=== PATIENT | female | born 1940 | race Two or more races ===

== ENCOUNTER 2016-07-18 08:54 | Outpatient (CLI) | payer MEDICARE ==
[~2016-07-18] VITALS: Ht 157.5 cm; Wt 55.7 kg
[~2016-07-18 08:54] MED LIST: /ESOM40CA; /ESOM40CA OR; /FEXO18TA OR; /ONDA4TA OR; ACTI300C; ACTI300C OR; ALBU17IN INH; AMIT50TA PO; AMIT50TA2 OR; ASPI325T; AUGM12TA10 PO; CARV3.12 PO; CARV6.25 PO; COLA100C PO; DARV100T OR; DEXI30CA PO; DOC-Q-LACE PO; ECOT325T3 PO; ECOT325T5 OR; ESOM1CAP5 PO; FENO134C PO; FERR325T3 PO; FLON0.05; HYDR-4266 PO; HYDR10TAB PO; HYDR25T PO; HYDROXYCHLOROQUINE PO; KEPP500T6 PO; LEVA250T; LEVA500T OR; LEVE750T5 PO; LIDO5DIS EX; MELA0.02 PO; MIRA3350 PO; NIFE60TA6 PO; NIFE60TA8; NIFE60TA8 OR; PREG50CA PO; QUES4POW PO; REST0.05 OU; SUCR1SS PO; SYST1SOL OU; TRIC145T19; TRIC145T19 OR; TYLE325T5 PO; VICO5TAB; VICO5TAB OR; VITA100066 PO; VITA100T OR; VITA20002; VITAMIN D PO; VITAMIN D50000 UNT OR; WELCHOL; WELCHOL PO; ZOFR4TAB3 PO; ZOLO50TA PO; [UNRECOGNIZED DRUG - OTHER]
[2016-07-18] MEDS ORDERED: IRON SUCROSE 25 MG in NS 50 ML IV ONE (09:15)
[2016-07-18] MEDS ORDERED: IRON SUCROSE 475 MG in NS 250 ML IV ONE (10:15)
== END 2016-07-18 13:50 | disposition home or self-care (01) ==
LOC: M INFU 08:54
PROVIDERS: ATTEND Internal Medicine Nephrology
DX: D50.9 Iron deficiency anemia, unspecified (principal); I10 Essential (primary) hypertension; I63.9 Cerebral infarction, unspecified; K21.9 Gastro-esophageal reflux disease without esophagitis; M54.2 Cervicalgia; F32.9 Major depressive disorder, single episode, unspecified; Z88.1 Allergy status to other antibiotic agents; Z88.8 Allergy status to other drugs, medicaments and biological substances; Z79.82 Long term (current) use of aspirin; Z79.899 Other long term (current) drug therapy
CPT/HCPCS: 96365; 96366; J1756

== ENCOUNTER 2016-08-16 19:24 | Inpatient (IN) | payer MEDICARE ==
[~2016-08-16] VITALS: Ht 157.5 cm; Wt 54.8 kg
[~2016-08-16 19:24] MED LIST changes: +AZITHROMYCIN INJ 500 MG, VIAL MATE ADAPTER 1 EACH in D5W 250 ML IV SCH
[2016-08-16 20:43] LABS: ABG BASE EXCESS -5.8 (-2.0-2.0); ABG DEVICE NASAL CANN; ABG HCO3 17.4 MEQ/L (22.0-26.0); ABG PARTIAL PRESSURE CO2 26.8 mmHg (35.0-45.0); ABG PARTIAL PRESSURE O2 69.3 mmHg (75.0-100.0); ABG STANDARD HCO3 19.6 MEQ/L (22.0-26.0); ABG TOTAL CO2 18.2 MEQ/L (23.0-31.0)
[2016-08-16] MEDS: **hydrALAZINE** 10 MG TAB PO SCH (21:00)
[2016-08-16 21:10] LABS: BASO % 0.2 % (0.0-1.0); EOS # 0.1 K/mm3 (0.0-0.50); LARGE UNSTAINED CELL % 0.5 % (0.0-4.0); LYMPH # 0.8 K/mm3 (1.5-4.5); LYMPH % 8.3 % (24.0-44.0); MEAN CORPUSCULAR HEMOGLOBIN 28.1 pg (27.0-33.0); MEAN CORPUSCULAR HGB CONC 32.4 g/dl (32.0-36.5); MEAN CORPUSCULAR VOLUME 86.5 fl (80.0-96.0); MONO # 0.2 K/mm3 (0.0-0.8); MONO % 2.5 % (0.0-5.0); NEUTROPHILS # 7.9 K/mm3 (1.8-7.7); NEUTROPHILS % 87.5 % (36.0-66.0); PLATELET COUNT, AUTOMATED 167 k/mm3 (150-450); RED CELL DISTRIBUTION WIDTH 14.9 % (11.5-14.5)
[2016-08-16 21:43] LABS: ALBUMIN 2.3 GM/DL (3.2-5.2); ALBUMIN/GLOBULIN RATIO 0.79 (1.00-1.93); ALKALINE PHOSPHATASE 118 U/L (45-117); ALT/SGPT 15 U/L (12-78); ANION GAP 10 MEQ/L (8-16); AST/SGOT 25 U/L (15-37); BILIRUBIN,DIRECT 0.2 MG/DL (0.0-0.2); BILIRUBIN,TOTAL 0.8 MG/DL (0.2-1.0); BLOOD UREA NITROGEN 26 MG/DL (7-18); CALCIUM LEVEL 7.7 MG/DL (8.8-10.2); CARBON DIOXIDE LEVEL 21 MEQ/L (21-32); CHLORIDE LEVEL 107 MEQ/L (98-107); CREATININE FOR GFR 1.98 MG/DL (0.55-1.02); GLUCOSE, FASTING 89 MG/DL (83-110); POTASSIUM SERUM 3.9 MEQ/L (3.5-5.1); SODIUM LEVEL 138 MEQ/L (136-145); TOTAL PROTEIN 5.2 GM/DL (6.4-8.2)
[2016-08-16] MEDS ORDERED: ACETAMINOPHEN 325 MG TAB As Ordered ONE (22:57)
[2016-08-16] MEDS ORDERED: VITA500046 PO (23:13)
[2016-08-16] MEDS ORDERED: ASPI32ECTA PO (23:13)
[2016-08-16] MEDS ORDERED: AMIT50TA PO (23:19)
[2016-08-16] MEDS ORDERED: BACITAB3 PO (23:19)
[2016-08-16] MEDS ORDERED: PRED10TA PO (23:19)
[2016-08-16] MEDS ORDERED: ESOM1CAP5 PO (23:19)
[2016-08-16] MEDS ORDERED: DIPH25CA PO (23:19)
[2016-08-16] MEDS ORDERED: CARV3.12 PO (23:19)
[2016-08-16] MEDS ORDERED: HYDR10TAB PO (23:19)
[2016-08-16] MEDS ORDERED: CEPH500T PO (23:19)
[2016-08-16] MEDS ORDERED: SYST1SOL OU (23:19)
[2016-08-16] MEDS ORDERED: REST0.05 OU (23:19)
[2016-08-16] MEDS ORDERED: GABA-279 PO (23:19)
[2016-08-16] MEDS ORDERED: diphenhydrAMINE 50 MG CAP PO PRN (23:30)
[2016-08-16] MEDS ORDERED: ONDANSETRON 4MG/2ML VIAL (J2405) IV PRN (23:30)
[2016-08-16] MEDS ORDERED: ACETAMINOPHEN TAB 650MG DOSE (2X325MG) PO PRN (23:30)
[2016-08-16] MEDS ORDERED: IPRATROPIUM 0.5MG/ALBUTEROL 2.5MG INH SOL UD 3ML (DUONEB)(J7620) NEB PRN (23:30)
[2016-08-16] MEDS ORDERED: ZOSYN 3.375 GM VIAL (J2543) As Ordered ONE (23:42)
[2016-08-17] MEDS ORDERED: SYSTANE EYE DROPS (PATIENT'S OWN MED) OU PRN (01:00)
--- NOTE | 2016-08-17 03:33 | EDDOCDS ---
Physician Documentation [facility] Name: Irasema Kiran Age: 76 yrs Sex: Female : 1940 Arrival Date: 08/16/2016 Time: 19:24 Bed 8 Private MD: Disposition: 08/16/16 23:18 Hospitalization ordered by Braxton Giang for Inpatient Admission. Preliminary diagnosis are Altered mental status, unspecified, Pneumonia, unspecified organism. - Bed requested for 5 Peters. - Status is Inpatient Admission. ld5 - Condition is Stable. - Problem is new. - Symptoms have improved. Historical: - Allergies: Cipro PO; Miralax; - Home Meds: 1. Nifediac CC 60 mg Oral TbER 1 tab once daily 2. prednisone 10 mg Oral tab 3 tabs once daily 3. amitriptyline 50 mg Oral tab 1 tab nightly 4. levetiracetam 500 mg oral tab 1 tab 2 times per day 5. cephalexin 500 mg Oral cap 1 cap every 12 hours 6. carvedilol 3.125 mg oral tab 1 tab daily 7. esomeprazole magnesium 40 mg Oral cpDR 1 cap once daily 8. gabapentin 100 mg Oral tab 100 mg three times a day 9. Vitamin D3 [place] 55843 unit weekly 10. hydralazine 10 mg Oral tab 1 tab 2 times per day 11. diphenhydramine HCl 25 mg Oral cap 1 cap as needed - PMHx: CRD; CVA; dizziness; GERD; Hypertension; Pancreatitis; Dementia; - PSHx: common bile duct bypass; Cholecystectomy; right ankle surgery; - Family history: Not pertinent. - Social history: Smoking status: Patient states was never smoker of tobacco. No barriers to communication noted, The patient speaks fluent [place], Speaks appropriately for age. - : The pt / caregiver states he / she is not on anticoagulants. Home medication list is obtained from pill bottles. - Exposure Risk Screening:: None identified. Vital Signs: 08/16 19:39 BP 189 / 94; Pulse 85; Resp 20; Temp 100.8; Pulse Ox 94% ; Weight 60.65 kg / 133.71 lbs jlm (M); 19:57 BP 212 / 96 (auto/); ld5 19:57 Pulse 80 MON; Pulse Ox 99% ; ld5 20:02 BP 225 / 102 (auto/); ld5 20:03 Pulse 82 MON; Pulse Ox 95% ; ld5 20:08 Pulse 82 MON; Pulse Ox 96% ; ld5 20:08 BP 232 / 101 (auto/); ld5 20:28 Pulse 82 MON; Pulse Ox 95% ; ld5 20:28 BP 215 / 91 (auto/); ld5 20:38 BP 221 / 93 (auto/); ld5 20:38 Pulse 80 MON; Pulse Ox 96% ; ld5 20:53 Pulse 82 MON; Pulse Ox 97% ; ld5 20:53 BP 223 / 112 (auto/); ld5 21:23 BP 224 / 100 (auto/); ld5 21:23 Pulse 84 MON; Pulse Ox 95% ; ld5 21:53 BP 236 / 96 (auto/); ld5 21:53 Pulse 86 MON; Pulse Ox 94% ; ld5 22:01 BP 203 / 87 (auto/); ld5 22:01 Pulse 86 MON; Pulse Ox 99% ; ld5 22:08 BP 202 / 88 (auto/); ld5 22:08 Pulse 86 MON; Pulse Ox 96% ; ld5 22:40 BP 189 / 81 LA (man/); ld5 22:47 Temp 101.8(O); [facility] 08/17 00:23 BP 173 / 77; Pulse 86 MON; Resp 18; Temp 99.1(O); Pulse Ox 94% ; ld5 00:38 Pulse 88 MON; Pulse Ox 94% ; ld5 00:38 BP 173 / 75 (auto/); ld5 00:53 Pulse 90 MON; Pulse Ox 94% ; ld5 00:53 BP 160 / 64 (auto/); ld5 01:08 BP 143 / 65 (auto/); ld5 01:08 Pulse 90 MON; Pulse Ox 94% ; ld5 01:23 BP 151 / 70 (auto/); ld5 01:23 Pulse 90 MON; Pulse Ox 96% ; ld5 01:38 BP 152 / 72 (auto/); ld5 01:38 Pulse 88 MON; Pulse Ox 95% ; ld5 02:23 BP 158 / 74 (auto/); ld5 02:23 Pulse 80 MON; Pulse Ox 96% ; ld5 02:38 BP 144 / 67 (auto/); ld5 02:38 Pulse 86 MON; Pulse Ox 96% ; ld5 02:53 BP 163 / 80 (auto/); ld5 02:53 Pulse 76 MON; Resp 16; Temp 99; Pulse Ox 96% ; ld5 03:23 BP 142 / 65 (auto/); ld5 03:23 Pulse 72 MON; Pulse Ox 96% ; ld5 MDM: 08/16 20:03 Performance Improvement Coordinator/Pulse Ox/q 15 min VS ordered. fg 20:03 Accucheck ordered. fg 20:03 IV Saline Lock ordered. fg 20:03 Oxygen at 4L/Min NC or Home dosage ordered. fg 20:03 Rhythm Strip to chart ordered. fg 20:05 CT Head Without Contrast Ordered. EDMS 20:05 CT Spine,Cervical W/o Contrast Ordered. EDMS 20:05 Acetaminophen Level Ordered. EDMS 20:05 CBC with Diff Ordered. EDMS 20:05 Cardiac Injury Profile Ordered. EDMS 20:05 Liver Profile Ordered. EDMS 20:05 MED Profile Ordered. EDMS 20:05 Salicylate Level Ordered. EDMS 20:05 Thyroid Stimulating Hormone Ordered. EDMS 20:05 Urinalysis Ordered. EDMS 20:05 Urine Culture Ordered. EDMS 20:05 Chest, 1 View Ordered. EDMS 20:05 ECG WITH READING ER PHYS+CARDIAG ordered. EDMS 20:08 Call Respiratory ordered. fg 20:08 Call Respiratory complete. ml3 20:09 Ammonia ([place] Tube on Ice, Not [place]) Ordered. EDMS 20:09 -Arterial Blood Gas Ordered. EDMS 21:56 Financial registration complete. [email or web address] 21:56 [facility] [place] Agreement was scanned into [employer] and attached to record. [email or web address] 22:49 -Blood Culture (Adults Only), peripheral from different site, or from device/port/PICC fg etc. if present ordered. 22:49 Acetaminophen Tablet 650 mg PO once ordered. fg 22:49 Piperacillin-Tazobactam 3.375 grams IVPB once over 30 mins; dilute in 50mL of NS or D5W fg ordered. 22:50 Lactic Acid ([place] tube on ice) Ordered. EDMS 22:50 -Blood Culture Ordered. EDMS 22:50 -Influenza A&B Rapid Antigen - Nose Ordered. EDMS 22:50 STREP SCREEN NEGATIVE - GATS Ordered. EDMS 22:50 -Blood Culture (Adults Only), peripheral from different site, or from device/port/PICC ml3 etc. if present complete. 22:51 BLOOD CULTURES Ordered. EDMS 22:52 BED REQUEST+ADM ordered. EDMS 23:29 Admission / Observation Status ordered. EDMS 23:29 REGULAR DIET ordered. EDMS 23:30 COMPLETE BLOOD COUNT Ordered. EDMS 23:31 BASIC METABOLIC PROFILE Ordered. EDMS 23:38 PHYSICAL THERAPY EVAL & TREAT ordered. EDMS 23:59 Written Provider Order was scanned into [employer] and attached to record. ml3 08/17 00:01 hydrALAZINE 10 mg PO once ordered. ld5 01:02 SPUTUM CULTURE AND GRAM STAIN Ordered. EDMS Administered Medications: 08/16 23:15 Drug: Acetaminophen 650 mg [acetaminophen 325 mg tablet (2 tabs)] Route: PO; ld5 08/17 00:58 Follow up: Response: Temperature is decreased ld5 08/16 23:53 Drug: Piperacillin-Tazobactam 3.375 grams [piperacillin-tazobactam 3.375 gram ld5 intravenous solution] Route: IVPB; Infused Over: 30 mins; Site: left antecubital; 08/17 00:58 Follow up: IV Status: Completed infusion; IV Intake: 50ml ld5 00:34 Drug: hydrALAZINE 10 mg {Note: 10 mg tablet.} Route: PO; ld5 03:31 Follow up: Response: Blood pressure is improved ld5 Signatures: Dispatcher [employer] EDCA Keira RodriguezEligioAlessandra, Automatic Emb[employer]ider[employer] Machine Tender Unit ml3 Rebecca Nguyen,JOSH RN ld5 Kelsie Marquez MD MD fg Sorenson, Kimberly, Reg Reg [email or web address] The chart was reviewed and I authenticate all verbal orders and agree with the evaluation and treatment provided.Attachments: 08/16 21:56 [facility] Payment Agreement [email or web address] 23:59 Written Provider Order ml3 MTDD
--- NOTE | 2016-08-17 03:33 | EDDOCDS ---
Nurse's Notes [facility] Name: Irasema Kiran Age: 76 yrs Sex: Female : 1940 Arrival Date: 08/16/2016 Time: 19:24 Bed 8 Private MD: Diagnosis: Altered mental status, unspecified;Pneumonia, unspecified organism Presentation: 08/16 19:28 Presenting complaint: EMS states: Since Monday pt has had increasing altered LOC, ld5 increasing weakness and abnormal speech. History of TIA. The last date and time the patient was known to be well was was at an unknown time on August 12, 2016. An acute neurological deficit is present. The patient has been moved to a treatment area. The patients blood glucose was checked before arriving to the hospital and was found to be normal. Adult Sepsis Screening: Patient has new or worsening altered mentation (1 point). Suicide/Homicide risk assessment- Unable to assess, the patient has an altered level of consciousness. 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 Transition of care: patient was not received from another setting of care. Care prior to arrival: IV initiated. Glucose check. 146. 19:28 Acuity: SHERRY Level 2 ld5 19:28 Method Of Arrival: Ambulance ld5 19:30 Adult Sepsis Screening: Patient's respiratory rate is less than 22. Systolic blood ld5 pressure is greater than 100. Patient has a qSOFA score of 0- Negative Sepsis Screen. 19:42 Presenting complaint: Son reports going to [employer] Monday night for dinner and pt ld5 had 2 beers. They then went to the [employer] and pt had 4 more beers. They were closing so they went to the local store to get her a 6-pack. When they got home she said she was going to stay up and drink her beer. Son found her on the floor at 0030 Monday. Pt slept all day Monday with the exception of a few bathroom breaks. Monday morning son heard pt fall in the bathroom. Son helped her up. Pt fell again Monday afternoon. Pt had no complaints except leg pain. Son states pt possibly took more than prescribed dose of Amitriptyline around 1100 today. Triage Assessment: 19:37 The onset of the patients symptoms was more than three hours ago. General: Appears in ld5 no apparent distress, Behavior is pt unable to follow commands. Pain: Location: left arm. Neurological: Level of Consciousness is awake, confused, Oriented to person, place, Tower Climber are weak bilaterally Speech is slurred. Respiratory: Airway is patent Respiratory effort is even, unlabored. GI: Parent/caregiver reports the patient having son reports decreased oral intake. 08/17 03:03 Neurological: Reports weakness. ld5 Historical: - Allergies: Cipro PO; Miralax; - Home Meds: 1. Nifediac CC 60 mg Oral TbER 1 tab once daily 2. prednisone 10 mg Oral tab 3 tabs once daily 3. amitriptyline 50 mg Oral tab 1 tab nightly 4. levetiracetam 500 mg oral tab 1 tab 2 times per day 5. cephalexin 500 mg Oral cap 1 cap every 12 hours 6. carvedilol 3.125 mg oral tab 1 tab daily 7. esomeprazole magnesium 40 mg Oral cpDR 1 cap once daily 8. gabapentin 100 mg Oral tab 100 mg three times a day 9. Vitamin D3 oral oral [id number] unit weekly 10. hydralazine 10 mg Oral tab 1 tab 2 times per day 11. diphenhydramine HCl 25 mg Oral cap 1 cap as needed - PMHx: CRD; CVA; dizziness; GERD; Hypertension; Pancreatitis; Dementia; - PSHx: common bile duct bypass; Cholecystectomy; right ankle surgery; - Family history: Not pertinent. - Social history: Smoking status: Patient states was never smoker of tobacco. No barriers to communication noted, The patient speaks fluent Lithuanian, Speaks appropriately for age. - : The pt / caregiver states he / she is not on anticoagulants. Home medication list is obtained from pill bottles. - Exposure Risk Screening:: None identified. Screenin:57 Screening information is obtained from the patient, family members, prior medical ld5 records. Fall risk: At risk due to age, immobility. Assistance ADL's: Requires assistance with meal preparation, this assistance is provided by family members, bathing, assistance is provided by family members, medication administration, assistance is provided by family members. Abuse/DV Screen: The patient / caregiver reports he/she is: not in a situation that causes fear, pain or injury. Nutritional screening: No deficits noted. Advance Directives: There is no active DNR order. home support is adequate. Assessment: 08/16 20:05 General: Appears in no apparent distress, Behavior is restless. Pain: Location: left ld5 arm Quality of pain is described as from IV site. Neurological: Level of Consciousness is awake, confused, Oriented to person, place. Respiratory: Airway is patent Respiratory effort is even, unlabored, Breath sounds are clear bilaterally. GI: Abdomen is non- distended Bowel sounds present X 4 quads. Abd is soft and non tender X 4 quads. Parent/caregiver reports the patient having constipation. : Denies burning with urination, pain with urination. Derm: Skin is intact, Skin is dry. 20:40 General: Appears in no apparent distress, Behavior is quiet. General: Supportive family ld5 at bedside. Will continue to monitor. Neurological: Level of Consciousness is awake, obeys commands. Respiratory: Airway is patent Respiratory effort is even, unlabored. 21:00 General: Pt moves arm and has difficulty keeping still when BP cuff goes off. ld5 21:05 General: Pt laying in bed. Speech remains slurred but pt not as delayed with answering ld5 questions. Respirations easy and unlabored. Pt able to push self up in bed with little help. Will continue to monitor. 22:18 General: Appears in no apparent distress, Pt repositioned in bed. Family at bedside. ld5 Will continue to monitor. Neurological: Tower Climber are weak bilaterally. Respiratory: Airway is patent Respiratory effort is even, unlabored. 22:40 General: BP remains elevated on dynamap. Pt continues to not keep still when BP cuff ld5 inflates. 23:16 General: Pt medicated per orders for fever. Pt and family aware of plan for admission. ld5 Lab aware of need to draw blood. Antibiotic then to be hung. Will continue to monitor. 08/17 00:20 General: Appears in no apparent distress, Behavior is cooperative. Pain: Denies pain. ld5 Neurological: Level of Consciousness is awake, obeys commands. Respiratory: Airway is patent Respiratory effort is even, labored. 00:55 General: Pt assisted to bedpan. Tolerated well. Pt repositioned in bed for comfort. ld5 Will continue to monitor. 01:52 General: Appears in no apparent distress, Pt resting comfortably in bed. Denies any ld5 needs. Awaiting assigned bed to be available. 02:16 General: Pt assisted with bedpan. Tolerated well. Repositioned in bed. Will continue to ld5 monitor. 02:58 General: Pt resting quietly in bed. Respirations easy and unlabored. Will continue to ld5 monitor. 03:31 General: Appears in no apparent distress, Behavior is cooperative. Respiratory: Airway ld5 is patent Respiratory effort is even, unlabored. Vital Signs: 08/16 19:39 BP 189 / 94; Pulse 85; Resp 20; Temp 100.8; Pulse Ox 94% ; Weight 60.65 kg (M); jlm 19:57 BP 212 / 96 (auto/); ld5 19:57 Pulse 80 MON; Pulse Ox 99% ; ld5 20:02 BP 225 / 102 (auto/); ld5 20:03 Pulse 82 MON; Pulse Ox 95% ; ld5 20:08 Pulse 82 MON; Pulse Ox 96% ; ld5 20:08 BP 232 / 101 (auto/); ld5 20:28 Pulse 82 MON; Pulse Ox 95% ; ld5 20:28 BP 215 / 91 (auto/); ld5 20:38 BP 221 / 93 (auto/); ld5 20:38 Pulse 80 MON; Pulse Ox 96% ; ld5 20:53 Pulse 82 MON; Pulse Ox 97% ; ld5 20:53 BP 223 / 112 (auto/); ld5 21:23 BP 224 / 100 (auto/); ld5 21:23 Pulse 84 MON; Pulse Ox 95% ; ld5 21:53 BP 236 / 96 (auto/); ld5 21:53 Pulse 86 MON; Pulse Ox 94% ; ld5 22:01 BP 203 / 87 (auto/); ld5 22:01 Pulse 86 MON; Pulse Ox 99% ; ld5 22:08 BP 202 / 88 (auto/); ld5 22:08 Pulse 86 MON; Pulse Ox 96% ; ld5 22:40 BP 189 / 81 LA (man/); ld5 22:47 Temp 101.8(O); jlm 08/17 00:23 BP 173 / 77; Pulse 86 MON; Resp 18; Temp 99.1(O); Pulse Ox 94% ; ld5 00:38 Pulse 88 MON; Pulse Ox 94% ; ld5 00:38 BP 173 / 75 (auto/); ld5 00:53 Pulse 90 MON; Pulse Ox 94% ; ld5 00:53 BP 160 / 64 (auto/); ld5 01:08 BP 143 / 65 (auto/); ld5 01:08 Pulse 90 MON; Pulse Ox 94% ; ld5 01:23 BP 151 / 70 (auto/); ld5 01:23 Pulse 90 MON; Pulse Ox 96% ; ld5 01:38 BP 152 / 72 (auto/); ld5 01:38 Pulse 88 MON; Pulse Ox 95% ; ld5 02:23 BP 158 / 74 (auto/); ld5 02:23 Pulse 80 MON; Pulse Ox 96% ; ld5 02:38 BP 144 / 67 (auto/); ld5 02:38 Pulse 86 MON; Pulse Ox 96% ; ld5 02:53 BP 163 / 80 (auto/); ld5 02:53 Pulse 76 MON; Resp 16; Temp 99; Pulse Ox 96% ; ld5 03:23 BP 142 / 65 (auto/); ld5 03:23 Pulse 72 MON; Pulse Ox 96% ; ld5 Vitals: 08/16 19:39 Log In Time N/A - ambulance arrival. [facility] 23:16 Strep Screen is obtained and tested: Negative, a GATSNEG [facility] and sent. 08/17 03:03 Glucose Measurement D-Stick in Triage- Normal. ld5 ED Course: 08/16 19:25 Patient visited by Barb Rodriguez, Veneer Sawyer. ml3 19:25 Kelsie Marquez MD is Attending Physician. fg 19:25 Patient visited by Kelsie Marquez MD. fg 19:25 Patient moved to Waiting ml3 19:25 Patient moved to 8 ml3 19:31 Triage Initiated ld5 19:40 Patient visited by Vianca Wong, Veneer Sawyer. jlm 19:46 Patient visited by Rebecca Nguyen,RN. ld5 19:52 Patient visited by Rebecca Nguyen,RN. ld5 20:33 Skylar Dutton,RN is Primary Nurse. dsf 20:35 -Arterial Blood Gas Sent. jc3 20:45 Patient visited by Rebecca Nguyen,RN. ld5 20:50 EKG done. (by ED staff). Reviewed by Kelsie Marquez MD. jlm 20:51 Patient visited by Vianca Wong, Veneer Sawyer. jlm 21:56 [facility] [place] [facility] [place] Agreement was scanned into [employer] and attached to record. ks16 21:59 Patient name changed from Irasema\S\\S\Kiran\S\ to Irasema\S\ \S\Kiran. EDMS 22:11 Patient visited by Scott Goodrich PCA. kb5 22:22 Patient visited by Rebecca Nguyen,JOSH. ld5 22:48 Patient visited by Vianca Wong, Veneer Sawyer. jlm 23:15 -Influenza A&B Rapid Antigen - Nose Sent. ld5 23:15 STREP SCREEN NEGATIVE - GATS Sent. ld5 23:17 Patient visited by Rebecca Nguyen,JOSH. ld5 23:17 Braxton Giang DO is Hospitalizing Provider. fg 23:59 Written Provider Order was scanned into [employer] and attached to record. ml3 08/17 00:35 Patient visited by Rebecca Nguyen,JOSH. ld5 00:57 The patient / caregiver is instructed regarding the plan of care and ED course. ld5 Accompanied by Family Member, Patient has correct armband on for positive identification. Placed in gown. Bed in low position. Call light in reach. 00:57 Maintain field IV. Site clean & dry. Gauge & site: 22g left AC. No procedures done that ld5 require assistance. 00:58 Patient visited by Rebecca Nguyen RN. ld5 01:53 Patient visited by Rebecca Nguyen,JOSH. ld5 02:17 Patient visited by Rebecca Nguyen,JOSH. ld5 03:03 Patient visited by Rebecca Nguyen,JOSH. ld5 Administered Medications: 08/16 23:15 Drug: Acetaminophen 650 mg [acetaminophen 325 mg tablet (2 tabs)] Route: PO; ld5 08/17 00:58 Follow up: Response: Temperature is decreased ld5 08/16 23:53 Drug: Piperacillin-Tazobactam 3.375 grams [piperacillin-tazobactam 3.375 gram ld5 intravenous solution] Route: IVPB; Infused Over: 30 mins; Site: left antecubital; 08/17 00:58 Follow up: IV Status: Completed infusion; IV Intake: 50ml ld5 00:34 Drug: hydrALAZINE 10 mg {Note: 10 mg tablet.} Route: PO; ld5 03:31 Follow up: Response: Blood pressure is improved ld5 Intake: 00:58 IV: 50.00ml; Total: 50.00ml. ld5 Output: 00:56 Urine: 150.00ml (Voided); Total: 150.00ml. ld5 02:16 Urine: 200.00ml (Voided); Total: 350.00ml. ld5 RT: 08/16 20:35 ABG's drawn from right radial artery pressure held for 5 minutes no bleeding noted jc3 pressure bandage applied specimen sent pt. tolerated well. Order Results: Lab Order: Acetaminophen Level; SPEC'M 08/16/16 20:47 Test: ACETAMINOPHEN LEVEL; Value: < 2.0; Range: 10.0-30.0; Abnormal: Below low normal; Units: UG/ML; Status: F Lab Order: CBC with Diff; SPEC'M 08/16/16 20:47 Test: WHITE BLOOD COUNT; Value: 9.0; Range: 4.0-10.0; Units: K/mm3; Status: F Test: RED BLOOD COUNT; Value: 3.71; Range: 4.00-5.40; Abnormal: Below low normal; Units: M/mm3; Status: F Test: HEMOGLOBIN; Value: 10.4; Range: 12.0-16.0; Abnormal: Below low normal; Units: g/dl; Status: F Test: HEMATOCRIT; Value: 32.1; Range: 36.0-47.0; Abnormal: Below low normal; Units: %; Status: F Test: MEAN CORPUSCULAR VOLUME; Value: 86.5; Range: 80.0-96.0; Units: fl; Status: F Test: MEAN CORPUSCULAR HEMOGLOBIN; Value: 28.1; Range: 27.0-33.0; Units: pg; Status: F Test: MEAN CORPUSCULAR HGB CONC; Value: 32.4; Range: 32.0-36.5; Units: g/dl; Status: F Test: RED CELL DISTRIBUTION WIDTH; Value: 14.9; Range: 11.5-14.5; Abnormal: Above high normal; Units: %; Status: F Test: PLATELET COUNT, AUTOMATED; Value: 167; Range: 150-450; Units: k/mm3; Status: F Test: NEUTROPHILS %; Value: 87.5; Range: 36.0-66.0; Abnormal: Above high normal; Units: %; Status: F Test: LYMPH %; Value: 8.3; Range: 24.0-44.0; Abnormal: Below low normal; Units: %; Status: F Test: MONO %; Value: 2.5; Range: 0.0-5.0; Units: %; Status: F Test: EOS %; Value: 1.0; Range: 0.0-3.0; Units: %; Status: F Test: BASO %; Value: 0.2; Range: 0.0-1.0; Units: %; Status: F Test: LARGE UNSTAINED CELL %; Value: 0.5; Range: 0.0-4.0; Units: %; Status: F Test: NEUTROPHILS #; Value: 7.9; Range: 1.8-7.7; Abnormal: Above high normal; Units: K/mm3; Status: F Test: LYMPH #; Value: 0.8; Range: 1.5-4.5; Abnormal: Below low normal; Units: K/mm3; Status: F Test: MONO #; Value: 0.2; Range: 0.0-0.8; Units: K/mm3; Status: F Test: EOS #; Value: 0.1; Range: 0.0-0.50; Units: K/mm3; Status: F Test: BASO #; Value: 0.0; Range: 0.0-0.2; Units: K/mm3; Status: F Test: LARGE UNSTAINED CELL #; Value: 0.0; Range: 0.0-0.4; Units: K/mm3; Status: F Lab Order: Cardiac Injury Profile; SPEC'M 08/16/16 20:47 Test: CPK CREATINE PHOSPHOKINASE; Value: 95; Range: 26-192; Units: U/L; Status: F Test: CK-MB VALUE MASS; Value: 3.9; Range: 0.0-3.6; Abnormal: Above high normal; Units: NG/ML; Status: F Test: MB/CK RELATIVE INDEX; Value: 4.10; Range: < OR =4; Abnormal: Above high normal; Status: F Test Note: ; DIAGNOSIS CRITERIA MMB ng/ml Relative Index (RI) NON-AMI < or = 5 N/A BATEMAN ZONE > 5 < or = 4 AMI > 5 > 4 Lab Order: Liver Profile; SPEC'M 08/16/16 20:47 Test: AST/SGOT; Value: 25; Range: 15-37; Units: U/L; Status: F Test: ALT/SGPT; Value: 15; Range: 12-78; Units: U/L; Status: F Test: ALKALINE PHOSPHATASE; Value: 118; Range: 45-117; Abnormal: Above high normal; Units: U/L; Status: F Test: BILIRUBIN,TOTAL; Value: 0.8; Range: 0.2-1.0; Units: MG/DL; Status: F Test: BILIRUBIN,DIRECT; Value: 0.2; Range: 0.0-0.2; Units: MG/DL; Status: F Test: TOTAL PROTEIN; Value: 5.2; Range: 6.4-8.2; Abnormal: Below low normal; Units: GM/DL; Status: F Test: ALBUMIN; Value: 2.3; Range: 3.2-5.2; Abnormal: Below low normal; Units: GM/DL; Status: F Test: ALBUMIN/GLOBULIN RATIO; Value: 0.79; Range: 1.00-1.93; Abnormal: Below low normal; Status: F Lab Order: MED Profile; SPEC'M 08/16/16 20:47 Test: GLUCOSE, FASTING; Value: 89; Range: 83-110; Units: MG/DL; Status: F Test: BLOOD UREA NITROGEN; Value: 26; Range: 7-18; Abnormal: Above high normal; Units: MG/DL; Status: F Test: CREATININE FOR GFR; Value: 1.98; Range: 0.55-1.02; Abnormal: Above high normal; Units: MG/DL; Status: F Test: GLOMERULAR FILTRATION RATE; Value: 26.0; Range: >39; Abnormal: Below low normal; Status: F Test: SODIUM LEVEL; Value: 138; Range: 136-145; Units: MEQ/L; Status: F Test: POTASSIUM SERUM; Value: 3.9; Range: 3.5-5.1; Units: MEQ/L; Status: F Test: CHLORIDE LEVEL; Value: 107; Range: 98-107; Units: MEQ/L; Status: F Test: CARBON DIOXIDE LEVEL; Value: 21; Range: 21-32; Units: MEQ/L; Status: F Test: ANION GAP; Value: 10; Range: 8-16; Units: MEQ/L; Status: F Test: CALCIUM LEVEL; Value: 7.7; Range: 8.8-10.2; Abnormal: Below low normal; Units: MG/DL; Status: F Test Note: ; Units are mL/min/1.73 m2 Chronic Kidney Disease Staging per NKF: Stage I & II GFR >=60 Normal to Mildly Decreased Stage III GFR 30-59 Moderately Decreased Stage IV GFR 15-29 Severely Decreased Stage V GFR <15 Very Little GFR Left ESRD GFR <15 on C[employer]IN[employer]NSH[employer] Lab Order: Salicylate Level; [facility] 08/16/16 20:47 Test: SALICYLATE LEVEL; Value: < 1.7; Range: 5.0-30.0; Abnormal: Below low normal; Units: MG/DL; Status: F Lab Order: Thyroid Stimulating Hormone; [facility] 08/16/16 20:47 Test: THYROID STIMULATING HORMONE; Value: 2.260; Range: 0.358-3.740; Units: uIU/ML; Status: F Lab Order: Urinalysis; [facility] 08/16/16 21:18 Test: APPEARANCE, URINE; Value: CLEAR; Range: CLEAR; Status: F Test: COLOR, URINE; Value: STRAW; Range: YELLOW; Status: F Test: PH,URINE; Value: 6.0; Range: 5.0-9.0; Units: UNITS; Status: F Test: SPECIFIC GRAVITY URINE AUTO; Value: 1.002; Range: 1.002-1.035; Status: F Test: PROTEIN, URINE AUTO; Value: 2+; Range: NEGATIVE; Abnormal: Above high normal; Units: mg/dL; Status: F Test: GLUCOSE, URINE (UA) AUTO; Value: NEGATIVE; Range: NEGATIVE; Units: mg/dL; Status: F Test: KETONE, URINE AUTO; Value: NEGATIVE; Range: NEGATIVE; Units: mg/dL; Status: F Test: UROBILINOGEN, URINE AUTO; Value: 0.2; Range: 0.0-2.0; Units: mg/dL; Status: F Test: BILIRUBIN, URINE AUTO; Value: NEGATIVE; Range: NEGATIVE; Status: F Test: NITRITE, URINE AUTO; Value: NEGATIVE; Range: NEGATIVE; Status: F Test: LEUKOCYTE ESTERASE, URINE AUTO; Value: TRACE; Range: NEGATIVE; Abnormal: Above high normal; Status: F Test: BLOOD, URINE BLOOD; Value: 1+; Range: NEGATIVE; Abnormal: Above high normal; Status: F Test: WBC, URINE AUTO; Value: 8; Range: 0-3; Abnormal: Above high normal; Units: /HPF; Status: F Test: RBC, URINE AUTO; Value: 1; Range: 0-3; Units: /HPF; Status: F Test: BACTERIA, URINE AUTO; Value: NEGATIVE; Range: NEGATIVE; Status: F Test: SQUAMOUS EPITHELIAL CELL UR AU; Value: 0; Range: 0-6; Units: /HPF; Status: F Test: HYALINE CAST, URINE AUTO; Value: 0; Range: 0-1; Units: /LPF; Status: F Lab Order: Ammonia ([place] Tube on Ice, Not [place]); [facility] 08/16/16 20:47 Test: AMMONIA; Value: < 10; Range: <32; Units: uMOL/L; Status: F Lab Order: -Arterial Blood Gas; [facility] 08/16/16 20:35 Test: ABG pH (ARTERIAL); Value: 7.430; Range: 7.350-7.450; Units: UNITS; Status: F Test: ABG PARTIAL PRESSURE CO2; Value: 26.8; Range: 35.0-45.0; Abnormal: Below low normal; Units: mmHg; Status: F Test: ABG PARTIAL PRESSURE O2; Value: 69.3; Range: 75.0-100.0; Abnormal: Below low normal; Units: mmHg; Status: F Test: ABG TOTAL CO2; Value: 18.2; Range: 23.0-31.0; Abnormal: Below low normal; Units: MEQ/L; Status: F Test: ABG HCO3; Value: 17.4; Range: 22.0-26.0; Abnormal: Below low normal; Units: MEQ/L; Status: F Test: ABG BASE EXCESS; Value: -5.8; Range: -2.0-2.0; Abnormal: Below low normal; Status: F Test: ABG STANDARD HCO3; Value: 19.6; Range: 22.0-26.0; Abnormal: Below low normal; Units: MEQ/L; Status: F Test: ABG O2 SATURATION; Value: 93.4; Range: 95.0-99.0; Abnormal: Below low normal; Units: %; Status: F Test: ABG DEVICE; Value: NASAL DIANNA; Status: F Lab Order: Lactic Acid ([place] tube on ice); SPEC'M 08/16/16 23:24 Test: LACTIC ACID SEPSIS PROTOCOL; Value: 0.8; Range: 0.4-2.0; Units: MMOL/L; Status: F Lab Order: -Influenza A&B Rapid Antigen - Nose; SPEC'M 08/16/16 23:13 Test: INFLUENZA A RAPID SCR by ICA; Value: INFLUENZA A RESULTS NEGATIVE; Status: F Test: INFLUENZA A RAPID SCR by ICA; Value: Comments:; Status: F Test: INFLUENZA B RAPID SCR by ICA; Value: INFLUENZA B RESULTS NEGATIVE; Status: F Test Note: ; The Influenza test is a direct rapid immunoassay for the qualitative detection of Influenza viral antigen. Cell culture (Viral Culture) testing should be considered to confirm NEGATIVE results and to assist in detecting other viruses that can provide similar clinical symptoms. Please contact the lab within 24 hours ([phone]) if confirmatory testing is desired. Outcome: 23:18 Decision to Hospitalize by Provider. fg 08/17 02:59 CT Study completed. ld5 03:02 Discharge Assessment: Patient awake, alert and oriented x 3. No cognitive and/or ld5 functional deficits noted. Patient verbalized understanding of disposition instructions. patient administered narcotics - no. The following High Risk Discharge criteria are identified: None. Admitted to Med/Surg accompanied by tech, family with patient, via stretcher, with chart. Condition: stable. Property :Personal belongings accompany Pt. 03:32 Patient left the ED. ld5 Signatures: Dispatcher [employer] EDMS Barb Rodriguez, Veneer Sawyer Unit ml3 Scott Goodrich, MARLENE SKEIN BLEACHER kb5 Angel Barreto jc3 Rebecca Nguyen RN RN ld5 Skylar Dutton RN RN dsf Vianca Wong, Veneer Sawyer Unit Kelsie Alexis MD MD fg Sorenson, Kimberly, Reg Reg ks16 Corrections: (The following items were deleted from the chart) 00:52 00:23 BP 173 / 77 Auto; ld5 ld5 00:52 00:23 Pulse 86bpm; MonitorResp 18bpm; Pulse Ox 94%; Temp 99.1F Oral; ld5 ld5 02:59 02:53 Pulse 76bpm; Monitor; Pulse Ox 96%; ld5 ld5 MTDD
[2016-08-17 03:35] VITALS: BP 155/80
[2016-08-17] MEDS: AZITHROMYCIN INJ 500 MG, VIAL MATE ADAPTER 1 EACH in D5W 250 ML IV SCH (04:12)
[2016-08-17] MEDS: cefTRIAXone SOD 1 GM in D5W MINI-BAG PLUS 50 ML IV SCH (04:13)
[2016-08-17] MEDS: HEPARIN SOD (PORCINE) 5000 UNITS/ML VIAL SC SCH ×3 (05:49→20:40)
[2016-08-17] MEDS: IPRATROPIUM 0.5MG/ALBUTEROL 2.5MG INH SOL UD 3ML (DUONEB)(J7620) NEB SCH ×4 (05:50→23:50)
[2016-08-17 06:00] VITALS: BP 160/65
--- NOTE | 2016-08-17 06:38 | HPE ---
DATE OF ADMISSION: 08/16/2016 PRIMARY CARE PROVIDER: Dr. Forrester SPECIALISTS: None listed. CODE STATUS: Full code. CHIEF COMPLAINT: Generalized weakness, productive cough. HISTORY OF PRESENT ILLNESS: 76-year-old female patient of Dr. Dougherty that presented to the emergency department with her son and nephew. Apparently, 3-4 days ago, the son stated that he had taken her to [employer] for dinner. She had two beers there. Afterwards, she went to the [employer] and had four beers. She went home and had two additional beers. He stated that all day Monday into Monday that she continued to have increasing weakness. She has had a nonproductive cough which changed to a productive cough and some altered mental status. She denies any headache, but she has had some dizziness and generalized weakness. Denies fevers, chills. No nausea or vomiting. No chest pain. No abdominal pain. She does have a previous history of pancreatitis, recurrent urinary tract infections, previous cerebrovascular accident and chronic kidney disease. Otherwise at bedside, she does appear to be at present stable. The son did inform me that she had several episodes where she had fell this past weekend, but no head trauma. No loss of consciousness. No witnessed seizures. No bladder or bowel incontinence. PAST MEDICAL HISTORY: 1. Chronic kidney disease. 2. History of cerebrovascular accident. 3. Dizziness. 4. Gastroesophageal reflux disease. 5. Hypertension. 6. Pancreatitis. 7. Dementia. PAST SURGICAL HISTORY: 1. Common bile duct bypass. 2. Cholecystectomy. 3. Right ankle surgery. SOCIAL HISTORY: The patient lives with her son. No history of tobacco use; however, she does drink alcohol as apparent in her history of present illness (HPI). FAMILY HISTORY: Noncontributory. ALLERGIES: - CIPRO - MIRALAX HOME MEDICATIONS: - nifedipine 60 mg daily - prednisone 10 mg 3 tablets daily - amitriptyline 50 mg at bedtime - Keppra 500 mg 1 tablet twice a day - Keflex 500 mg twice a day - carvedilol 3.125 mg twice a day - esomeprazole 40 mg once daily - gabapentin 100 mg three times a day - vitamin D 3000 units weekly - Hydralazine 10 mg 1-2 tablets daily - Benadryl 25 mg 1 capsule daily as needed Please note that the patient has not taken her medications since Monday due to generalized illness and decreased appetite, but she feels that she does have an appropriate appetite this evening and she has been able tolerate by mouth intake. REVIEW OF SYSTEMS: Generalized weakness. Multiple falls over the weekend with no head trauma. No loss of consciousness. No witnessed seizure activity. HEENT: She has had some lightheadedness, some dizziness and weakness. No blurry vision, no difficulty with speech or swallow. No facial droop. Pulmonary: Productive cough. The son stated that he has noticed an audible wheeze and rattling when she breathes. She denies any hemoptysis. Cardiovascular: No substernal chest pain. No paroxysmal nocturnal dyspnea (PND) or orthopnea. Gastrointestinal (GI): No nausea, vomiting, or diarrhea. Bowel movements are regular. She denies any hematochezia or melena. Genitourinary (): No dysuria, frequency or hematuria. Musculoskeletal: Generalized weakness as stated above. No bone, muscle or joint pain swelling or erythema. She is able to move all four quadrants without any difficulty. Neurologic: No paresthesias or paralysis. She does have a history of seizure disorder and is on Keppra. Endocrine: Negative for diabetes. Negative for thyroid disorder. Lymphatics: No lumps, bumps or swelling in neck, axilla or groin. No night sweats. No weight loss. Hematology: No bleeding or bruising disorder. No history of venous thromboembolism. Oncology: No history of cancer. Psychiatric: Positive for depression. No suicidal ideation. No audio or visual hallucinations. 10-point review of systems completed and pertinent positives are as listed. PHYSICAL EXAMINATION: Temperature is 101.8, respiratory rate is 20 and nonlabored, pulse is 86, blood pressure (BP) initially 202/88 and now 163/82. We did give her a dose of her hydralazine that she has been missing for the last few days. HEENT: Head is atraumatic, normocephalic. There is some vague bilateral conjunctivitis noted for which she has been treated with outpatient cephalexin by her soaker hides. Throat is clear. Neck: Supple. Lungs: Rhonchi noted on the left. Expiratory wheeze. Heart: Regular rate and rhythm. Abdomen: Soft. Extremities: No edema. No calf tenderness. LABORATORY DATA: White count 9.0, hemoglobin 10.4 and platelets 167,000. Sodium is 138, potassium 3.9, chloride 107, bicarb 21, anion gap 10, BUN 26, creatinine 1.98, glucose 89, calcium 7.7, lactic acid 0.8, bilirubin 0.8, direct bilirubin 0.2, AST 25, alkaline phosphatase 118, CK 95, CK-MB 3.9, ammonia is less than 10, albumin is 2.3, TSH 2.26. Tylenol and salicylate levels are unremarkable. Urinalysis 2+ protein, 1+ blood, trace leukocyte esterase, 8 WBCs. Blood cultures pending times two. Influenza A and B are negative. Head CT shows no acute processes. She does have some microvascular changes. Chest x-ray did show a left lower lobe patchy infiltrate. cervical spine CT was unremarkable for any acute fracture. 12-lead EKG sinus rhythm, no acute ST-T wave abnormality noted. IMPRESSION: Ms. Kiran is a 76-year-old female with generalized weakness. It sounds like she has poor nutrition at baseline. She does appear to have a new left lower lobe pneumonia with patchy infiltrate on the chest x-ray. Her pneumonia severity score index is 88 points with a risk class III due to her generalized weakness. Will go ahead and admit her and start IV antibiotics. PROBLEM LIST: 1. Community acquired pneumonia. 2. Poorly controlled hypertension secondary to medical noncompliance. 3. History of dementia. 4. History of seizure disorder. 5. Prior history of CVA. 6. Intermittent dizziness. 7. Chronic kidney disease (CKD). 8. Pancreatitis. PLAN: The patient will be admitted to medical-surgical. I did go ahead and give her dose of hydralazine 2 mg by mouth times one now and will start her on a regular diet. Caking her home medications with hold for parameters on her blood pressure medications. Her antibiotic coverage will be switched to Rocephin and Zithromax IV. Will do blood culture, sputum cultures, Acapella, DuoNeb, and deep vein thrombosis (DVT) prophylaxis with heparin. Tomorrow morning, she will be seen by Dr. Goldstein.
[2016-08-17 06:59] LABS: MEAN CORPUSCULAR HGB CONC 32.9 g/dl (32.0-36.5); MEAN CORPUSCULAR VOLUME 85.3 fl (80.0-96.0); RED CELL DISTRIBUTION WIDTH 14.6 % (11.5-14.5); WHITE BLOOD COUNT 7.5 K/mm3 (4.0-10.0)
[2016-08-17 07:10] LABS: CALCIUM LEVEL 8.4 MG/DL (8.8-10.2); CREATININE FOR GFR 2.04 MG/DL (0.55-1.02); GLOMERULAR FILTRATION RATE 25.1 (>39); POTASSIUM SERUM 3.6 MEQ/L (3.5-5.1)
--- NOTE | 2016-08-17 07:48 | REP ---
Clinical: Chest pain. Comparison: 01/17/2015. Findings: Left mid to lower lobe infiltrates suggest multifocal pneumonia and possible layering effusion. Findings have increased since prior examination of 2014. Differential diagnosis may include underlying neoplasm and correlation with CT may be warranted. The remainder of lung castañeda appear relatively well aerated with mild diffuse chronic changes. Visualize cardiac silhouette and mediastinum relatively normal. Skeletal structures demonstrate osteopenia and degenerative changes as well as old healed left humerus fracture. Impression: Increasing opacity involving the left mid to lower lung zone. Differential diagnosis includes multifocal pneumonia with layering effusion. Malignancy cannot be excluded and chest CT with contrast may be warranted. Signed by James Lechuga MD 08/17/2016 07:40 A
[2016-08-17 08:00] VITALS: BP 200/92
--- NOTE | 2016-08-17 08:53 | ECGEPIP ---
Stationary ECG Study [facility] - ED Test Date: 2016-08-16 Pat Name: ELENI MIRANDA Department: Room: [place] [address] Gender: F Pet Sitter: carl : 1940 Requested By: SABA Quan Order Number: [id number] Reading MD: Sergey Gunter Measurements Intervals [place] Rate: 81 P: 17 MI: 162 QRS: 53 QRSD: 89 T: 80 QT: 399 QTc: 464 Interpretive Statements SINUS RHYTHM NSTTW ABNORMALITIES POSSIBLE PRIOR INFERIOR INFARCT SIMILAR TO 09/28/15 Electronically Signed On 08-17-2016 8:53:13 EST by Sergey Gunter
--- NOTE | 2016-08-17 08:59 | REP ---
Clinical: Fall. Altered mental status. Comparison: 01/18/2015 Findings: Age-related atrophy and microvascular ischemic changes are appreciated. The ventricles and sulci are symmetric. Bateman-white differentiation is maintained. There is no evidence for acute intracranial hemorrhage, mass/mass effect, pathology or infarction. No extra-axial fluid collection. Calvarium is intact. Paranasal sinuses and mastoid air cells are clear. Impression: Age related atrophy and microvascular ischemic changes. No acute intracranial hemorrhage, infarction, or mass/mass effect. Signed by James Lechuga MD 08/17/2016 08:51 A
[2016-08-17 09:00] VITALS: BP 168/88
[2016-08-17] MEDS: CARVedilol 3.125 MG TAB PO SCH (09:00)
[2016-08-17] MEDS: OMEPRAZOLE 20 MG CAP PO SCH (09:00)
--- NOTE | 2016-08-17 09:02 | REP ---
Clinical: Trauma/fall. Technique: Axial noncontrast images from the skull base to the thoracic inlet with coronal and sagittal re-formations. Comparison: 07/20/2011. Findings: Advanced, multilevel degenerative disc osteophyte complexes noted including chronic straightening/malalignment. No evidence for acute fracture / compression injury or subluxation. Despite the straightening and malalignment, the spinal canal appears relatively patent. The spinous processes are intact. Paravertebral soft tissues are normal. Evaluation of the lung apices demonstrates a layering left pleural effusion extending to the apex. Impression: Chronic advanced multilevel degenerative disc osteophyte complex is noted. No evidence for acute fracture / compression injury or subluxation. If the patient remains symptomatic consider MRI for further investigation. Layering left pleural effusion. Signed by James Lechuga MD 08/17/2016 08:54 A
[2016-08-17] MEDS: LACTOBACILLUS ACIDOPHILUS CAP (BACID) PO SCH (09:51)
[2016-08-17] MEDS: GABAPENTIN 100 MG CAP PO SCH ×3 (09:52→20:39)
[2016-08-17] MEDS: NIFEdipine 60 MG XL TAB PO SCH (09:53)
[2016-08-17] MEDS: levETIRAcetam 250MG TABLET (KEPPRA) PO SCH ×2 (09:53→20:39)
[2016-08-17] MEDS: predniSONE 10 MG TAB PO SCH (09:54)
[2016-08-17] MEDS: ASPIRIN ENTERIC 325 MG TAB PO SCH (09:54)
[2016-08-17] MEDS: DOCUSATE SODIUM 100 MG CAP PO SCH ×2 (09:54→20:38)
[2016-08-17] MEDS: **hydrALAZINE** 10 MG TAB PO SCH ×2 (09:54→20:45)
[2016-08-17 14:00] VITALS: BP 134/62
[2016-08-17 14:58] LABS: RETIC HEMOGLOBIN CONTENT CHr 30.9 PG (24-36); RETICULOCYTE % ADVIA2120 2.1 % (0.5-1.5)
[2016-08-17 15:55] LABS: PERCENT SATURATION 7.6 % (13.2-37.4)
--- NOTE | 2016-08-17 17:00 | REP ---
RENAL ULTRASOUND: Real-time sonographic evaluation of the kidneys are performed and compared to prior study of 04/23/2014. Both kidneys are somewhat echogenic suggesting medical renal disease. Right kidney measures 10.4 x 5.9 x 6.5 cm and left kidney 10.5 x 4.8 x 4.6 cm. There is no hydronephrosis bilaterally. A cyst in the mid right kidney measures 1.0 x 0.9 x 1.1 cm. A cyst in the upper pole of the left kidney measures 9 mm in diameter. No definite renal stones are seen. Urinary bladder is mildly distended with no gross abnormality. IMPRESSION: No hydronephrosis. Small cyst in each kidney. Signed by Lalo Bateman MD 08/18/2016 09:51 A
--- NOTE | 2016-08-17 17:49 | REP ---
MR BRAIN WITHOUT CONTRAST: HISTORY: Altered mental status. COMPARISON: 07/27/2015. Areas i of increased signal intensity on T2 weighted images are present in the periventricular and subcortical white matter and romeo. This represents small vessel ischemic disease. There is no intraparenchymal hemorrhage, acute infarct mass, or midline shift. The ventricular system and cortical sulci are dilated consistent with mild volume loss. There is no extracerebral collection. Minimal mucosal thickening is present in the right maxillary sinus. IMPRESSION: 1. Small vessel ischemic disease. 2. Mild volume loss. Signed by Walter Schneider MD 08/17/2016 05:51 P
--- NOTE | 2016-08-17 18:03 | IPN ---
DATE: 08/17/2016 SUBJECTIVE: The patient tells me that she feels well. She wants to go home. She denies a cough. She denies fevers, chills, chest pain, shortness of breath, nausea, vomiting, or diarrhea. OBJECTIVE: VITAL SIGNS: Temperature 95.7, pulse 83, respiratory rate 18, blood pressure 160/65, oxygen saturation 95% on room air. GENERAL: She is a cushingoid-appearing elderly female laying flat in bed. She does not appear to be in any acute distress whatsoever. HEENT: She has moist mucous membranes. No elevation in central venous pressure (CVP) . NEUROLOGIC: Cranial nerves II-XII are grossly intact. CARDIOVASCULAR: S1, S2. RESPIRATORY: Exam is fairly clear. Diminished breath sounds at the bases bilaterally, more so on the left. ABDOMEN: Obese. EXTREMITIES: Slim and wasted. LABORATORY STUDIES: WBC 7.5, hemoglobin 10.7, hematocrit 32.5, platelet count 167. Chemistry panel: Sodium 140, potassium 3.6, chloride 108, bicarbonate 20, BUN 28, creatinine 2.0, baseline appears to be closer to 1.3. Arterial blood gas revealed a pH of 7.4, pCO2 26.8, and a pO2 of 69.3. Chemistry panel was negative for salicylates and acetaminophen. A UA revealed 8 WBCs and trace leukocyte esterase. Microbiology: An influenza swab is negative. A urine culture is negative. Blood cultures are pending. Group A Streptococcus screen is pending. Imaging studies: The patient had a CT scan of her head that revealed age-related atrophy and microvascular ischemic changes. No acute intracranial hemorrhage, infarction, or mass effect. The patient had a chest x-ray that revealed increasing opacity in the left mid to lower lung zone. The differential diagnosis includes a multifocal pneumonia with layering effusion, malignancy could not be excluded and chest CT may be warranted. A cervical spine CT reveals chronic advanced multilevel degenerative disc osteophyte. No evidence of acute fracture, compression or subluxation. PROBLEMS: 1. Pneumonia, community-acquired versus aspiration. Patient has a history of being quite intoxicated several days ago and a cough developing after that and becoming productive. She is currently on ceftriaxone, azithromycin, and comfortable on room air. She does not appear to be overtly septic. 2. Encephalopathy. The patient is oriented to person, place, but not necessarily to the situation. She does not know why she is in the hospital. She does not know the year. She does know the month and this may be secondary to her pneumonia. We will continue to monitor closely. The patient does have an x-ray that was concerning for a layering left-sided pleural effusion. We will check a CT scan of her chest to further elucidate the nature of this to assess if it is loculated or empyema requiring drainage given that there is certainly a possibility for aspiration pneumonia. 3. Acute kidney injury. The patient's renal function appears to be fairly stable from yesterday and this morning. However, there does appear to be some element of acute kidney injury. We will check urine lytes and a renal ultrasound. I will not provide any IV fluids given that she is actually hypertensive at this time. 4. Hypertension. The patient is continued on her carvedilol and Procardia. In addition to this, she has been started on twice a day hydralazine with holding parameters. We will continue to monitor. It has improved following medication administration. 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 She is unable to tell me why she is on this medication at this time. We will attempt to contact family members and elucidate this. 6. History of a brain aneurysm. I presume this is the reason why she is on Keppra. 7. Depression. The patient is on amitriptyline. 8. Chronic pain. The patient is on Neurontin. 9. Gastroesophageal reflux disease. The patient is on Protonix. 10. Alcohol abuse. Cessation counseling offered. The patient was recently admitted for pancreatitis and then admitted again for chronic pancreatitis. 11. History of a cerebrovascular accident (CVA). The patient is on aspirin. We will attempt to control her blood pressure. She is not on a statin. I will defer to her outpatient providers. 12. Dementia. The patient is likely undergoing some acute on chronic encephalopathy secondary to her acute illness. 13. Deep vein thrombosis (DVT) prophylaxis. The patient is on heparin. 14. Anemia, unclear etiology. We will evaluate with iron studies and occult stool for blood.
--- NOTE | 2016-08-17 18:36 | REP ---
CT of the chest without IV contrast: Comparisons are the portable plain film study of the chest dated 08/16/[address] studies of the abdomen and pelvis including the lower lung castañeda dated 10/20/2015 and 09/28/2015. There is an infiltrate in the apical posterior segment of the left upper lobe. There is an infiltrate involving all segments of the left lower lobe. There is a small to moderate left pleural effusion. These findings are changes from the comparison studies. There is chronic subpleural scarring in the posterior sulcus of the right lung, unchanged. There are no lung masses. There is no mediastinal or axillary adenopathy. In the absence of IV contrast the study is insensitive for hilar adenopathy. The thoracic aorta is unremarkable except for occasional calcified atheroma. Cardiac size is normal. No pericardial effusion. In the upper abdomen there is pneumobilia, unchanged from the comparison studies. There are surgical clips in the gallbladder fossa, also unchanged. The pancreas and spleen are normal size, homogeneous and unremarkable. The adrenals are unremarkable. There is bilateral renal cortical scarring, unchanged. Impression: Left upper lobe and left lower lobe infiltrates. Small to moderate left pleural effusion. No adenopathy. Chronic pneumobilia. Chronic renal cortical scarring. Signed by Lalo Rodriguez MD 08/17/2016 06:28 P
[2016-08-17] MEDS: AMITRIPTYLINE 50 MG TAB PO SCH (20:39)
[2016-08-17 22:00] VITALS: BP 117/58
[2016-08-18] MEDS: cefTRIAXone SOD 1 GM in D5W MINI-BAG PLUS 50 ML IV SCH (00:24)
[2016-08-18] MEDS: AZITHROMYCIN INJ 500 MG, VIAL MATE ADAPTER 1 EACH in D5W 250 ML IV SCH (00:31)
[2016-08-18] MEDS: HEPARIN SOD (PORCINE) 5000 UNITS/ML VIAL SC SCH ×3 (05:12→21:32)
[2016-08-18 06:00] VITALS: BP 127/90
[2016-08-18 07:23] LABS: MEAN CORPUSCULAR HEMOGLOBIN 28.5 pg (27.0-33.0); MEAN CORPUSCULAR HGB CONC 32.8 g/dl (32.0-36.5); MEAN CORPUSCULAR VOLUME 87.1 fl (80.0-96.0); RED CELL DISTRIBUTION WIDTH 15.1 % (11.5-14.5); WHITE BLOOD COUNT 8.2 K/mm3 (4.0-10.0)
[2016-08-18 07:38] LABS: CALCIUM LEVEL 8.3 MG/DL (8.8-10.2); CREATININE FOR GFR 2.1 MG/DL (0.55-1.02); GLOMERULAR FILTRATION RATE 24.2 (>39); POTASSIUM SERUM 4.2 MEQ/L (3.5-5.1)
[2016-08-18] MEDS: IPRATROPIUM 0.5MG/ALBUTEROL 2.5MG INH SOL UD 3ML (DUONEB)(J7620) NEB SCH ×3 (07:45→23:49)
[2016-08-18] MEDS: ASPIRIN ENTERIC 325 MG TAB PO SCH (08:49)
[2016-08-18] MEDS: NS 1,000 ML IV SCH (08:49)
[2016-08-18] MEDS: THIAMINE 100 MG TAB PO SCH (08:50)
[2016-08-18] MEDS: FOLIC ACID 1 MG TAB PO SCH (08:50)
[2016-08-18] MEDS: LACTOBACILLUS ACIDOPHILUS CAP (BACID) PO SCH (08:50)
[2016-08-18] MEDS: OMEPRAZOLE 20 MG CAP PO SCH (08:50)
[2016-08-18] MEDS: GABAPENTIN 100 MG CAP PO SCH ×3 (08:50→21:31)
[2016-08-18] MEDS: predniSONE 10 MG TAB PO SCH (08:50)
[2016-08-18] MEDS: DOCUSATE SODIUM 100 MG CAP PO SCH ×2 (08:51→21:31)
[2016-08-18] MEDS: MULTIVITAMINS/MINERALS THERAP 1 TAB PO SCH (08:51)
[2016-08-18] MEDS: **hydrALAZINE** 10 MG TAB PO SCH ×2 (08:51→21:32)
[2016-08-18] MEDS: levETIRAcetam 250MG TABLET (KEPPRA) PO SCH ×2 (08:51→21:31)
[2016-08-18] MEDS: NIFEdipine 60 MG XL TAB PO SCH (08:52)
[2016-08-18] MEDS: CARVedilol 3.125 MG TAB PO SCH (08:53)
[2016-08-18] MEDS ORDERED: LORazepam 2 MG/ML VIAL (J2060) IV PRN (15:00)
--- NOTE | 2016-08-18 15:02 | IPNPDOC ---
Date Seen The patient was seen on 08/18/16. Progress Note Hospitalist Progress Note Subjective: The patient has no complaints. She states she feels well. The son states that he has noticed an improvement in her, and that she is less confused than she was upon arrival. Objective: Physical Exam: Vitals: Vital Sign - Last 24 Hours 08/17/16 08/17/16 08/17/16 08/17/16 18:00 20:45 20:45 22:00 Temp 96.6 Pulse 69 Resp 18 B/P 105/58 117/58 Pulse Ox 94 O2 Delivery Room Air Room Air Room Air 08/18/16 08/18/16 08/18/16 08/18/16 06:00 08:40 08:51 08:52 Temp 96.5 Pulse 65 Resp 18 B/P 127/90 149/56 149/56 Pulse Ox 96 O2 Delivery Room Air Room Air 08/18/16 08/18/16 08:53 14:00 Temp 96.7 Pulse 66 62 Resp 18 B/P 149/56 Pulse Ox 96 O2 Delivery Room Air General: Asleep, but able to be awoken. Not very interactive, but does answer directed questions. No acute distress HEENT: Normocephalic, atraumatic, extraocular movements intact CV: Regular rate and rhythm Lungs: Clear to auscultation bilaterally Abd: Soft, nontender, nondistended Extremities: No edema Neuro: Not very interactive, but does answer directed questions and is alert and oriented 3 Psych: Flat affect Labs and Imaging: Laboratory Tests 08/18/16 07:06 Calcium Level 8.3 L, Red Blood Count 3.11 L, Mean Corpuscular Volume 87.1, Mean Corpuscular Hemoglobin 28.5, Mean Corpuscular Hemoglobin Concent 32.8, Red Cell Distribution Width 15.1 H Assessment and Plan: 76-year-old female with chronic kidney disease, history of CVA, GERD, hypertension, pancreatitis, dementia, EtOH dependence who presents with increasing weakness, productive cough, and change in mental status. She has been admitted with a left pneumonia, community-acquired versus aspiration. 1. Left-sided pneumonia: Prior to presentation, the patient had consumed a fair amount of alcohol and there is concern that she possibly could've aspirated. However, the fact that this is located on the left side, seems less likely for aspiration and may simply represent a community-acquired pneumonia. The patient has been afebrile with normal white counts, and she'll be continued on Rocephin and azithromycin. Blood cultures are currently pending. 2. Encephalopathy: I suspect this is infectious in nature secondary to the pneumonia, overlying on her chronic dementia. The son reports improvement, and we will continue to monitor. 3. Acute on chronic kidney disease: Upon review of the EMR, it appears that the patient's baseline creatinine is closer to the mid ones. Her BUN has increased since admission, and creatinine is currently 2.1. I will start gentle IV fluids , and we will repeat the creatinine in the morning. 4. Anemia: Hemoglobin upon admission was 10.4, and this morning it is 8.9. Upon discussion with the son, it appears that this is chronic in nature. He reports a history of a full workup, including capsule endoscopy, which he states was unrevealing. He states that she follows with a doctor, who he believes is in [place], for "repletion of her iron." We will check a fecal occult blood, and continue to monitor her hemoglobin. She is not currently having any obvious bleeding. Iron studies are most consistent with chronic disease, and may be reflective of her underlying kidney disease. 5. History of CVA: Continue home aspirin. The patient is not on a statin, which we will defer to her primary physicians to add this to her regimen. We will control her blood pressure. 6. Hypertension: Continue home Coreg and Procardia. Hydralazine has also been added. 7. EtOH dependence: The patient is not currently exhibiting any signs of withdrawal. We will make when necessary Ativan available as needed for signs or symptoms of withdrawal. We will also start the patient on daily thiamine, folate , and a multivitamin. 8. GERD: Continue home PPI. 9. Depression and chronic pain. Continue home amitriptyline and Neurontin. 10. History of brain aneurysm. I presume this is why she takes Keppra, which we' ll continue. 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 According to the son at the bedside today, she was recently started on this by her director of philanthropy for some swelling around her eye. At this time, we will continue it, as well as continue her home eyedrops. DVT prophylaxis: Heparin Dispo: likely home tomorrow, pending hemoglobin, blood cultures, and mental status VS, I&O, 24H, Fishbone Vital Signs/I&O Vital Signs Date Time Temp Pulse Resp B/P Pulse Ox O2 Delivery O2 Flow Rate FiO2 08/18/16 14:00 96.7 62 18 96 Room Air 08/18/16 08:53 149/56 I&O- Last 24 Hours up to 6 AM 08/18/16 06:00 Intake Total 1260 ml Output Total 800 ml Balance 460 ml Laboratory Data 24H LABS Laboratory Tests 2 08/18/16 07:06: Anion Gap 12, Blood Urea Nitrogen 37H, Creatinine 2.10H, Sodium Level 139, Potassium Level 4.2, Chloride Level 107, Carbon Dioxide Level 20L, Calcium Level 8.3L, Glomerular Filtration Rate 24.2L CBC/BMP Laboratory Tests 08/18/16 07:06 Calcium Level 8.3 L, Red Blood Count 3.11 L, Mean Corpuscular Volume 87.1, Mean Corpuscular Hemoglobin 28.5, Mean Corpuscular Hemoglobin Concent 32.8, Red Cell Distribution Width 15.1 H Microbiology Microbiology 08/16/16 Blood Culture - Preliminary, Resulted No growth after 24 hours . All specim... 08/16/16 Blood Culture - Preliminary, Resulted No growth after 24 hours . All specim... 08/16/16 Group A Streptococcus Screen (LETICIA) - Final, Complete 08/16/16 Influenza Virus Type A Antigen - Final, Complete 08/16/16 Influenza Virus Type B Antigen - Final, Complete 08/16/16 Urine Culture - Final, Complete JENNIFER RUSSO Aug 18, 2016 15:02
[2016-08-18] MEDS: AMITRIPTYLINE 50 MG TAB PO SCH (21:31)
[2016-08-18] MEDS: RESTASIS EYE DROPS (PATIENT'S OWN MED) OU SCH (21:32)
[2016-08-18 22:00] VITALS: BP 162/78
[2016-08-19] MEDS: cefTRIAXone SOD 1 GM in D5W MINI-BAG PLUS 50 ML IV SCH (00:08)
[2016-08-19] MEDS: AZITHROMYCIN INJ 500 MG, VIAL MATE ADAPTER 1 EACH in D5W 250 ML IV SCH (01:42)
--- NOTE | 2016-08-19 04:33 | EDDOCDS ---
Nurse's Notes [facility] Name: Irasema Kiran Age: 76 yrs Sex: Female : 1940 Arrival Date: 08/16/2016 Time: 19:24 Bed 8 Private MD: Diagnosis: Altered mental status, unspecified;Pneumonia, unspecified organism Presentation: 08/16 19:28 Presenting complaint: EMS states: Since Monday pt has had increasing altered LOC, ld5 increasing weakness and abnormal speech. History of TIA. The last date and time the patient was known to be well was was at an unknown time on August 12, 2016. An acute neurological deficit is present. The patient has been moved to a treatment area. The patients blood glucose was checked before arriving to the hospital and was found to be normal. Adult Sepsis Screening: Patient has new or worsening altered mentation (1 point). Suicide/Homicide risk assessment- Unable to assess, the patient has an altered level of consciousness. Status: Patient is not a emergency services director or dependent. Transition of care: patient was not received from another setting of care. Care prior to arrival: IV initiated. Glucose check. 146. 19:28 Acuity: SHERRY Level 2 ld5 19:28 Method Of Arrival: Ambulance ld5 19:30 Adult Sepsis Screening: Patient's respiratory rate is less than 22. Systolic blood ld5 pressure is greater than 100. Patient has a qSOFA score of 0- Negative Sepsis Screen. 19:42 Presenting complaint: Son reports going to [employer] Monday night for dinner and pt ld5 had 2 beers. They then went to the [employer] and pt had 4 more beers. They were closing so they went to the local store to get her a 6-pack. When they got home she said she was going to stay up and drink her beer. Son found her on the floor at 0030 Monday. Pt slept all day Monday with the exception of a few bathroom breaks. Monday morning son heard pt fall in the bathroom. Son helped her up. Pt fell again Monday afternoon. Pt had no complaints except leg pain. Son states pt possibly took more than prescribed dose of Amitriptyline around 1100 today. Triage Assessment: 19:37 The onset of the patients symptoms was more than three hours ago. General: Appears in ld5 no apparent distress, Behavior is pt unable to follow commands. Pain: Location: left arm. Neurological: Level of Consciousness is awake, confused, Oriented to person, place, Surgeon Partner are weak bilaterally Speech is slurred. Respiratory: Airway is patent Respiratory effort is even, unlabored. GI: Parent/caregiver reports the patient having son reports decreased oral intake. 08/17 03:03 Neurological: Reports weakness. ld5 Historical: - Allergies: Cipro PO; Miralax; - Home Meds: 1. Nifediac CC 60 mg Oral TbER 1 tab once daily 2. prednisone 10 mg Oral tab 3 tabs once daily 3. amitriptyline 50 mg Oral tab 1 tab nightly 4. levetiracetam 500 mg oral tab 1 tab 2 times per day 5. cephalexin 500 mg Oral cap 1 cap every 12 hours 6. carvedilol 3.125 mg oral tab 1 tab daily 7. esomeprazole magnesium 40 mg Oral cpDR 1 cap once daily 8. gabapentin 100 mg Oral tab 100 mg three times a day 9. Vitamin D3 oral oral 88236 unit weekly 10. hydralazine 10 mg Oral tab 1 tab 2 times per day 11. diphenhydramine HCl 25 mg Oral cap 1 cap as needed - PMHx: CRD; CVA; dizziness; GERD; Hypertension; Pancreatitis; Dementia; - PSHx: common bile duct bypass; Cholecystectomy; right ankle surgery; - Family history: Not pertinent. - Social history: Smoking status: Patient states was never smoker of tobacco. No barriers to communication noted, The patient speaks fluent Greenlandic, Speaks appropriately for age. - : The pt / caregiver states he / she is not on anticoagulants. Home medication list is obtained from pill bottles. - Exposure Risk Screening:: None identified. Screenin:57 Screening information is obtained from the patient, family members, prior medical ld5 records. Fall risk: At risk due to age, immobility. Assistance ADL's: Requires assistance with meal preparation, this assistance is provided by family members, bathing, assistance is provided by family members, medication administration, assistance is provided by family members. Abuse/DV Screen: The patient / caregiver reports he/she is: not in a situation that causes fear, pain or injury. Nutritional screening: No deficits noted. Advance Directives: There is no active DNR order. home support is adequate. Assessment: 08/16 20:05 General: Appears in no apparent distress, Behavior is restless. Pain: Location: left ld5 arm Quality of pain is described as from IV site. Neurological: Level of Consciousness is awake, confused, Oriented to person, place. Respiratory: Airway is patent Respiratory effort is even, unlabored, Breath sounds are clear bilaterally. GI: Abdomen is non- distended Bowel sounds present X 4 quads. Abd is soft and non tender X 4 quads. Parent/caregiver reports the patient having constipation. : Denies burning with urination, pain with urination. Derm: Skin is intact, Skin is dry. 20:40 General: Appears in no apparent distress, Behavior is quiet. General: Supportive family ld5 at bedside. Will continue to monitor. Neurological: Level of Consciousness is awake, obeys commands. Respiratory: Airway is patent Respiratory effort is even, unlabored. 21:00 General: Pt moves arm and has difficulty keeping still when BP cuff goes off. ld5 21:05 General: Pt laying in bed. Speech remains slurred but pt not as delayed with answering ld5 questions. Respirations easy and unlabored. Pt able to push self up in bed with little help. Will continue to monitor. 22:18 General: Appears in no apparent distress, Pt repositioned in bed. Family at bedside. ld5 Will continue to monitor. Neurological: Surgeon Partner are weak bilaterally. Respiratory: Airway is patent Respiratory effort is even, unlabored. 22:40 General: BP remains elevated on dynamap. Pt continues to not keep still when BP cuff ld5 inflates. 23:16 General: Pt medicated per orders for fever. Pt and family aware of plan for admission. ld5 Lab aware of need to draw blood. Antibiotic then to be hung. Will continue to monitor. 08/17 00:20 General: Appears in no apparent distress, Behavior is cooperative. Pain: Denies pain. ld5 Neurological: Level of Consciousness is awake, obeys commands. Respiratory: Airway is patent Respiratory effort is even, labored. 00:55 General: Pt assisted to bedpan. Tolerated well. Pt repositioned in bed for comfort. ld5 Will continue to monitor. 01:52 General: Appears in no apparent distress, Pt resting comfortably in bed. Denies any ld5 needs. Awaiting assigned bed to be available. 02:16 General: Pt assisted with bedpan. Tolerated well. Repositioned in bed. Will continue to ld5 monitor. 02:58 General: Pt resting quietly in bed. Respirations easy and unlabored. Will continue to ld5 monitor. 03:31 General: Appears in no apparent distress, Behavior is cooperative. Respiratory: Airway ld5 is patent Respiratory effort is even, unlabored. Vital Signs: 08/16 19:39 BP 189 / 94; Pulse 85; Resp 20; Temp 100.8; Pulse Ox 94% ; Weight 60.65 kg (M); jlm 19:57 BP 212 / 96 (auto/); ld5 19:57 Pulse 80 MON; Pulse Ox 99% ; ld5 20:02 BP 225 / 102 (auto/); ld5 20:03 Pulse 82 MON; Pulse Ox 95% ; ld5 20:08 Pulse 82 MON; Pulse Ox 96% ; ld5 20:08 BP 232 / 101 (auto/); ld5 20:28 Pulse 82 MON; Pulse Ox 95% ; ld5 20:28 BP 215 / 91 (auto/); ld5 20:38 BP 221 / 93 (auto/); ld5 20:38 Pulse 80 MON; Pulse Ox 96% ; ld5 20:53 Pulse 82 MON; Pulse Ox 97% ; ld5 20:53 BP 223 / 112 (auto/); ld5 21:23 BP 224 / 100 (auto/); ld5 21:23 Pulse 84 MON; Pulse Ox 95% ; ld5 21:53 BP 236 / 96 (auto/); ld5 21:53 Pulse 86 MON; Pulse Ox 94% ; ld5 22:01 BP 203 / 87 (auto/); ld5 22:01 Pulse 86 MON; Pulse Ox 99% ; ld5 22:08 BP 202 / 88 (auto/); ld5 22:08 Pulse 86 MON; Pulse Ox 96% ; ld5 22:40 BP 189 / 81 LA (man/); ld5 22:47 Temp 101.8(O); jlm 08/17 00:23 BP 173 / 77; Pulse 86 MON; Resp 18; Temp 99.1(O); Pulse Ox 94% ; ld5 00:38 Pulse 88 MON; Pulse Ox 94% ; ld5 00:38 BP 173 / 75 (auto/); ld5 00:53 Pulse 90 MON; Pulse Ox 94% ; ld5 00:53 BP 160 / 64 (auto/); ld5 01:08 BP 143 / 65 (auto/); ld5 01:08 Pulse 90 MON; Pulse Ox 94% ; ld5 01:23 BP 151 / 70 (auto/); ld5 01:23 Pulse 90 MON; Pulse Ox 96% ; ld5 01:38 BP 152 / 72 (auto/); ld5 01:38 Pulse 88 MON; Pulse Ox 95% ; ld5 02:23 BP 158 / 74 (auto/); ld5 02:23 Pulse 80 MON; Pulse Ox 96% ; ld5 02:38 BP 144 / 67 (auto/); ld5 02:38 Pulse 86 MON; Pulse Ox 96% ; ld5 02:53 BP 163 / 80 (auto/); ld5 02:53 Pulse 76 MON; Resp 16; Temp 99; Pulse Ox 96% ; ld5 03:23 BP 142 / 65 (auto/); ld5 03:23 Pulse 72 MON; Pulse Ox 96% ; ld5 Vitals: 08/16 19:39 Log In Time N/A - ambulance arrival. [facility] 23:16 Strep Screen is obtained and tested: Negative, a GATSNEG culture is ordered in [facility] and sent. 08/17 03:03 Glucose Measurement D-Stick in Triage- Normal. ld5 ED Course: 08/16 19:25 Patient visited by Barb Rodriguez, Skidder Runner. ml3 19:25 Kelsie Marquez MD is Attending Physician. fg 19:25 Patient visited by Kelsie Marquez MD. fg 19:25 Patient moved to Waiting ml3 19:25 Patient moved to 8 ml3 19:31 Triage Initiated ld5 19:40 Patient visited by Vianca Wong, Skidder Runner. jlm 19:46 Patient visited by Rebecca Nguyen,RN. ld5 19:52 Patient visited by Rebecca Nguyen,RN. ld5 20:33 Skylar Dutton,RN is Primary Nurse. dsf 20:35 -Arterial Blood Gas Sent. jc3 20:45 Patient visited by Rebecca Nguyen,RN. ld5 20:50 EKG done. (by ED staff). Reviewed by Kelsie Marquez MD. jlm 20:51 Patient visited by Vianca Wong, Skidder Runner. jlm 21:56 [facility] Payment Agreement was scanned into [employer] and attached to record. ks16 21:59 Patient name changed from Irasema\S\\S\Kiran\S\ to Irasema\S\ \S\Kiran. EDMS 22:11 Patient visited by Scott Goodrich PCA. kb5 22:22 Patient visited by Rebecca Nguyen,JOSH. ld5 22:48 Patient visited by Vianca Wong, Skidder Runner. jlm 23:15 -Influenza A&B Rapid Antigen - Nose Sent. ld5 23:15 STREP SCREEN NEGATIVE - GATS Sent. ld5 23:17 Patient visited by Rebecca Nguyen,JOSH. ld5 23:17 Braxton Giang DO is Hospitalizing Provider. fg 23:59 Written Provider Order was scanned into [employer] and attached to record. ml3 08/17 00:35 Patient visited by Rebecca Nguyen,JOSH. ld5 00:57 The patient / caregiver is instructed regarding the plan of care and ED course. ld5 Accompanied by Family Member, Patient has correct armband on for positive identification. Placed in gown. Bed in low position. Call light in reach. 00:57 Maintain field IV. Site clean & dry. Gauge & site: 22g left AC. No procedures done that ld5 require assistance. 00:58 Patient visited by Rebecca Nguyen,JOSH. ld5 01:53 Patient visited by Rebecca Nguyen,JOSH. ld5 02:17 Patient visited by Rebecca Nguyen,JOSH. ld5 03:03 Patient visited by Rebecca Nguyen,JOSH. ld5 13:12 T-Sheet-- Draft Copy was scanned into [employer] and attached to record. gb 13:13 ECG/EKG was scanned into [employer] and attached to record. gb Administered Medications: 08/16 23:15 Drug: Acetaminophen 650 mg [acetaminophen 325 mg tablet (2 tabs)] Route: PO; ld5 08/17 00:58 Follow up: Response: Temperature is decreased ld5 08/16 23:53 Drug: Piperacillin-Tazobactam 3.375 grams [piperacillin-tazobactam 3.375 gram ld5 intravenous solution] Route: IVPB; Infused Over: 30 mins; Site: left antecubital; 08/17 00:58 Follow up: IV Status: Completed infusion; IV Intake: 50ml ld5 00:34 Drug: hydrALAZINE 10 mg {Note: 10 mg tablet.} Route: PO; ld5 03:31 Follow up: Response: Blood pressure is improved ld5 Intake: 00:58 IV: 50.00ml; Total: 50.00ml. ld5 Output: 00:56 Urine: 150.00ml (Voided); Total: 150.00ml. ld5 02:16 Urine: 200.00ml (Voided); Total: 350.00ml. ld5 RT: 08/16 20:35 ABG's drawn from right radial artery pressure held for 5 minutes no bleeding noted jc3 pressure bandage applied specimen sent pt. tolerated well. Order Results: Lab Order: Acetaminophen Level; SPEC'M 08/16/16 20:47 Test: ACETAMINOPHEN LEVEL; Value: < 2.0; Range: 10.0-30.0; Abnormal: Below low normal; Units: UG/ML; Status: F Lab Order: CBC with Diff; SPEC'M 08/16/16 20:47 Test: WHITE BLOOD COUNT; Value: 9.0; Range: 4.0-10.0; Units: K/mm3; Status: F Test: RED BLOOD COUNT; Value: 3.71; Range: 4.00-5.40; Abnormal: Below low normal; Units: M/mm3; Status: F Test: HEMOGLOBIN; Value: 10.4; Range: 12.0-16.0; Abnormal: Below low normal; Units: g/dl; Status: F Test: HEMATOCRIT; Value: 32.1; Range: 36.0-47.0; Abnormal: Below low normal; Units: %; Status: F Test: MEAN CORPUSCULAR VOLUME; Value: 86.5; Range: 80.0-96.0; Units: fl; Status: F Test: MEAN CORPUSCULAR HEMOGLOBIN; Value: 28.1; Range: 27.0-33.0; Units: pg; Status: F Test: MEAN CORPUSCULAR HGB CONC; Value: 32.4; Range: 32.0-36.5; Units: g/dl; Status: F Test: RED CELL DISTRIBUTION WIDTH; Value: 14.9; Range: 11.5-14.5; Abnormal: Above high normal; Units: %; Status: F Test: PLATELET COUNT, AUTOMATED; Value: 167; Range: 150-450; Units: k/mm3; Status: F Test: NEUTROPHILS %; Value: 87.5; Range: 36.0-66.0; Abnormal: Above high normal; Units: %; Status: F Test: LYMPH %; Value: 8.3; Range: 24.0-44.0; Abnormal: Below low normal; Units: %; Status: F Test: MONO %; Value: 2.5; Range: 0.0-5.0; Units: %; Status: F Test: EOS %; Value: 1.0; Range: 0.0-3.0; Units: %; Status: F Test: BASO %; Value: 0.2; Range: 0.0-1.0; Units: %; Status: F Test: LARGE UNSTAINED CELL %; Value: 0.5; Range: 0.0-4.0; Units: %; Status: F Test: NEUTROPHILS #; Value: 7.9; Range: 1.8-7.7; Abnormal: Above high normal; Units: K/mm3; Status: F Test: LYMPH #; Value: 0.8; Range: 1.5-4.5; Abnormal: Below low normal; Units: K/mm3; Status: F Test: MONO #; Value: 0.2; Range: 0.0-0.8; Units: K/mm3; Status: F Test: EOS #; Value: 0.1; Range: 0.0-0.50; Units: K/mm3; Status: F Test: BASO #; Value: 0.0; Range: 0.0-0.2; Units: K/mm3; Status: F Test: LARGE UNSTAINED CELL #; Value: 0.0; Range: 0.0-0.4; Units: K/mm3; Status: F Lab Order: Cardiac Injury Profile; SPEC'M 08/16/16 20:47 Test: CPK CREATINE PHOSPHOKINASE; Value: 95; Range: 26-192; Units: U/L; Status: F Test: CK-MB VALUE MASS; Value: 3.9; Range: 0.0-3.6; Abnormal: Above high normal; Units: NG/ML; Status: F Test: MB/CK RELATIVE INDEX; Value: 4.10; Range: < OR =4; Abnormal: Above high normal; Status: F Test Note: ; DIAGNOSIS CRITERIA MMB ng/ml Relative Index (RI) NON-AMI < or = 5 N/A BATEMAN ZONE > 5 < or = 4 AMI > 5 > 4 Lab Order: Liver Profile; [facility] 08/16/16 20:47 Test: AST/SGOT; Value: 25; Range: 15-37; Units: U/L; Status: F Test: ALT/SGPT; Value: 15; Range: 12-78; Units: U/L; Status: F Test: ALKALINE PHOSPHATASE; Value: 118; Range: 45-117; Abnormal: Above high normal; Units: U/L; Status: F Test: BILIRUBIN,TOTAL; Value: 0.8; Range: 0.2-1.0; Units: MG/DL; Status: F Test: BILIRUBIN,DIRECT; Value: 0.2; Range: 0.0-0.2; Units: MG/DL; Status: F Test: TOTAL PROTEIN; Value: 5.2; Range: 6.4-8.2; Abnormal: Below low normal; Units: GM/DL; Status: F Test: ALBUMIN; Value: 2.3; Range: 3.2-5.2; Abnormal: Below low normal; Units: GM/DL; Status: F Test: ALBUMIN/GLOBULIN RATIO; Value: 0.79; Range: 1.00-1.93; Abnormal: Below low normal; Status: F Lab Order: MED Profile; [facility] 08/16/16 20:47 Test: GLUCOSE, FASTING; Value: 89; Range: 83-110; Units: MG/DL; Status: F Test: BLOOD UREA NITROGEN; Value: 26; Range: 7-18; Abnormal: Above high normal; Units: MG/DL; Status: F Test: CREATININE FOR GFR; Value: 1.98; Range: 0.55-1.02; Abnormal: Above high normal; Units: MG/DL; Status: F Test: GLOMERULAR FILTRATION RATE; Value: 26.0; Range: >39; Abnormal: Below low normal; Status: F Test: SODIUM LEVEL; Value: 138; Range: 136-145; Units: MEQ/L; Status: F Test: POTASSIUM SERUM; Value: 3.9; Range: 3.5-5.1; Units: MEQ/L; Status: F Test: CHLORIDE LEVEL; Value: 107; Range: 98-107; Units: MEQ/L; Status: F Test: CARBON DIOXIDE LEVEL; Value: 21; Range: 21-32; Units: MEQ/L; Status: F Test: ANION GAP; Value: 10; Range: 8-16; Units: MEQ/L; Status: F Test: CALCIUM LEVEL; Value: 7.7; Range: 8.8-10.2; Abnormal: Below low normal; Units: MG/DL; Status: F Test Note: ; Units are mL/min/1.73 m2 Chronic Kidney Disease Staging per NKF: Stage I & II GFR >=60 Normal to Mildly Decreased Stage III GFR 30-59 Moderately Decreased Stage IV GFR 15-29 Severely Decreased Stage V GFR <15 Very Little GFR Left ESRD GFR <15 on EMERGENCY SERVICES DIRECTOR Lab Order: Salicylate Level; SPEC' 08/16/16 20:47 Test: SALICYLATE LEVEL; Value: < 1.7; Range: 5.0-30.0; Abnormal: Below low normal; Units: MG/DL; Status: F Lab Order: Thyroid Stimulating Hormone; SPEC' 08/16/16 20:47 Test: THYROID STIMULATING HORMONE; Value: 2.260; Range: 0.358-3.740; Units: uIU/ML; Status: F Lab Order: Urinalysis; SPEC' 08/16/16 21:18 Test: APPEARANCE, URINE; Value: CLEAR; Range: CLEAR; Status: F Test: COLOR, URINE; Value: STRAW; Range: YELLOW; Status: F Test: PH,URINE; Value: 6.0; Range: 5.0-9.0; Units: UNITS; Status: F Test: SPECIFIC GRAVITY URINE AUTO; Value: 1.002; Range: 1.002-1.035; Status: F Test: PROTEIN, URINE AUTO; Value: 2+; Range: NEGATIVE; Abnormal: Above high normal; Units: mg/dL; Status: F Test: GLUCOSE, URINE (UA) AUTO; Value: NEGATIVE; Range: NEGATIVE; Units: mg/dL; Status: F Test: KETONE, URINE AUTO; Value: NEGATIVE; Range: NEGATIVE; Units: mg/dL; Status: F Test: UROBILINOGEN, URINE AUTO; Value: 0.2; Range: 0.0-2.0; Units: mg/dL; Status: F Test: BILIRUBIN, URINE AUTO; Value: NEGATIVE; Range: NEGATIVE; Status: F Test: NITRITE, URINE AUTO; Value: NEGATIVE; Range: NEGATIVE; Status: F Test: LEUKOCYTE ESTERASE, URINE AUTO; Value: TRACE; Range: NEGATIVE; Abnormal: Above high normal; Status: F Test: BLOOD, URINE BLOOD; Value: 1+; Range: NEGATIVE; Abnormal: Above high normal; Status: F Test: WBC, URINE AUTO; Value: 8; Range: 0-3; Abnormal: Above high normal; Units: /HPF; Status: F Test: RBC, URINE AUTO; Value: 1; Range: 0-3; Units: /HPF; Status: F Test: BACTERIA, URINE AUTO; Value: NEGATIVE; Range: NEGATIVE; Status: F Test: SQUAMOUS EPITHELIAL CELL UR AU; Value: 0; Range: 0-6; Units: /HPF; Status: F Test: HYALINE CAST, URINE AUTO; Value: 0; Range: 0-1; Units: /LPF; Status: F Lab Order: Ammonia ([place] Tube on Ice, Not [place]); [facility] 08/16/16 20:47 Test: AMMONIA; Value: < 10; Range: <32; Units: uMOL/L; Status: F Lab Order: -Arterial Blood Gas; [facility] 08/16/16 20:35 Test: ABG pH (ARTERIAL); Value: 7.430; Range: 7.350-7.450; Units: UNITS; Status: F Test: ABG PARTIAL PRESSURE CO2; Value: 26.8; Range: 35.0-45.0; Abnormal: Below low normal; Units: mmHg; Status: F Test: ABG PARTIAL PRESSURE O2; Value: 69.3; Range: 75.0-100.0; Abnormal: Below low normal; Units: mmHg; Status: F Test: ABG TOTAL CO2; Value: 18.2; Range: 23.0-31.0; Abnormal: Below low normal; Units: MEQ/L; Status: F Test: ABG HCO3; Value: 17.4; Range: 22.0-26.0; Abnormal: Below low normal; Units: MEQ/L; Status: F Test: ABG BASE EXCESS; Value: -5.8; Range: -2.0-2.0; Abnormal: Below low normal; Status: F Test: ABG STANDARD HCO3; Value: 19.6; Range: 22.0-26.0; Abnormal: Below low normal; Units: MEQ/L; Status: F Test: ABG O2 SATURATION; Value: 93.4; Range: 95.0-99.0; Abnormal: Below low normal; Units: %; Status: F Test: ABG DEVICE; Value: NASAL DIANNA; Status: F Lab Order: Lactic Acid ([place] tube on ice); SPEC'M 08/16/16 23:24 Test: LACTIC ACID SEPSIS PROTOCOL; Value: 0.8; Range: 0.4-2.0; Units: MMOL/L; Status: F Lab Order: -Influenza A&B Rapid Antigen - Nose; SPEC'M 08/16/16 23:13 Test: INFLUENZA A RAPID SCR by ICA; Value: INFLUENZA A RESULTS NEGATIVE; Status: F Test: INFLUENZA A RAPID SCR by ICA; Value: Comments:; Status: F Test: INFLUENZA B RAPID SCR by ICA; Value: INFLUENZA B RESULTS NEGATIVE; Status: F Test Note: ; The Influenza test is a direct rapid immunoassay for the qualitative detection of Influenza viral antigen. Cell culture (Viral Culture) testing should be considered to confirm NEGATIVE results and to assist in detecting other viruses that can provide similar clinical symptoms. Please contact the lab within 24 hours ([phone]) if confirmatory testing is desired. Outcome: 23:18 Decision to Hospitalize by Provider. 08/17 02:59 CT Study completed. ld5 03:02 Discharge Assessment: Patient awake, alert and oriented x 3. No cognitive and/or ld5 functional deficits noted. Patient verbalized understanding of disposition instructions. patient administered narcotics - no. The following High Risk Discharge criteria are identified: None. Admitted to Med/Surg accompanied by tech, family with patient, via stretcher, with chart. Condition: stable. Property :Personal belongings accompany Pt. 03:32 Patient left the ED. ld5 Signatures: Dispatcher [employer] EDMS Celine Ch, Reg Reg dino Michael KeiraEligioAlessandra, Skidder Runner Unit ml3 Scott Goodrich, [facility] NURSE LICENSED PRACTICAL kb5 Angel Barreto jc3 Rebecca Nguyen,JOSH RN ld5 Skylar Dutton RN RN dsf Mitchell, Jessie, Skidder Runner Unit Kelsie Alexis MD MD fg Sorenson, Kimberly, Reg Reg ks16 Corrections: (The following items were deleted from the chart) 00:52 00:23 BP 173 / 77 Auto; ld5 ld5 00:52 00:23 Pulse 86bpm; MonitorResp 18bpm; Pulse Ox 94%; Temp 99.1F Oral; ld5 ld5 02:59 02:53 Pulse 76bpm; Monitor; Pulse Ox 96%; ld5 ld5 Chart Complete MTDD
--- NOTE | 2016-08-19 04:33 | EDDOCDS ---
Physician Documentation [facility] Name: Irasema Kiran Age: 76 yrs Sex: Female : 1940 Arrival Date: 08/16/2016 Time: 19:24 Bed 8 Private MD: Disposition: 08/16/16 23:18 Hospitalization ordered by Braxton Giang for Inpatient Admission. Preliminary diagnosis are Altered mental status, unspecified, Pneumonia, unspecified organism. - Bed requested for 5 Peters. - Status is Inpatient Admission. ld5 - Condition is Stable. - Problem is new. - Symptoms have improved. Historical: - Allergies: Cipro PO; Miralax; - Home Meds: 1. Nifediac CC 60 mg Oral TbER 1 tab once daily 2. prednisone 10 mg Oral tab 3 tabs once daily 3. amitriptyline 50 mg Oral tab 1 tab nightly 4. levetiracetam 500 mg oral tab 1 tab 2 times per day 5. cephalexin 500 mg Oral cap 1 cap every 12 hours 6. carvedilol 3.125 mg oral tab 1 tab daily 7. esomeprazole magnesium 40 mg Oral cpDR 1 cap once daily 8. gabapentin 100 mg Oral tab 100 mg three times a day 9. Vitamin D3 oral oral 35704 unit weekly 10. hydralazine 10 mg Oral tab 1 tab 2 times per day 11. diphenhydramine HCl 25 mg Oral cap 1 cap as needed - PMHx: CRD; CVA; dizziness; GERD; Hypertension; Pancreatitis; Dementia; - PSHx: common bile duct bypass; Cholecystectomy; right ankle surgery; - Family history: Not pertinent. - Social history: Smoking status: Patient states was never smoker of tobacco. No barriers to communication noted, The patient speaks fluent Anguillan, Speaks appropriately for age. - : The pt / caregiver states he / she is not on anticoagulants. Home medication list is obtained from pill bottles. - Exposure Risk Screening:: None identified. Vital Signs: 08/16 19:39 BP 189 / 94; Pulse 85; Resp 20; Temp 100.8; Pulse Ox 94% ; Weight 60.65 kg / 133.71 lbs jlm (M); 19:57 BP 212 / 96 (auto/); ld5 19:57 Pulse 80 MON; Pulse Ox 99% ; ld5 20:02 BP 225 / 102 (auto/); ld5 20:03 Pulse 82 MON; Pulse Ox 95% ; ld5 20:08 Pulse 82 MON; Pulse Ox 96% ; ld5 20:08 BP 232 / 101 (auto/); ld5 20:28 Pulse 82 MON; Pulse Ox 95% ; ld5 20:28 BP 215 / 91 (auto/); ld5 20:38 BP 221 / 93 (auto/); ld5 20:38 Pulse 80 MON; Pulse Ox 96% ; ld5 20:53 Pulse 82 MON; Pulse Ox 97% ; ld5 20:53 BP 223 / 112 (auto/); ld5 21:23 BP 224 / 100 (auto/); ld5 21:23 Pulse 84 MON; Pulse Ox 95% ; ld5 21:53 BP 236 / 96 (auto/); ld5 21:53 Pulse 86 MON; Pulse Ox 94% ; ld5 22:01 BP 203 / 87 (auto/); ld5 22:01 Pulse 86 MON; Pulse Ox 99% ; ld5 22:08 BP 202 / 88 (auto/); ld5 22:08 Pulse 86 MON; Pulse Ox 96% ; ld5 22:40 BP 189 / 81 LA (man/); ld5 22:47 Temp 101.8(O); [facility] 08/17 00:23 BP 173 / 77; Pulse 86 MON; Resp 18; Temp 99.1(O); Pulse Ox 94% ; ld5 00:38 Pulse 88 MON; Pulse Ox 94% ; ld5 00:38 BP 173 / 75 (auto/); ld5 00:53 Pulse 90 MON; Pulse Ox 94% ; ld5 00:53 BP 160 / 64 (auto/); ld5 01:08 BP 143 / 65 (auto/); ld5 01:08 Pulse 90 MON; Pulse Ox 94% ; ld5 01:23 BP 151 / 70 (auto/); ld5 01:23 Pulse 90 MON; Pulse Ox 96% ; ld5 01:38 BP 152 / 72 (auto/); ld5 01:38 Pulse 88 MON; Pulse Ox 95% ; ld5 02:23 BP 158 / 74 (auto/); ld5 02:23 Pulse 80 MON; Pulse Ox 96% ; ld5 02:38 BP 144 / 67 (auto/); ld5 02:38 Pulse 86 MON; Pulse Ox 96% ; ld5 02:53 BP 163 / 80 (auto/); ld5 02:53 Pulse 76 MON; Resp 16; Temp 99; Pulse Ox 96% ; ld5 03:23 BP 142 / 65 (auto/); ld5 03:23 Pulse 72 MON; Pulse Ox 96% ; ld5 MDM: 08/16 20:03 Dramatic Critic/Pulse Ox/q 15 min VS ordered. fg 20:03 Accucheck ordered. fg 20:03 IV Saline Lock ordered. fg 20:03 Oxygen at 4L/Min NC or Home dosage ordered. fg 20:03 Rhythm Strip to chart ordered. fg 20:05 CT Head Without Contrast Ordered. EDMS 20:05 CT Spine,Cervical W/o Contrast Ordered. EDMS 20:05 Acetaminophen Level Ordered. EDMS 20:05 CBC with Diff Ordered. EDMS 20:05 Cardiac Injury Profile Ordered. EDMS 20:05 Liver Profile Ordered. EDMS 20:05 MED Profile Ordered. EDMS 20:05 Salicylate Level Ordered. EDMS 20:05 Thyroid Stimulating Hormone Ordered. EDMS 20:05 Urinalysis Ordered. EDMS 20:05 Urine Culture Ordered. EDMS 20:05 Chest, 1 View Ordered. EDMS 20:05 ECG WITH READING ER PHYS+CARDIAG ordered. EDMS 20:08 Call Respiratory ordered. fg 20:08 Call Respiratory complete. ml3 20:09 Ammonia (Little Green Tube on Ice, Not Pea Green) Ordered. EDMS 20:09 -Arterial Blood Gas Ordered. EDMS 21:56 Financial registration complete. [email or web address] 21:56 [facility] [place] [facility] Payment Agreement was scanned into Fanzila and attached to record. [email or web address] 22:49 -Blood Culture (Adults Only), peripheral from different site, or from device/port/PICC fg etc. if present ordered. 22:49 Acetaminophen Tablet 650 mg PO once ordered. fg 22:49 Piperacillin-Tazobactam 3.375 grams IVPB once over 30 mins; dilute in 50mL of NS or D5W fg ordered. 22:50 Lactic Acid (Bateman tube on ice) Ordered. EDMS 22:50 -Blood Culture Ordered. EDMS 22:50 -Influenza A&B Rapid Antigen - Nose Ordered. EDMS 22:50 STREP SCREEN NEGATIVE - GATS Ordered. EDMS 22:50 -Blood Culture (Adults Only), peripheral from different site, or from device/port/PICC ml3 etc. if present complete. 22:51 BLOOD CULTURES Ordered. EDMS 22:52 BED REQUEST+ADM ordered. EDMS 23:29 Admission / Observation Status ordered. EDMS 23:29 REGULAR DIET ordered. EDMS 23:30 COMPLETE BLOOD COUNT Ordered. EDMS 23:31 BASIC METABOLIC PROFILE Ordered. EDMS 23:38 PHYSICAL THERAPY EVAL & TREAT ordered. EDMS 23:59 Written Provider Order was scanned into Fanzila and attached to record. ml3 08/17 00:01 hydrALAZINE 10 mg PO once ordered. ld5 01:02 SPUTUM CULTURE AND GRAM STAIN Ordered. EDMS 13:12 T-Sheet-- Draft Copy was scanned into Fanzila and attached to record. gb 13:13 ECG/EKG was scanned into F[employer] and attached to record. gb Administered Medications: 08/16 23:15 Drug: Acetaminophen 650 mg [acetaminophen 325 mg tablet (2 tabs)] Route: PO; ld5 08/17 00:58 Follow up: Response: Temperature is decreased ld5 08/16 23:53 Drug: Piperacillin-Tazobactam 3.375 grams [piperacillin-tazobactam 3.375 gram ld5 intravenous solution] Route: IVPB; Infused Over: 30 mins; Site: left antecubital; 08/17 00:58 Follow up: IV Status: Completed infusion; IV Intake: 50ml ld5 00:34 Drug: hydrALAZINE 10 mg {Note: 10 mg tablet.} Route: PO; ld5 03:31 Follow up: Response: Blood pressure is improved ld5 Signatures: Dispatcher Med[employer] EDSC Celine Ch, Reg Reg gb Barb Rodriguez, Nurse Tech Unit ml3 Rebecca Nguyen,RN RN ld5 Kelsie Marquez MD MD fg Sorenson, Kimberly, Reg Reg [email or web address] The chart was reviewed and I authenticate all verbal orders and agree with the evaluation and treatment provided.Attachments: 08/16 21:56 [facility] Payment Agreement [email or web address] 23:59 Written Provider Order ml3 08/17 13:12 T-Sheet-- Draft Copy gb 13:13 ECG/EKG gb Chart Complete MTDD
--- NOTE | 2016-08-19 04:33 | EDDOCDS ---
Physician Documentation [facility] Name: Irasema Kiran Age: 76 yrs Sex: Female : 1940 Arrival Date: 08/16/2016 Time: 19:24 Bed 8 Private MD: Disposition: 08/16/16 23:18 Hospitalization ordered by Braxton Giang for Inpatient Admission. Preliminary diagnosis are Altered mental status, unspecified, Pneumonia, unspecified organism. - Bed requested for 5 Peters. - Status is Inpatient Admission. ld5 - Condition is Stable. - Problem is new. - Symptoms have improved. Historical: - Allergies: Cipro PO; Miralax; - Home Meds: 1. Nifediac CC 60 mg Oral TbER 1 tab once daily 2. prednisone 10 mg Oral tab 3 tabs once daily 3. amitriptyline 50 mg Oral tab 1 tab nightly 4. levetiracetam 500 mg oral tab 1 tab 2 times per day 5. cephalexin 500 mg Oral cap 1 cap every 12 hours 6. carvedilol 3.125 mg oral tab 1 tab daily 7. esomeprazole magnesium 40 mg Oral cpDR 1 cap once daily 8. gabapentin 100 mg Oral tab 100 mg three times a day 9. Vitamin D3 oral oral 15745 unit weekly 10. hydralazine 10 mg Oral tab 1 tab 2 times per day 11. diphenhydramine HCl 25 mg Oral cap 1 cap as needed - PMHx: CRD; CVA; dizziness; GERD; Hypertension; Pancreatitis; Dementia; - PSHx: common bile duct bypass; Cholecystectomy; right ankle surgery; - Family history: Not pertinent. - Social history: Smoking status: Patient states was never smoker of tobacco. No barriers to communication noted, The patient speaks fluent Hungarian, Speaks appropriately for age. - : The pt / caregiver states he / she is not on anticoagulants. Home medication list is obtained from pill bottles. - Exposure Risk Screening:: None identified. Vital Signs: 08/16 19:39 BP 189 / 94; Pulse 85; Resp 20; Temp 100.8; Pulse Ox 94% ; Weight 60.65 kg / 133.71 lbs jlm (M); 19:57 BP 212 / 96 (auto/); ld5 19:57 Pulse 80 MON; Pulse Ox 99% ; ld5 20:02 BP 225 / 102 (auto/); ld5 20:03 Pulse 82 MON; Pulse Ox 95% ; ld5 20:08 Pulse 82 MON; Pulse Ox 96% ; ld5 20:08 BP 232 / 101 (auto/); ld5 20:28 Pulse 82 MON; Pulse Ox 95% ; ld5 20:28 BP 215 / 91 (auto/); ld5 20:38 BP 221 / 93 (auto/); ld5 20:38 Pulse 80 MON; Pulse Ox 96% ; ld5 20:53 Pulse 82 MON; Pulse Ox 97% ; ld5 20:53 BP 223 / 112 (auto/); ld5 21:23 BP 224 / 100 (auto/); ld5 21:23 Pulse 84 MON; Pulse Ox 95% ; ld5 21:53 BP 236 / 96 (auto/); ld5 21:53 Pulse 86 MON; Pulse Ox 94% ; ld5 22:01 BP 203 / 87 (auto/); ld5 22:01 Pulse 86 MON; Pulse Ox 99% ; ld5 22:08 BP 202 / 88 (auto/); ld5 22:08 Pulse 86 MON; Pulse Ox 96% ; ld5 22:40 BP 189 / 81 LA (man/); ld5 22:47 Temp 101.8(O); [facility] 08/17 00:23 BP 173 / 77; Pulse 86 MON; Resp 18; Temp 99.1(O); Pulse Ox 94% ; ld5 00:38 Pulse 88 MON; Pulse Ox 94% ; ld5 00:38 BP 173 / 75 (auto/); ld5 00:53 Pulse 90 MON; Pulse Ox 94% ; ld5 00:53 BP 160 / 64 (auto/); ld5 01:08 BP 143 / 65 (auto/); ld5 01:08 Pulse 90 MON; Pulse Ox 94% ; ld5 01:23 BP 151 / 70 (auto/); ld5 01:23 Pulse 90 MON; Pulse Ox 96% ; ld5 01:38 BP 152 / 72 (auto/); ld5 01:38 Pulse 88 MON; Pulse Ox 95% ; ld5 02:23 BP 158 / 74 (auto/); ld5 02:23 Pulse 80 MON; Pulse Ox 96% ; ld5 02:38 BP 144 / 67 (auto/); ld5 02:38 Pulse 86 MON; Pulse Ox 96% ; ld5 02:53 BP 163 / 80 (auto/); ld5 02:53 Pulse 76 MON; Resp 16; Temp 99; Pulse Ox 96% ; ld5 03:23 BP 142 / 65 (auto/); ld5 03:23 Pulse 72 MON; Pulse Ox 96% ; ld5 MDM: 08/16 20:03 Cook Pressure/Pulse Ox/q 15 min VS ordered. fg 20:03 Accucheck ordered. fg 20:03 IV Saline Lock ordered. fg 20:03 Oxygen at 4L/Min NC or Home dosage ordered. fg 20:03 Rhythm Strip to chart ordered. fg 20:05 CT Head Without Contrast Ordered. EDMS 20:05 CT Spine,Cervical W/o Contrast Ordered. EDMS 20:05 Acetaminophen Level Ordered. EDMS 20:05 CBC with Diff Ordered. EDMS 20:05 Cardiac Injury Profile Ordered. EDMS 20:05 Liver Profile Ordered. EDMS 20:05 MED Profile Ordered. EDMS 20:05 Salicylate Level Ordered. EDMS 20:05 Thyroid Stimulating Hormone Ordered. EDMS 20:05 Urinalysis Ordered. EDMS 20:05 Urine Culture Ordered. EDMS 20:05 Chest, 1 View Ordered. EDMS 20:05 ECG WITH READING ER PHYS+CARDIAG ordered. EDMS 20:08 Call Respiratory ordered. fg 20:08 Call Respiratory complete. ml3 20:09 Ammonia (Little Green Tube on Ice, Not Pea Green) Ordered. EDMS 20:09 -Arterial Blood Gas Ordered. EDMS 21:56 Financial registration complete. [email or web address] 21:56 [facility] [place] [facility] Payment Agreement was scanned into Net[employer] and attached to record. [email or web address] 22:49 -Blood Culture (Adults Only), peripheral from different site, or from device/port/PICC fg etc. if present ordered. 22:49 Acetaminophen Tablet 650 mg PO once ordered. fg 22:49 Piperacillin-Tazobactam 3.375 grams IVPB once over 30 mins; dilute in 50mL of NS or D5W fg ordered. 22:50 Lactic Acid (Bateman tube on ice) Ordered. EDMS 22:50 -Blood Culture Ordered. EDMS 22:50 -Influenza A&B Rapid Antigen - Nose Ordered. EDMS 22:50 STREP SCREEN NEGATIVE - GATS Ordered. EDMS 22:50 -Blood Culture (Adults Only), peripheral from different site, or from device/port/PICC ml3 etc. if present complete. 22:51 BLOOD CULTURES Ordered. EDMS 22:52 BED REQUEST+ADM ordered. EDMS 23:29 Admission / Observation Status ordered. EDMS 23:29 REGULAR DIET ordered. EDMS 23:30 COMPLETE BLOOD COUNT Ordered. EDMS 23:31 BASIC METABOLIC PROFILE Ordered. EDMS 23:38 PHYSICAL THERAPY EVAL & TREAT ordered. EDMS 23:59 Written Provider Order was scanned into Netech[employer] and attached to record. ml3 08/17 00:01 hydrALAZINE 10 mg PO once ordered. ld5 01:02 SPUTUM CULTURE AND GRAM STAIN Ordered. EDMS 13:12 T-Sheet-- Draft Copy was scanned into Netech[employer] and attached to record. gb 13:13 ECG/EKG was scanned into Net[employer] and attached to record. gb Administered Medications: 08/16 23:15 Drug: Acetaminophen 650 mg [acetaminophen 325 mg tablet (2 tabs)] Route: PO; ld5 08/17 00:58 Follow up: Response: Temperature is decreased ld5 08/16 23:53 Drug: Piperacillin-Tazobactam 3.375 grams [piperacillin-tazobactam 3.375 gram ld5 intravenous solution] Route: IVPB; Infused Over: 30 mins; Site: left antecubital; 08/17 00:58 Follow up: IV Status: Completed infusion; IV Intake: 50ml ld5 00:34 Drug: hydrALAZINE 10 mg {Note: 10 mg tablet.} Route: PO; ld5 03:31 Follow up: Response: Blood pressure is improved ld5 Signatures: Dispatcher MedHost EDIL Celine Ch, Reg Reg gb Barb Rodriguez, Transcripter Unit ml3 Rebecca Nguyen,RN RN ld5 Kelsie Marquez MD MD fg Sorenson, Kimberly, Reg Reg [email or web address] The chart was reviewed and I authenticate all verbal orders and agree with the evaluation and treatment provided.Attachments: 08/16 21:56 [facility] [facility] Payment Agreement [email or web address] 23:59 Written Provider Order ml3 08/17 13:12 T-Sheet-- Draft Copy gb 13:13 ECG/EKG gb Chart Complete MTDD
[2016-08-19] MEDS: NS 1,000 ML IV SCH (04:37)
[2016-08-19 06:00] VITALS: BP 137/87
[2016-08-19] MEDS: HEPARIN SOD (PORCINE) 5000 UNITS/ML VIAL SC SCH (06:24)
[2016-08-19 06:34] LABS: MEAN CORPUSCULAR HEMOGLOBIN 28.8 pg (27.0-33.0); MEAN CORPUSCULAR HGB CONC 32.8 g/dl (32.0-36.5); MEAN CORPUSCULAR VOLUME 87.8 fl (80.0-96.0); RED CELL DISTRIBUTION WIDTH 14.9 % (11.5-14.5); WHITE BLOOD COUNT 8.4 K/mm3 (4.0-10.0)
[2016-08-19 06:46] LABS: CALCIUM LEVEL 8.3 MG/DL (8.8-10.2); CREATININE FOR GFR 1.96 MG/DL (0.55-1.02); GLOMERULAR FILTRATION RATE 26.3 (>39); POTASSIUM SERUM 4.5 MEQ/L (3.5-5.1)
[2016-08-19] MEDS: IPRATROPIUM 0.5MG/ALBUTEROL 2.5MG INH SOL UD 3ML (DUONEB)(J7620) NEB SCH (08:43)
[2016-08-19] MEDS: ASPIRIN ENTERIC 325 MG TAB PO SCH (09:13)
[2016-08-19] MEDS: GABAPENTIN 100 MG CAP PO SCH (09:13)
[2016-08-19] MEDS: LACTOBACILLUS ACIDOPHILUS CAP (BACID) PO SCH (09:13)
[2016-08-19] MEDS: predniSONE 10 MG TAB PO SCH (09:13)
[2016-08-19] MEDS: OMEPRAZOLE 20 MG CAP PO SCH (09:13)
[2016-08-19] MEDS: FOLIC ACID 1 MG TAB PO SCH (09:14)
[2016-08-19] MEDS: **hydrALAZINE** 10 MG TAB PO SCH (09:14)
[2016-08-19] MEDS: THIAMINE 100 MG TAB PO SCH (09:14)
[2016-08-19] MEDS: NIFEdipine 60 MG XL TAB PO SCH (09:14)
[2016-08-19] MEDS: DOCUSATE SODIUM 100 MG CAP PO SCH (09:14)
[2016-08-19] MEDS: MULTIVITAMINS/MINERALS THERAP 1 TAB PO SCH (09:14)
[2016-08-19 09:15] VITALS: BP 137/87
[2016-08-19] MEDS: levETIRAcetam 250MG TABLET (KEPPRA) PO SCH (09:15)
[2016-08-19] MEDS: RESTASIS EYE DROPS (PATIENT'S OWN MED) OU SCH (09:15)
[2016-08-19] MEDS: CARVedilol 3.125 MG TAB PO SCH (09:15)
--- NOTE | 2016-08-19 10:46 | IPNPDOC ---
Date Seen The patient was seen on 08/19/16. Progress Note Subjective: patient sleeping this am but easily arousable, refused to interact. not in any acute distress. No fever or chills, no chest pain or SOB , no abdominal pain , nausea or vomiting. Vital Signs Label Value Date Time Patient Temperature 96.8 degrees F 08/19/16599 Temperature Source Tympanic 08/19/16599 Pulse 67 08/19/16599 Respiratory Rate 18 bpm 08/19/16599 Blood Pressure Assessment 137/87 (104) 08/19/16599 Bedside Pulse Oximetry 95 % 08/19/16599 Item Value Date Time Oxygen Delivery Method Room Air 08/19/16599 Physical Exam: General: Asleep, but able to be awoken. Not very interactive, getting irritated on being woken up . Refused to talk. HEENT: Normocephalic, atraumatic, extraocular movements intact CV: Regular rate and rhythm Lungs: Clear to auscultation bilaterally Abd: Soft, nontender, nondistended Extremities: No edema Neuro: Not very interactive, but does answer directed questions and is alert and oriented 3 Psych: Flat affect Assessment and Plan: 76-year-old female with chronic kidney disease, history of CVA, GERD, hypertension, pancreatitis, dementia, EtOH dependence who presents with increasing weakness, productive cough, and change in mental status. She has been admitted with a left pneumonia, community-acquired versus aspiration. 1. Left-sided pneumonia: Prior to presentation, the patient had consumed a fair amount of alcohol and there is concern that she possibly could've aspirated. However, the fact that this is located on the left side, seems less likely for aspiration and may simply represent a community-acquired pneumonia. The patient has been afebrile with normal white counts, and she'll be continued on Rocephin and azithromycin. Blood cultures are negative till date. 2.Acute metabolic Encephalopathy: I suspect this is infectious in nature secondary to the pneumonia, overlying on her chronic dementia. The son reports improvement, and we will continue to monitor. 3. Acute on chronic kidney disease: Upon review of the EMR, it appears that the patient's baseline creatinine is closer to the mid ones. Now close to baseline. will dc ivf. 4. Anemia: Hemoglobin upon admission was 10.4, and this morning it is 8.9. Upon discussion with the son, it appears that this is chronic in nature. He reports a history of a full workup, including capsule endoscopy, which he states was unrevealing. He states that she follows with a doctor, who he believes is in [place], for "repletion of her iron." We will check a fecal occult blood, and continue to monitor her hemoglobin. She is not currently having any obvious bleeding. Iron studies are most consistent with chronic disease, and may be reflective of her underlying kidney disease. 5. History of CVA: Continue home aspirin. The patient is not on a statin, which we will defer to her primary physicians to add this to her regimen. We will control her blood pressure. 6. Hypertension: Continue home Coreg and Procardia. Hydralazine has also been added. 7. EtOH dependence: The patient is not currently exhibiting any signs of withdrawal. We will make when necessary Ativan available as needed for signs or symptoms of withdrawal. We will also start the patient on daily thiamine, folate , and a multivitamin. 8. GERD: Continue home PPI. 9. Depression and chronic pain. Continue home amitriptyline and Neurontin. 10. History of brain aneurysm. I presume this is why she takes Keppra, which we' ll continue. 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 According to the son at the bedside today, she was recently started on this by her funeral planner for some swelling around her eye. At this time, we will continue it, as well as continue her home eyedrops. 12. Dementia : now congition poorer than baseline due to acute encephalopathy due to infection. DVT prophylaxis: Heparin Dispo: likely home tomorrow, pending hemoglobin, blood cultures, and mental status and Clearance by PT. VS, I&O, 24H, Fishbone Vital Signs/I&O Vital Signs Date Time Temp Pulse Resp B/P Pulse Ox O2 Delivery O2 Flow Rate FiO2 08/19/16 09:15 67 137/87 08/19/16 06:00 96.8 18 95 Room Air I&O- Last 24 Hours up to 6 AM 08/19/16 05:59 Intake Total 1000 ml Output Total 800 ml Balance 200 ml Laboratory Data 24H LABS Laboratory Tests 2 08/19/16 00:01: Urine Random Creatinine 50.7, Urine Random Sodium 16 08/19/16 06:24: Anion Gap 8, Blood Urea Nitrogen 36H, Creatinine 1.96H, Sodium Level 145, Potassium Level 4.5, Chloride Level 116H, Carbon Dioxide Level 21, Calcium Level 8.3L, Glomerular Filtration Rate 26.3L CBC/BMP Laboratory Tests 08/19/16 06:24 Calcium Level 8.3 L, Red Blood Count 3.27 L, Mean Corpuscular Volume 87.8, Mean Corpuscular Hemoglobin 28.8, Mean Corpuscular Hemoglobin Concent 32.8, Red Cell Distribution Width 14.9 H Microbiology Microbiology 08/16/16 Blood Culture - Preliminary, Resulted No Growth after 48 hours. All Specime... 08/16/16 Blood Culture - Preliminary, Resulted No Growth after 48 hours. All Specime... 08/16/16 Group A Streptococcus Screen (LETICIA) - Final, Complete 08/16/16 Influenza Virus Type A Antigen - Final, Complete 08/16/16 Influenza Virus Type B Antigen - Final, Complete 08/16/16 Urine Culture - Final, Complete LANA MOLINA MD Aug 19, 2016 10:46
[2016-08-19] MEDS ORDERED: THIA100TA PO (11:10)
[2016-08-19] MEDS ORDERED: AZIT250T3 PO (11:10)
[2016-08-19] MEDS ORDERED: PRED10TA PO (11:10)
[2016-08-19] MEDS ORDERED: FOLI1TAB2 PO (11:10)
[2016-08-19] MEDS ORDERED: CEFD1CAP8 PO (11:11)
[2016-08-20] MEDS ORDERED: AZITHROMYCIN 250 MG TAB PO SCH (09:00)
--- NOTE | 2016-08-20 12:49 | DSES ---
DATE OF ADMISSION: 08/16/2016 DATE OF DISCHARGE: 08/19/2016 PRIMARY CARE PROVIDER: Dacia Forrester DO DISCHARGE DIAGNOSES: 1. Community-acquired pneumonia on the left. 2. Acute metabolic encephalopathy. 3. Acute kidney injury (LILI) on chronic kidney disease (CKD) stage III. 4. Chronic anemia. 5. Hypertension. 6. History of alcohol dependence. 7. Gastroesophageal reflux disease (GERD). 8. Depression and chronic pain. 9. Dementia. 10. History of brain aneurysm. 11. History of CVA. 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 Patient on steroid therapy for eyes prescribed by Dr. Adam which was continued. DISCHARGE MEDICATIONS: - cefdinir 300 mg by mouth twice a day - azithromycin 500 mg by mouth daily - folic acid 1 mg by mouth daily - thiamine 100 mg by mouth daily - prednisone 30 mg by mouth daily - amitriptyline 50 mg at bedtime - aspirin 325 mg by mouth daily - Coreg 3.125 by mouth daily - cholecalciferol 10,000 units once a week - diphenhydramine 50 mg at bedtime as needed - esomeprazole 40 mg by mouth daily - gabapentin 100 mg by mouth three times a day - hydralazine 10 mg by mouth twice a day - lactobacillus one tablet by mouth daily - Keppra 500 mg by mouth twice a day - nifedipine 60 mg by mouth daily - Systane eye drops both eyes four times a day - Restasis eye drops both eyes twice a day HOSPITAL COURSE: This is a 76-year-old female who presented to the hospital with cough and generalized weakness, inability to eat by mouth. Patient also has a history of alcohol dependence. Patient was noted to be confused over a span of 2-3 days with increasing cough, so was brought to the emergency room. In the emergency department (ED), patient had a CT scan of the chest done which showed infiltrates in the left middle and lower lobe of the lung and was diagnosed with community-acquired pneumonia and admitted. Patient was started on intravenous (IV) ceftriaxone and azithromycin with good response to treatment. Her mental status gradually improved and is almost at baseline. She was diagnosed with acute metabolic encephalopathy related to infection. Patient was also noted to have slightly worse renal functions than her baseline which is usually around 1.4 to 1.6. She came in with a creatinine of 2.1 which then again improved to 1.9. Patient is on 30 mg of steroids for an eye problem which was prescribed by Dr. Adam, this was continued in the hospital and patient was given a further prescription for those. Patient's daughter instructed to contact Dr. Adam for further instructions regarding continuation or discontinuation of the steroids. At present, patient is functioning at her baseline and was cleared by physical therapy. She does not offer complaints and vital signs are stable and she is going to be discharged home in a stable condition. PHYSICAL EXAMINATION: VITAL SIGNS: Temperature 96.8, pulse 67, respiratory rate 18, blood pressure 137/87, pulse oximetry 95% in room air. GENERAL: Patient is awake, alert, oriented times three, sitting up in bed, in no acute distress. HEENT: Normocephalic, atraumatic. Moist mucous membranes. Anicteric eyes. CHEST: Clear to auscultation. CARDIOVASCULAR: S1, S2, regular. ABDOMEN: Soft, nontender, bowel sounds present. EXTREMITIES: No edema. LABORATORY DATA: WBC 8.4, hemoglobin 9.4, platelets 245, sodium 145, potassium 4.5, chloride 116, bicarbonate 21, BUN 36, creatinine 1.9, glucose 91, calcium 8.3, ferritin 137, iron 18, TIBC 237, transferrin saturation 7.6%. Brain MRI: Mild volume loss, small vessel ischemic disease. CT of the chest: Showed left upper lobe and left lower lobe infiltrates, small to moderate left pleural effusion, no adenopathy. There is chronic pneumobilia and chronic renal cortical scarring. Ultrasound of the kidneys: No hydronephrosis, small cyst in each kidney. Cervical spine CT: Chronic advanced multilevel degenerative disc complex. No acute fracture, compression, or subluxation. DISPOSITION: Patient is discharged home with family in a stable condition. DISCHARGE INSTRUCTIONS: Patient to followup with primary care provider in 2-3 weeks. Patient to followup with Dr. Adam as soon as possible. Diet as tolerated. Activity as tolerated.
== END 2016-08-19 14:20 | disposition home health service (06) | DRG 193 ==
LOC: M ED 19:24 → M ED INP 23:21 → M MS5PR 08-17 03:41
PROVIDERS: ADMIT Hospitalist; ATTEND Internal Medicine Nephrology
DX: J18.9 Pneumonia, unspecified organism (principal); G93.41 Metabolic encephalopathy; N17.9 Acute kidney failure, unspecified; E24.2 Drug-induced Cushing's syndrome; K86.1 Other chronic pancreatitis; I12.9 Hypertensive chronic kidney disease with stage 1 through stage 4 chronic kidney disease, or unspecified chronic kidney disease; D63.1 Anemia in chronic kidney disease; N18.3 Chronic kidney disease, stage 3 (moderate); Z86.73 Personal history of transient ischemic attack (TIA), and cerebral infarction without residual deficits; F03.90 Unspecified dementia, unspecified severity, without behavioral disturbance, psychotic disturbance, mood disturbance, and anxiety; K21.9 Gastro-esophageal reflux disease without esophagitis; F32.9 Major depressive disorder, single episode, unspecified; Z79.899 Other long term (current) drug therapy; Z79.82 Long term (current) use of aspirin; Z79.52 Long term (current) use of systemic steroids; F10.20 Alcohol dependence, uncomplicated; Z88.8 Allergy status to other drugs, medicaments and biological substances; Z91.19 Patient's noncompliance with other medical treatment and regimen; G40.909 Epilepsy, unspecified, not intractable, without status epilepticus

== ENCOUNTER 2016-09-11 03:26 | Emergency (ER) | payer MEDICARE ==
[~2016-09-11] VITALS: Ht 152.4 cm; Wt 61.2 kg
[~2016-09-11 03:26] MED LIST changes: +ASPI32ECTA PO; +AZIT250T3 PO; -AZITHROMYCIN INJ 500 MG, VIAL MATE ADAPTER 1 EACH in D5W 250 ML IV SCH; +BACITAB3 PO; +CEFD1CAP8 PO; +CEPH500T PO; +DIPH25CA PO; +FOLI1TAB2 PO; +GABA-279 PO; +PRED10TA PO; +THIA100TA PO; +VITA500046 PO
[2016-09-11] MEDS ORDERED: NS 1,000 ML IV SCH (04:00)
[2016-09-11] MEDS ORDERED: MORPHINE 4 MG/ML 1ML SYRINGE IV ONE (04:00)
[2016-09-11 04:17] LABS: BASO % 0.4 % (0.0-1.0); EOS # 0.2 K/mm3 (0.0-0.50); EOS % 1.9 % (0.0-3.0); LARGE UNSTAINED CELL # 0.2 K/mm3 (0.0-0.4); LARGE UNSTAINED CELL % 1.8 % (0.0-4.0); LYMPH # 3.8 K/mm3 (1.5-4.5); LYMPH % 35.4 % (24.0-44.0); MEAN CORPUSCULAR HEMOGLOBIN 28.2 pg (27.0-33.0); MEAN CORPUSCULAR HGB CONC 32.7 g/dl (32.0-36.5); MEAN CORPUSCULAR VOLUME 86.2 fl (80.0-96.0); MONO # 0.4 K/mm3 (0.0-0.8); MONO % 3.6 % (0.0-5.0); NEUTROPHILS # 6.1 K/mm3 (1.8-7.7); NEUTROPHILS % 56.9 % (36.0-66.0); PLATELET COUNT, AUTOMATED 295 k/mm3 (150-450); RED CELL DISTRIBUTION WIDTH 14.7 % (11.5-14.5); WHITE BLOOD COUNT 10.8 K/mm3 (4.0-10.0)
[2016-09-11] MEDS ORDERED: ceFAZolin SOD 1 GM in D5W MINI-BAG PLUS 50 ML IV ONE (04:30)
[2016-09-11] MEDS ORDERED: PROPOFOL 200 MG/20 ML VIAL IV PRN (04:45)
[2016-09-11] MEDS ORDERED: KETAMINE HCL 200 MG/20 ML VIAL IV ONE (04:45)
[2016-09-11 05:18] LABS: CALCIUM LEVEL 7.8 MG/DL (8.8-10.2); CREATININE FOR GFR 1.47 MG/DL (0.55-1.02); GLOMERULAR FILTRATION RATE 36.6 (>39); POTASSIUM SERUM 3.4 MEQ/L (3.5-5.1)
[2016-09-11] MEDS ORDERED: TETANUS/DIPHTHERIA TOX ADSORB ADULT 0.5ML SYR/VIAL (90714) IM ONE (05:30)
--- NOTE | 2016-09-11 07:00 | REPUSA ---
CLINICAL HISTORY: Fall. TECHNIQUE: Multiple axial CT images were obtained through the brain without IV contrast material. COMMENTS: There is normal configuration of sella turcica. There are no intra or extra-axial collections. There is no mass effect or midline shift. There is no evidence of hematoma formation. No hydrocephalus is p resent. The ventricles are symmetrical. No abnormal calcifications are present. There is diffuse age-appropriate cerebellar and cerebral atrophy with proportionally dilated ventricl es and cortical sulci. There are bilateral periventricular and subcortical white matter hypolucencies compatible with mild c hronic microvascular disease. Otherwise, no significant focal abnormalities are seen either in the posterior fossa or supratentoria l compartment. IMPRESSION: 1. Age-appropriate cerebellar and cerebral atrophy. 2. Mild chronic microvascular disease. 3. No evidence of acute intracranial pathology. Thank you for your kind referral of this patient.
--- NOTE | 2016-09-11 07:10 | REPUSA ---
CLINICAL HISTORY: Neck pain. Fall. TECHNIQUE: Multiple axial images were obtained through the cervical spine. Images were also reconstru cted in coronal and sagittal planes. The study was performed without IV contrast. COMMENTS: There is no fracture . Grade 1 anterior spondylolisthesis of C3 on C4 is seen. Grade 1 posterior spo ndylolisthesis of C4 on C5 and C5 on C6 is seen. The paraspinal soft tissues are unremarkable. There are no lytic or blastic lesions. Straightening of cervical lordosis is seen, suggesting muscular spasm. There is evidence of multileve l disk disease, demonstrated by osteophytosis and endplate sclerosis. IMPRESSION: 1. No fracture. Grade 1 anterior spondylolisthesis of C3 on C4 is seen. Grade 1 posterior spondyloli sthesis of C4 on C5 and C5 on C6 is seen. 2. Straightening of cervical lordosis is seen, suggesting muscular spasm. 3. Miultilevel spondylosis. Thank you for your kind referral of this patient.
--- NOTE | 2016-09-11 07:20 | REPUSA ---
CLINICAL HISTORY: Trauma. TECHNIQUE: Multiple axial, sagittal and coronal CT images were obtained through the abdomen and pelvis without administration of oral or IV contrast material. COMMENTS: The liver is of uniform attenuation without mass or defect. There is moderate pneumobilia. There is m oderate biliary ductal dilatation. Severe thickening of dudenal wall is seen. Pancreatic head/uncina te process mass is not excluded. The spleen is normal. The gallbladder is surgically absent. There is no evidence of adrenal mass. The kidneys are normal in size, shape and configuration. No renal or ureteral calculi are identified. There is no hydroureter or hydronephrosis. There is no evidence for appendicitis. No evidence for small or large bowel obstruction. There is no evidence of abdominal ascites or lymphadenopathy. There is no evidence of intrinsic or extrinsic bladder mass. There is no pelvic ascites or lymphadenopathy. The bony structures are free of lytic or blastic lesions. Multilevel degenerative changes are seen involving the thoracolumbar spine. No fracture. Scattered calcifications are seen involving the aorta and major branches compatible with atherosclerosis. IMPRESSION: Cholecystectomy. Moderately dilated biliary tree. Pneumobilia. Severe thickening of dudenal wall is seen. Pancreatic head/uncinate process mass is not excluded. Further evaluation is recomended with CT performed with IV/oral contrast.
--- NOTE | 2016-09-11 07:20 | REPUSA ---
CLINICAL HISTORY: Trauma. TECHNIQUE: Multiple axial CT images were obtained through chest without IV contrast material. COMMENTS: Mild biapical emphysema is seen. Bibasilar scarring is noted. There is no evidence of pleural or parenchymal-based mass. There are no pleural effusions. There is n o evidence of hilar or mediastinal lymphadenopathy. The heart and great vessels are within normal gerardo its. The bony structures are free of lytic or blastic lesions. Multilevel degenerative changes are seen in volving the thoracic spine. No fracture is seen. Scattered calcifications are seen involving the aorta and visualized major branches compatible with a therosclerosis. IMPRESSION: No evidence of acute thoracic pathology. Mild biapical emphysema is seen. Bibasilar scarring is noted. Thank you for your kind referral of this patient.
--- NOTE | 2016-09-11 07:30 | REPUSA ---
CLINICAL HISTORY: Fall. TECHNIQUE: Multiple axial CT images were obtained through the thoracic spine without IV contrast mate rial. MPR coronal and sagittal sequences were obtained. COMMENTS: There is no fracture visualized. The paraspinal soft tissues are unremarkable. There are no lytic or blastic lesions. The paravertebral soft tissue space is normal. Multilevel degenerative changes are seen involving the thoracolumbar spine. IMPRESSION: Multilevel degenerative changes are seen involving the thoracolumbar spine. No fracture. Thank you for your kind referral of this patient.
--- NOTE | 2016-09-11 07:30 | REPUSA ---
CLINICAL HISTORY: Back pain. Fall. TECHNIQUE: Multiple axial images were obtained through the L1-L2, L2-L3, L3-L4, L4-L5 and L5-S1 inter spaces. Images were also reconstructed in coronal and sagittal planes. COMMENTS: There is no fracture visualized. The paraspinal soft tissues are unremarkable. There are no lytic or blastic lesions. Straightening of lumbar lordosis is seen, suggesting muscular spasm. There is evidence of multilevel disk disease, demonstrated by osteophytosis ad endplate sclerosis. IMPRESSION: 1. No fracture or spondylolisthesis. 2. Straightening of lumbar lordosis is seen, suggesting muscular spasm. 3. Multilevel degenerative changes. Thank you for your kind referral of this patient.
[2016-09-11] MEDS ORDERED: MORPHINE 2 MG/ML 1ML SYRINGE IV ONE (08:15)
[2016-09-11 08:48] VITALS: BP 186/87
--- NOTE | 2016-09-11 10:54 | REP ---
REASON: Pain after trauma. COMPARISON: None. A single AP view of the right humerus shows an elbow dislocation. Without a lateral view, it cannot be stated with certainty whether or not this dislocation is anterior or posterior. Without additional views, I cannot rule out the possibility of a distal humeral fracture or proximal forearm fracture. IMPRESSION: Exam limitations and elbow dislocation as described above. Signed by Uzair Riddle DO 09/11/2016 11:25 A
--- NOTE | 2016-09-11 10:58 | REP ---
Pain after trauma. PRIORS: None. AP and lateral views of the distal forearm were obtained with a single view of the elbow. Distal radial and ulnar fractures are present with medial displacement. There is an elbow dislocation, however, on this single view, it cannot be stated with certainty whether it is anterior or posterior. The radial head is seen posterior to the elbow joint and I suspect the ulna is at least subluxed posteriorly as well. Due to the projection obtained, I cannot rule out radial head hairline fracture and/or ulnar fractures proximally. I cannot rule adequately assess the distal humerus and fractures cannot be rule out. IMPRESSION: Findings and limitations as described above. CT should be obtained to completely assess the osseous structures. Signed by Uzair Riddle DO 09/11/2016 11:25 A
--- NOTE | 2016-09-11 11:00 | REP ---
Pain after trauma. COMPARISON: 08/16/2016 The technique utilized in obtaining the radiograph has magnified the cardiac silhouette and accentuated the interstitial markings. Cardiomediastinal silhouette is unchanged. There is cardiomegaly. The lung castañeda are clear with the exception of interstitial fibrotic change. No acute patchy opacities or pleural effusions are present. The opacity seen previously on the left has resolved. The osseous structures are within normal limits and essentially unchanged. IMPRESSION: Chronic changes as described above without evidence of acute cardiopulmonary disease. Signed by Uzair Riddle DO 09/11/2016 11:25 A
--- NOTE | 2016-09-11 11:01 | REP ---
Pain after trauma. PRIORS: None. FINDINGS: No acute fracture or destructive osseous lesion. Signed by Uzair Riddle DO 09/11/2016 11:25 A
--- NOTE | 2016-09-11 11:03 | REP ---
Pain after trauma. PRIORS: None. There is complete posterior dislocation of the elbow. I cannot rule out the possibility of a small fracture of the elbow coronoid process. There is no definite evidence of a concomitant radial head fracture or distal humeral fracture. CT of the elbow is recommended for complete evaluation. Signed by Uzair Riddle DO 09/11/2016 11:25 A
--- NOTE | 2016-09-11 11:05 | REP ---
Post reduction portable AP and lateral views. The dislocation has been completely reduced. There is casting material obscuring the bony detail. A tiny chip fracture of the coronoid process cannot be ruled out. No other elbow fractures are identified. There is a marked joint effusion. Signed by Uzair Riddle DO 09/11/2016 11:25 A
--- NOTE | 2016-09-11 11:07 | REP ---
Post reduction views. AP and lateral portable views of the wrist were obtained. Overlying casting material is obscures the bony detail. There is a fracture through the waist of the scaphoid. There is a comminuted distal radial fracture and there is a comminuted distal ulnar fracture. The radial fracture is seen with dorsal angulation as is the ulnar fracture. The radiocarpal joint has been reduced. IMPRESSION: Fractures and limitations as described above. Due to the complexity of the findings, I would recommend CT for further evaluation. Signed by Uzair Riddle DO 09/11/2016 11:25 A
--- NOTE | 2016-09-11 19:37 | ED PDOC ---
Provider Note dr blair lopez faxed formal report of ct abd/p for tawanda vaughn Maja MD Sep 11, 2016 19:37
--- NOTE | 2016-09-11 19:49 | ECGEPIP ---
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
--- NOTE | 2016-09-12 11:05 | CR ---
DATE OF CONSULTATION: 09/11/2016 REFERRING PHYSICIAN: Emergency department, Dr. Kadeem Benson. CHIEF COMPLAINT: Right upper extremity pain and deformity. HISTORY OF PRESENT ILLNESS: Per the son the patient fell down a flight of stairs around 8 p.m. last night. She was brought in this morning for right arm pain and obvious deformity. The patient has a baseline history of dementia and alcoholism and she is brought in by several members of the family, her daughter and two sons. The daughter is the primary source of information. She states that the patient has been complaining of pain isolated to the right upper extremity, no other recent complaints. PAST MEDICAL HISTORY: As above. PHYSICAL EXAMINATION: GENERAL: Awake and alert female resting in bed. She is alert. She is not responding verbally to any questioning, not focusing. RIGHT UPPER EXTREMITY: Examination of the right upper extremity shows obvious swelling and deformity about the right elbow joint with anterior hematoma. The skin in this area is intact. Distally there is obvious deformity about the wrist joint with complex laceration on the ulnar side which is not actively bleeding. There is the ulnar head visible within the wound. Distally the fingertips are pink, warm and well perfused. There is a 2+ radial pulse. She demonstrates some intact flicker function of the fingers but is not really able to follow commands or move the fingers much. X-ray of the right humerus, right elbow and right forearm show apparently posterior elbow dislocation, no obvious fracture noted. Also, distal radius and ulnar fracture predominantly extra-articular with the obvious soft tissue deformity and significant displacement. Left femur x-ray is grossly negative for any acute fracture or dislocation. ASSESSMENT: Elbow dislocation with open wrist fracture as above. PLAN: With the assistance of the emergency department, under conscious sedation, an irrigation and dressing application to the right forearm along with a closed reduction of the elbow and distal forearm were performed and she was placed in a well padded splint. Following this, the pulse oximeter reading on her fingertips was 95% plus, fingertips pink, warm and well perfused. She demonstrated some improved flexion and extension of the fingers. She has already been given a dose of intravenous antibiotics and Tetanus was supposed to be updated per the emergency department staff. At this point I had a discussion with the family about treatment options. They are interested in seeking evaluation with an orthopedic upper extremity subspecialist and as a result, they will be transferred to [place] for that evaluation. In the meantime, will protect the right upper extremity during transport, monitor neurovascular status. All of their questions were answered and they are satisfied with the treatment plan at this time. I did again, offer to provide care for this patient here, irrigation and external fixation with some stabilization of the distal forearm wounds and the stabilization of the fractures; but again, they would like to seek upper extremity specialist or a trauma specialist evaluation. cc: Jeffrey Benson, DO
== END 2016-09-11 08:57 | disposition short-term general hospital (02) ==
LOC: M ED 05:10
DX: S53.024A Posterior dislocation of right radial head, initial encounter (principal); S52.551B Other extraarticular fracture of lower end of right radius, initial encounter for open fracture type I or II; S52.691B Other fracture of lower end of right ulna, initial encounter for open fracture type I or II; F10.120 Alcohol abuse with intoxication, uncomplicated; W10.8XXA Fall (on) (from) other stairs and steps, initial encounter; Y92.89 Other specified places as the place of occurrence of the external cause; Y93.89 Activity, other specified; Y99.8 Other external cause status; M54.9 Dorsalgia, unspecified; R10.9 Unspecified abdominal pain; F03.90 Unspecified dementia, unspecified severity, without behavioral disturbance, psychotic disturbance, mood disturbance, and anxiety; Z88.1 Allergy status to other antibiotic agents; Z88.8 Allergy status to other drugs, medicaments and biological substances; Z79.899 Other long term (current) drug therapy; Z79.2 Long term (current) use of antibiotics; Z79.52 Long term (current) use of systemic steroids; Z79.82 Long term (current) use of aspirin
CPT/HCPCS: 24600; 25605; 36415; 70450; 71010; 71250; 72125; 72128; 72131; 73060; 73070; 73080; 73090; 73100; 73552; 74176; 80048; 82550; 82553; 84484; 85025; 87040; 87077; 87186; 90471; 90714; 93005; 96361; 96374; 96375; 96376; 99285; G0480; J0690

== ENCOUNTER → 2016-09-29 | Outpatient (REF) ==
[~2016-09-29] MED LIST changes: +ASPI81TA4 PO; +CLON0.2T PO; +DULC10SU2 PR; +ENEMENE6 PR; +ENSULIQ64 PO; +FEVE650S3 PR; +LEVE250T5 PO; +LISI-538 PO; +LISI-542 PO; +MILKSUS PO; +MOM30SS PO; +MULT1TAB20 PO; +NATU400T PO; +ONDA1TAB15 PO; +OXYCO5TA PO; +PAME50CA PO; +TRIC145T PO; +VITA100T60 PO; +VITMTA PO; +WELC625T PO
[2016-09-29 11:59] LABS: BASO % 0.2 % (0.0-1.0); EOS # 0.3 K/mm3 (0.0-0.50); EOS % 3.7 % (0.0-3.0); LARGE UNSTAINED CELL # 0.1 K/mm3 (0.0-0.4); MEAN CORPUSCULAR HEMOGLOBIN 29.2 pg (27.0-33.0); MEAN CORPUSCULAR HGB CONC 31.2 g/dl (32.0-36.5); MEAN CORPUSCULAR VOLUME 93.6 fl (80.0-96.0); MONO # 0.5 K/mm3 (0.0-0.8); MONO % 6.6 % (0.0-5.0); NEUTROPHILS % 76.4 % (36.0-66.0); PLATELET COUNT, AUTOMATED 306 k/mm3 (150-450); RED CELL DISTRIBUTION WIDTH 14.6 % (11.5-14.5); WHITE BLOOD COUNT 7.9 K/mm3 (4.0-10.0)
--- NOTE | 2016-09-29 14:44 | REP ---
Clinical: Febrile. Comparison: 09/11/2016. Findings: Chronic changes are appreciated. Superimposed bibasilar atelectasis and small pleural effusions as well as perihilar atelectasis and adenopathy cannot be excluded. Impression: Chronic fibrosis and interstitial changes. Superimposed acute adenopathy, perihilar opacities and bibasilar atelectasis with small pleural effusions are suspected. Signed by James Lechuga MD 09/29/2016 10:54 A
== END ==
LOC: SKLAB3 09:33
PROVIDERS: ATTEND Internal Medicine
DX: R50.9 Fever, unspecified (principal)

== ENCOUNTER 2016-10-02 10:24 | Inpatient (IN) | payer MEDICARE ==
[~2016-10-02] VITALS: Ht 157.5 cm; Wt 57.0 kg
[~2016-10-02 10:24] MED LIST changes: -ASPI81TA4 PO; -CLON0.2T PO; -COLA100C PO; +COLA100C3 PO; -DULC10SU2 PR; -ENEMENE6 PR; -ENSULIQ64 PO; -FEVE650S3 PR; -LEVE250T5 PO; -LISI-538 PO; -LISI-542 PO; -MILKSUS PO; -MOM30SS PO; -MULT1TAB20 PO; -NATU400T PO; -ONDA1TAB15 PO; -OXYCO5TA PO; -PAME50CA PO; -TRIC145T PO; -VITA100T60 PO; -VITMTA PO; -WELC625T PO
[2016-10-02] MEDS ORDERED: NS 1,000 ML IV SCH (10:40)
[2016-10-02] MEDS ORDERED: FEVE650S3 PR (11:29)
[2016-10-02] MEDS ORDERED: PAME50CA PO (11:29)
[2016-10-02] MEDS ORDERED: MULT1TAB20 PO (11:29)
[2016-10-02] MEDS ORDERED: ENSULIQ64 PO (11:29)
[2016-10-02] MEDS ORDERED: CLON0.2T PO (11:29)
[2016-10-02] MEDS ORDERED: TRIC145T PO (11:29)
[2016-10-02] MEDS ORDERED: NATU400T PO (11:29)
[2016-10-02] MEDS ORDERED: WELC625T PO (11:29)
[2016-10-02] MEDS ORDERED: LISI-542 PO (11:29)
[2016-10-02] MEDS ORDERED: OXYCO5TA PO (11:29)
[2016-10-02] MEDS ORDERED: MOM30SS PO (11:29)
[2016-10-02] MEDS ORDERED: VITA100T60 PO (11:29)
[2016-10-02] MEDS ORDERED: ASPI81TA4 PO (11:29)
[2016-10-02] MEDS ORDERED: ONDA1TAB15 PO (11:29)
--- NOTE | 2016-10-02 11:29 | REP ---
Clinical: Trauma. Comparison: 09/11/2016 . Findings: Age-related atrophy and microvascular ischemic changes are appreciated. The ventricles and sulci are symmetric. Bateman-white differentiation is maintained. There is no evidence for acute intracranial hemorrhage, mass/mass effect, pathology or infarction. No extra-axial fluid collection. Calvarium is intact. Paranasal sinuses and mastoid air cells are clear. Impression: Age related atrophy and microvascular ischemic changes. No acute intracranial hemorrhage, infarction, or mass/mass effect. Signed by James Lechuga MD 10/02/2016 11:20 A
--- NOTE | 2016-10-02 11:43 | REP ---
Clinical: Trauma. Comparison: 09/11/2016. Findings: The patient appears to be status post open reduction and fixation with multiple K-wires through comminuted fractures of the distal radius and ulna. A fracture through the scaphoid waist is also identified. These findings are similar to 09/11/2016 which was prior to fixation and no subsequent baseline is available from the interim period. Impression: Status post open reduction and fixation for distal radial fractures with ulnar styloid fracture and scaphoid waist fracture. These fractures are identified on 09/11/2016. Signed by James Lechuga MD 10/02/2016 11:35 A
--- NOTE | 2016-10-02 11:48 | REP ---
Clinical: Trauma. Comparison: 09/11/2016. Findings: No acute fracture or dislocation is appreciated. Periosteal formation along the lateral condylar region of the distal humerus represent sequelae of prior trauma/dislocation. Impression: No obvious acute fracture although evaluation is significantly limited due to overlying stabilizer device. Periosteal reaction along the lateral aspect of the elbow consistent with sequelae of recent prior trauma. Signed by James Lechuga MD 10/02/2016 11:39 A
--- NOTE | 2016-10-02 11:50 | REP ---
Clinical: Trauma. Technique: Axial images from the skull base through the thoracic inlet with coronal and sagittal re-formations. Comparison: 09/11/2016. Findings: Extensive chronic multilevel degenerative disc osteophyte complexes are noted including mild reversal of normal lordosis and chronic grade 1 retrolisthesis at the C5-6 level. No acute fracture / compression injury or subluxation. Spinal canal is grossly patent. Posterior elements and spinous processes are intact. Paravertebral soft tissues are normal. Impression: Extensive chronic multilevel degenerative changes essentially stable compared to 09/11/2016. Signed by James Lechuga MD 10/02/2016 11:41 A
--- NOTE | 2016-10-02 11:51 | REP ---
Clinical: Sepsis. Comparison: 09/29/2016. Findings: Mediastinum and cardiac silhouette are stable. Diffuse indistinct pulmonary vasculature and increased interstitial markings noted bilaterally and similar to prior examination. While findings likely represent chronic changes, superimposed elements of atelectasis as well as interstitial edema cannot be excluded. No effusion. No pneumothorax. Skeletal structures demonstrate osteopenia and degenerative changes. Impression: Diffusely increased markings likely chronic. Differential diagnosis includes interstitial edema and scattered atelectasis. Signed by James Lechuga MD 10/02/2016 11:43 A
[2016-10-02 11:58] LABS: BASO % 0.1 % (0.0-1.0); EOS # 0.2 K/mm3 (0.0-0.50); EOS % 1.4 % (0.0-3.0); LARGE UNSTAINED CELL # 0.1 K/mm3 (0.0-0.4); LARGE UNSTAINED CELL % 1.2 % (0.0-4.0); LYMPH # 1.2 K/mm3 (1.5-4.5); LYMPH % 10.3 % (24.0-44.0); MEAN CORPUSCULAR HEMOGLOBIN 28.5 pg (27.0-33.0); MEAN CORPUSCULAR HGB CONC 31.1 g/dl (32.0-36.5); MEAN CORPUSCULAR VOLUME 91.8 fl (80.0-96.0); MONO # 0.7 K/mm3 (0.0-0.8); MONO % 6.7 % (0.0-5.0); NEUTROPHILS # 8.3 K/mm3 (1.8-7.7); NEUTROPHILS % 80.2 % (36.0-66.0); PLATELET COUNT, AUTOMATED 352 k/mm3 (150-450); RED CELL DISTRIBUTION WIDTH 14.4 % (11.5-14.5); WHITE BLOOD COUNT 10.3 K/mm3 (4.0-10.0)
[2016-10-02 12:07] LABS: INR 1.24
[2016-10-02 12:24] LABS: ALBUMIN 1.9 GM/DL (3.2-5.2); ALBUMIN/GLOBULIN RATIO 0.59 (1.00-1.93); ALKALINE PHOSPHATASE 139 U/L (45-117); ALT/SGPT < 6 U/L (12-78); ANION GAP 8 MEQ/L (8-16); AST/SGOT 16 U/L (15-37); BILIRUBIN,DIRECT 0.2 MG/DL (0.0-0.2); BILIRUBIN,TOTAL 0.4 MG/DL (0.2-1.0); BLOOD UREA NITROGEN 29 MG/DL (7-18); CARBON DIOXIDE LEVEL 17 MEQ/L (21-32); CHLORIDE LEVEL 114 MEQ/L (98-107); CREATININE FOR GFR 2.13 MG/DL (0.55-1.02); GLOMERULAR FILTRATION RATE 23.9 (>39); GLUCOSE, FASTING 121 MG/DL (83-110); SODIUM LEVEL 139 MEQ/L (136-145); TOTAL PROTEIN 5.1 GM/DL (6.4-8.2)
[2016-10-02 12:25] LABS: POTASSIUM SERUM 5.5 MEQ/L (3.5-5.1)
[2016-10-02 13:03] LABS: MAGNESIUM LEVEL 2.4 MG/DL (1.8-2.4); PHOSPHORUS LEVEL 4.7 MG/DL (2.5-4.9)
[2016-10-02 13:14] LABS: ABG BASE EXCESS -9.9 (-2.0-2.0); ABG HCO3 13.8 MEQ/L (22.0-26.0); ABG PARTIAL PRESSURE CO2 24.3 mmHg (35.0-45.0); ABG STANDARD HCO3 16.5 MEQ/L (22.0-26.0); ABG TOTAL CO2 14.5 MEQ/L (23.0-31.0); ABG pH (ARTERIAL) 7.371 UNITS (7.350-7.450)
--- NOTE | 2016-10-02 13:21 | REP ---
Clinical: Abdominal pain with recent pneumonia. Comparison: 09/11/2016. Findings: Lung bases demonstrate moderate pleural effusions and bibasilar atelectasis. Liver demonstrates hepatomegaly and pneumobilia similar to prior examination. Spleen, bilateral adrenal glands are normal. Kidneys demonstrate chronic cortical scarring and atrophic changes along with presumed underlying cysts. No hydronephrosis or acute perinephric stranding. A mass lesion involving the pancreatic head/uncinate process and/or the adjacent duodenum cannot be excluded. There is no evidence for bowel obstruction. Pelvis demonstrates normal bladder and age-appropriate uterus/adnexa. No significant ascites. Atherosclerotic changes to the vasculature noted without aneurysm. Musculoskeletal structures demonstrate degenerative changes without focal osseous abnormality. Impression: 1. Moderate bilateral pleural effusions and bibasilar infiltrate/atelectasis. 2. Pneumobilia is similar to prior examination. 3. Mass lesion involving the pancreatic head/uncinate process as well as the adjacent duodenum cannot be excluded and findings appear unchanged from prior exam. 4. No ascites. 5. No obvious further acute intra-abdominal or pelvic pathology appreciated. Signed by James Lechuga MD 10/02/2016 01:12 P
--- NOTE | 2016-10-02 13:26 | REP ---
Clinical: Fever and cough. Comparison: 09/11/2016. Findings: New, [id number] bilateral pleural effusions with lower lobe consolidation/atelectasis represent a change from prior examination. Subtle acute ground-glass and nodular opacities within the right upper lobe cannot be excluded as well. Underlying chronic interstitial disease with bronchiectasis and scattered scarring remains relatively stable. Mediastinum demonstrates adenopathy with pretracheal lymph nodes up to 18 mm. Cardiomegaly along with atherosclerotic changes to the coronary arteries and thoracic aorta remains stable. No pericardial effusion. Impression: 1. New [id number] bilateral pleural effusions with lower lobe consolidation/atelectasis and subtle right upper lobe opacities. Differential diagnosis includes multifocal pneumonia as well as pulmonary vascular congestion. 2. Mediastinal and presumed hilar adenopathy. 3. Chronic diffuse interstitial changes, bronchiectasis and scarring along with stable cardiomegaly with atherosclerotic changes to the thoracic aorta and coronary arteries. Signed by Jmaes Lechuga MD 10/02/2016 01:18 P
[2016-10-02] MEDS ORDERED: PIPERACILLIN/TAZOBACTAM SOD 2.25 GM in D5W MINI-BAG PLUS 50 ML IV ONE (14:15)
[2016-10-02] MEDS ORDERED: LISI-538 PO (14:46)
[2016-10-02] MEDS ORDERED: ENEMENE6 PR (14:46)
[2016-10-02] MEDS ORDERED: LEVE250T5 PO (14:46)
[2016-10-02] MEDS ORDERED: VITMTA PO (14:46)
[2016-10-02] MEDS ORDERED: MILKSUS PO (14:46)
[2016-10-02] MEDS ORDERED: DULC10SU2 PR (14:46)
[2016-10-02] MEDS ORDERED: NS 1,000 ML IV ONE (16:11)
[2016-10-02] MEDS ORDERED: MOM 30ML SUSPENSION UDC PO PRN (16:15)
[2016-10-02] MEDS ORDERED: PIPERACILLIN/TAZOBACTAM SOD 3.375 GM in D5W MINI-BAG PLUS 50 ML IV SCH (16:15)
[2016-10-02] MEDS ORDERED: BISACODYL 10 MG SUPP PR PRN (16:15)
[2016-10-02] MEDS ORDERED: ONDANSETRON 4 MG TAB (S0181) PO PRN (16:15)
[2016-10-02] MEDS ORDERED: FLEET ENEMA PR PRN (16:15)
--- NOTE | 2016-10-02 16:43 | HPE ---
DATE OF ADMISSION: 10/02/2016 PRIMARY CARE PROVIDER: Dr. Forrester. SPECIALISTS: Orthopedics in [facility]. CODE STATUS: Full code CHIEF COMPLAINT: Generalized weakness, lethargy. intermittent cough. HISTORY OF PRESENT ILLNESS: This is a 76-year-old female who presents to the emergency department today with having increased lethargy, weakness, subjective fevers, chills, no rigors. Recently treated through [facility] on September 11, 2016, with arm fracture involving an open fracture of the right radius, alcohol-induced pancreatitis and delirium with aspiration pneumonia. Apparently she was doing better, had been discharged to [facility], was there to complete rehabilitation. On her admission there, she did have a comment regarding CT of the thorax that showed mediastinal adenopathy, bilateral pleural effusions, patchy parenchymal opacities, possibly inflammatory in nature. She does have an underlying history of seizure disorder. I was unable to gather meaningful history from the patient today. However, the family is present at bedside and are doting and were able to give me quite a bit of information. Also, records did accompany her from the [facility], [facility] for review. They are concerned because her symptomatology has been continuing for the last 2-3 days. PAST MEDICAL HISTORY: 1. Chronic kidney disease. 2. History of cerebrovascular accident. 3. Questionable history of cerebral aneurysm for which she follows with Dr. Powers. 4. Dizziness. 5. Gastroesophageal reflux disease (GERD). 6. Hypertension. 7. Recurrent pancreatitis. 8. Dementia. PAST SURGICAL HISTORY: 1. Common bile duct bypass, cholecystectomy and right ankle surgery. 2. Status post right arm surgery with right radial fracture at [facility]. FAMILY HISTORY: Noncontributory. SOCIAL HISTORY: The patient currently is in [facility] for acute rehab. No tobacco use. However, she does drink alcohol quite extensively, but has not had anything to drink for the last 2-3 weeks. She did have some alcohol withdrawal symptoms while she was at the hospital at [facility], but has not had any reported issues since she has been in the [facility], [facility]. ALLERGIES: 1. CIPRO. 2. MIRALAX. CURRENT MEDICATIONS: - Levaquin - nifedipine 60 mg daily - Zofran 4 mg daily - thiamine 100 mg daily - vitamin D 400 mg daily - oxycodone every four hours as needed for pain - Keppra 250 mg twice a day - aspirin 81 mg daily - colesevelam 625 mg three tablets twice daily with meals - omeprazole 40 mg daily - Tricor 140 mg daily - carvedilol 3.125 mg twice a day - clonidine 0.2 mg three times a day - folic acid 1 mg daily - gabapentin 100 mg three times a day - hydralazine 25 mg every eight hours - lisinopril 20 mg daily - Tylenol 325 mg every six hours as needed REVIEW OF SYSTEMS: Difficult to ascertain from the patient herself. The family has noted some subjective fevers, chills, no night sweats, decreased appetite, increased lethargy. She has not had productive cough, no sputum. States her appetite is wax and wane. No explained weight loss. No chest pain, paroxysmal nocturnal dyspnea (PND), or orthopnea. Bowel movements have been regular. No diarrhea. No hematochezia or melena. No dysuria, frequency or hematuria. No paresthesias or paralysis. No history of diabetes or thyroid disorder. No history of bleeding or bruising disorder. Psychiatric positive for dementia. 10-point review of systems is complete. PHYSICAL EXAMINATION: VITAL SIGNS: Temperature is 99.4, pulse 56 and regular, respiratory rate 14 nonlabored, BP is 130/60, SPO2 is 99% on room air. GENERAL: The patient appears to be in no acute distress. She is pleasant. HEENT: Unremarkable. Mucous membranes moist. NECK: Supple. LUNGS: Diminished bibasilar breath sounds, occasional rhonchi. HEART: Regular rate and rhythm. ABDOMEN: Soft, obese, nontender, nondistended. Positive bowel sounds. No masses or rebound. EXTREMITIES: No edema or calf tenderness. Tenderness in the lower extremity, the right arm. I did remove the brace. She does have some edema but no signs of inflammation, cellulitis. Pulses were equal. Sensation is intact. LABORATORY AND DIAGNOSTICS: White count 10.3, hemoglobin 8.2, platelets are 352,000. Sodium 139, potassium 5.5, chloride 114, bicarb 17, anion gap 8, BUN is 29, creatinine 2.13, glucose is 121. Lactate is 1.1, calcium 8.0, total bilirubin 0.4, direct bilirubin 0.2, AST 16, ALT less than 6, alkaline phosphatase 139. Ammonia is 51, albumin is 1.9 INR 1.24. Blood gas shows pH 7.371, pCO2 is 24.3. Normal anion gap. Urinalysis 2+ protein, 5 WBCs, otherwise unremarkable. Urine cultures pending. Alcohol level is less than 0.003. Acetaminophen level was 14.9. Salicylate less than 1.7. Urine culture and blood cultures pending at this time. Influenza A and B are negative. 12-lead EKG: Sinus bradycardia, otherwise normal EKG with no acute ST-T wave abnormalities. CT head: Age-related and microvascular ischemic changes. No acute intracranial hemorrhage, infarct, mass effect. CT of the cervical spine: Extensive chronic and multiple level degenerative changes, essentially unremarkable. CT chest: New moderate to large bilateral pleural effusions with lower lobe consolidation, atelectasis noted in the right as well as subtle right upper lobe opacifications. Differential includes multifocal pneumonia and pulmonary vascular congestion and mediastinal and presumed hilar adenopathy. Chronic diffuse interstitial changes do appear to be present as well. CT abdomen and pelvis: Moderate bilateral pleural effusions again noted. Pneumobilia noted in a similar to prior exam. Questionable mass lesion involving the pancreatic head, uncinate process, as well as adjacent duodenum could not be excluded and findings appear to be unchanged from prior exams. No ascites. No obvious further acute intra-abdominal or pelvic pathology noted. Additionally, her lipase is 496, but she is not complaining of any abdominal pain. No epigastric tenderness. IMPRESSION: Ms. Kiran is a 76-year-old female who has chronic comorbidities, multiple abnormalities seen on exam today. She is lethargic, does appear to have a possibility of having multifocal pneumonia, healthcare-associated pneumonia as well as bilateral pleural effusions, acute kidney injury superimposed on chronic kidney disease (CKD). She is status post repair of right arm fracture and has quite a bit of swelling in the right upper extremity but no signs of infection. She will need to be admitted on telemetry and we will need to do further workup to try to differentiate further with her conundrum of multiple medical issues that appear to be going on at this juncture. IMPRESSION: 1. Healthcare-associated pneumonia. Status post aspiration pneumonia while at [facility]. 2. Bilateral pleural effusions. 3. Acute kidney injury superimposed on chronic kidney disease (CKD) with history of chronic anemia. 4. Right arm swelling involving the area of her recent fracture and injury. 5. Status post mechanical fall 6. Recurrent pancreatitis. 7. Mild hyperkalemia. 8. Status post right arm fracture and dislocation. 9. Hypertension. 10. Seizure disorder. 11. Gastroesophageal reflux disease (GERD). 12. History of cerebral aneurysm, follows with Dr. Powers. 13. History of alcohol abuse status post withdrawal symptoms while at [facility]; these appear to be stable. 14. Chronic anemia as outlined above. PLAN: The patient will be admitted to the progressive care unit (PCU) on telemetry per Dr. Goldstein. We will continue with intravenous (IV) Zosyn, IV vancomycin and check blood culture, sputum culture, urine culture. We will go ahead and check an ultrasound of the right upper extremity to rule out deep venous thrombosis (DVT). Hold nephrotoxic drugs. Gentle IV fluids overnight. Continue home medications otherwise. Regular diet. DVT prophylaxis with subcutaneous heparin. Consults for physical therapy (PT) evaluation and treatment, and patient and family services (PFS) consult. DISPOSITION: She will likely be here greater than two midnights. Prognosis due to her comorbidities is guarded for the time being.
[2016-10-02 17:30] VITALS: BP 158/60
[2016-10-02] MEDS: COLESEVELAM 625 MG TAB (WELCHOL) PO SCH (18:00)
[2016-10-02] MEDS: VANCOMYCIN HCL 1,000 MG, VIAL MATE ADAPTER 1 EACH in D5W 250 ML IV SCH (18:38)
--- NOTE | 2016-10-02 19:09 | PHACANCOPD ---
PHARMACY VANCOMYCIN DOSING Pt Demographics Demographics Patient Age:76 , Weight: , Gender: female Adjusted Body Weight Date: 10/02/16, Adjusted Body Weight: Kg Events Past 24 Hours Events Past 24 Hours: YES: Elevation in WBC, Fever, Pending Diagnostics Vancomycin Vancomycin indication: HCAP Vancomycin Target Ranges: 15-20 mcg/ml Vancomycin Load Y/N: No Load Dose Date Time Vancomycin Load Dose: Date: Time: Vancomycin Dose Date: 10/02/16. Current Vancomycin Dose: [1g IV Q24H] Intermittent Dosing?: No Labs Labs Item Value Date Time White Blood Count 10.3 K/mm3 H 10/02/16 1149 C-Reactive Protein, Quantitative 12.40 MG/DL H 10/02/16 1149 Creatinine 2.13 MG/DL H 10/02/16 1149 Micro Microbiology 10/02/16 Blood Culture, Received Pending 10/02/16 Blood Culture, Received Pending 10/02/16 Influenza Virus Type A Antigen - Final, Complete 10/02/16 Influenza Virus Type B Antigen - Final, Complete 10/02/16 Urine Culture, Received Pending Creatinine Clearance Date:10/02/16. Estimated Creatinine Clearance: [18.6ml/min]. Assessment and Plan Maintaining Current Dose?: Yes Reason for dose change: No Dose Change Pharmacist Note Pharmacist Note Date: 10/02/16. Pharmacist note: Day #1 empiric zosyn/vancomycin tx initiated at 1g IV Q24H for the treatment of HCAP - aiming for a goal trough of 15-20mcg/ml. The patient is s/p treatment of aspiration pneumonia at [facility] in August 2016, and is currently residing at [facility]. The patient currently has acute on chronic renal failure with a scr=2.13 today - baseline ~1.47. WBC and CRP are currently elevated, and patient is febrile. 10/02/16 CT of chest shows left lobe consolidations and RUL opacities with a differential diagnosis inclusive of multifocal pneumonia. No PMH of MRSA or vanco use here at [facility]. We will continue to monitor renal function and schedule a trough level accordingly. JEANINE DIEZ PHARMACY Oct 02, 2016 19:09
[2016-10-02 20:00] VITALS: BP 172/64
--- NOTE | 2016-10-02 20:10 | REPUSA ---
Clinical statement: Pain, swelling. Findings: Venous Doppler imaging of the right upper extremity was performed. The internal jugular vei n compresses normally and demonstrates normal color Doppler flow. Normal venous wave forms are seen w ithin the subclavian vein. The axillary, brachial, basilic, and cephalic veins compress normally and demonstrate normal color Doppler flow. Normal augmentation is seen. Soft tissue edema is seen around the elbow joint. Impression: No evidence of deep vein thrombosis in the right upper extremity.
[2016-10-02] MEDS: IPRATROPIUM 0.5MG/ALBUTEROL 2.5MG INH SOL UD 3ML (DUONEB)(J7620) NEB PRN (20:30)
[2016-10-02] MEDS: DOCUSATE SODIUM 100 MG CAP PO SCH (21:00)
--- NOTE | 2016-10-02 21:11 | HPE ---
DATE OF ADMISSION: 10/02/2016 ADDENDUM TO HISTORY AND PHYSICAL: Regarding the right upper extremity swelling: Ultrasound did reveal no evidence of deep venous thrombosis (DVT).
[2016-10-02] MEDS: ACETAMINOPHEN TAB 650MG DOSE (2X325MG) PO PRN (21:22)
[2016-10-02] MEDS: CARVedilol 3.125 MG TAB PO SCH (21:23)
[2016-10-02] MEDS: cloNIDine 0.2 MG TAB PO SCH (21:24)
[2016-10-02] MEDS: levETIRAcetam 250MG TABLET (KEPPRA) PO SCH (21:25)
[2016-10-02] MEDS: GABAPENTIN 100 MG CAP PO SCH (21:26)
[2016-10-02] MEDS: HEPARIN SOD (PORCINE) 5000 UNITS/ML VIAL SC SCH (22:00)
[2016-10-03] VITALS (7 sets, daily range): BP systolic 115–176; BP diastolic 56–75
[2016-10-03] MEDS: PIPERACILLIN/TAZOBACTAM SOD 2.25 GM in D5W MINI-BAG PLUS 50 ML IV SCH ×5 (00:12→21:15)
[2016-10-03] MEDS: **hydrALAZINE** 10 MG TAB PO SCH ×4 (00:12→21:13)
[2016-10-03] MEDS: NORTRIPTYLINE 25 MG CAP PO SCH ×2 (00:38→21:14)
[2016-10-03 05:40] LABS: MEAN CORPUSCULAR HEMOGLOBIN 28.8 pg (27.0-33.0); MEAN CORPUSCULAR HGB CONC 31.3 g/dl (32.0-36.5); MEAN CORPUSCULAR VOLUME 92.1 fl (80.0-96.0); RED CELL DISTRIBUTION WIDTH 14.5 % (11.5-14.5); WHITE BLOOD COUNT 7.2 K/mm3 (4.0-10.0)
[2016-10-03] MEDS: HEPARIN SOD (PORCINE) 5000 UNITS/ML VIAL SC SCH ×3 (05:45→21:16)
[2016-10-03] MEDS: ACETAMINOPHEN TAB 650MG DOSE (2X325MG) PO PRN (05:45)
[2016-10-03 05:46] LABS: ALBUMIN 1.7 GM/DL (3.2-5.2); ALBUMIN/GLOBULIN RATIO 0.49 (1.00-1.93); BILIRUBIN,TOTAL 0.4 MG/DL (0.2-1.0); CALCIUM LEVEL 8.1 MG/DL (8.8-10.2); CREATININE FOR GFR 1.9 MG/DL (0.55-1.02); GLOMERULAR FILTRATION RATE 27.2 (>39); TOTAL PROTEIN 5.2 GM/DL (6.4-8.2)
[2016-10-03 05:50] LABS: POTASSIUM SERUM 5.2 MEQ/L (3.5-5.1)
[2016-10-03] MEDS: COLESEVELAM 625 MG TAB (WELCHOL) PO SCH ×2 (08:00→17:44)
[2016-10-03] MEDS ORDERED: SLF 3 ML SYR IV PRN (08:45)
--- NOTE | 2016-10-03 08:52 | IPN ---
DATE: 10/03/2016 Ms. Kiran is sleepy upon my arrival but easily aroused. Says she is tired and does not want to be bothered. Pretty good historian. No issues noted by nursing staff. Temperature is 97.8, pulse 57, respiratory rate 20, blood pressure 148/58, 94% on room air. Input and output notable for positive fluid balance of 940. Weight on bed scale is 64 kg but was 83 kg but was 83 kg last night. Will have to reassess the weight today. She is sleepy but easily aroused, answering questions, somewhat variable affect. Mucous membranes moist. Breathing is symmetrical. No accessory muscle use. Rested. Diminished. Heart: Regular rate and rhythm. Is borderline bradycardic on my exam. Abdomen: Soft with active bowel sounds. Nontender to deep palpation throughout. White cell count 7.2, hemoglobin 8.3, platelets 327. BUN 30, creatinine 1.9 down from 2.13. Potassium 5.2 down from 5.5. Carbon dioxide is 16 with an anion gap of 10. Urine culture pending. Blood culture pending. Influenza swab is negative. ASSESSMENT: This is a 76-year-old with healthcare associated pneumonia and bilateral effusions and resolving acute kidney injury. PLAN: 1. Patient likely has healthcare associated pneumonia with history of recent aspiration pneumonia while at [facility]. Is continued on appropriate broad spectrum antibiotics. We will monitor clinically. Treat her with aggressive pulmonary toilet, speech therapy evaluation is likely appropriate. 2. Patient has bilateral pleural effusions. These will need to be monitored clinically. With worsening symptoms, may need drainage and/or chest tube. 3. Patient has acute kidney injury, history of chronic kidney disease which is improving. 4. Patient has history of right arm fracture. Doppler of that area shows no evidence of deep venous thrombosis (DVT). 5. Patient has history of recurrent pancreatitis. Elevated lipase in the absence of symptoms most likely represents chronic pancreatitis. Will need further outpatient followup. 6. Patient has history of hypertension. 7. Patient has seizure disorder. 8. Patient has history of alcohol dependence status post withdrawal while hospitalized at [facility]. Is continued on folic acid, thiamine and multivitamins. If she develops signs of withdrawal, may benefit from benzodiazepines. 9. Deep venous thrombosis (DVT) prophylaxis. Is currently on heparin.
[2016-10-03] MEDS: ASPIRIN 81 MG ENTERIC TAB PO SCH (09:19)
[2016-10-03] MEDS: CARVedilol 3.125 MG TAB PO SCH ×2 (09:19→21:12)
[2016-10-03] MEDS: DOCUSATE SODIUM 100 MG CAP PO SCH ×2 (09:19→21:16)
[2016-10-03] MEDS: FOLIC ACID 1 MG TAB PO SCH (09:20)
[2016-10-03] MEDS: FENOFIBRATE 145 MG TAB (TRICOR) PO SCH (09:20)
[2016-10-03] MEDS: GABAPENTIN 100 MG CAP PO SCH ×3 (09:20→21:14)
[2016-10-03] MEDS: cloNIDine 0.2 MG TAB PO SCH ×3 (09:20→21:13)
[2016-10-03] MEDS: NIFEdipine 60 MG XL TAB PO SCH (09:20)
[2016-10-03] MEDS: MULTIVITAMINS/MINERALS THERAP 1 TAB PO SCH (09:20)
[2016-10-03] MEDS: THIAMINE 100 MG TAB PO SCH (09:20)
[2016-10-03] MEDS: VITAMIN E 400 INTERNATIONAL UNITS CAP PO SCH (09:20)
[2016-10-03] MEDS: levETIRAcetam 250MG TABLET (KEPPRA) PO SCH ×2 (09:20→21:12)
[2016-10-03] MEDS: oxyCODONE 5MG TAB PO PRN (09:40)
[2016-10-03] MEDS: SLF 3 ML SYR IV SCH ×2 (14:39→21:16)
[2016-10-03] MEDS: SODIUM CHLORIDE 0.9% INJ 10 ML SYR IV SCH (17:39)
[2016-10-03] MEDS: VANCOMYCIN HCL 1,000 MG, VIAL MATE ADAPTER 1 EACH in D5W 250 ML IV SCH (17:44)
--- NOTE | 2016-10-03 18:23 | REP ---
PICC line insertion: History: IV access. The patient was interviewed and informed consent was obtained. The left upper arm was scanned with sonography and the skin overlying the left brachial vein was marked. The patient was placed on the angiography table and prepped and draped in the usual fashion. After the patient safety time-out was articulated and agreed to, a left brachial vein puncture was accomplished with the real time ultrasound guidance without technical difficulty. A 4.5-Croatian single lumen 42 cm long PICC line was installed under fluoroscopic guidance with its tip in the superior vena cava. Catheter lumen was flushed with heparinized saline and heparin per hospital protocol. The catheter was affixed to the skin in the usual fashion and OpSite dressing was applied. The patient tolerated the procedure well. Impression: Single-lumen left brachial vein PICC line inserted. Signed by Benson Henley MD 10/04/2016 07:30 A
[2016-10-03] MEDS: IPRATROPIUM 0.5MG/ALBUTEROL 2.5MG INH SOL UD 3ML (DUONEB)(J7620) NEB PRN (20:32)
--- NOTE | 2016-10-03 21:25 | ECGEPIP ---
Stationary ECG Study [facility] - ED Test Date: 2016-10-02 Pat Name: ELENI MIRANDA Department: Room: [place] [address] Gender: F [employer] Supervisor: GABE : [id number] Requested By: Marta Maria Order Number: [id number] Reading MD: Marta Maria Measurements Intervals [place] Rate: 57 P: 8 NJ: 169 QRS: 73 QRSD: 78 T: 63 QT: 411 QTc: 403 Interpretive Statements SINUS BRADYCARDIA LOW VOLTAGE LIMB NSTTW ABNORMALITY DECREASED RATE 09/11/16 Electronically Signed On 10-03-2016 21:25:23 EDT by Marta Maria
[2016-10-04] VITALS (7 sets, daily range): BP systolic 132–172; BP diastolic 60–78
[2016-10-04] MEDS: PIPERACILLIN/TAZOBACTAM SOD 2.25 GM in D5W MINI-BAG PLUS 50 ML IV SCH ×4 (02:56→21:44)
[2016-10-04] MEDS: **hydrALAZINE** 10 MG TAB PO SCH ×3 (05:37→21:43)
[2016-10-04] MEDS: SODIUM CHLORIDE 0.9% INJ 10 ML SYR IV SCH ×2 (05:38→17:16)
[2016-10-04] MEDS: HEPARIN SOD (PORCINE) 5000 UNITS/ML VIAL SC SCH ×3 (05:38→21:42)
[2016-10-04] MEDS: SLF 3 ML SYR IV SCH ×3 (05:39→21:45)
[2016-10-04 06:08] LABS: MEAN CORPUSCULAR HEMOGLOBIN 28.5 pg (27.0-33.0); MEAN CORPUSCULAR HGB CONC 31.1 g/dl (32.0-36.5); MEAN CORPUSCULAR VOLUME 91.7 fl (80.0-96.0); RED CELL DISTRIBUTION WIDTH 14.7 % (11.5-14.5); WHITE BLOOD COUNT 6.7 K/mm3 (4.0-10.0)
[2016-10-04 06:34] LABS: ALBUMIN 1.6 GM/DL (3.2-5.2); ALBUMIN/GLOBULIN RATIO 0.59 (1.00-1.93); ALKALINE PHOSPHATASE 107 U/L (45-117); ALT/SGPT < 6 U/L (12-78); ANION GAP 9 MEQ/L (8-16); AST/SGOT 12 U/L (15-37); BILIRUBIN,TOTAL 0.3 MG/DL (0.2-1.0); BLOOD UREA NITROGEN 29 MG/DL (7-18); CALCIUM LEVEL 7.5 MG/DL (8.8-10.2); CARBON DIOXIDE LEVEL 17 MEQ/L (21-32); CHLORIDE LEVEL 115 MEQ/L (98-107); CREATININE FOR GFR 1.88 MG/DL (0.55-1.02); GLOMERULAR FILTRATION RATE 27.6 (>39); GLUCOSE, FASTING 92 MG/DL (83-110); SODIUM LEVEL 141 MEQ/L (136-145); TOTAL PROTEIN 4.3 GM/DL (6.4-8.2)
[2016-10-04 06:35] LABS: POTASSIUM SERUM 5.5 MEQ/L (3.5-5.1)
[2016-10-04] MEDS: COLESEVELAM 625 MG TAB (WELCHOL) PO SCH ×2 (09:00→17:16)
[2016-10-04] MEDS: MULTIVITAMINS/MINERALS THERAP 1 TAB PO SCH (09:00)
[2016-10-04] MEDS: FOLIC ACID 1 MG TAB PO SCH (09:01)
[2016-10-04] MEDS: FENOFIBRATE 145 MG TAB (TRICOR) PO SCH (09:01)
[2016-10-04] MEDS: ASPIRIN 81 MG ENTERIC TAB PO SCH (09:01)
[2016-10-04] MEDS: GABAPENTIN 100 MG CAP PO SCH ×3 (09:01→21:43)
[2016-10-04] MEDS: NIFEdipine 60 MG XL TAB PO SCH (09:01)
[2016-10-04] MEDS: THIAMINE 100 MG TAB PO SCH (09:01)
[2016-10-04] MEDS: levETIRAcetam 250MG TABLET (KEPPRA) PO SCH ×2 (09:01→21:43)
[2016-10-04] MEDS: DOCUSATE SODIUM 100 MG CAP PO SCH ×2 (09:01→21:44)
[2016-10-04] MEDS: cloNIDine 0.2 MG TAB PO SCH ×3 (09:02→21:43)
[2016-10-04] MEDS: CARVedilol 3.125 MG TAB PO SCH ×2 (09:02→21:43)
[2016-10-04] MEDS: VITAMIN E 400 INTERNATIONAL UNITS CAP PO SCH (09:03)
--- NOTE | 2016-10-04 10:42 | IPNPDOC ---
Subjective Date Seen The patient was seen on 10/04/16. Subjective Chief Complaint/HPI The patient is a 76-year-old female admitted with a reason for visit of Healthcare Associated Pneumonia. Assessment /Plan Problems (1) HCAP (healthcare-associated pneumonia) Status: Acute Response to Treatment: Progressing Discussed With: Patient Problem Specific Plan: Repeat Labs Problem Text: Day 3 - vanc/zosyn sputum cultures/gram stain pending mrsa screen pending leukocytosis resolved saturating well on room air (2) Pleural effusion Status: Acute Response to Treatment: Progressing Discussed With: Patient Problem Specific Plan: Monitor Clinically Problem Text: bilateral pleural effusion on CT chest. Patient not SOB, saturating well on room air. Will continue to follow clinically, considering repeat CXR for interim eval. (3) Pancreatitis Status: Chronic Discussed With: Patient Problem Specific Plan: Monitor Clinically, Repeat Labs Problem Text: lipase trending down no abdominal pain/tenderness (4) Seizure disorder Status: Chronic Discussed With: Patient Problem Specific Plan: Monitor Clinically Problem Text: Continue neurontin, Keppra, Pamelor. (5) Alcohol abuse Status: Chronic Problem Text: Continue MVI, folic acid, thiamine. (6) CKD (chronic kidney disease) Status: Chronic Response to Treatment: Improving Discussed With: Patient Problem Specific Plan: Repeat Labs Problem Text: acute on chronic - creatinine trending down continue to follow (7) Fracture of radial shaft, with ulna, right, open Status: Chronic Discussed With: Patient Problem Specific Plan: Monitor Clinically Problem Text: Continue with treatment regimen as directed by [facility]/rehab. (8) HTN (hypertension) Status: Chronic Discussed With: Patient Problem Specific Plan: Monitor Clinically Problem Text: Still somewhat elevated. Continue to follow clinically. Will increase catapres or hydralazine if needed. Continue coreg, catapres, hydralazine, procardia XL. (9) Dementia Status: Chronic Problem Specific Plan: Monitor Clinically (10) History of CVA (cerebrovascular accident) Status: Chronic Discussed With: Patient Problem Text: Continue ASA (11) Chronic GERD Status: Chronic (12) Dyslipidemia Status: Chronic Problem Text: Continue tricor, Welchol. (13) Anemia Status: Chronic Response to Treatment: Progressing Discussed With: Patient Problem Specific Plan: Monitor Clinically, Repeat Labs Problem Text: Hg slowly trending down. Serial H/H. Plan/VTE VTE Prophylaxis Ordered?: Yes Plan Diet: Continue Current Activity: Continue Current Therapy: PT, OT Diagnostics: Repeat Labs in AM, Obtain Cultures Anticipated Discharge: Sub Acute Rehab VS, I&O, 24H, Cesar Vital Signs/I&O Vital Signs Date Time Temp Pulse Resp B/P Pulse Ox O2 Delivery O2 Flow Rate FiO2 10/04/16 09:02 172/70 10/04/16 09:02 69 10/04/16 08:00 97.1 20 97 Room Air I&O- Last 24 Hours up to 6 AM 10/04/16 06:00 Intake Total 1430 ml Output Total 800 ml Balance 630 ml Laboratory Data 24H LABS Laboratory Tests 2 10/04/16 05:47: Blood Urea Nitrogen 29H, Creatinine 1.88H, Sodium Level 141, Potassium Level 5.5H, Chloride Level 115H, Carbon Dioxide Level 17L, Calcium Level 7.5L, Aspartate Amino Transf (AST/SGOT) 12L, Alanine Aminotransferase (ALT/SGPT) < 6L , Alkaline Phosphatase 107, Total Bilirubin 0.3, Total Protein 4.3L, Albumin 1.6L, Albumin/Globulin Ratio 0.59L, Anion Gap 9, Glomerular Filtration Rate 27.6L, Lipase 450H CBC/BMP Laboratory Tests 10/04/16 05:47 Calcium Level 7.5 L, Aspartate Amino Transf (AST/SGOT) 12 L, Alanine Aminotransferase (ALT/SGPT) < 6 L, Alkaline Phosphatase 107, Total Bilirubin 0.3 , Total Protein 4.3 L, Albumin 1.6 L, Red Blood Count 2.63 L, Mean Corpuscular Volume 91.7, Mean Corpuscular Hemoglobin 28.5, Mean Corpuscular Hemoglobin Concent 31.1 L, Red Cell Distribution Width 14.7 H Microbiology Microbiology 10/02/16 Blood Culture - Preliminary, Resulted No growth after 24 hours . All specim... 10/02/16 Blood Culture - Preliminary, Resulted No growth after 24 hours . All specim... 10/02/16 Influenza Virus Type A Antigen - Final, Complete 10/02/16 Influenza Virus Type B Antigen - Final, Complete 10/02/16 Urine Culture - Final, Complete Enterococcus Faecalis JUAN CARLOS GRAYSON MD Oct 04, 2016 10:42
[2016-10-04 18:08] LABS: CALCIUM LEVEL 8.3 MG/DL (8.8-10.2); CREATININE FOR GFR 1.82 MG/DL (0.55-1.02); GLOMERULAR FILTRATION RATE 28.6 (>39)
[2016-10-04 18:25] LABS: POTASSIUM SERUM 5.3 MEQ/L (3.5-5.1)
[2016-10-04] MEDS: VANCOMYCIN HCL 1,000 MG, VIAL MATE ADAPTER 1 EACH in D5W 250 ML IV SCH (18:48)
[2016-10-04] MEDS: NORTRIPTYLINE 25 MG CAP PO SCH (21:43)
[2016-10-05] VITALS (9 sets, daily range): BP systolic 117–207; BP diastolic 62–94
[2016-10-05] MEDS: PIPERACILLIN/TAZOBACTAM SOD 2.25 GM in D5W MINI-BAG PLUS 50 ML IV SCH ×4 (03:06→20:55)
[2016-10-05] MEDS: SODIUM CHLORIDE 0.9% INJ 10 ML SYR IV SCH ×2 (05:15→17:20)
[2016-10-05] MEDS: HEPARIN SOD (PORCINE) 5000 UNITS/ML VIAL SC SCH ×3 (05:15→21:06)
[2016-10-05] MEDS: **hydrALAZINE** 10 MG TAB PO SCH ×3 (05:16→21:06)
[2016-10-05] MEDS: SLF 3 ML SYR IV SCH ×3 (05:16→21:07)
[2016-10-05 05:34] LABS: MEAN CORPUSCULAR HEMOGLOBIN 28.3 pg (27.0-33.0); MEAN CORPUSCULAR HGB CONC 30.9 g/dl (32.0-36.5); MEAN CORPUSCULAR VOLUME 91.4 fl (80.0-96.0); RED CELL DISTRIBUTION WIDTH 14.4 % (11.5-14.5); WHITE BLOOD COUNT 7.6 K/mm3 (4.0-10.0)
[2016-10-05 05:57] LABS: ALBUMIN 1.4 GM/DL (3.2-5.2); ALBUMIN/GLOBULIN RATIO 0.58 (1.00-1.93); ALKALINE PHOSPHATASE 94 U/L (45-117); ALT/SGPT < 6 U/L (12-78); ANION GAP 7 MEQ/L (8-16); AST/SGOT 9 U/L (15-37); BILIRUBIN,TOTAL 0.3 MG/DL (0.2-1.0); BLOOD UREA NITROGEN 24 MG/DL (7-18); CARBON DIOXIDE LEVEL 15 MEQ/L (21-32); CHLORIDE LEVEL 120 MEQ/L (98-107); CREATININE FOR GFR 1.58 MG/DL (0.55-1.02); GLOMERULAR FILTRATION RATE 33.7 (>39); GLUCOSE, FASTING 81 MG/DL (83-110); POTASSIUM SERUM 4.5 MEQ/L (3.5-5.1); SODIUM LEVEL 142 MEQ/L (136-145); TOTAL PROTEIN 3.8 GM/DL (6.4-8.2)
[2016-10-05 06:06] LABS: CALCIUM LEVEL 6.9 MG/DL (8.8-10.2)
[2016-10-05] MEDS: VITAMIN E 400 INTERNATIONAL UNITS CAP PO SCH (09:49)
[2016-10-05] MEDS: GABAPENTIN 100 MG CAP PO SCH ×3 (09:50→20:54)
[2016-10-05] MEDS: NIFEdipine 60 MG XL TAB PO SCH (09:50)
[2016-10-05] MEDS: FENOFIBRATE 145 MG TAB (TRICOR) PO SCH (09:50)
[2016-10-05] MEDS: CARVedilol 3.125 MG TAB PO SCH ×2 (09:50→20:55)
[2016-10-05] MEDS: levETIRAcetam 250MG TABLET (KEPPRA) PO SCH ×2 (09:50→20:54)
[2016-10-05] MEDS: DOCUSATE SODIUM 100 MG CAP PO SCH ×2 (09:50→20:54)
[2016-10-05] MEDS: ASPIRIN 81 MG ENTERIC TAB PO SCH (09:50)
[2016-10-05] MEDS: THIAMINE 100 MG TAB PO SCH (09:50)
[2016-10-05] MEDS: COLESEVELAM 625 MG TAB (WELCHOL) PO SCH ×2 (09:50→17:20)
[2016-10-05] MEDS: FOLIC ACID 1 MG TAB PO SCH (09:50)
[2016-10-05] MEDS: MULTIVITAMINS/MINERALS THERAP 1 TAB PO SCH (09:51)
[2016-10-05] MEDS: cloNIDine 0.2 MG TAB PO SCH ×3 (09:51→20:54)
--- NOTE | 2016-10-05 11:07 | IPNPDOC ---
Subjective Date Seen The patient was seen on 10/05/16. Subjective Chief Complaint/HPI The patient is a 76-year-old female admitted with a reason for visit of Healthcare Associated Pneumonia. Assessment /Plan Problems (1) HCAP (healthcare-associated pneumonia) Status: Acute Response to Treatment: Progressing Discussed With: Patient Problem Specific Plan: Repeat Labs Problem Text: Day 4 - vanc/zosyn sputum cultures/gram stain pending mrsa screen pending leukocytosis resolved saturating well on room air (2) Pleural effusion Status: Acute Response to Treatment: Progressing Discussed With: Patient Problem Specific Plan: Monitor Clinically Problem Text: bilateral pleural effusion on CT chest. Patient not SOB, saturating well on room air. Will continue to follow clinically, considering repeat CXR for interim eval. (3) Pancreatitis Status: Chronic Discussed With: Patient Problem Specific Plan: Monitor Clinically, Repeat Labs Problem Text: lipase trending down - WNL today no abdominal pain/tenderness (4) Seizure disorder Status: Chronic Discussed With: Patient Problem Specific Plan: Monitor Clinically Problem Text: Continue neurontin, Keppra, Pamelor. (5) Alcohol abuse Status: Chronic Problem Text: Continue MVI, folic acid, thiamine. (6) CKD (chronic kidney disease) Status: Chronic Response to Treatment: Improving Discussed With: Patient Problem Specific Plan: Repeat Labs Problem Text: acute on chronic - creatinine trending down continue to follow (7) Fracture of radial shaft, with ulna, right, open Status: Chronic Discussed With: Patient Problem Specific Plan: Monitor Clinically Problem Text: Continue with treatment regimen as directed by [facility]/rehab. (8) HTN (hypertension) Status: Chronic Discussed With: Patient Problem Specific Plan: Monitor Clinically Problem Text: Still somewhat elevated. Continue to follow clinically. Will increase catapres or hydralazine if needed. Continue coreg, catapres, hydralazine, procardia XL. (9) Dementia Status: Chronic Problem Specific Plan: Monitor Clinically (10) History of CVA (cerebrovascular accident) Status: Chronic Discussed With: Patient Problem Text: Continue ASA (11) Chronic GERD Status: Chronic (12) Dyslipidemia Status: Chronic Problem Text: Continue tricor, Welchol. (13) Anemia Status: Chronic Response to Treatment: Progressing Discussed With: Patient Problem Specific Plan: Monitor Clinically, Repeat Labs Problem Text: Hg slowly trending down. Serial H/H. Plan/VTE VTE Prophylaxis Ordered?: Yes Plan Diet: Continue Current Activity: Continue Current Therapy: PT, OT Diagnostics: Repeat Labs in AM, Obtain Cultures Anticipated Discharge: Sub Acute Rehab VS, I&O, 24H, Cesar Vital Signs/I&O Vital Signs Date Time Temp Pulse Resp B/P Pulse Ox O2 Delivery O2 Flow Rate FiO2 10/05/16 09:51 153/72 10/05/16 09:50 67 10/05/16 08:25 Room Air 10/05/16 08:00 98.3 18 97 I&O- Last 24 Hours up to 6 AM 10/05/16 06:00 Intake Total 1030 ml Output Total 1200 ml Balance -170 ml Laboratory Data 24H LABS Laboratory Tests 2 10/04/16 17:27: Anion Gap 8, Blood Urea Nitrogen 27H, Creatinine 1.82H, Sodium Level 140, Potassium Level 5.3H, Chloride Level 115H, Carbon Dioxide Level 17L, Calcium Level 8.3L, Glomerular Filtration Rate 28.6L 10/05/16 05:21: Anion Gap 7L, Blood Urea Nitrogen 24H, Creatinine 1.58H, Sodium Level 142, Potassium Level 4.5, Chloride Level 120H, Carbon Dioxide Level 15L, Calcium Level 6.9#L, Glomerular Filtration Rate 33.7L, Aspartate Amino Transf (AST/SGOT ) 9L, Alanine Aminotransferase (ALT/SGPT) < 6L, Alkaline Phosphatase 94, Total Bilirubin 0.3, Total Protein 3.8L, Albumin 1.4L, Albumin/Globulin Ratio 0.58L, Lipase 223 CBC/BMP Laboratory Tests 10/04/16 17:27 Calcium Level 8.3 L 10/05/16 05:21 Calcium Level 6.9 #L, Aspartate Amino Transf (AST/SGOT) 9 L, Alanine Aminotransferase (ALT/SGPT) < 6 L, Alkaline Phosphatase 94, Total Bilirubin 0.3 , Total Protein 3.8 L, Albumin 1.4 L, Red Blood Count 2.75 L, Mean Corpuscular Volume 91.4, Mean Corpuscular Hemoglobin 28.3, Mean Corpuscular Hemoglobin Concent 30.9 L, Red Cell Distribution Width 14.4 Microbiology Microbiology 10/02/16 Blood Culture - Preliminary, Resulted No Growth after 48 hours. All Specime... 10/02/16 Blood Culture - Preliminary, Resulted No Growth after 72 hours. All specime... 10/04/16 MRSA Screen, Received Pending 10/02/16 Influenza Virus Type A Antigen - Final, Complete 10/02/16 Influenza Virus Type B Antigen - Final, Complete 10/02/16 Urine Culture - Final, Complete Enterococcus Faecalis JUAN CARLOS GRAYSON MD Oct 05, 2016 11:07
--- NOTE | 2016-10-05 17:54 | PHACANCOPD ---
PHARMACY VANCOMYCIN DOSING Pt Demographics Demographics Patient Age:76 , Weight:61.700 , Gender: female Adjusted Body Weight Events Past 24 Hours Events Past 24 Hours: NO: Change in CrCl, Dialysis, Diuretic Therapy, Elevation in WBC, Fever, Other, Pending Diagnostics, Pending Procedures Vancomycin Vancomycin indication: HCAP Vancomycin Target Ranges: 15-20 mcg/ml Vancomycin Load Y/N: No Load Dose Date Time Vancomycin Load Dose: Date: Time: Vancomycin Dose Date: 10/06/16. CHANGE Current Vancomycin Dose: [1g IV Q36H START 10/06/16 @ 06:00 ] Intermittent Dosing?: No Labs Labs Laboratory Tests Test 10/05/16 16:45 Vancomycin Level Trough 24.7UG/ML (10.0-20.0) Laboratory Tests 10/05/16 05:21 Calcium Level 6.9 #, Aspartate Amino Transf (AST/SGOT) 9, Alanine Aminotransferase (ALT/SGPT) < 6, Alkaline Phosphatase 94, Total Bilirubin 0.3, Total Protein 3.8, Albumin 1.4, Red Blood Count 2.75, Mean Corpuscular Volume 91.4, Mean Corpuscular Hemoglobin 28.3, Mean Corpuscular Hemoglobin Concent 30.9 , Red Cell Distribution Width 14.4 Micro Microbiology 10/02/16 Blood Culture - Preliminary, Resulted No Growth after 72 hours. All specime... 10/02/16 Blood Culture - Preliminary, Resulted No Growth after 72 hours. All specime... 10/04/16 MRSA Screen, Received Pending 10/02/16 Influenza Virus Type A Antigen - Final, Complete 10/02/16 Influenza Virus Type B Antigen - Final, Complete 10/02/16 Urine Culture - Final, Complete Enterococcus Faecalis Creatinine Clearance Date:10/05/16. Estimated Creatinine Clearance: [<30 ml/min]. Assessment and Plan Maintaining Current Dose?: No Reason for dose change: Trough too high Pharmacist Note Pharmacist Note Date: 10/02/16. Pharm.D. NOTE: 76YO FEMALE, 61.7KG in WEIGHT, 62" in HEIGHT( OF NOTE, HER ORIGINAL REPORTED WEIGHT = 83.9KG). HER VANCO 1GM IV Q24H RESULTED IN A VANCO TR = 24.7 mcg/ml (GOAL 15-20 Mcg/ml). WE WILL CHANGE HER VANCO TO 1GM IV Q36H STARTING AT 06:00 10/06/16 A REPEATED VANCO TROUGH WILL BE DRAWN WHEN SHE IS AT STEADY STATE. RICHARD, Pharm.Yuly. [facility] Oct 05, 2016 17:54
[2016-10-05] MEDS: oxyCODONE 5MG TAB PO PRN (18:41)
[2016-10-05] MEDS: NORTRIPTYLINE 25 MG CAP PO SCH (21:06)
[2016-10-06] MEDS: oxyCODONE 5MG TAB PO PRN (01:25)
[2016-10-06] MEDS: PIPERACILLIN/TAZOBACTAM SOD 2.25 GM in D5W MINI-BAG PLUS 50 ML IV SCH ×4 (01:25→20:46)
[2016-10-06 02:00] VITALS: BP 158/62
[2016-10-06] MEDS: SODIUM CHLORIDE 0.9% INJ 10 ML SYR IV PRN (03:11)
[2016-10-06 05:20] VITALS: BP 152/67
[2016-10-06] MEDS: SODIUM CHLORIDE 0.9% INJ 10 ML SYR IV SCH ×2 (05:35→18:04)
[2016-10-06] MEDS: HEPARIN SOD (PORCINE) 5000 UNITS/ML VIAL SC SCH (05:35)
[2016-10-06] MEDS: SLF 3 ML SYR IV SCH ×3 (05:36→20:51)
[2016-10-06] MEDS: **hydrALAZINE** 10 MG TAB PO SCH (05:38)
[2016-10-06] MEDS ORDERED: VANCOMYCIN HCL 1,000 MG, VIAL MATE ADAPTER 1 EACH in D5W 250 ML IV SCH (06:00)
[2016-10-06 06:04] LABS: MEAN CORPUSCULAR HEMOGLOBIN 28.1 pg (27.0-33.0); MEAN CORPUSCULAR HGB CONC 31.2 g/dl (32.0-36.5); MEAN CORPUSCULAR VOLUME 90.1 fl (80.0-96.0); RED CELL DISTRIBUTION WIDTH 14.5 % (11.5-14.5); WHITE BLOOD COUNT 6.8 K/mm3 (4.0-10.0)
[2016-10-06 06:24] LABS: ALBUMIN 1.6 GM/DL (3.2-5.2); ALBUMIN/GLOBULIN RATIO 0.57 (1.00-1.93); ALKALINE PHOSPHATASE 104 U/L (45-117); ALT/SGPT < 6 U/L (12-78); ANION GAP 8 MEQ/L (8-16); AST/SGOT 11 U/L (15-37); BILIRUBIN,TOTAL 0.3 MG/DL (0.2-1.0); BLOOD UREA NITROGEN 24 MG/DL (7-18); CALCIUM LEVEL 7.9 MG/DL (8.8-10.2); CARBON DIOXIDE LEVEL 17 MEQ/L (21-32); CHLORIDE LEVEL 119 MEQ/L (98-107); CREATININE FOR GFR 1.68 MG/DL (0.55-1.02); GLOMERULAR FILTRATION RATE 31.4 (>39); GLUCOSE, FASTING 106 MG/DL (83-110); POTASSIUM SERUM 4.7 MEQ/L (3.5-5.1); SODIUM LEVEL 144 MEQ/L (136-145); TOTAL PROTEIN 4.4 GM/DL (6.4-8.2)
[2016-10-06 08:00] VITALS: BP_SYST 164; BP_SYST 170; BP_SYST 171; BP_DIAS 57; BP_DIAS 69; BP_DIAS 78
[2016-10-06] MEDS: FENOFIBRATE 145 MG TAB (TRICOR) PO SCH (08:37)
[2016-10-06] MEDS: cloNIDine 0.2 MG TAB PO SCH ×3 (08:37→20:49)
[2016-10-06] MEDS: levETIRAcetam 250MG TABLET (KEPPRA) PO SCH ×2 (08:38→20:48)
[2016-10-06] MEDS: VITAMIN E 400 INTERNATIONAL UNITS CAP PO SCH (08:38)
[2016-10-06] MEDS: GABAPENTIN 100 MG CAP PO SCH ×3 (08:38→20:48)
[2016-10-06] MEDS: MULTIVITAMINS/MINERALS THERAP 1 TAB PO SCH (08:38)
[2016-10-06] MEDS: FOLIC ACID 1 MG TAB PO SCH (08:38)
[2016-10-06] MEDS: ASPIRIN 81 MG ENTERIC TAB PO SCH (08:38)
[2016-10-06] MEDS: THIAMINE 100 MG TAB PO SCH (08:38)
[2016-10-06] MEDS: COLESEVELAM 625 MG TAB (WELCHOL) PO SCH ×2 (08:38→18:04)
[2016-10-06] MEDS: CARVedilol 3.125 MG TAB PO SCH ×2 (08:38→20:48)
[2016-10-06] MEDS: DOCUSATE SODIUM 100 MG CAP PO SCH ×2 (08:39→20:48)
[2016-10-06] MEDS: NIFEdipine 60 MG XL TAB PO SCH (08:54)
[2016-10-06 09:06] VITALS: BP 121/63
[2016-10-06 10:00] VITALS: BP 125/58
--- NOTE | 2016-10-06 10:01 | IPNPDOC ---
Subjective Date Seen The patient was seen on 10/06/16. Subjective Chief Complaint/HPI The patient is a 76-year-old female admitted with a reason for visit of Healthcare Associated Pneumonia. General: Denies: Chills, Fatigue, Malaise, Night Sweats, Normal Appetite, Other Symptoms, ROS Unobtainable Constitutional: Denies: Chills, Fatigue, Fever, Lethargy, Malaise, Night Sweats , Other, Weakness, Weight Loss Eyes: Denies: Conjunctivae inflammation, Eyelid inflammation, Other, Pain, Redness, Vision change ENT: Denies: Dysphagia, Ear Pain, Epistaxis, Head Aches, Other Symptoms, Post Nasal Drip, Sinus Congestion, Sore Throat Skin: Denies: Breakdown, Bruising, Dry, Itching, Jaundice, Lesions, Nail Changes, Other, Rash Pulmonary: Denies: Cough, Dyspnea, Other Symptoms, Pleuritic Chest Pain Cardiovascular: Denies: Chest Pain, Edema, Lt Headedness, Orthopnea, Other Symptoms, Palpitations, Paroxysmal Noc. Dyspnea Gastrointestinal: Denies: Abdominal Pain, Constipation, Diarrhea, Hematochezia , Melena, Nausea, Other Symptoms, Vomiting Objective Physical Examination General Exam: Positive: Alert, Cooperative, No Acute Distress Eye Exam: Positive: Conjunctiva & lids normal, Negative: Sclera icteric ENT Exam: Positive: Atraumatic, Mucous membr. moist/pink Neck Exam: Positive: Supple Chest Exam: Positive: Clear to auscultation, Diminished Heart Exam: Positive: Rate Normal Abdomen Exam: Positive: Normal bowel sounds, Soft, Negative: Tenderness Assessment /Plan Problems (1) HCAP (healthcare-associated pneumonia) Status: Acute Response to Treatment: Progressing Discussed With: Patient Problem Specific Plan: Repeat Labs Problem Text: Day 11/06 - vanc/zosyn sputum cultures/gram stain pending mrsa screen pending leukocytosis resolved saturating well on room air (2) Pleural effusion Status: Acute Response to Treatment: Progressing Discussed With: Patient Problem Specific Plan: Monitor Clinically Problem Text: bilateral pleural effusion on CT chest. Patient not SOB, saturating well on room air. Will continue to follow clinically, considering repeat CXR for interim eval. (3) Pancreatitis Status: Chronic Discussed With: Patient Problem Specific Plan: Monitor Clinically, Repeat Labs Problem Text: lipase slightly increased but still WNL no abdominal pain/tenderness (4) Seizure disorder Status: Chronic Discussed With: Patient Problem Specific Plan: Monitor Clinically Problem Text: Continue neurontin, Keppra, Pamelor. (5) Alcohol abuse Status: Chronic Problem Text: Continue MVI, folic acid, thiamine. (6) CKD (chronic kidney disease) Status: Chronic Response to Treatment: Improving Discussed With: Patient Problem Specific Plan: Repeat Labs Problem Text: acute on chronic - creatinine slightly increased continue to follow (7) Fracture of radial shaft, with ulna, right, open Status: Chronic Discussed With: Patient Problem Specific Plan: Monitor Clinically Problem Text: Continue with treatment regimen as directed by [facility]/rehab. (8) HTN (hypertension) Status: Chronic Discussed With: Patient Problem Specific Plan: Monitor Clinically Problem Text: Still somewhat elevated. Continue to follow clinically. Will increase hydralazine. Continue coreg, catapres, hydralazine, procardia XL. (9) Dementia Status: Chronic Problem Specific Plan: Monitor Clinically (10) History of CVA (cerebrovascular accident) Status: Chronic Discussed With: Patient Problem Text: Continue ASA (11) Chronic GERD Status: Chronic (12) Dyslipidemia Status: Chronic Problem Text: Continue tricor, Welchol. (13) Anemia Status: Chronic Response to Treatment: Progressing Discussed With: Patient Problem Specific Plan: Monitor Clinically, Repeat Labs Problem Text: Hg slowly trending down. Continue to monitor. No history of CAD, asymptomatic. Transfuse if Hg <7. Check stool occult blood. DC heparin VTE prophylaxis. Plan/VTE VTE Prophylaxis Ordered?: Yes (mechanical) Plan Diet: Continue Current Activity: Continue Current Therapy: PT, OT Diagnostics: Repeat Labs in AM, Obtain Cultures Anticipated Discharge: Sub Acute Rehab VS, I&O, 24H, Cesar Vital Signs/I&O Vital Signs Date Time Temp Pulse Resp B/P Pulse Ox O2 Delivery O2 Flow Rate FiO2 10/06/16 09:08 Room Air 10/06/16 08:54 164/57 10/06/16 08:38 67 10/06/16 08:00 98.2 18 97 I&O- Last 24 Hours up to 6 AM 10/06/16 06:00 Intake Total 740 ml Output Total 1625 ml Balance -885 ml Laboratory Data 24H LABS Laboratory Tests 2 10/05/16 16:45: Vancomycin Level Trough 24.7H 10/06/16 05:41: Blood Urea Nitrogen 24H, Creatinine 1.68H, Sodium Level 144, Potassium Level 4.7 , Chloride Level 119H, Carbon Dioxide Level 17L, Calcium Level 7.9L, Aspartate Amino Transf (AST/SGOT) 11L, Alanine Aminotransferase (ALT/SGPT) < 6L, Alkaline Phosphatase 104, Total Bilirubin 0.3, Total Protein 4.4L, Albumin 1.6L, Albumin/ Globulin Ratio 0.57L, Anion Gap 8, Glomerular Filtration Rate 31.4L, Lipase 240 CBC/BMP Laboratory Tests 10/06/16 05:41 Calcium Level 7.9 L, Aspartate Amino Transf (AST/SGOT) 11 L, Alanine Aminotransferase (ALT/SGPT) < 6 L, Alkaline Phosphatase 104, Total Bilirubin 0.3 , Total Protein 4.4 L, Albumin 1.6 L, Red Blood Count 2.75 L, Mean Corpuscular Volume 90.1, Mean Corpuscular Hemoglobin 28.1, Mean Corpuscular Hemoglobin Concent 31.2 L, Red Cell Distribution Width 14.5 Microbiology Microbiology 10/02/16 Blood Culture - Preliminary, Resulted No Growth after 72 hours. All specime... 10/02/16 Blood Culture - Preliminary, Resulted No Growth after 72 hours. All specime... 10/04/16 MRSA Screen - Final, Complete 10/02/16 Influenza Virus Type A Antigen - Final, Complete 10/02/16 Influenza Virus Type B Antigen - Final, Complete 10/02/16 Urine Culture - Final, Complete Enterococcus Faecalis JUAN CARLOS GRAYSON MD Oct 06, 2016 10:01
[2016-10-06 14:00] VITALS: BP 173/94
[2016-10-06] MEDS: **hydrALAZINE HCL** 25 MG TAB PO SCH ×2 (14:46→23:27)
[2016-10-06] MEDS: NORTRIPTYLINE 25 MG CAP PO SCH (20:47)
[2016-10-07] MEDS: PIPERACILLIN/TAZOBACTAM SOD 2.25 GM in D5W MINI-BAG PLUS 50 ML IV SCH ×4 (02:40→20:57)
[2016-10-07] MEDS: **hydrALAZINE HCL** 25 MG TAB PO SCH ×3 (05:17→20:58)
[2016-10-07] MEDS: SLF 3 ML SYR IV SCH ×2 (05:17→14:00)
[2016-10-07] MEDS: SODIUM CHLORIDE 0.9% INJ 10 ML SYR IV SCH ×2 (05:18→17:09)
[2016-10-07 05:20] VITALS: BP 170/85
[2016-10-07 05:40] LABS: MEAN CORPUSCULAR HEMOGLOBIN 28.6 pg (27.0-33.0); MEAN CORPUSCULAR HGB CONC 31.6 g/dl (32.0-36.5); MEAN CORPUSCULAR VOLUME 90.4 fl (80.0-96.0); RED CELL DISTRIBUTION WIDTH 14.6 % (11.5-14.5); WHITE BLOOD COUNT 7.1 K/mm3 (4.0-10.0)
[2016-10-07 06:01] LABS: ALBUMIN 1.6 GM/DL (3.2-5.2); ALBUMIN/GLOBULIN RATIO 0.47 (1.00-1.93); ALKALINE PHOSPHATASE 93 U/L (45-117); ALT/SGPT < 6 U/L (12-78); ANION GAP 9 MEQ/L (8-16); AST/SGOT 11 U/L (15-37); BILIRUBIN,TOTAL 0.3 MG/DL (0.2-1.0); BLOOD UREA NITROGEN 21 MG/DL (7-18); CALCIUM LEVEL 8.2 MG/DL (8.8-10.2); CARBON DIOXIDE LEVEL 17 MEQ/L (21-32); CHLORIDE LEVEL 117 MEQ/L (98-107); CREATININE FOR GFR 1.79 MG/DL (0.55-1.02); GLOMERULAR FILTRATION RATE 29.2 (>39); GLUCOSE, FASTING 118 MG/DL (83-110); POTASSIUM SERUM 4.4 MEQ/L (3.5-5.1); SODIUM LEVEL 143 MEQ/L (136-145)
--- NOTE | 2016-10-07 08:12 | IPNPDOC ---
Subjective Date Seen The patient was seen on 10/07/16. Subjective Chief Complaint/HPI The patient is a 76-year-old female admitted with a reason for visit of Healthcare Associated Pneumonia. General: Denies: Chills, Fatigue, Malaise, Night Sweats, Normal Appetite, Other Symptoms, ROS Unobtainable Constitutional: Denies: Chills, Fatigue, Fever, Lethargy, Malaise, Night Sweats , Other, Weakness, Weight Loss Eyes: Denies: Conjunctivae inflammation, Eyelid inflammation, Other, Pain, Redness, Vision change ENT: Denies: Dysphagia, Ear Pain, Epistaxis, Head Aches, Other Symptoms, Post Nasal Drip, Sinus Congestion, Sore Throat Skin: Denies: Breakdown, Bruising, Dry, Itching, Jaundice, Lesions, Nail Changes, Other, Rash Pulmonary: Denies: Cough, Dyspnea, Other Symptoms, Pleuritic Chest Pain Cardiovascular: Denies: Chest Pain, Edema, Lt Headedness, Orthopnea, Other Symptoms, Palpitations, Paroxysmal Noc. Dyspnea Gastrointestinal: Denies: Abdominal Pain, Constipation, Diarrhea, Hematochezia , Melena, Nausea, Other Symptoms, Vomiting Genitourinary: Denies: Dysuria, Frequency, Hematuria, Incontinence, Other Symptoms, Retention Objective Physical Examination General Exam: Positive: Alert, Cooperative, No Acute Distress Eye Exam: Positive: Conjunctiva & lids normal, Negative: Sclera icteric ENT Exam: Positive: Atraumatic, Mucous membr. moist/pink Neck Exam: Positive: Supple Chest Exam: Positive: Clear to auscultation, Diminished Heart Exam: Positive: Rate Normal Abdomen Exam: Positive: Normal bowel sounds, Soft, Negative: Tenderness Assessment /Plan Problems (1) HCAP (healthcare-associated pneumonia) Status: Acute Response to Treatment: Progressing Discussed With: Patient Problem Specific Plan: Repeat Labs Problem Text: Day 6/ - zosyn sputum cultures/gram stain pending mrsa screen negative - vanc discontinued leukocytosis resolved saturating well on room air (2) Pleural effusion Status: Acute Response to Treatment: Progressing Discussed With: Patient Problem Specific Plan: Monitor Clinically Problem Text: bilateral pleural effusion on CT chest. Patient not SOB, saturating well on room air. Will continue to follow clinically, repeat CXR for interim eval. (3) Pancreatitis Status: Chronic Discussed With: Patient Problem Specific Plan: Monitor Clinically, Repeat Labs Problem Text: lipase WNL no abdominal pain/tenderness (4) Seizure disorder Status: Chronic Discussed With: Patient Problem Specific Plan: Monitor Clinically Problem Text: Continue neurontin, Keppra, Pamelor. (5) Alcohol abuse Status: Chronic Problem Text: Continue MVI, folic acid, thiamine. (6) CKD (chronic kidney disease) Status: Chronic Response to Treatment: Improving Discussed With: Patient Problem Specific Plan: Repeat Labs Problem Text: acute on chronic - creatinine has been slowly increasing if continues to increase - check ua/ucx - consider nephro consultation continue to follow (7) Fracture of radial shaft, with ulna, right, open Status: Chronic Discussed With: Patient Problem Specific Plan: Monitor Clinically Problem Text: Continue with treatment regimen as directed by [facility]/rehab. (8) HTN (hypertension) Status: Chronic Discussed With: Patient Problem Specific Plan: Monitor Clinically Problem Text: Still elevated. Continue to follow clinically. Hydralazine increased yesterday. If no improvement will increase hydralazine again. Continue coreg, catapres, hydralazine, procardia XL. (9) Dementia Status: Chronic Problem Specific Plan: Monitor Clinically (10) History of CVA (cerebrovascular accident) Status: Chronic Discussed With: Patient Problem Text: Continue ASA (11) Chronic GERD Status: Chronic (12) Dyslipidemia Status: Chronic Problem Text: Continue tricor, Welchol. (13) Anemia Status: Chronic Response to Treatment: Progressing Discussed With: Patient Problem Specific Plan: Monitor Clinically, Repeat Labs Problem Text: Continue to monitor. No history of CAD, asymptomatic. Transfuse if Hg <7. Check stool occult blood. DC heparin VTE prophylaxis. Plan/VTE VTE Prophylaxis Ordered?: Yes (mechanical) Plan Diet: Continue Current Activity: Continue Current Therapy: PT, OT Diagnostics: Repeat Labs in AM, Obtain Cultures, Xrays Anticipated Discharge: Sub Acute Rehab VS, I&O, 24H, Fishbone Vital Signs/I&O Vital Signs Date Time Temp Pulse Resp B/P Pulse Ox O2 Delivery O2 Flow Rate FiO2 10/07/16 05:20 99.1 68 18 170/85 95 Room Air I&O- Last 24 Hours up to 6 AM 10/07/16 06:00 Intake Total 730 ml Output Total 500 ml Balance 230 ml Laboratory Data 24H LABS Laboratory Tests 2 10/07/16 05:23: Blood Urea Nitrogen 21H, Creatinine 1.79H, Sodium Level 143, Potassium Level 4.4 , Chloride Level 117H, Carbon Dioxide Level 17L, Calcium Level 8.2L, Aspartate Amino Transf (AST/SGOT) 11L, Alanine Aminotransferase (ALT/SGPT) < 6L, Alkaline Phosphatase 93, Total Bilirubin 0.3, Total Protein 5.0L, Albumin 1.6L, Albumin/ Globulin Ratio 0.47L, Anion Gap 9, Glomerular Filtration Rate 29.2L, Lipase 200 CBC/BMP Laboratory Tests 10/07/16 05:23 Calcium Level 8.2 L, Aspartate Amino Transf (AST/SGOT) 11 L, Alanine Aminotransferase (ALT/SGPT) < 6 L, Alkaline Phosphatase 93, Total Bilirubin 0.3 , Total Protein 5.0 L, Albumin 1.6 L, Red Blood Count 2.85 L, Mean Corpuscular Volume 90.4, Mean Corpuscular Hemoglobin 28.6, Mean Corpuscular Hemoglobin Concent 31.6 L, Red Cell Distribution Width 14.6 H Microbiology Microbiology 10/02/16 Blood Culture - Preliminary, Resulted No Growth after 72 hours. All specime... 10/02/16 Blood Culture - Preliminary, Resulted No Growth after 72 hours. All specime... 10/04/16 MRSA Screen - Final, Complete 10/02/16 Influenza Virus Type A Antigen - Final, Complete 10/02/16 Influenza Virus Type B Antigen - Final, Complete 10/02/16 Urine Culture - Final, Complete Enterococcus Faecalis JUAN CARLOS GRAYSON MD Oct 07, 2016 08:12
[2016-10-07] MEDS: CARVedilol 3.125 MG TAB PO SCH ×2 (09:00→20:59)
--- NOTE | 2016-10-07 09:46 | REP ---
TWO VIEW CHEST: Two views of the chest are performed and compared to the prior study of 10/02/2016 as well as other prior exams. The cardiac silhouette is mildly prominent in size. There is some calcification of the thoracic aorta. The mediastinal silhouette is unchanged. Diffuse interstitial infiltrates are noted with mild bibasilar atelectasis/infiltrate and small effusions. The findings are similar to the prior exam. A left arm PICC line is seen with the tip in the superior vena cava. IMPRESSION: Mild cardiomegaly. Diffuse bilateral interstitial infiltrates, small bilateral pleural effusions and mild patchy bibasilar atelectasis/infiltrate. Signed by Lalo Bateman MD 10/07/2016 05:35 P
[2016-10-07] MEDS: GABAPENTIN 100 MG CAP PO SCH ×3 (10:21→20:59)
[2016-10-07] MEDS: NIFEdipine 60 MG XL TAB PO SCH (10:22)
[2016-10-07] MEDS: FOLIC ACID 1 MG TAB PO SCH (10:22)
[2016-10-07] MEDS: DOCUSATE SODIUM 100 MG CAP PO SCH ×2 (10:22→20:59)
[2016-10-07] MEDS: VITAMIN E 400 INTERNATIONAL UNITS CAP PO SCH (10:22)
[2016-10-07] MEDS: cloNIDine 0.2 MG TAB PO SCH ×3 (10:22→20:58)
[2016-10-07] MEDS: MULTIVITAMINS/MINERALS THERAP 1 TAB PO SCH (10:22)
[2016-10-07] MEDS: THIAMINE 100 MG TAB PO SCH (10:23)
[2016-10-07] MEDS: ASPIRIN 81 MG ENTERIC TAB PO SCH (10:23)
[2016-10-07] MEDS: COLESEVELAM 625 MG TAB (WELCHOL) PO SCH ×2 (10:23→17:08)
[2016-10-07] MEDS: levETIRAcetam 250MG TABLET (KEPPRA) PO SCH ×2 (10:23→20:58)
[2016-10-07] MEDS: FENOFIBRATE 145 MG TAB (TRICOR) PO SCH (10:23)
[2016-10-07 14:00] VITALS: BP 168/74
[2016-10-07 20:25] VITALS: BP 137/89
[2016-10-07] MEDS: NORTRIPTYLINE 25 MG CAP PO SCH (20:57)
[2016-10-07] MEDS: SODIUM CHLORIDE 0.9% INJ 10 ML SYR IV PRN (21:53)
[2016-10-08] MEDS: PIPERACILLIN/TAZOBACTAM SOD 2.25 GM in D5W MINI-BAG PLUS 50 ML IV SCH ×4 (01:22→20:44)
[2016-10-08] MEDS: SODIUM CHLORIDE 0.9% INJ 10 ML SYR IV SCH ×2 (05:30→17:38)
[2016-10-08 05:45] LABS: MEAN CORPUSCULAR HEMOGLOBIN 27.8 pg (27.0-33.0); MEAN CORPUSCULAR HGB CONC 30.4 g/dl (32.0-36.5); MEAN CORPUSCULAR VOLUME 91.2 fl (80.0-96.0); RED CELL DISTRIBUTION WIDTH 14.8 % (11.5-14.5); WHITE BLOOD COUNT 7.7 K/mm3 (4.0-10.0)
[2016-10-08 05:55] VITALS: BP 179/77
[2016-10-08] MEDS: **hydrALAZINE HCL** 25 MG TAB PO SCH (06:04)
[2016-10-08 06:21] LABS: ALBUMIN 1.6 GM/DL (3.2-5.2); ALBUMIN/GLOBULIN RATIO 0.59 (1.00-1.93); ALKALINE PHOSPHATASE 82 U/L (45-117); ALT/SGPT < 6 U/L (12-78); ANION GAP 9 MEQ/L (8-16); AST/SGOT 11 U/L (15-37); BILIRUBIN,TOTAL 0.2 MG/DL (0.2-1.0); BLOOD UREA NITROGEN 20 MG/DL (7-18); CALCIUM LEVEL 8.3 MG/DL (8.8-10.2); CARBON DIOXIDE LEVEL 18 MEQ/L (21-32); CHLORIDE LEVEL 118 MEQ/L (98-107); CREATININE FOR GFR 1.69 MG/DL (0.55-1.02); GLOMERULAR FILTRATION RATE 31.2 (>39); GLUCOSE, FASTING 98 MG/DL (83-110); POTASSIUM SERUM 4.6 MEQ/L (3.5-5.1); SODIUM LEVEL 145 MEQ/L (136-145); TOTAL PROTEIN 4.3 GM/DL (6.4-8.2)
[2016-10-08] MEDS: NIFEdipine 60 MG XL TAB PO SCH (08:50)
[2016-10-08] MEDS: MULTIVITAMINS/MINERALS THERAP 1 TAB PO SCH (08:50)
[2016-10-08] MEDS: ASPIRIN 81 MG ENTERIC TAB PO SCH (08:50)
[2016-10-08] MEDS: cloNIDine 0.2 MG TAB PO SCH ×3 (08:50→20:46)
[2016-10-08] MEDS: VITAMIN E 400 INTERNATIONAL UNITS CAP PO SCH (08:50)
[2016-10-08] MEDS: FENOFIBRATE 145 MG TAB (TRICOR) PO SCH (08:50)
[2016-10-08] MEDS: COLESEVELAM 625 MG TAB (WELCHOL) PO SCH ×2 (08:50→17:38)
[2016-10-08] MEDS: CARVedilol 3.125 MG TAB PO SCH ×2 (08:51→20:45)
[2016-10-08] MEDS: GABAPENTIN 100 MG CAP PO SCH ×3 (08:51→20:44)
[2016-10-08] MEDS: levETIRAcetam 250MG TABLET (KEPPRA) PO SCH ×2 (08:51→20:46)
[2016-10-08] MEDS: FOLIC ACID 1 MG TAB PO SCH (08:51)
[2016-10-08] MEDS: DOCUSATE SODIUM 100 MG CAP PO SCH ×2 (08:51→20:44)
[2016-10-08] MEDS: THIAMINE 100 MG TAB PO SCH (08:51)
--- NOTE | 2016-10-08 09:06 | IPNPDOC ---
Subjective Date Seen The patient was seen on 10/08/16. Subjective Chief Complaint/HPI The patient is a 76-year-old female admitted with a reason for visit of Healthcare Associated Pneumonia. General: Denies: Chills, Fatigue, Malaise, Night Sweats, Normal Appetite, Other Symptoms, ROS Unobtainable Constitutional: Denies: Chills, Fatigue, Fever, Lethargy, Malaise, Night Sweats , Other, Weakness, Weight Loss Eyes: Denies: Conjunctivae inflammation, Eyelid inflammation, Other, Pain, Redness, Vision change ENT: Denies: Dysphagia, Ear Pain, Epistaxis, Head Aches, Other Symptoms, Post Nasal Drip, Sinus Congestion, Sore Throat Skin: Denies: Breakdown, Bruising, Dry, Itching, Jaundice, Lesions, Nail Changes, Other, Rash Pulmonary: Denies: Cough, Dyspnea, Other Symptoms, Pleuritic Chest Pain Cardiovascular: Denies: Chest Pain, Edema, Lt Headedness, Orthopnea, Other Symptoms, Palpitations, Paroxysmal Noc. Dyspnea Gastrointestinal: Denies: Abdominal Pain, Constipation, Diarrhea, Hematochezia , Melena, Nausea, Other Symptoms, Vomiting Objective Physical Examination General Exam: Positive: Alert, Cooperative, No Acute Distress Eye Exam: Positive: Conjunctiva & lids normal, Negative: Sclera icteric ENT Exam: Positive: Atraumatic, Mucous membr. moist/pink Neck Exam: Positive: Supple Chest Exam: Positive: Clear to auscultation, Diminished Heart Exam: Positive: Rate Normal Abdomen Exam: Positive: Normal bowel sounds, Soft, Negative: Tenderness Assessment /Plan Problems (1) HCAP (healthcare-associated pneumonia) Status: Acute Response to Treatment: Progressing Discussed With: Patient Problem Specific Plan: Repeat Labs Problem Text: Day 6/ - zosyn leukocytosis resolved saturating well on room air (2) Pleural effusion Status: Acute Response to Treatment: Progressing Discussed With: Patient Problem Specific Plan: Monitor Clinically Problem Text: bilateral pleural effusion on CT chest. interim cxr reveal small effusions - diffuse infiltrate Patient not SOB, saturating well on room air. (3) Pancreatitis Status: Chronic Discussed With: Patient Problem Specific Plan: Monitor Clinically, Repeat Labs Problem Text: no abdominal pain/tenderness (4) Seizure disorder Status: Chronic Discussed With: Patient Problem Specific Plan: Monitor Clinically Problem Text: Continue neurontin, Keppra, Pamelor. (5) Alcohol abuse Status: Chronic Problem Text: Continue MVI, folic acid, thiamine. (6) CKD (chronic kidney disease) Status: Chronic Response to Treatment: Improving Discussed With: Patient Problem Specific Plan: Repeat Labs Problem Text: creatinine improved from yesterday continue to follow (7) Fracture of radial shaft, with ulna, right, open Status: Chronic Discussed With: Patient Problem Specific Plan: Monitor Clinically Problem Text: Continue with treatment regimen as directed by [facility]/rehab. (8) HTN (hypertension) Status: Chronic Discussed With: Patient Problem Specific Plan: Monitor Clinically Problem Text: Still somewhat elevated. Continue to follow clinically. Will increase hydralazine to 20mg q8h Continue coreg, catapres, procardia XL. (9) Anemia Status: Chronic Response to Treatment: Progressing Discussed With: Patient Problem Specific Plan: Monitor Clinically, Repeat Labs Problem Text: Hg still low, fluctuating. Continue to monitor. No history of CAD, asymptomatic. Transfuse if Hg <7. Stool occult blood positive. (10) Dementia Status: Chronic Problem Specific Plan: Monitor Clinically (11) History of CVA (cerebrovascular accident) Status: Chronic Discussed With: Patient Problem Text: Continue ASA (12) Chronic GERD Status: Chronic (13) Dyslipidemia Status: Chronic Problem Text: Continue tricor, Welchol. Plan/VTE VTE Prophylaxis Ordered?: Yes (mechanical) Plan Diet: Continue Current Activity: Continue Current Therapy: PT, OT Diagnostics: Repeat Labs in AM, Obtain Cultures, Xrays Anticipated Discharge: Assisted Disposition Anticipating return to [facility] in 48-72 hours. VS, I&O, 24H, [facility] Vital Signs/I&O Vital Signs Date Time Temp Pulse Resp B/P Pulse Ox O2 Delivery O2 Flow Rate FiO2 10/08/16 08:51 69 10/08/16 08:50 173/72 10/08/16 05:55 98.6 18 98 Room Air I&O- Last 24 Hours up to 6 AM 10/08/16 06:00 Intake Total 700 ml Output Total 0 ml Balance 700 ml Laboratory Data 24H LABS Laboratory Tests 2 10/08/16 05:30: Blood Urea Nitrogen 20H, Creatinine 1.69H, Sodium Level 145, Potassium Level 4.6 , Chloride Level 118H, Carbon Dioxide Level 18L, Calcium Level 8.3L, Aspartate Amino Transf (AST/SGOT) 11L, Alanine Aminotransferase (ALT/SGPT) < 6L, Alkaline Phosphatase 82, Total Bilirubin 0.2, Total Protein 4.3L, Albumin 1.6L, Albumin/ Globulin Ratio 0.59L, Anion Gap 9, Glomerular Filtration Rate 31.2L CBC/BMP Laboratory Tests 10/08/16 05:29 Red Blood Count 2.79 L, Mean Corpuscular Volume 91.2, Mean Corpuscular Hemoglobin 27.8, Mean Corpuscular Hemoglobin Concent 30.4 L, Red Cell Distribution Width 14.8 H 10/08/16 05:30 Calcium Level 8.3 L, Aspartate Amino Transf (AST/SGOT) 11 L, Alanine Aminotransferase (ALT/SGPT) < 6 L, Alkaline Phosphatase 82, Total Bilirubin 0.2 , Total Protein 4.3 L, Albumin 1.6 L Microbiology Microbiology 10/02/16 Blood Culture - Final, Complete NO GROWTH AFTER 5 DAYS 10/02/16 Blood Culture - Final, Complete NO GROWTH AFTER 5 DAYS 10/07/16 Stool Occult Blood (LETICIA) - Final, Complete 10/04/16 MRSA Screen - Final, Complete 10/02/16 Influenza Virus Type A Antigen - Final, Complete 10/02/16 Influenza Virus Type B Antigen - Final, Complete 10/02/16 Urine Culture - Final, Complete Enterococcus Faecalis JUAN CARLOS GRAYSON MD Oct 08, 2016 09:06
[2016-10-08 14:00] VITALS: BP 149/64
[2016-10-08 14:01] VITALS: BP 157/79
[2016-10-08 14:02] VITALS: BP 144/67
[2016-10-08] MEDS: **hydrALAZINE** 10 MG TAB PO SCH ×2 (15:05→20:46)
[2016-10-08] MEDS: NYSTATIN 500,000 U/5 ML SUSP UDC SS SCH ×2 (15:06→20:44)
[2016-10-08 20:05] VITALS: BP 160/80
[2016-10-08] MEDS: NORTRIPTYLINE 25 MG CAP PO SCH (20:44)
[2016-10-09] MEDS: PIPERACILLIN/TAZOBACTAM SOD 2.25 GM in D5W MINI-BAG PLUS 50 ML IV SCH ×4 (01:19→19:56)
[2016-10-09 05:25] VITALS: BP 156/86
[2016-10-09] MEDS: SODIUM CHLORIDE 0.9% INJ 10 ML SYR IV SCH ×2 (06:00→17:45)
[2016-10-09] MEDS: **hydrALAZINE** 10 MG TAB PO SCH ×3 (06:01→22:49)
[2016-10-09 06:54] LABS: MEAN CORPUSCULAR HEMOGLOBIN 27.8 pg (27.0-33.0); MEAN CORPUSCULAR HGB CONC 30.4 g/dl (32.0-36.5); MEAN CORPUSCULAR VOLUME 91.4 fl (80.0-96.0)
[2016-10-09 07:11] LABS: ALBUMIN 1.6 GM/DL (3.2-5.2); ALBUMIN/GLOBULIN RATIO 0.55 (1.00-1.93); ALKALINE PHOSPHATASE 81 U/L (45-117); ALT/SGPT < 6 U/L (12-78); ANION GAP 8 MEQ/L (8-16); AST/SGOT 11 U/L (15-37); BILIRUBIN,TOTAL 0.2 MG/DL (0.2-1.0); BLOOD UREA NITROGEN 16 MG/DL (7-18); CALCIUM LEVEL 7.9 MG/DL (8.8-10.2); CARBON DIOXIDE LEVEL 20 MEQ/L (21-32); CHLORIDE LEVEL 119 MEQ/L (98-107); CREATININE FOR GFR 1.59 MG/DL (0.55-1.02); GLOMERULAR FILTRATION RATE 33.4 (>39); GLUCOSE, FASTING 136 MG/DL (83-110); POTASSIUM SERUM 4.2 MEQ/L (3.5-5.1); SODIUM LEVEL 147 MEQ/L (136-145); TOTAL PROTEIN 4.5 GM/DL (6.4-8.2)
--- NOTE | 2016-10-09 08:07 | IPNPDOC ---
Subjective Date Seen The patient was seen on 10/09/16. Subjective Chief Complaint/HPI The patient is a 76-year-old female admitted with a reason for visit of Healthcare Associated Pneumonia. General: Denies: Chills, Fatigue, Malaise, Night Sweats, Normal Appetite, Other Symptoms, ROS Unobtainable Constitutional: Denies: Chills, Fatigue, Fever, Lethargy, Malaise, Night Sweats , Other, Weakness, Weight Loss Eyes: Denies: Conjunctivae inflammation, Eyelid inflammation, Other, Pain, Redness, Vision change ENT: Reports: Dysphagia, Sore Throat, Denies: Ear Pain, Epistaxis, Head Aches, Other Symptoms, Post Nasal Drip, Sinus Congestion Skin: Denies: Breakdown, Bruising, Dry, Itching, Jaundice, Lesions, Nail Changes, Other, Rash Pulmonary: Denies: Cough, Dyspnea, Other Symptoms, Pleuritic Chest Pain Cardiovascular: Denies: Chest Pain, Edema, Lt Headedness, Orthopnea, Other Symptoms, Palpitations, Paroxysmal Noc. Dyspnea Gastrointestinal: Denies: Abdominal Pain, Constipation, Diarrhea, Hematochezia , Melena, Nausea, Other Symptoms, Vomiting Genitourinary: Denies: Dysuria, Frequency, Hematuria, Incontinence, Other Symptoms, Retention Objective Physical Examination General Exam: Positive: Alert, Cooperative, No Acute Distress Eye Exam: Positive: Conjunctiva & lids normal, Negative: Sclera icteric ENT Exam: Positive: Atraumatic, Mucous membr. moist/pink Neck Exam: Positive: Supple Chest Exam: Positive: Clear to auscultation, Diminished Heart Exam: Positive: Rate Normal, Regular Rhythm Abdomen Exam: Positive: Normal bowel sounds, Soft, Negative: Tenderness Extremity Exam: Negative: Edema Psych Exam: Positive: Oriented x 3 Assessment /Plan Problems (1) HCAP (healthcare-associated pneumonia) Status: Resolved Response to Treatment: Stable Discussed With: Patient Problem Specific Plan: Repeat Labs Problem Text: Day / - zosyn leukocytosis resolved saturating well on room air (2) Pleural effusion Status: Acute Response to Treatment: Progressing Discussed With: Patient Problem Specific Plan: Monitor Clinically Problem Text: bilateral pleural effusion on CT chest. interim cxr reveal small effusions - diffuse infiltrate Patient not SOB, saturating well on room air. (3) Pancreatitis Status: Chronic Discussed With: Patient Problem Specific Plan: Monitor Clinically, Repeat Labs Problem Text: no abdominal pain/tenderness (4) Seizure disorder Status: Chronic Discussed With: Patient Problem Specific Plan: Monitor Clinically Problem Text: Continue neurontin, Keppra, Pamelor. (5) Alcohol abuse Status: Chronic Problem Text: Continue MVI, folic acid, thiamine. (6) CKD (chronic kidney disease) Status: Chronic Response to Treatment: Improving Discussed With: Patient Problem Specific Plan: Repeat Labs Problem Text: creatinine improved from yesterday continue to follow (7) Fracture of radial shaft, with ulna, right, open Status: Chronic Discussed With: Patient Problem Specific Plan: Monitor Clinically Problem Text: Continue with treatment regimen as directed by [facility]/rehab. (8) HTN (hypertension) Status: Chronic Discussed With: Patient Problem Specific Plan: Monitor Clinically Problem Text: Still somewhat elevated. Continue to follow clinically. Will increase hydralazine to 20mg q8h Continue coreg, catapres, procardia XL. (9) Anemia Status: Chronic Response to Treatment: Progressing Discussed With: Patient Problem Specific Plan: Monitor Clinically, Repeat Labs Problem Text: Hg still low, fluctuating. Continue to monitor. No history of CAD, asymptomatic. Transfuse if Hg <7. Stool occult blood positive. (10) Dementia Status: Chronic Problem Specific Plan: Monitor Clinically (11) History of CVA (cerebrovascular accident) Status: Chronic Discussed With: Patient Problem Text: Continue ASA (12) Chronic GERD Status: Chronic (13) Dyslipidemia Status: Chronic Problem Text: Continue tricor, Welchol. Plan/VTE VTE Prophylaxis Ordered?: Yes (mechanical) Plan Diet: Continue Current Activity: Continue Current Therapy: PT, OT Diagnostics: Repeat Labs in AM Anticipated Discharge: [facility] Complains of some mouth pain but states is better today. Also states she has been difficulty swallowing. If continued dysphagia, likely repeat swallow evaluation. Aspiration precautions in place. VS, I&O, 24H, Fishbone Vital Signs/I&O Vital Signs Date Time Temp Pulse Resp B/P Pulse Ox O2 Delivery O2 Flow Rate FiO2 10/09/16 06:01 156/86 10/09/16 05:25 98.1 66 19 97 Room Air I&O- Last 24 Hours up to 6 AM 10/09/16 06:00 Intake Total 1200 ml Output Total 1500 ml Balance -300 ml Laboratory Data 24H LABS Laboratory Tests 2 10/09/16 06:02: Blood Urea Nitrogen 16, Creatinine 1.59H, Sodium Level 147H, Potassium Level 4.2 , Chloride Level 119H, Carbon Dioxide Level 20L, Calcium Level 7.9L, Aspartate Amino Transf (AST/SGOT) 11L, Alanine Aminotransferase (ALT/SGPT) < 6L, Alkaline Phosphatase 81, Total Bilirubin 0.2, Total Protein 4.5L, Albumin 1.6L, Albumin/ Globulin Ratio 0.55L, Anion Gap 8, Glomerular Filtration Rate 33.4L CBC/BMP Laboratory Tests 10/09/16 06:02 Calcium Level 7.9 L, Aspartate Amino Transf (AST/SGOT) 11 L, Alanine Aminotransferase (ALT/SGPT) < 6 L, Alkaline Phosphatase 81, Total Bilirubin 0.2 , Total Protein 4.5 L, Albumin 1.6 L, Red Blood Count 2.72 L, Mean Corpuscular Volume 91.4, Mean Corpuscular Hemoglobin 27.8, Mean Corpuscular Hemoglobin Concent 30.4 L, Red Cell Distribution Width 15.0 H Microbiology Microbiology 10/02/16 Blood Culture - Final, Complete NO GROWTH AFTER 5 DAYS 10/02/16 Blood Culture - Final, Complete NO GROWTH AFTER 5 DAYS 10/07/16 Stool Occult Blood (LETICIA) - Final, Complete 10/04/16 MRSA Screen - Final, Complete 10/02/16 Influenza Virus Type A Antigen - Final, Complete 10/02/16 Influenza Virus Type B Antigen - Final, Complete 10/02/16 Urine Culture - Final, Complete Enterococcus Faecalis JUAN CARLOS GRAYSON MD Oct 09, 2016 08:06
[2016-10-09] MEDS: DOCUSATE SODIUM 100 MG CAP PO SCH ×3 (09:00→20:25)
[2016-10-09] MEDS: COLESEVELAM 625 MG TAB (WELCHOL) PO SCH ×2 (09:42→17:45)
[2016-10-09] MEDS: THIAMINE 100 MG TAB PO SCH (09:47)
[2016-10-09] MEDS: FENOFIBRATE 145 MG TAB (TRICOR) PO SCH (09:47)
[2016-10-09] MEDS: VITAMIN E 400 INTERNATIONAL UNITS CAP PO SCH (09:47)
[2016-10-09] MEDS: GABAPENTIN 100 MG CAP PO SCH ×3 (09:47→20:26)
[2016-10-09] MEDS: ASPIRIN 81 MG ENTERIC TAB PO SCH (09:47)
[2016-10-09] MEDS: cloNIDine 0.2 MG TAB PO SCH ×3 (09:47→20:26)
[2016-10-09] MEDS: NIFEdipine 60 MG XL TAB PO SCH (09:47)
[2016-10-09] MEDS: NYSTATIN 500,000 U/5 ML SUSP UDC SS SCH ×3 (09:48→20:25)
[2016-10-09] MEDS: CARVedilol 3.125 MG TAB PO SCH ×2 (09:48→20:27)
[2016-10-09] MEDS: levETIRAcetam 250MG TABLET (KEPPRA) PO SCH ×2 (09:48→20:26)
[2016-10-09] MEDS: MULTIVITAMINS/MINERALS THERAP 1 TAB PO SCH (09:48)
[2016-10-09] MEDS: FOLIC ACID 1 MG TAB PO SCH (09:48)
[2016-10-09 14:00] VITALS: BP 159/74
[2016-10-09] MEDS: NORTRIPTYLINE 25 MG CAP PO SCH (20:25)
[2016-10-09 22:00] VITALS: BP 170/76
[2016-10-10] MEDS: PIPERACILLIN/TAZOBACTAM SOD 2.25 GM in D5W MINI-BAG PLUS 50 ML IV SCH ×3 (02:43→14:55)
[2016-10-10] MEDS: SODIUM CHLORIDE 0.9% INJ 10 ML SYR IV SCH ×2 (05:40→18:15)
[2016-10-10] MEDS: **hydrALAZINE** 10 MG TAB PO SCH ×3 (05:40→22:21)
[2016-10-10 06:00] VITALS: BP 185/79
[2016-10-10] MEDS: DOCUSATE SODIUM 100 MG CAP PO SCH ×2 (09:00→20:54)
[2016-10-10] MEDS: ASPIRIN 81 MG ENTERIC TAB PO SCH (09:18)
[2016-10-10] MEDS: NYSTATIN 500,000 U/5 ML SUSP UDC SS SCH ×3 (09:18→20:53)
[2016-10-10] MEDS: COLESEVELAM 625 MG TAB (WELCHOL) PO SCH ×2 (09:18→18:14)
[2016-10-10] MEDS: VITAMIN E 400 INTERNATIONAL UNITS CAP PO SCH (09:19)
[2016-10-10] MEDS: NIFEdipine 60 MG XL TAB PO SCH (09:19)
[2016-10-10] MEDS: cloNIDine 0.2 MG TAB PO SCH ×3 (09:20→20:55)
[2016-10-10] MEDS: CARVedilol 3.125 MG TAB PO SCH ×2 (09:20→20:54)
[2016-10-10] MEDS: MULTIVITAMINS/MINERALS THERAP 1 TAB PO SCH (09:20)
[2016-10-10] MEDS: FENOFIBRATE 145 MG TAB (TRICOR) PO SCH (09:20)
[2016-10-10] MEDS: GABAPENTIN 100 MG CAP PO SCH ×3 (09:21→20:53)
[2016-10-10] MEDS: THIAMINE 100 MG TAB PO SCH (09:21)
[2016-10-10] MEDS: levETIRAcetam 250MG TABLET (KEPPRA) PO SCH ×2 (09:21→20:54)
[2016-10-10] MEDS: FOLIC ACID 1 MG TAB PO SCH (09:21)
[2016-10-10 11:31] LABS: MEAN CORPUSCULAR HGB CONC 30.9 g/dl (32.0-36.5); MEAN CORPUSCULAR VOLUME 90.5 fl (80.0-96.0); RED CELL DISTRIBUTION WIDTH 14.9 % (11.5-14.5); WHITE BLOOD COUNT 7.9 K/mm3 (4.0-10.0)
[2016-10-10 11:47] LABS: ALBUMIN 1.7 GM/DL (3.2-5.2); ALBUMIN/GLOBULIN RATIO 0.55 (1.00-1.93); BILIRUBIN,TOTAL 0.2 MG/DL (0.2-1.0); CALCIUM LEVEL 8.3 MG/DL (8.8-10.2); CREATININE FOR GFR 1.63 MG/DL (0.55-1.02); GLOMERULAR FILTRATION RATE 32.5 (>39); POTASSIUM SERUM 4.2 MEQ/L (3.5-5.1); TOTAL PROTEIN 4.8 GM/DL (6.4-8.2)
[2016-10-10 14:00] VITALS: BP 137/65
--- NOTE | 2016-10-10 15:51 | IPNPDOC ---
Subjective Date Seen The patient was seen on 10/10/16. Subjective Chief Complaint/HPI The patient is a 76-year-old female admitted with a reason for visit of Healthcare Associated Pneumonia. Objective Physical Examination General Exam: Positive: Alert, Cooperative, No Acute Distress Eye Exam: Positive: Conjunctiva & lids normal, Negative: Sclera icteric ENT Exam: Positive: Atraumatic, Mucous membr. moist/pink Neck Exam: Positive: Supple Chest Exam: Positive: Clear to auscultation, Diminished Heart Exam: Positive: Rate Normal, Regular Rhythm Abdomen Exam: Positive: Normal bowel sounds, Soft, Negative: Tenderness Extremity Exam: Negative: Edema Psych Exam: Positive: Oriented x 3 Assessment /Plan Problems (1) C. difficile colitis Status: Acute Problem Text: * will start pt on oral vanco * contact precautions * maybe due to antibiotics (2) HCAP (healthcare-associated pneumonia) Status: Resolved Response to Treatment: Stable Discussed With: Patient Problem Specific Plan: Repeat Labs Problem Text: pt completed a course of zosyn will d/c today (3) Pleural effusion Status: Acute Response to Treatment: Progressing Discussed With: Patient Problem Specific Plan: Monitor Clinically Problem Text: bilateral pleural effusion on CT chest. interim cxr reveal small effusions - diffuse infiltrate Patient not SOB, saturating well on room air. (4) Pancreatitis Status: Chronic Discussed With: Patient Problem Specific Plan: Monitor Clinically, Repeat Labs Problem Text: no abdominal pain/tenderness (5) Seizure disorder Status: Chronic Discussed With: Patient Problem Specific Plan: Monitor Clinically Problem Text: Continue neurontin, Keppra, Pamelor. (6) Alcohol abuse Status: Chronic Problem Text: Continue MVI, folic acid, thiamine. (7) CKD (chronic kidney disease) Status: Chronic Response to Treatment: Stable (8) Fracture of radial shaft, with ulna, right, open Status: Chronic Discussed With: Patient Problem Specific Plan: Monitor Clinically Problem Text: Continue with treatment regimen as directed by [facility]/rehab. (9) HTN (hypertension) Status: Chronic Discussed With: Patient Problem Specific Plan: Monitor Clinically Problem Text: Still somewhat elevated. Continue to follow clinically. Continue coreg, catapres, procardia XL hydralazine (10) Anemia Status: Chronic Response to Treatment: Progressing Discussed With: Patient Problem Specific Plan: Monitor Clinically, Repeat Labs Problem Text: Hg still low, fluctuating. Continue to monitor. No history of CAD, asymptomatic. Transfuse if Hg <7. Stool occult blood positive. (11) Dementia Status: Chronic Problem Specific Plan: Monitor Clinically (12) History of CVA (cerebrovascular accident) Status: Chronic Discussed With: Patient Problem Text: Continue ASA (13) Chronic GERD Status: Chronic (14) Dyslipidemia Status: Chronic Problem Text: Continue tricor, Welchol. Plan/VTE VTE Prophylaxis Ordered?: Yes (mechanical) Plan Diet: Continue Current Activity: Continue Current Therapy: PT, OT Diagnostics: Repeat Labs in AM Anticipated Discharge: Intermediate VS, I&O, 24H, [facility] Vital Signs/I&O Vital Signs Date Time Temp Pulse Resp B/P Pulse Ox O2 Delivery O2 Flow Rate FiO2 10/10/16 14:56 137/65 10/10/16 09:20 89 10/10/16 09:00 Room Air 10/10/16 06:00 97.5 18 99 I&O- Last 24 Hours up to 6 AM 10/10/16 06:00 Intake Total 720 ml Output Total 350 ml Balance 370 ml Laboratory Data 24H LABS Laboratory Tests 2 10/10/16 06:00: Blood Urea Nitrogen 15, Creatinine 1.63H, Sodium Level 145, Potassium Level 4.2 , Chloride Level 116H, Carbon Dioxide Level 22, Calcium Level 8.3L, Aspartate Amino Transf (AST/SGOT) 14L, Alanine Aminotransferase (ALT/SGPT) 6L, Alkaline Phosphatase 71, Total Bilirubin 0.2, Total Protein 4.8L, Albumin 1.7L, Albumin/ Globulin Ratio 0.55L, Anion Gap 7L, Glomerular Filtration Rate 32.5L CBC/BMP Laboratory Tests 10/10/16 06:00 Calcium Level 8.3 L, Aspartate Amino Transf (AST/SGOT) 14 L, Alanine Aminotransferase (ALT/SGPT) 6 L, Alkaline Phosphatase 71, Total Bilirubin 0.2, Total Protein 4.8 L, Albumin 1.7 L, Red Blood Count 2.79 L, Mean Corpuscular Volume 90.5, Mean Corpuscular Hemoglobin 28.0, Mean Corpuscular Hemoglobin Concent 30.9 L, Red Cell Distribution Width 14.9 H Microbiology Microbiology 10/02/16 Blood Culture - Final, Complete NO GROWTH AFTER 5 DAYS 10/02/16 Blood Culture - Final, Complete NO GROWTH AFTER 5 DAYS 10/09/16 Clostridium difficile (PCR) - Final, Complete 10/07/16 Stool Occult Blood (LETICIA) - Final, Complete 10/04/16 MRSA Screen - Final, Complete 10/02/16 Influenza Virus Type A Antigen - Final, Complete 10/02/16 Influenza Virus Type B Antigen - Final, Complete 10/02/16 Urine Culture - Final, Complete Enterococcus Faecalis TASH SANCHEZ DO Oct 10, 2016 15:51
[2016-10-10 16:00] VITALS: BP_SYST 120; BP_SYST 122; BP_SYST 128; BP_DIAS 65; BP_DIAS 67; BP_DIAS 68
[2016-10-10] MEDS: VANCOMYCIN ORAL SOL 250MG/5ML ORAL SYRINGE PO SCH ×2 (18:15→23:33)
[2016-10-10 22:00] VITALS: BP_SYST 110; BP_SYST 125; BP_SYST 128; BP_DIAS 60; BP_DIAS 79; BP_DIAS 82
[2016-10-10] MEDS: NORTRIPTYLINE 25 MG CAP PO SCH (22:21)
[2016-10-11] MEDS: SODIUM CHLORIDE 0.9% INJ 10 ML SYR IV SCH ×2 (05:25→17:59)
[2016-10-11] MEDS: **hydrALAZINE** 10 MG TAB PO SCH ×3 (05:25→22:28)
[2016-10-11] MEDS: VANCOMYCIN ORAL SOL 250MG/5ML ORAL SYRINGE PO SCH ×3 (05:39→17:55)
[2016-10-11 06:00] VITALS: BP_SYST 150; BP_SYST 160; BP_DIAS 70; BP_DIAS 72; BP_DIAS 80
[2016-10-11 06:00] LABS: MEAN CORPUSCULAR HEMOGLOBIN 28.3 pg (27.0-33.0); MEAN CORPUSCULAR HGB CONC 31.7 g/dl (32.0-36.5); MEAN CORPUSCULAR VOLUME 89.3 fl (80.0-96.0); RED CELL DISTRIBUTION WIDTH 14.9 % (11.5-14.5); WHITE BLOOD COUNT 8.8 K/mm3 (4.0-10.0)
[2016-10-11 06:08] LABS: ALBUMIN 1.6 GM/DL (3.2-5.2); ALBUMIN/GLOBULIN RATIO 0.52 (1.00-1.93); ALKALINE PHOSPHATASE 67 U/L (45-117); ALT/SGPT < 6 U/L (12-78); ANION GAP 10 MEQ/L (8-16); AST/SGOT 12 U/L (15-37); BILIRUBIN,TOTAL 0.2 MG/DL (0.2-1.0); BLOOD UREA NITROGEN 13 MG/DL (7-18); CALCIUM LEVEL 8.1 MG/DL (8.8-10.2); CARBON DIOXIDE LEVEL 20 MEQ/L (21-32); CHLORIDE LEVEL 116 MEQ/L (98-107); CREATININE FOR GFR 1.55 MG/DL (0.55-1.02); GLOMERULAR FILTRATION RATE 34.4 (>39); GLUCOSE, FASTING 112 MG/DL (83-110); SODIUM LEVEL 146 MEQ/L (136-145); TOTAL PROTEIN 4.7 GM/DL (6.4-8.2)
[2016-10-11] MEDS: NYSTATIN 500,000 U/5 ML SUSP UDC SS SCH ×3 (08:39→22:29)
[2016-10-11] MEDS: GABAPENTIN 100 MG CAP PO SCH ×3 (08:39→22:28)
[2016-10-11] MEDS: CARVedilol 3.125 MG TAB PO SCH ×2 (08:40→22:28)
[2016-10-11] MEDS: COLESEVELAM 625 MG TAB (WELCHOL) PO SCH ×2 (08:40→17:55)
[2016-10-11] MEDS: FOLIC ACID 1 MG TAB PO SCH (08:40)
[2016-10-11] MEDS: ASPIRIN 81 MG ENTERIC TAB PO SCH (08:40)
[2016-10-11] MEDS: THIAMINE 100 MG TAB PO SCH (08:40)
[2016-10-11] MEDS: MULTIVITAMINS/MINERALS THERAP 1 TAB PO SCH (08:41)
[2016-10-11] MEDS: levETIRAcetam 250MG TABLET (KEPPRA) PO SCH ×2 (08:41→22:29)
[2016-10-11] MEDS: FENOFIBRATE 145 MG TAB (TRICOR) PO SCH (08:41)
[2016-10-11] MEDS: DOCUSATE SODIUM 100 MG CAP PO SCH ×2 (08:41→21:00)
[2016-10-11] MEDS: NIFEdipine 60 MG XL TAB PO SCH (08:41)
[2016-10-11] MEDS: VITAMIN E 400 INTERNATIONAL UNITS CAP PO SCH (08:41)
[2016-10-11] MEDS: cloNIDine 0.2 MG TAB PO SCH ×3 (08:41→22:29)
[2016-10-11 10:31] LABS: RETIC HEMOGLOBIN CONTENT CHr 31.3 PG (24-36); RETICULOCYTE % ADVIA2120 2.2 % (0.5-1.5)
[2016-10-11 10:39] LABS: FERRITIN 115 NG/ML (8-252); PERCENT SATURATION 33.1 % (13.2-37.4); TOTAL IRON BINDING CAPACITY 157 UG/DL (250-450)
[2016-10-11] MEDS ORDERED: D5W/0.45% SODIUM CHLORIDE 1,000 ML IV SCH (12:45)
[2016-10-11 14:00] VITALS: BP_SYST 140; BP_SYST 142; BP_SYST 160; BP_DIAS 100; BP_DIAS 82; BP_DIAS 90
[2016-10-11 15:00] VITALS: BP 142/75
--- NOTE | 2016-10-11 17:56 | IPN ---
DATE: 10/11/2016 Ms. Kiran is feeling relatively well today, although she is complaining of multiple (cut off). Temperature is 98.2, pulse 75, respiratory rate 16, blood pressure is 150/72, 98% on room air. Input and output are notable for a positive fluid balance of 380. Three bowel movements thus far today and four yesterday. She is awake, appropriately interactive, remembers me from previous encounters, speaking in complete sentences. No accessory muscle use. Heart is distant sounding, normal S1, S2. Abdomen is soft, doughy, nontender. Hyperactive bowel sounds. LABORATORY DATA: White cell count 8.8, hemoglobin 7.7, and platelets of 365. Reticulocyte count is 2.2. Sodium is 146, carbon dioxide is 20, creatinine is 1.55 and slightly improved, ferritin is 115, iron is 52, total iron binding capacity is 157. Clostridium difficile was positive on 10/10/2016. ASSESSMENT: This is a 76-year-old initially with healthcare-associated pneumonia and now with Clostridium (C) difficile colitis. PLAN: 1. Infectious disease. Patient is off antibiotics for her healthcare-associated pneumonia. She is currently on oral vancomycin for Clostridium difficile colitis. She does not have an acute abdomen. 2. Patient has anemia. Patient says her hemoglobin normally runs around 8. I did get informed consent to give a blood transfusion should that be necessary. We will repeat a hemoglobin and hematocrit later today. She is not orthostatic. 3. Patient has chronic kidney disease. Creatinine has improved from yesterday. 4. Patient has a history of alcohol abuse. Continuing with multivitamin, folic acid, and thiamine. 5. Patient had recent fracture of the right radium. She is currently splinted. She is right handed, so verbal informed consent is obtained for blood transfusion. 6. Patient has a history of cerebrovascular accident (CVA). 7. Patient has gastroesophageal reflux disease (GERD). 8. Patient has dyslipidemia. 9. Patient has mechanical deep vein thrombosis (DVT) prophylaxis.
[2016-10-11 22:00] VITALS: BP_SYST 138; BP_SYST 145; BP_SYST 160; BP_DIAS 60; BP_DIAS 78
[2016-10-11] MEDS: ACETAMINOPHEN TAB 650MG DOSE (2X325MG) PO PRN (22:26)
[2016-10-11] MEDS: NORTRIPTYLINE 25 MG CAP PO SCH (22:26)
[2016-10-11] MEDS: PANTOPRAZOLE 40MG TAB (PROTONIX) PO SCH (22:29)
[2016-10-12] MEDS: VANCOMYCIN ORAL SOL 250MG/5ML ORAL SYRINGE PO SCH ×4 (01:04→18:17)
[2016-10-12] MEDS: ONDANSETRON 4MG/2ML VIAL (J2405) IV PRN ×2 (01:04→06:13)
[2016-10-12 06:00] VITALS: BP_SYST 138; BP_SYST 142; BP_DIAS 88; BP_DIAS 90; BP_DIAS 92
[2016-10-12] MEDS: **hydrALAZINE** 10 MG TAB PO SCH ×3 (06:14→21:23)
[2016-10-12] MEDS: SODIUM CHLORIDE 0.9% INJ 10 ML SYR IV SCH ×2 (06:14→18:00)
[2016-10-12 06:38] LABS: MEAN CORPUSCULAR HEMOGLOBIN 28.2 pg (27.0-33.0); MEAN CORPUSCULAR HGB CONC 31.5 g/dl (32.0-36.5); MEAN CORPUSCULAR VOLUME 89.5 fl (80.0-96.0); RED CELL DISTRIBUTION WIDTH 15.1 % (11.5-14.5); WHITE BLOOD COUNT 9.1 K/mm3 (4.0-10.0)
[2016-10-12 07:08] LABS: ALBUMIN 1.7 GM/DL (3.2-5.2); ALBUMIN/GLOBULIN RATIO 0.59 (1.00-1.93); ALKALINE PHOSPHATASE 74 U/L (45-117); ALT/SGPT < 6 U/L (12-78); ANION GAP 9 MEQ/L (8-16); AST/SGOT 16 U/L (15-37); BILIRUBIN,TOTAL 0.2 MG/DL (0.2-1.0); BLOOD UREA NITROGEN 11 MG/DL (7-18); CALCIUM LEVEL 7.8 MG/DL (8.8-10.2); CARBON DIOXIDE LEVEL 22 MEQ/L (21-32); CHLORIDE LEVEL 116 MEQ/L (98-107); CREATININE FOR GFR 1.34 MG/DL (0.55-1.02); GLOMERULAR FILTRATION RATE 40.7 (>39); GLUCOSE, FASTING 134 MG/DL (83-110); POTASSIUM SERUM 3.9 MEQ/L (3.5-5.1); SODIUM LEVEL 147 MEQ/L (136-145); TOTAL PROTEIN 4.6 GM/DL (6.4-8.2)
[2016-10-12] MEDS: DOCUSATE SODIUM 100 MG CAP PO SCH ×2 (09:00→21:00)
[2016-10-12] MEDS: VITAMIN E 400 INTERNATIONAL UNITS CAP PO SCH (09:37)
[2016-10-12] MEDS: FENOFIBRATE 145 MG TAB (TRICOR) PO SCH (09:38)
[2016-10-12] MEDS: NIFEdipine 60 MG XL TAB PO SCH (09:38)
[2016-10-12] MEDS: MULTIVITAMINS/MINERALS THERAP 1 TAB PO SCH (09:38)
[2016-10-12] MEDS: COLESEVELAM 625 MG TAB (WELCHOL) PO SCH ×2 (09:38→18:17)
[2016-10-12] MEDS: ASPIRIN 81 MG ENTERIC TAB PO SCH (09:39)
[2016-10-12] MEDS: cloNIDine 0.2 MG TAB PO SCH ×3 (09:39→21:21)
[2016-10-12] MEDS: levETIRAcetam 250MG TABLET (KEPPRA) PO SCH ×2 (09:39→21:20)
[2016-10-12] MEDS: CARVedilol 3.125 MG TAB PO SCH ×2 (09:39→21:22)
[2016-10-12] MEDS: THIAMINE 100 MG TAB PO SCH (09:39)
[2016-10-12] MEDS: FOLIC ACID 1 MG TAB PO SCH (09:39)
[2016-10-12] MEDS: NYSTATIN 500,000 U/5 ML SUSP UDC SS SCH ×3 (09:39→21:25)
[2016-10-12] MEDS: GABAPENTIN 100 MG CAP PO SCH ×3 (09:39→21:20)
--- NOTE | 2016-10-12 13:34 | IPN ---
DATE OF SERVICE: 10/12/2016 Ms. Kiran is feeling relatively well today. She has no complaints of pain, chest pain, shortness of breath. When I saw her this morning, she had not yet had a bowel movement since midnight. Temperature 98.3, pulse 92, respiratory rate 19, blood pressure 142/92, 100% on room air. Intake and output (I and O) notable for a negative fluid balance of -780. At this point, she has had two bowel movements. She is awake, appropriately interactive. Breathing is symmetrical. I-to-E ratio is 1:3. No accessory muscle use. Speaking in short sentences. Heart is in a regular rate and rhythm. Abdomen: Soft, doughy, nontender. Hyperactive bowel sounds. No significant lower extremity edema. White count 9.1, hemoglobin 8.1, platelets of 391, BUN is 11, creatinine is 134. My assessment is as follows: This is a 76-year-old who was initially treated for healthcare-associated pneumonia and now has Clostridium (C) difficile colitis. The plan is as follows: 1. Infectious disease. The patient is currently on vancomycin with decreasing stooling for C. difficile colitis She does not have an acute abdomen. Had been on antibiotics for healthcare-associated pneumonia. 2. The patient has anemia. Hemoglobin and hematocrit is stable. Will monitor her clinically. 3. The patient has chronic kidney disease. Creatinine has improved again from yesterday, although she is becoming somewhat more hypernatremic. Will give some additional free water today in the form of D5W. 4. The patient has a history of alcohol abuse. Continuing with multivitamin, folic acid, and thiamine. 5. The patient has a recent fracture of her right radius. She is splinted. Was supposed to have an orthopedic followup tomorrow, which she most likely will not make. 6. The patient has a history of cerebrovascular accident (CVA). 7. The patient has gastroesophageal reflux disease (GERD). 8. The patient has dyslipidemia. 9. The patient has mechanical deep vein thrombosis (DVT) prophylaxis.
[2016-10-12 14:00] VITALS: BP_SYST 125; BP_SYST 130; BP_SYST 135; BP_DIAS 60; BP_DIAS 65; BP_DIAS 75
[2016-10-12] MEDS ORDERED: D5W 500 ML IV SCH (15:15)
[2016-10-12] MEDS: PANTOPRAZOLE 40MG TAB (PROTONIX) PO SCH (21:20)
[2016-10-12] MEDS: NORTRIPTYLINE 25 MG CAP PO SCH (21:23)
[2016-10-12 22:00] VITALS: BP 136/58
[2016-10-13] MEDS: VANCOMYCIN ORAL SOL 250MG/5ML ORAL SYRINGE PO SCH ×4 (00:22→17:04)
[2016-10-13] MEDS: SODIUM CHLORIDE 0.9% INJ 10 ML SYR IV SCH ×2 (05:25→17:04)
[2016-10-13] MEDS: **hydrALAZINE** 10 MG TAB PO SCH ×3 (05:28→21:19)
[2016-10-13 05:47] LABS: MEAN CORPUSCULAR HEMOGLOBIN 27.8 pg (27.0-33.0); MEAN CORPUSCULAR HGB CONC 31.3 g/dl (32.0-36.5); MEAN CORPUSCULAR VOLUME 88.9 fl (80.0-96.0); RED CELL DISTRIBUTION WIDTH 15.1 % (11.5-14.5); WHITE BLOOD COUNT 6.7 K/mm3 (4.0-10.0)
[2016-10-13 06:00] VITALS: BP 116/54
[2016-10-13 06:30] LABS: ALBUMIN 1.7 GM/DL (3.2-5.2); ALBUMIN/GLOBULIN RATIO 0.68 (1.00-1.93); BILIRUBIN,TOTAL 0.2 MG/DL (0.2-1.0); CALCIUM LEVEL 7.8 MG/DL (8.8-10.2); CREATININE FOR GFR 1.5 MG/DL (0.55-1.02); GLOMERULAR FILTRATION RATE 35.8 (>39); POTASSIUM SERUM 4.4 MEQ/L (3.5-5.1); TOTAL PROTEIN 4.2 GM/DL (6.4-8.2)
[2016-10-13] MEDS: NIFEdipine 60 MG XL TAB PO SCH ×2 (08:47→09:00)
[2016-10-13] MEDS: COLESEVELAM 625 MG TAB (WELCHOL) PO SCH ×2 (08:48→17:04)
[2016-10-13] MEDS: levETIRAcetam 250MG TABLET (KEPPRA) PO SCH ×2 (08:49→21:19)
[2016-10-13] MEDS: THIAMINE 100 MG TAB PO SCH (08:49)
[2016-10-13] MEDS: FENOFIBRATE 145 MG TAB (TRICOR) PO SCH (08:49)
[2016-10-13] MEDS: cloNIDine 0.2 MG TAB PO SCH ×3 (08:49→21:19)
[2016-10-13] MEDS: ASPIRIN 81 MG ENTERIC TAB PO SCH (08:49)
[2016-10-13] MEDS: FOLIC ACID 1 MG TAB PO SCH (08:50)
[2016-10-13] MEDS: MULTIVITAMINS/MINERALS THERAP 1 TAB PO SCH (08:50)
[2016-10-13] MEDS: DOCUSATE SODIUM 100 MG CAP PO SCH ×2 (08:51→21:00)
[2016-10-13] MEDS: CARVedilol 3.125 MG TAB PO SCH ×2 (08:51→21:20)
[2016-10-13] MEDS: GABAPENTIN 100 MG CAP PO SCH ×3 (08:51→21:18)
[2016-10-13] MEDS: VITAMIN E 400 INTERNATIONAL UNITS CAP PO SCH (08:51)
[2016-10-13] MEDS: NYSTATIN 500,000 U/5 ML SUSP UDC SS SCH ×3 (08:51→21:20)
[2016-10-13 13:46] VITALS: BP_SYST 110; BP_SYST 118; BP_DIAS 72; BP_DIAS 82; BP_DIAS 90
[2016-10-13 13:54] VITALS: BP 118/72
[2016-10-13] MEDS: NORTRIPTYLINE 25 MG CAP PO SCH (21:19)
[2016-10-13] MEDS: PANTOPRAZOLE 40MG TAB (PROTONIX) PO SCH (21:19)
[2016-10-13 22:00] VITALS: BP_SYST 110; BP_SYST 118; BP_SYST 122; BP_DIAS 60; BP_DIAS 65
[2016-10-14] MEDS: VANCOMYCIN ORAL SOL 250MG/5ML ORAL SYRINGE PO SCH ×3 (00:09→13:45)
[2016-10-14] MEDS: SODIUM CHLORIDE 0.9% INJ 10 ML SYR IV SCH (05:25)
[2016-10-14] MEDS: **hydrALAZINE** 10 MG TAB PO SCH (05:26)
[2016-10-14 06:00] VITALS: BP_SYST 115; BP_SYST 120; BP_SYST 122; BP_DIAS 60; BP_DIAS 70; BP_DIAS 74
[2016-10-14 06:11] LABS: MEAN CORPUSCULAR HGB CONC 32.3 g/dl (32.0-36.5); MEAN CORPUSCULAR VOLUME 89.6 fl (80.0-96.0); RED CELL DISTRIBUTION WIDTH 15.1 % (11.5-14.5); WHITE BLOOD COUNT 7.3 K/mm3 (4.0-10.0)
[2016-10-14 06:32] LABS: ALBUMIN 1.9 GM/DL (3.2-5.2); ALBUMIN/GLOBULIN RATIO 0.66 (1.00-1.93); BILIRUBIN,TOTAL 0.3 MG/DL (0.2-1.0); CREATININE FOR GFR 1.75 MG/DL (0.55-1.02); GLOMERULAR FILTRATION RATE 29.9 (>39); POTASSIUM SERUM 4.4 MEQ/L (3.5-5.1); TOTAL PROTEIN 4.8 GM/DL (6.4-8.2)
[2016-10-14 09:00] VITALS: BP 130/78
[2016-10-14] MEDS: DOCUSATE SODIUM 100 MG CAP PO SCH (09:00)
[2016-10-14] MEDS: VITAMIN E 400 INTERNATIONAL UNITS CAP PO SCH (09:22)
[2016-10-14] MEDS: COLESEVELAM 625 MG TAB (WELCHOL) PO SCH (09:22)
[2016-10-14] MEDS: levETIRAcetam 250MG TABLET (KEPPRA) PO SCH (09:22)
[2016-10-14] MEDS: THIAMINE 100 MG TAB PO SCH (09:23)
[2016-10-14] MEDS: GABAPENTIN 100 MG CAP PO SCH (09:23)
[2016-10-14] MEDS: MULTIVITAMINS/MINERALS THERAP 1 TAB PO SCH (09:23)
[2016-10-14] MEDS: FENOFIBRATE 145 MG TAB (TRICOR) PO SCH (09:23)
[2016-10-14] MEDS: cloNIDine 0.2 MG TAB PO SCH (09:23)
[2016-10-14] MEDS: CARVedilol 3.125 MG TAB PO SCH (09:24)
[2016-10-14 09:25] VITALS: BP 115/60
[2016-10-14] MEDS: ASPIRIN 81 MG ENTERIC TAB PO SCH (09:25)
[2016-10-14] MEDS: NYSTATIN 500,000 U/5 ML SUSP UDC SS SCH (09:25)
[2016-10-14] MEDS: NIFEdipine 60 MG XL TAB PO SCH (09:25)
[2016-10-14] MEDS: FOLIC ACID 1 MG TAB PO SCH (09:25)
[2016-10-14] MEDS ORDERED: FIRS1SOL3 PO (10:38)
[2016-10-14] MEDS ORDERED: Patient Own Medication OU (10:38)
[2016-10-14] MEDS ORDERED: NYST50SS SS (10:38)
--- NOTE | 2016-10-15 19:06 | DSES ---
DATE OF ADMISSION: 10/02/2016 DATE OF DISCHARGE: 10/14/2016 No specialists involved in her care. No complications during her stay. No procedures performed during her stay. DISCHARGE DIAGNOSES: 1. Healthcare-associated pneumonia. 2. Pleural effusion. 3. Pancreatitis. 4. Seizure disorder. 5. Alcohol abuse by history. 6. Chronic kidney disease. 7. Fracture of the right radial shaft with external fixation. 8. Hypertension. 9. Anemia requiring blood transfusion. 10. Dementia. 11. History of cerebrovascular accident (CVA). 12. Chronic gastroesophageal reflux disease (GERD). 13. Dyslipidemia. 14. Clostridium (C) difficile colitis. SUMMARY OF HER HOSPITALIZATION: This is a 76-year-old who presented from [facility] with lethargy, weakness, subjective fevers, chills and rigors, had been treated recently at [facility] with an arm fracture involving an open fracture of the right radius and had been at [facility] for rehabilitation. She was brought to the hospital and admitted to the hospitalist service. She was treated for healthcare-associated pneumonia. She did have a history of an aspiration event while at [facility]. She was on a modified diet. She had a repeat swallow evaluation during her stay and her diet was advanced. She was treated with a full course of antibiotics for healthcare-associated pneumonia and was much improved. Unfortunately, she did develop Clostridium difficile colitis and was started on oral vancomycin. She began to have improvement from her symptoms during her day. Also during this stay, her right upper extremity which is chronically splinted at this point was given wound care for the external fixators which were still in place. The plan is for close followup with orthopedic surgery to have those evaluated and possibly removed on 10/17/2016. On the day of discharge, she is feeling well and tolerating a diet. No complaints. She does have some discomfort at her right arm and some swelling which has not changed over the course of the last four days of evaluation. Temperature 96.4, pulse 57, respiratory rate 15, blood pressure 122/74, 99% on room air. She is awake, appropriately interactive, quite talkative this morning. Mucous membranes are moist. Neck is supple. Breathing is symmetrical. Heart is distant sounding. Normal S1, S2. Abdomen is soft, doughy, nontender. Swelling just distal to the right antecubital region and just proximal medially, is not warm, minimally tender, not red. LABORATORY DATA: White cell count 7.3, hemoglobin 9.1, and platelets of 284. BUN 19, creatinine 1.74. DISCHARGE INSTRUCTIONS: Include the following: Followup with [facility] ([facility]) when she gets there. Followup with Dr. Jenkins upon discharge from [facility]. Directions given for cleaning external fixator pins with hydrogen peroxide. Brace may be removed briefly. Do not move her arm while the brace is off. DISCHARGE MEDICATIONS: She is on: - vancomycin 250 mg by mouth every six hours and this can be tapered while at [facility] - nystatin swish and swallow three times a day - patient's own eye medications twice daily - Tylenol 650 every four hours as needed for pain - vitamin E supplements deemed necessary - aspirin 81 mg by mouth daily - Dulcolax 10 mg daily per rectum as needed - Coreg 3.125 twice a day - clonidine 0.2 mg three times a day - Welchol 1250 mg twice a day - enema twice a day - Nexium 40 mg by mouth daily - Tricor 145 mg by mouth daily - folic acid 1 mg daily - Neurontin 100 mg three times a day - hydralazine 10 mg every eight hours - Keppra 250 mg by mouth twice a day - lisinopril 20 mg by mouth daily - milk of magnesia 30 mL by mouth daily for constipation - multivitamin tablet daily - nifedipine ER 60 mg by mouth daily - Pamelor 50 mg by mouth daily at bedtime - Zofran 4 mg by mouth daily as needed - oxycodone 5 mg every four hours as needed for pain - thiamine 100 mg by mouth daily
== END 2016-10-14 13:51 | DRG 194 ==
LOC: EDBD 10:24 → M ED 11:18 → M ED INP 16:11 → M PCU 17:15 → M MSPAV 10-06 09:05
PROVIDERS: ADMIT Hospitalist; ATTEND Internal Medicine
PROC: 30233N1 Transfusion of Nonautologous Red Blood Cells into Peripheral Vein, Percutaneous Approach (ICD-10-PCS; principal; 2016-10-13)
DX: J18.9 Pneumonia, unspecified organism (principal); N17.9 Acute kidney failure, unspecified; J90 Pleural effusion, not elsewhere classified; K86.1 Other chronic pancreatitis; A04.7 Enterocolitis due to Clostridium difficile; G40.909 Epilepsy, unspecified, not intractable, without status epilepticus; E78.5 Hyperlipidemia, unspecified; K21.9 Gastro-esophageal reflux disease without esophagitis; D64.9 Anemia, unspecified; I12.9 Hypertensive chronic kidney disease with stage 1 through stage 4 chronic kidney disease, or unspecified chronic kidney disease; F03.90 Unspecified dementia, unspecified severity, without behavioral disturbance, psychotic disturbance, mood disturbance, and anxiety; Z79.899 Other long term (current) drug therapy; Z79.82 Long term (current) use of aspirin; N18.9 Chronic kidney disease, unspecified; Z86.73 Personal history of transient ischemic attack (TIA), and cerebral infarction without residual deficits; Z88.8 Allergy status to other drugs, medicaments and biological substances; E87.5 Hyperkalemia; F10.20 Alcohol dependence, uncomplicated; S52.301D Unspecified fracture of shaft of right radius, subsequent encounter for closed fracture with routine healing

== ENCOUNTER → 2016-10-03 | Outpatient (REF) ==
[~2016-10-03] MED LIST changes: +ASPI81TA4 PO; +CLON0.2T PO; +DULC10SU2 PR; +ENEMENE6 PR; +ENSULIQ64 PO; +FEVE650S3 PR; +FIRS1SOL3 PO; +LEVE250T5 PO; +LISI-538 PO; +LISI-542 PO; +MILKSUS PO; +MOM30SS PO; +MULT1TAB20 PO; +NATU400T PO; +NYST50SS SS; +ONDA1TAB15 PO; +OXYCO5TA PO; +PAME50CA PO; +Patient Own Medication OU; +TRIC145T PO; +VITA100T60 PO; +VITMTA PO; +WELC625T PO
== END ==
LOC: SKLAB3 07:00
PROVIDERS: ATTEND Internal Medicine
DX: I10 Essential (primary) hypertension (principal)

== ENCOUNTER → 2016-10-15 | Outpatient (REF) | payer MEDICARE | LOC: SKLAB3 16:04 | PROVIDERS: ATTEND Internal Medicine | DX: Z00.00 Encounter for general adult medical examination without abnormal findings (principal) ==

== ENCOUNTER → 2016-11-03 | Outpatient (REF) ==
[2016-11-03 10:08] LABS: BASO % 0.5 % (0.0-1.0); EOS # 0.5 K/mm3 (0.0-0.50); LARGE UNSTAINED CELL # 0.1 K/mm3 (0.0-0.4); LARGE UNSTAINED CELL % 1.8 % (0.0-4.0); LYMPH # 1.7 K/mm3 (1.5-4.5); LYMPH % 29.1 % (24.0-44.0); MEAN CORPUSCULAR HEMOGLOBIN 29.5 pg (27.0-33.0); MEAN CORPUSCULAR HGB CONC 31.3 g/dl (32.0-36.5); MONO # 0.3 K/mm3 (0.0-0.8); MONO % 4.3 % (0.0-5.0); NEUTROPHILS # 3.3 K/mm3 (1.8-7.7); NEUTROPHILS % 56.2 % (36.0-66.0); PLATELET COUNT, AUTOMATED 258 k/mm3 (150-450); RED CELL DISTRIBUTION WIDTH 14.8 % (11.5-14.5); WHITE BLOOD COUNT 5.8 K/mm3 (4.0-10.0)
[2016-11-03 10:30] LABS: ALBUMIN 2.4 GM/DL (3.2-5.2); CALCIUM LEVEL 8.6 MG/DL (8.8-10.2); CREATININE FOR GFR 1.77 MG/DL (0.55-1.02); GLOMERULAR FILTRATION RATE 29.5 (>39); MAGNESIUM LEVEL 2.2 MG/DL (1.8-2.4); PHOSPHORUS LEVEL 4.3 MG/DL (2.5-4.9); POTASSIUM SERUM 4.6 MEQ/L (3.5-5.1)
== END ==
LOC: SKLAB3 08:00
PROVIDERS: ATTEND Internal Medicine
DX: N18.3 Chronic kidney disease, stage 3 (moderate) (principal); E55.9 Vitamin D deficiency, unspecified

== ENCOUNTER → 2016-12-16 | Outpatient (CLI) | payer MEDICARE ==
[2016-12-16 12:16] LABS: BASO % 0.5 % (0.0-1.0); EOS # 0.3 K/mm3 (0.0-0.50); EOS % 3.3 % (0.0-3.0); LARGE UNSTAINED CELL # 0.1 K/mm3 (0.0-0.4); LARGE UNSTAINED CELL % 0.9 % (0.0-4.0); LYMPH # 1.8 K/mm3 (1.5-4.5); LYMPH % 21.1 % (24.0-44.0); MEAN CORPUSCULAR HEMOGLOBIN 29.7 pg (27.0-33.0); MEAN CORPUSCULAR HGB CONC 32.2 g/dl (32.0-36.5); MEAN CORPUSCULAR VOLUME 92.2 fl (80.0-96.0); MONO # 0.3 K/mm3 (0.0-0.8); MONO % 4.2 % (0.0-5.0); NEUTROPHILS # 5.6 K/mm3 (1.8-7.7); NEUTROPHILS % 69.8 % (36.0-66.0); PLATELET COUNT, AUTOMATED 286 k/mm3 (150-450); RED CELL DISTRIBUTION WIDTH 15.8 % (11.5-14.5)
[2016-12-16 12:49] LABS: ALBUMIN 2.9 GM/DL (3.2-5.2); ALBUMIN/GLOBULIN RATIO 0.88 (1.00-1.93); BILIRUBIN,TOTAL 0.4 MG/DL (0.2-1.0); CALCIUM LEVEL 8.4 MG/DL (8.8-10.2); CREATININE FOR GFR 1.51 MG/DL (0.55-1.02); GLOMERULAR FILTRATION RATE 35.5 (>39); POTASSIUM SERUM 4.5 MEQ/L (3.5-5.1); TOTAL PROTEIN 6.2 GM/DL (6.4-8.2)
== END ==
LOC: M LAB 11:39
PROVIDERS: ATTEND Family Medicine
DX: I12.9 Hypertensive chronic kidney disease with stage 1 through stage 4 chronic kidney disease, or unspecified chronic kidney disease (principal); E78.2 Mixed hyperlipidemia

== ENCOUNTER → 2017-01-16 | Outpatient (REF) | payer MEDICARE ==
[~2017-01-16] MED LIST changes: +ALLO10TA PO; +AMIT25TA PO; +AMOX500T2 PO; +ASPI325T24 PO; -ASPI32ECTA PO; +ASPI81TA18 PO; -ASPI81TA4 PO; -AUGM12TA10 PO; +AUGM12TA11 PO; +AZIT-12 PO; -AZIT250T3 PO; +BACITAB PO; -BACITAB3 PO; -COLA100C3 PO; +COLA100C5 PO; +COLE625TAB PO; -DEXI30CA PO; +DEXI30CA2 PO; -ECOT325T3 PO; +ECOT325T5 PO; -FOLI1TAB2 PO; +FOLI1TAB4 PO; +HYDR-3363 PO; +HYDR-3910 PO; -HYDR-4266 PO; +HYDR200T3 PO; -HYDR25T PO; +KEPP1TAB PO; -KEPP500T6 PO; -MELA0.02 PO; +MELA3TAB49 PO; -ONDA1TAB15 PO; +ONDA4TAB5 PO; -PRED10TA PO; +PRED10TA2 PO; +ROSU10TA2 PO; -TRIC145T PO; +TRIC145T22 PO; +VENTAER IN; -WELC625T PO
== END ==
LOC: M LAB REF 12:49
PROVIDERS: ATTEND Internal Medicine Nephrology
DX: N39.0 Urinary tract infection, site not specified (principal)

== ENCOUNTER → 2017-01-24 | Outpatient (CLI) | payer MEDICARE ==
--- NOTE | 2017-01-24 15:16 | REP ---
Renal ultrasound: Comparisons l2016. The kidneys are atrophic size bilaterally as a change from the prior study. The right kidney measures 8.1 by 4.1 x 3.9 cm. Left kidney measures seven with 6 x 4.2 x 4.2 cm. Renal cortical echogenicity is hyperechoic bilaterally. There is no hydronephrosis on the right on the left. There are no renal masses. There is a 1.1 cm right renal cyst at the mid pole. There are linear echoes in the renal edgar bilaterally, likely calcified vascular atheroma. Bladder ultrasound: With color Doppler assessment, we are unable to detect ureteral jets into the urinary bladder on the right or the left. However, there is no hydronephrosis, therefore, this may be from dehydration. The bladder is incompletely distended. Therefore, the study is insensitive for bladder wall polyps or masses. The pre void bladder volume is 148 ml and the postvoid bladder volume is 13 ml. Postvoid residual is 11%. Impression: The kidneys are now atrophic size bilaterally. There is no hydronephrosis. There is a right renal cyst. Signed by Lalo Rodriguez MD 01/24/2017 03:07 P
== END ==
LOC: M RAD 13:58
PROVIDERS: ATTEND Internal Medicine Nephrology
DX: N18.4 Chronic kidney disease, stage 4 (severe) (principal); N39.0 Urinary tract infection, site not specified; I12.9 Hypertensive chronic kidney disease with stage 1 through stage 4 chronic kidney disease, or unspecified chronic kidney disease; N28.1 Cyst of kidney, acquired

== ENCOUNTER → 2017-02-16 | Outpatient (REF) | payer MEDICARE ==
[2017-02-16 20:19] LABS: FREE T4 0.97 NG/DL (0.76-1.46)
== END ==
LOC: M LAB REF 18:48
PROVIDERS: ATTEND Family Medicine
DX: R94.6 Abnormal results of thyroid function studies (principal); E78.2 Mixed hyperlipidemia

== ENCOUNTER → 2017-02-17 | Outpatient (CLI) | payer MEDICARE ==
--- NOTE | 2017-02-17 14:40 | REP ---
Lumbar spine seven views including lateral views in flexion and extension. There are no comparison studies. There is lumbar scoliosis convex left. There are surgical clips in the abdomen on the right. Vertebral body heights, interspacing alignment are normal. There is no spondylolysis. There is no spondylolisthesis. There is no listhesis on the lateral views in flexion and extension. There is osteoarthritis in the posterior facets. The pedicles and sacroiliac articulations are unremarkable. Impression: Scoliosis. Facet osteoarthritis. Otherwise, negative lumbar spine. Signed by Lalo Rodriguez MD 02/17/2017 02:31 P
== END ==
LOC: M SMT 13:56
PROVIDERS: ATTEND Physician Assistant
DX: M41.9 Scoliosis, unspecified (principal)

== ENCOUNTER 2017-04-16 15:23 | Inpatient (IN) | payer MEDICARE ==
[~2017-04-16] VITALS: Ht 152.4 cm; Wt 53.4 kg
[~2017-04-16 15:23] MED LIST changes: -ALLO10TA PO; -AMIT25TA PO; -AMOX500T2 PO; -HYDR200T3 PO; -ROSU10TA2 PO; -VENTAER IN
[2017-04-16] MEDS ORDERED: ROSU10TA2 PO (15:40)
[2017-04-16] MEDS ORDERED: HYDR200T3 PO (15:40)
[2017-04-16] MEDS ORDERED: AMIT25TA PO (15:40)
[2017-04-16] MEDS ORDERED: VENTAER IN (15:41)
[2017-04-16] MEDS: IPRATROPIUM 0.5MG/ALBUTEROL 2.5MG INH SOL UD 3ML (DUONEB)(J7620) NEB PRN ×3 (15:59→16:42)
[2017-04-16] MEDS ORDERED: methylPREDNISolone INJ 125 MG/2 ML VIAL (J2930) IV ONE (16:00)
[2017-04-16 16:09] LABS: ABG BASE EXCESS -9.4 (-2.0-2.0); ABG HCO3 12.7 MEQ/L (22.0-26.0); ABG PARTIAL PRESSURE O2 57.7 mmHg (75.0-100.0); ABG STANDARD HCO3 16.7 MEQ/L (22.0-26.0); ABG TOTAL CO2 13.3 MEQ/L (23.0-31.0); ABG pH (ARTERIAL) 7.462 UNITS (7.350-7.450)
[2017-04-16 16:11] LABS: ABG PARTIAL PRESSURE CO2 18.2 mmHg (35.0-45.0)
[2017-04-16] MEDS ORDERED: ACETAMINOPHEN TAB 650MG DOSE (2X325MG) PO ONE (16:30)
[2017-04-16 16:42] LABS: BASO % 0.1 % (0.0-1.0); IMMATURE GRANULOCYTE % 0.4 % (0-0); LYMPH # 0.5 10^3/uL (1.5-4.5); LYMPH % 3.2 % (24.0-44.0); MEAN CORPUSCULAR HEMOGLOBIN 28.8 pg (27.0-33.0); MEAN CORPUSCULAR HGB CONC 33.7 g/dl (32.0-36.5); MEAN CORPUSCULAR VOLUME 85.3 fl (80.0-96.0); MONO # 0.5 10^3/uL (0.0-0.8); MONO % 3.4 % (0.0-5.0); NEUTROPHILS # 14.7 10^3/uL (1.8-7.7); NEUTROPHILS % 92.9 % (36.0-66.0); PLATELET COUNT, AUTOMATED 385 10^3/uL (150-450); RED CELL DISTRIBUTION WIDTH 14.7 % (11.5-14.5); WHITE BLOOD COUNT 15.8 10^3/uL (4.0-10.0)
[2017-04-16 17:04] LABS: ANION GAP 11 MEQ/L (8-16); BLOOD UREA NITROGEN 21 MG/DL (7-18); CALCIUM LEVEL 7.7 MG/DL (8.8-10.2); CARBON DIOXIDE LEVEL 16 MEQ/L (21-32); CHLORIDE LEVEL 101 MEQ/L (98-107); CREATININE FOR GFR 1.69 MG/DL (0.55-1.02); GLOMERULAR FILTRATION RATE 31.2 (>39); GLUCOSE, FASTING 70 MG/DL (83-110); SODIUM LEVEL 128 MEQ/L (136-145)
[2017-04-16 17:06] LABS: POTASSIUM SERUM 5.5 MEQ/L (3.5-5.1)
[2017-04-16] MEDS ORDERED: NS 1,000 ML IV SCH (17:55)
[2017-04-16] MEDS ORDERED: PIPERACILLIN/TAZOBACTAM SOD 2.25 GM in D5W 50 ML IV ONE (18:00)
[2017-04-16] MEDS ORDERED: IPRATROPIUM 0.5MG/ALBUTEROL 2.5MG INH SOL UD 3ML (DUONEB)(J7620) NEB PRN (18:00)
[2017-04-16] MEDS ORDERED: FOLI1TAB4 PO (18:10)
[2017-04-16] MEDS ORDERED: ALLO10TA PO (18:10)
[2017-04-16] MEDS ORDERED: REST0.05 OU (18:10)
--- NOTE | 2017-04-16 18:29 | PHACANCOPD ---
PHARMACY VANCOMYCIN DOSING Pt Demographics Demographics Patient Age:76 , Weight:53.630 , Gender: female Adjusted Body Weight Date: 04/16/17, Adjusted Body Weight: [53.63] Kg Events Past 24 Hours Events Past 24 Hours: NO: Dialysis, Diuretic Therapy, Change in CrCl, Fever, Elevation in WBC, Pending Diagnostics, Pending Procedures, Other Vancomycin Vancomycin indication: HCAP COVERAGE Vancomycin Target Ranges: 15-20 mcg/ml Vancomycin Load Y/N: No Load Dose Date Time Vancomycin Load Dose: Date: Time: Vancomycin Dose Date: 04/16/17. Current Vancomycin Dose: [1G IV Q24H] Intermittent Dosing?: No Labs Labs Item Value Date Time White Blood Count 15.8 10^3/uL H 04/16/17 1629 Creatinine 1.69 MG/DL H 04/16/17 1629 Micro Microbiology 04/16/17 Blood Culture, Received Pending 04/16/17 Blood Culture, Received Pending Creatinine Clearance Date:04/16/17. Creatinine Clearance: [21.4ML/MIN.]. Pending Labs BLOOD CULTURE Assessment and Plan Maintaining Current Dose?: Yes Reason for dose change: No Dose Change Pharmacist Note Pharmacist Note Date: 04/16/17. Pharmacist note: Pt is a 76 Y/O female being treated with vancomycin for HCAP coverage goal trough 15-20mcg/ml. She was treated with vancomycin here at [facility] in October of this year. To achieve goal the pt was started on 1g iv q24h starting 04/16 @19. We will continue to monitor and adjust dose as needed. [facility] Apr 16, 2017 18:29
[2017-04-16 19:07] LABS: FREE T4 1.38 NG/DL (0.76-1.46)
[2017-04-16] MEDS: VANCOMYCIN HCL 1,000 MG, VIAL MATE ADAPTER 1 EACH in D5W 250 ML IV SCH (19:13)
--- NOTE | 2017-04-16 19:51 | HPEPDOC ---
General Date of Admission Apr 16, 2017 at 17:55 Chief Complaint The patient is a 76-year-old female Presented to the ER with complaints of difficulty breathing as reported by her family. 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 diff colitis (08/2016) and GERD who presented to the ER with complaints of shortness of breath that started today. Patient is a poor historian and her son has provided details to her story. Patient was recently admitted to [facility] on 04/02 and was found to have a community acquired pneumonia, she received Ceftriaxone and Azithromycin for 5 days. After that she was discharged home with Cefoxetin for 7 days. At home patient was found to be acutely short of breath when the family went to evaluate her and that prompted them to bring her into the ER. Imaging in the ER shows that she has an extensive bilateral pneumonia. Upon questioning, patient has noted that she has been having shortness of breath and productive cough for about 3 days. She notes that the sputum is thick , but is unable to describe it further. She is unsure if there is blood in it. She notes subjective fevers, but denies chills. She denies any chest pain, shortness of breath, palpitations, constipation or dysuria. She does note chronic abdominal pain from her chronic pancreatitis. She notes that this has not changed recently. She also notes diarrhea since her hospitalization in [facility]. Described stool as watery, 2x daily without any blood. Home Medications Scheduled (Esomeprazole Magnesium) 40 Mg Cap, 40 MG PO DAILY, (Reported) (Aspirin EC Low Dose) 81 Mg Tab, 81 MG PO DAILY, (Reported) (Restasis) 0.05 % Emu, 1 DROP OU BID, (Reported) Allopurinol (Allopurinol) 100 Mg Tab, 100 MG PO DAILY, (Reported) Amitriptyline HCl (Amitriptyline HCl) 25 Mg Tab, 25 MG PO QHS, (Reported) Carvedilol (Carvedilol) 3.125 Mg Tab, 3.125 MG PO BID, (Reported) Clonidine Hydrochloride (Clonidine HCl) 0.2 Mg Tab, 0.2 MG PO TID, (Reported) Folic Acid (Folic Acid) 1 Mg Tab, 1 MG PO DAILY, (Reported) Gabapentin (Gabapentin) 100 Mg Cap, 300 MG PO TID, (Reported) Hydroxychloroquine Sulfate (Hydroxychloroquine Sulfat) 200 Mg Tab, 200 MG PO BID , (Reported) Levetiracetam (Levetiracetam) 250 Mg Tab, 250 MG PO BID, (Reported) Lisinopril (Lisinopril) 20 Mg Tab, 20 MG PO DAILY, (Reported) Nifedipine (Nifedipine ER) 60 Mg Tab, 60 MG PO DAILY, (Reported) Rosuvastatin Calcium (Rosuvastatin Calcium) 10 Mg Tab, 10 MG PO QHS, (Reported) Scheduled PRN Albuterol Sulfate (Ventolin Hfa) 108 Mcg/Act Aer, 90 MCG IN Q4HP PRN for SHORTNESS OF BREATH, (Reported) Allergies Coded Allergies: Ciprofloxacin (Verified Allergy, Unknown, hives, 09/11/16) Polyethylene Glycol (Verified Allergy, Unknown, hives, 09/11/16) Quinolones (Verified Adverse Reaction, Intermediate, NAUSEA (HAS TOLERATED IV CIPRO), 10/02/12) Past Medical History Medical History CVA (2014, 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 diff colitis (08/2016) and GERD Surgical History Cholecystectomy (1968) Right ankle fracture (1976) then repaired (2014) Stomach surgery for recurrent gallstones; possible CBD redirection (2012) Right wrist fracture (2016) Family History - Non-contributory given advanced age Social History - Denies the use of illicit drugs; Social alcohol use; Quit smoking in 1992; Smoker of 40 years at 1ppd - Denies recent travel or sick contacts - Lives with family - Occupation; unemployed Review of Symptoms Other systems Negative otherwise stated in HPI Vital Signs - Vitals: BP 126/60, HR 90, RR 20, Sat 94%NC1L, Temp 99.4F - General: Lying in bed, No acute distress, Speaking few words, Awake and alert - HEENT: NC, AT, PERRLA - CVS: RRR, +S1S2 - Lungs: Fair air entry bilaterally, No appreciable wheezing or rhonchi - Abdomen: Soft, Non-distended, Diffuse tenderness, noted that it has not changed - Extremities: No lower extremity edema, No calf tenderness - Neuro: Moving all four extremities - Skin: No visible rashes Laboratory Data Labs 24H Laboratory Tests 2 04/16/17 16:00: Blood Gas Bicarbonate Standard 16.7L, Arterial Blood pH 7.462H, Arterial Blood Partial Pressure CO2 18.2*L, Arterial Blood Partial Pressure O2 57.7L, Arterial Blood Total CO2 13.3L, Arterial Blood HCO3 12.7L, Arterial Blood Base Excess - 9.4L, Arterial Blood Oxygen Saturation 90.4L 04/16/17 16:29: Immature Granulocyte % (Auto) 0.4H, White Blood Count 15.8H, Red Blood Count 3.06L, Hemoglobin 8.8L, Hematocrit 26.1L, Mean Corpuscular Volume 85.3, Mean Corpuscular Hemoglobin 28.8, Mean Corpuscular Hemoglobin Concent 33.7, Red Cell Distribution Width 14.7H, Platelet Count 385, Neutrophils (%) (Auto) 92.9H, Lymphocytes (%) (Auto) 3.2L, Monocytes (%) (Auto) 3.4, Eosinophils (%) (Auto) 0.0, Basophils (%) (Auto) 0.1, Neutrophils # (Auto) 14.7H, Lymphocytes # (Auto) 0.5L, Monocytes # (Auto) 0.5, Eosinophils # (Auto) 0.0, Basophils # (Auto) 0.0, Immature Granulocyte # (Auto) 0.1H, Nucleated Red Blood Cells % (auto) 0.0, Anion Gap 11, Glomerular Filtration Rate 31.2L, Lactic Acid Level 1.0, Blood Urea Nitrogen 21H, Creatinine 1.69H, Sodium Level 128L, Potassium Level 5.5H, Chloride Level 101, Carbon Dioxide Level 16L, Calcium Level 7.7L, Total Creatine Kinase 86, Creatine Kinase MB 1.7, Creatine Kinase MB Relative Index 1.97, Troponin I < 0.02, VR-Rfl-T-Type Natriuretic Peptide 4391H 04/16/17 18:15: Osmolality 267L, Thyroid Stimulating Hormone (TSH) 1.810, Free Thyroxine 1.38 CBC/BMP Laboratory Tests 04/16/17 16:29 Red Blood Count 3.06 L, Mean Corpuscular Volume 85.3, Mean Corpuscular Hemoglobin 28.8, Mean Corpuscular Hemoglobin Concent 33.7, Red Cell Distribution Width 14.7 H, Neutrophils (%) (Auto) 92.9 H, Lymphocytes (%) (Auto ) 3.2 L, Monocytes (%) (Auto) 3.4, Eosinophils (%) (Auto) 0.0, Basophils (%) ( Auto) 0.1, Neutrophils # (Auto) 14.7 H, Lymphocytes # (Auto) 0.5 L, Monocytes # (Auto) 0.5, Eosinophils # (Auto) 0.0, Basophils # (Auto) 0.0, Calcium Level 7.7 L, Total Creatine Kinase 86 Microbiology Microbiology 04/16/17 Blood Culture, Received Pending 04/16/17 Blood Culture, Received Pending Plan / VTE VTE Prophylaxis Ordered?: Yes Plan Plan Pneumonia - likely 2/2 healthcare associated pneumonia - Recent treatment for CAP and stay inpatient at [facility] - Presented with dyspnea, productive cough and subjective fevers - Elevated WBC at 15.8; No lactic acidosis - CXR: RU and LL infiltrates, improving LL infiltrate, cardiomegaly and cephalization - f/u Blood cultures and sputum cultures - Will start Zosyn and Vancomycin - c/w Gentle hydration Hyperkalemia - will give kayexylate 15g PO Normocytic anemia - Hg of 8.8 - Baseline of 10 - Will check iron panel, B12, Folate, Reticulocyte - Will continue to monitor NAG metabolic acidosis - Lactic acid normal - Will check Urine Na, K, Cl to calculate UAG - c/w IV fluid hydration Diarrhea - possibly 2/2 C. diff colitis - Will check GI panel - c/w IV fluid hydration Hyponatremia - likely 2/2 hypotonic hypovolemic - Will check serum osmolality, urine osmolality, urine electrolytes, Thyroid function and Cortisol random - will recheck BMP at 1030PM - c/w gentle IV fluid hydration CVA (2008) without residual weakness - c/w ASA 81 HTN - BP appears well controlled - c/w Lisinopril, Nifedipine, Carvedilol and Clonidine DLP - c/w Rosuvastatin Pulmonary fibrosis - Not oxygen dependent - Follows with [facility] in [place] - c/w Hydroxychloroquine - c/w Albuterol Seizure disorder - c/w Keppra CKD3/4 - Cr appears to be at baseline Gout - c/w Allopurinol Chronic pancreatitis 2/2 alcohol abuse - Diffuse abdominal pain noted, but not focal and abdomen remains soft - Will check lipase level now Anemia Depression - c/w Amitriptyline Neuropathy - c/w Gabapentin Hx of C. diff colitis (08/2016) - Will check GI panel GERD - will start Protonix IV DVT prophylaxis - Will start Heparin PARDEEP REED MD Apr 16, 2017 19:51
[2017-04-16] MEDS: IPRATROPIUM 0.5MG/ALBUTEROL 2.5MG INH SOL UD 3ML (DUONEB)(J7620) NEB SCH (20:00)
[2017-04-16] MEDS ORDERED: SOD POLYSTYRENE SULFONATE SUSP 15 GM/60 ML UD PO ONE (20:00)
[2017-04-16] MEDS ORDERED: ALBUTEROL 90 MCG/ACT 8GM HFA INHALER INH PRN (20:00)
[2017-04-16 20:28] LABS: RETIC HEMOGLOBIN EQUIVALENT 36.9 pg (24-36)
[2017-04-16 20:37] LABS: FERRITIN 148 NG/ML (8-252); TOTAL IRON BINDING CAPACITY 200 UG/DL (250-450)
[2017-04-16 22:56] LABS: CALCIUM LEVEL 7.9 MG/DL (8.8-10.2); CREATININE FOR GFR 1.76 MG/DL (0.55-1.02); GLOMERULAR FILTRATION RATE 29.7 (>39); MAGNESIUM LEVEL 1.8 MG/DL (1.8-2.4); POTASSIUM SERUM 4.9 MEQ/L (3.5-5.1)
[2017-04-16] MEDS: HYDROXYCHLOROQUINE 200 MG TAB PO SCH (23:14)
[2017-04-16] MEDS: HEPARIN SOD (PORCINE) 5000 UNITS/ML VIAL SC SCH (23:14)
[2017-04-16] MEDS: levETIRAcetam 250MG TABLET (KEPPRA) PO SCH (23:14)
[2017-04-16] MEDS: cloNIDine 0.2 MG TAB PO SCH (23:15)
[2017-04-16] MEDS: CARVedilol 3.125 MG TAB PO SCH (23:16)
[2017-04-16] MEDS: GABAPENTIN 300 MG CAP PO SCH (23:17)
[2017-04-16] MEDS: AMITRIPTYLINE 25 MG TAB PO SCH (23:17)
[2017-04-16] MEDS: PANTOPRAZOLE 40MG INJ (PROTONIX) (C9113) IV SCH (23:18)
[2017-04-16] MEDS: ROSUVASTATIN 10 MG TAB (CRESTOR) PO SCH (23:18)
[2017-04-16] MEDS: ALLOPURINOL 100 MG TAB PO SCH (23:21)
[2017-04-17 00:07] LABS: ABG BASE EXCESS -10.6 (-2.0-2.0); ABG PARTIAL PRESSURE CO2 22.3 mmHg (35.0-45.0); ABG PARTIAL PRESSURE O2 102.2 mmHg (75.0-100.0); ABG STANDARD HCO3 15.9 MEQ/L (22.0-26.0); ABG TOTAL CO2 13.7 MEQ/L (23.0-31.0); ABG pH (ARTERIAL) 7.385 UNITS (7.350-7.450)
[2017-04-17 00:35] LABS: OSMOLALITY URINE 131 MOSM/KG (500-800)
[2017-04-17 00:44] LABS: METHADONE URINE NEGATIVE (NEGATIVE)
--- NOTE | 2017-04-17 00:50 | REPUSA ---
CLINICAL HISTORY: Altered mental status. TECHNIQUE: Multiple axial CT images were obtained through the brain without IV contrast material. COMMENTS: Secretions in the left sphenoid sinus. There is normal configuration of sella turcica. There are no intra or extra-axial collections. There is no mass effect or midline shift. There is no evidence of hematoma formation. No hydrocephalus is p resent. The ventricles are symmetrical. No abnormal calcifications are present. There is diffuse age-appropriate cerebellar and cerebral atrophy with proportionally dilated ventricl es and cortical sulci. There are bilateral periventricular and subcortical white matter hypolucencies compatible with mild c hronic microvascular disease. Otherwise, no significant focal abnormalities are seen either in the posterior fossa or supratentoria l compartment. IMPRESSION: 1. Age-appropriate cerebellar and cerebral atrophy. 2. Mild chronic microvascular disease. 3. No evidence of acute intracranial pathology. 4. Left sphenoid acute sinusitis. Thank you for your kind referral of this patient.
[2017-04-17 01:15] VITALS: BP 145/64
[2017-04-17] MEDS: PIPERACILLIN/TAZOBACTAM SOD 2.25 GM in D5W 50 ML IV SCH ×3 (01:31→18:03)
[2017-04-17] MEDS: IPRATROPIUM 0.5MG/ALBUTEROL 2.5MG INH SOL UD 3ML (DUONEB)(J7620) NEB SCH ×4 (02:00→21:06)
[2017-04-17 04:00] VITALS: BP 135/65
--- NOTE | 2017-04-17 05:50 | REP ---
Portable chest x-ray: Sitting AP view. History: Dyspnea and cough. Comparison chest x-ray [facility] April 06, 2017. Findings: There are two new fairly large infiltrates in the right chest, one in upper lobe and one in lower lobe distribution consistent with pneumonia. The infiltrate noted previously in the left lung shows some improvement although it is not resolved. Pulmonary vasculature is cephalized. Heart is mildly enlarged. Impression: Right upper and lower lobe infiltrates, new from April 06, 2017. Improving left lung infiltrate. Cardiomegaly and cephalization. Signed by Benson Henley MD 04/17/2017 08:44 A
[2017-04-17] MEDS: HEPARIN SOD (PORCINE) 5000 UNITS/ML VIAL SC SCH (06:07)
[2017-04-17 07:00] LABS: BASO % 0.1 % (0.0-1.0); IMMATURE GRANULOCYTE % 0.7 % (0-0); LYMPH # 0.8 10^3/uL (1.5-4.5); LYMPH % 4.2 % (24.0-44.0); MEAN CORPUSCULAR HGB CONC 32.9 g/dl (32.0-36.5); MEAN CORPUSCULAR VOLUME 85.1 fl (80.0-96.0); MONO # 0.4 10^3/uL (0.0-0.8); MONO % 1.9 % (0.0-5.0); NEUTROPHILS # 18.4 10^3/uL (1.8-7.7); NEUTROPHILS % 93.1 % (36.0-66.0); PLATELET COUNT, AUTOMATED 322 10^3/uL (150-450); RED CELL DISTRIBUTION WIDTH 14.8 % (11.5-14.5); WHITE BLOOD COUNT 19.8 10^3/uL (4.0-10.0)
[2017-04-17 07:40] LABS: ALBUMIN 2.1 GM/DL (3.2-5.2); ALBUMIN/GLOBULIN RATIO 0.55 (1.00-1.93); BILIRUBIN,TOTAL 0.4 MG/DL (0.2-1.0); CALCIUM LEVEL 7.9 MG/DL (8.8-10.2); CREATININE FOR GFR 1.71 MG/DL (0.55-1.02); GLOMERULAR FILTRATION RATE 30.7 (>39); MAGNESIUM LEVEL 2.1 MG/DL (1.8-2.4); POTASSIUM SERUM 4.7 MEQ/L (3.5-5.1); TOTAL PROTEIN 5.9 GM/DL (6.4-8.2)
[2017-04-17 08:00] VITALS: BP 116/53
--- NOTE | 2017-04-17 08:02 | ECGEPIP ---
Stationary ECG Study [facility] - ED Test Date: 2017-04-16 Pat Name: ELENI MIRANDA Department: Room: [place] [address] Gender: F Visitor Use Assistant: christina : 1940 Requested By: Sergey Nolen Order Number: [id number] Reading MD: Marta Maria Measurements Intervals [place] Rate: 97 P: 4 AL: 178 QRS: 73 QRSD: 92 T: 45 QT: 353 QTc: 450 Interpretive Statements SINUS RHYTHM WITH OCCASIONAL SUPRAVENTRICULAR PREMATURE COMPLEXES NSTTW ABNORMALITY INCREASED RATE 10/02/16 Electronically Signed On 04-17-2017 8:02:52 EDT by Marta Maria
[2017-04-17] MEDS ORDERED: LISINOPRIL 20 MG TAB PO SCH (09:00)
[2017-04-17 09:18] LABS: CORTISOL BASELINE 69.1 UG/DL (4.3-22.4)
[2017-04-17 09:26] LABS: ABG BASE EXCESS -9.7 (-2.0-2.0); ABG HCO3 13.3 MEQ/L (22.0-26.0); ABG PARTIAL PRESSURE CO2 20.7 mmHg (35.0-45.0); ABG PARTIAL PRESSURE O2 104.5 mmHg (75.0-100.0); ABG STANDARD HCO3 16.6 MEQ/L (22.0-26.0); ABG TOTAL CO2 13.9 MEQ/L (23.0-31.0); ABG pH (ARTERIAL) 7.426 UNITS (7.350-7.450)
[2017-04-17 09:28] LABS: FOLATE > 24.0 NG/ML (>5.4); VITAMIN B12 LEVEL 416 PG/ML (247-911)
[2017-04-17] MEDS: ASPIRIN 81 MG ENTERIC TAB PO SCH (09:56)
[2017-04-17] MEDS: cloNIDine 0.2 MG TAB PO SCH ×3 (09:57→21:00)
[2017-04-17] MEDS: CARVedilol 3.125 MG TAB PO SCH ×2 (09:57→21:00)
[2017-04-17] MEDS: levETIRAcetam 250MG TABLET (KEPPRA) PO SCH ×2 (09:57→21:17)
[2017-04-17] MEDS: NIFEdipine 60 MG XL TAB PO SCH (09:57)
[2017-04-17] MEDS: GABAPENTIN 300 MG CAP PO SCH ×3 (09:58→21:17)
[2017-04-17] MEDS: FOLIC ACID 1 MG TAB PO SCH (09:58)
[2017-04-17] MEDS: ALLOPURINOL 100 MG TAB PO SCH (09:58)
[2017-04-17] MEDS: HYDROXYCHLOROQUINE 200 MG TAB PO SCH ×2 (11:37→21:17)
[2017-04-17 12:00] VITALS: BP 141/64
[2017-04-17 16:21] VITALS: BP 123/61
[2017-04-17] MEDS: VANCOMYCIN HCL 1,000 MG, VIAL MATE ADAPTER 1 EACH in D5W 250 ML IV SCH (18:44)
--- NOTE | 2017-04-17 18:45 | REP ---
CT of the chest without IV contrast: Comparison is 04/02/2017. There are ground-glass densities throughout the right lower lobe and left lower lobe. These have decreased compared to the prior study. There are bilateral pleural effusions. Both of which have slightly increased from the prior study. There is ground-glass density in the left upper lobe has decreased from the prior study. There is a new ground-glass density throughout the right upper lobe as an interval change. There is no mediastinal lymph node enlargement. In the absence of IV contrast the study is insensitive for hilar lymph node enlargement. No tone enlargement in the axilla. The unenhanced thoracic aorta is unremarkable except for calcified atheroma. Cardiac size normal. No pericardial effusion. In the upper abdomen there is pneumobilia. Pneumobilia. This was also present previously. There are surgical clips in the gallbladder fossa. Visualized portions of the pancreas and spleen are unremarkable. Impression: Bilateral ground-glass opacities. The opacities in the left upper lobe and bilateral lower lobes have decreased. However, there is a new ground-glass opacity in the right upper lobe. There are small bilateral pleural effusions that have slightly increased. There is pneumobilia, unchanged. Signed by Lalo Rodriguez MD 04/17/2017 06:36 P
[2017-04-17 20:00] VITALS: BP 105/51
--- NOTE | 2017-04-17 20:01 | IPNPDOC ---
Date Seen The patient was seen on 04/17/17. Progress Note Hospitalist Progress Note Subjective: Patient states that her breathing is a little bit better than when she arrived Objective: Physical Exam: Vitals: Vital Sign - Last 24 Hours 04/16/17 04/16/17 04/16/17 04/16/17 20:14 20:29 20:44 20:59 Pulse 84 82 82 82 B/P (MAP) 117/58 (77) 116/55 (75) 111/57 (75) 113/56 (75) Pulse Ox 94 95 94 95 O2 Delivery Nasal Cannula Nasal Cannula O2 Flow Rate 1.0 1.0 04/16/17 04/16/17 04/17/17 04/17/17 23:15 23:16 01:15 01:15 Temp 96.6 96.6 Pulse 80 88 88 Resp 18 18 B/P (MAP) 143/65 143/65 145/64 (91) 145/64 (91) Pulse Ox 100 100 O2 Delivery Nasal Cannula Nasal Cannula O2 Flow Rate 2.0 2.0 04/17/17 04/17/17 04/17/17 04/17/17 01:15 04:00 08:00 08:00 Temp 96.9 98.0 Pulse 80 79 Resp 18 18 B/P (MAP) 135/65 (88) 116/53 (74) Pulse Ox 99 94 O2 Delivery Nasal Cannula Nasal Cannula Nasal Cannula Nasal Cannula O2 Flow Rate 2.0 2.0 2.0 2.0 04/17/17 04/17/17 04/17/17 04/17/17 08:26 08:34 09:57 09:57 Pulse 76 78 86 B/P (MAP) 161/75 161/75 04/17/17 04/17/17 04/17/17 04/17/17 09:57 09:57 12:00 12:00 Temp 96.0 Pulse 71 Resp 18 B/P (MAP) 161/75 161/75 141/64 (89) Pulse Ox 93 O2 Delivery Nasal Cannula Nasal Cannula O2 Flow Rate 2.0 2.0 04/17/17 04/17/17 04/17/17 04/17/17 15:30 15:45 16:21 16:46 Temp 96.3 Pulse 69 Resp 18 B/P (MAP) 123/61 (81) 123/61 Pulse Ox 100 O2 Delivery Nasal Cannula Room Air Nasal Cannula O2 Flow Rate 2.0 2.0 General: Sleeping but easily awoken, answers direct questions, no acute distress HEENT: Normal Cephalic, atraumatic, extraocular movements intact CV: Regular rate and rhythm Lungs: Clear to auscultation bilaterally Abd: Soft, Nontender, nondistended Extremities: No edema Neuro: When awoken, she answers direct questions, oriented to person and place but thinks that it's 2006 Labs and Imaging: Laboratory Tests 04/16/17 22:26 Calcium Level 7.9 L 04/17/17 06:46 Calcium Level 7.9 L, Red Blood Count 2.68 L, Mean Corpuscular Volume 85.1, Mean Corpuscular Hemoglobin 28.0, Mean Corpuscular Hemoglobin Concent 32.9, Red Cell Distribution Width 14.8 H, Neutrophils (%) (Auto) 93.1 H, Lymphocytes (%) (Auto ) 4.2 L, Monocytes (%) (Auto) 1.9, Eosinophils (%) (Auto) 0.0, Basophils (%) ( Auto) 0.1, Neutrophils # (Auto) 18.4 H, Lymphocytes # (Auto) 0.8 L, Monocytes # (Auto) 0.4, Eosinophils # (Auto) 0.0, Basophils # (Auto) 0.0, Aspartate Amino Transf (AST/SGOT) 21, Alanine Aminotransferase (ALT/SGPT) 15, Alkaline Phosphatase 79, Total Bilirubin 0.4, Total Protein 5.9 L, Albumin 2.1 L Assessment and Plan: 76-year-old female with history of CVA 2, hypertension, hyperlipidemia, pulmonary fibrosis, chronic kidney disease stage III to 4, chronic pancreatitis secondary to alcohol abuse, chronic anemia, history of C. difficile, GERD who presented with shortness of breath. She is admitted with multifocal pneumonia. 1. Multifocal pneumonia: Given the patient's history of pulmonary fibrosis, as well as a recent admission for a left pneumonia which is resolving, now with multifocal right pneumonia seen on imaging, the patient is at risk for a drug- resistant organism, so we will continue with broad-spectrum antibiotics of vancomycin and Zosyn. She was febrile upon admission with a white count of 15.8. Her white count today is 19.8, but I suspect this is secondary to the Solu -Medrol that she received in the ER, as clinically, she appears comfortable. Blood and sputum cultures pending. 2. Hyponatremia: Sodium was 128 upon admission, but with some hydration, she is now improved to 134. We will stop IV fluids. 3. Hyperkalemia: Potassium was 5.5 upon admission, and after a dose of Kayexalate, this has improved to 4.7. 4. Chronic kidney disease stage III to 4: The patient's baseline creatinine appears to be in the mid to upper ones, and she is currently at baseline. 5. Diarrhea: GI panel is negative. 6. History of CVA 2, hyperlipidemia: Continue aspirin, statin, blood pressure control. 7. Hypertension: Continue home nifedipine, ARLYN inhibitor, clonidine, beta yao. 8. Pulmonary fibrosis: Continue with home plaquenil and nebulizers. DVT prophylaxis: Heparin Dispo: pending improvement in clinical status; the patient and her son Walter initially requested transfer to [facility] as this is where her wheel truer, Dr. Tamez, practices. I expressed my concern to them that this would be considered a lateral transfer rather then transfer to a higher level of care, as she is not requiring anything that we could not provide here. With the prospect that they may have to pay for the transport, they said that they would prefer not to be transferred, but they did request that we call and speak with Dr. Tamez. I spoke with Dr. Tamez, who gave me his cell phone number and stated we were welcome to use it in the future ([phone]). While he recommended that we get a noncontrasted CT of her chest and request from his office her most recent CT chest so that that we could compare, he felt like she also did not currently meet criteria to be considered for transfer for increased level of care. However , he stated that in the event that she were to deteriorate or not improve with our current therapy, she may later meet criteria for a transfer for increased level of care. He did note that he is not currently on service this week, and if she were to be transferred, it would be one of his colleagues who was the attending. I reviewed this entire scenario with the patient's son Walter, he expresses good understanding and is satisfied with the care she is receiving here and the communication with Dr. Tamez. Walter also mentioned that he thinks the patient was recently diagnosed with CHF via a echocardiogram from [place], so we will request these records from [place]. VS, I&O, 24H, Fishbone Vital Signs/I&O Vital Signs Date Time Temp Pulse Resp B/P (MAP) Pulse Ox O2 Delivery O2 Flow Rate FiO2 04/17/17 16:46 123/61 04/17/17 16:21 96.3 69 18 100 Nasal Cannula 2.0 I&O- Last 24 Hours up to 6 AM 04/18/17 06:00 Intake Total 390 ml Output Total 200 ml Balance 190 ml Laboratory Data 24H LABS Laboratory Tests 2 04/16/17 22:26: Anion Gap 9, Glomerular Filtration Rate 29.7L, Blood Urea Nitrogen 24H, Creatinine 1.76H, Sodium Level 127L, Potassium Level 4.9, Chloride Level 103, Carbon Dioxide Level 15L, Calcium Level 7.9L, Magnesium Level 1.8 04/16/17 23:37: Bedside Glucose (Misc Panel) 137H 04/16/17 23:57: Urine Appearance CLEAR, Urine Color YELLOW, Urine pH 6.0, Urine Specific [place] 1.004, Urine Protein 2+H, Urine Glucose (UA) NEGATIVE, Urine Ketones NEGATIVE, Urine Urobilinogen 0.2, Urine Bilirubin NEGATIVE, Urine Leukocyte Esterase 1+H, Urine Blood NEGATIVE, Urine Nitrite NEGATIVE, Urine WBC (Auto) 7H , Urine RBC (Auto) 2, Urine Hyaline Casts (Auto) 0, Urine Bacteria (Auto) 1+H, Urine Squamous Epithelial Cells 0, Urine Amorphous Sediment SMALLH, Urine Sperm (Auto) , Urine Random Osmolality 131L, Urine Random Creatinine 30.0, Urine Random Sodium 13, Urine Random Potassium 23.0, Urine Random Chloride 12, Ammonia < 10, Total Creatine Kinase 64, Creatine Kinase MB 1.1, Creatine Kinase MB Relative Index 1.71, Troponin I < 0.02, C-Reactive Protein, Quantitative 7.89H, Urine Amphetamines Screen NEGATIVE, Urine Benzodiazepines Screen NEGATIVE , Urine Opiates Screen NEGATIVE, Urine Methadone Screen NEGATIVE, Urine Barbiturates Screen NEGATIVE, Urine Phencyclidine Screen NEGATIVE, Urine Cocaine Metabolite Screen NEGATIVE, Urine Cannabinoids Screen NEGATIVE, Ethyl Alcohol Level < 0.003 04/16/17 23:58: Lactic Acid Level 1.4 04/17/17 00:02: Blood Gas Bicarbonate Standard 15.9L, Arterial Blood pH 7.385, Arterial Blood Partial Pressure CO2 22.3L, Arterial Blood Partial Pressure O2 102.2H, Arterial Blood Total CO2 13.7L, Arterial Blood HCO3 13.0L, Arterial Blood Base Excess - 10.6L, Arterial Blood Oxygen Saturation 97.5 04/17/17 06:46: Immature Granulocyte % (Auto) 0.7H, White Blood Count 19.8H, Red Blood Count 2.68L, Hemoglobin 7.5L, Hematocrit 22.8L, Mean Corpuscular Volume 85.1, Mean Corpuscular Hemoglobin 28.0, Mean Corpuscular Hemoglobin Concent 32.9, Red Cell Distribution Width 14.8H, Platelet Count 322, Neutrophils (%) (Auto) 93.1H, Lymphocytes (%) (Auto) 4.2L, Monocytes (%) (Auto) 1.9, Eosinophils (%) (Auto) 0.0, Basophils (%) (Auto) 0.1, Neutrophils # (Auto) 18.4H, Lymphocytes # (Auto) 0.8L, Monocytes # (Auto) 0.4, Eosinophils # (Auto) 0.0, Basophils # (Auto) 0.0, Immature Granulocyte # (Auto) 0.1H, Nucleated Red Blood Cells % (auto) 0.0, Anion Gap 8, Glomerular Filtration Rate 30.7L, Blood Urea Nitrogen 25H, Creatinine 1.71H, Sodium Level 134#L, Potassium Level 4.7, Chloride Level 107, Carbon Dioxide Level 19L, Calcium Level 7.9L, Aspartate Amino Transf (AST/SGOT) 21, Alanine Aminotransferase (ALT/SGPT) 15, Alkaline Phosphatase 79, Total Bilirubin 0.4, Total Protein 5.9L, Albumin 2.1L, Magnesium Level 2.1, Albumin/ Globulin Ratio 0.55L 04/17/17 09:10: Blood Gas Bicarbonate Standard 16.6L, Arterial Blood pH 7.426, Arterial Blood Partial Pressure CO2 20.7L, Arterial Blood Partial Pressure O2 104.5H, Arterial Blood Total CO2 13.9L, Arterial Blood HCO3 13.3L, Arterial Blood Base Excess - 9.7L, Arterial Blood Oxygen Saturation 97.8 CBC/BMP Laboratory Tests 04/16/17 22:26 Calcium Level 7.9 L 04/17/17 06:46 Calcium Level 7.9 L, Red Blood Count 2.68 L, Mean Corpuscular Volume 85.1, Mean Corpuscular Hemoglobin 28.0, Mean Corpuscular Hemoglobin Concent 32.9, Red Cell Distribution Width 14.8 H, Neutrophils (%) (Auto) 93.1 H, Lymphocytes (%) (Auto ) 4.2 L, Monocytes (%) (Auto) 1.9, Eosinophils (%) (Auto) 0.0, Basophils (%) ( Auto) 0.1, Neutrophils # (Auto) 18.4 H, Lymphocytes # (Auto) 0.8 L, Monocytes # (Auto) 0.4, Eosinophils # (Auto) 0.0, Basophils # (Auto) 0.0, Aspartate Amino Transf (AST/SGOT) 21, Alanine Aminotransferase (ALT/SGPT) 15, Alkaline Phosphatase 79, Total Bilirubin 0.4, Total Protein 5.9 L, Albumin 2.1 L Microbiology Microbiology 04/16/17 Blood Culture - Preliminary, Resulted No growth after 24 hours . All specim... 04/16/17 Blood Culture - Preliminary, Resulted No growth after 24 hours . All specim... 04/16/17 Gastrointestinal Tract Panel (PCR) - Final, Complete JENNIFER RUSSO Apr 17, 2017 20:01
[2017-04-17] MEDS: PANTOPRAZOLE 40MG INJ (PROTONIX) (C9113) IV SCH (21:17)
[2017-04-17] MEDS: AMITRIPTYLINE 25 MG TAB PO SCH (21:17)
[2017-04-17] MEDS: ROSUVASTATIN 10 MG TAB (CRESTOR) PO SCH (21:17)
[2017-04-18] VITALS: BP 101/53
[2017-04-18] MEDS: IPRATROPIUM 0.5MG/ALBUTEROL 2.5MG INH SOL UD 3ML (DUONEB)(J7620) NEB SCH ×4 (01:51→19:41)
[2017-04-18] MEDS: PIPERACILLIN/TAZOBACTAM SOD 2.25 GM in D5W 50 ML IV SCH ×3 (02:25→17:16)
[2017-04-18 04:00] VITALS: BP 97/50
[2017-04-18 05:28] LABS: BASO % 0.1 % (0.0-1.0); EOS % 0.3 % (0.0-3.0); IMMATURE GRANULOCYTE % 0.9 % (0-0); LYMPH % 7.9 % (24.0-44.0); MEAN CORPUSCULAR HEMOGLOBIN 28.6 pg (27.0-33.0); MEAN CORPUSCULAR HGB CONC 32.5 g/dl (32.0-36.5); MONO # 0.6 10^3/uL (0.0-0.8); MONO % 5.2 % (0.0-5.0); NEUTROPHILS # 10.5 10^3/uL (1.8-7.7); NEUTROPHILS % 85.6 % (36.0-66.0); PLATELET COUNT, AUTOMATED 273 10^3/uL (150-450); RED CELL DISTRIBUTION WIDTH 15.4 % (11.5-14.5); WHITE BLOOD COUNT 12.2 10^3/uL (4.0-10.0)
[2017-04-18 06:03] LABS: ALBUMIN 1.9 GM/DL (3.2-5.2); ALBUMIN/GLOBULIN RATIO 0.56 (1.00-1.93); BILIRUBIN,TOTAL 0.3 MG/DL (0.2-1.0); CALCIUM LEVEL 7.3 MG/DL (8.8-10.2); CREATININE FOR GFR 2.06 MG/DL (0.55-1.02); GLOMERULAR FILTRATION RATE 24.8 (>39); MAGNESIUM LEVEL 2.3 MG/DL (1.8-2.4); POTASSIUM SERUM 4.4 MEQ/L (3.5-5.1); TOTAL PROTEIN 5.3 GM/DL (6.4-8.2)
--- NOTE | 2017-04-18 06:18 | IPNPDOC ---
Text Note Date of Service The patient was seen on 04/18/17. NOTE Resident and evening attending was notified that patient's Hgb was 6.9. Chart was reviewed. Consent obtained over the phone with patient's older son, risks and benefit and alternative explained to him and he agreed. Patient was only AAOx2. 2 U PRBC ordered along with peripheral smear, stool occult. Patient discussed with Dr. Frank. RADHA ATTESTATION My preceptor for this patient encounter was physically present in the building during the encounter and was fully available. As needed, all aspects of the patient interview, examination, medical decision making process, and medical care plan development were reviewed and approved by the preceptor. Preceptor is aware and concurs with the plan as stated in the body of this note and will attest to such by his/her cosignature. VS,Fishbone, I+O VS, Fishbone, I+O Laboratory Tests 04/17/17 06:46 Red Blood Count 2.68 L, Mean Corpuscular Volume 85.1, Mean Corpuscular Hemoglobin 28.0, Mean Corpuscular Hemoglobin Concent 32.9, Red Cell Distribution Width 14.8 H, Neutrophils (%) (Auto) 93.1 H, Lymphocytes (%) (Auto ) 4.2 L, Monocytes (%) (Auto) 1.9, Eosinophils (%) (Auto) 0.0, Basophils (%) ( Auto) 0.1, Neutrophils # (Auto) 18.4 H, Lymphocytes # (Auto) 0.8 L, Monocytes # (Auto) 0.4, Eosinophils # (Auto) 0.0, Basophils # (Auto) 0.0, Calcium Level 7.9 L, Aspartate Amino Transf (AST/SGOT) 21, Alanine Aminotransferase (ALT/SGPT) 15 , Alkaline Phosphatase 79, Total Bilirubin 0.4, Total Protein 5.9 L, Albumin 2.1 L 04/18/17 04:42 Red Blood Count 2.41 L, Mean Corpuscular Volume 88.0, Mean Corpuscular Hemoglobin 28.6, Mean Corpuscular Hemoglobin Concent 32.5, Red Cell Distribution Width 15.4 H, Neutrophils (%) (Auto) 85.6 H, Lymphocytes (%) (Auto ) 7.9 L, Monocytes (%) (Auto) 5.2 H, Eosinophils (%) (Auto) 0.3, Basophils (%) ( Auto) 0.1, Neutrophils # (Auto) 10.5 H, Lymphocytes # (Auto) 1.0 L, Monocytes # (Auto) 0.6, Eosinophils # (Auto) 0.0, Basophils # (Auto) 0.0, Calcium Level 7.3 L, Aspartate Amino Transf (AST/SGOT) 24, Alanine Aminotransferase (ALT/SGPT) 14 , Alkaline Phosphatase 74, Total Bilirubin 0.3, Total Protein 5.3 L, Albumin 1.9 L Vital Signs Date Time Temp Pulse Resp B/P (MAP) Pulse Ox O2 Delivery O2 Flow Rate FiO2 04/18/17 04:00 Room Air 04/18/17 00:00 96.7 62 18 101/53 (69) 100 2.0 I&O- Last 24 Hours up to 6 AM 04/19/17 05:59 Output Total 550 ml Balance -550 ml BHAVANA CHAUDHARY DO Apr 18, 2017 06:18
[2017-04-18 08:00] VITALS: BP 100/55
[2017-04-18 08:14] LABS: REASON FOR REVIEW COMPREHENSIVE REVIEW
[2017-04-18] MEDS: ACETAMINOPHEN TAB 650MG DOSE (2X325MG) PO PRN (08:47)
[2017-04-18] MEDS: levETIRAcetam 250MG TABLET (KEPPRA) PO SCH ×2 (08:47→21:44)
[2017-04-18] MEDS: GABAPENTIN 300 MG CAP PO SCH ×3 (08:47→21:44)
[2017-04-18] MEDS: NIFEdipine 60 MG XL TAB PO SCH (08:48)
[2017-04-18] MEDS: ALLOPURINOL 100 MG TAB PO SCH (08:48)
[2017-04-18] MEDS: HYDROXYCHLOROQUINE 200 MG TAB PO SCH ×2 (08:48→21:44)
[2017-04-18] MEDS: ASPIRIN 81 MG ENTERIC TAB PO SCH (08:48)
[2017-04-18] MEDS: FOLIC ACID 1 MG TAB PO SCH (08:48)
[2017-04-18] MEDS: CARVedilol 3.125 MG TAB PO SCH ×2 (08:49→21:44)
[2017-04-18 12:00] VITALS: BP 101/53
[2017-04-18 16:00] VITALS: BP 119/57
--- NOTE | 2017-04-18 17:42 | IPNPDOC ---
Text Note Date of Service The patient was seen on 04/18/17. NOTE Subjective: Patient is a poor historian, does not offer any complaints this am. Denies any shortness of breath. denies any cough or phlegm. Had acute urinary retention this am needing straight cath which produced 500ml. Physical Exam: General: Sleeping but easily awoken, answers direct questions, no acute distress HEENT: Normal Cephalic, atraumatic, extraocular movements intact CV: Regular rate and rhythm Lungs: Clear to auscultation bilaterally Abd: Soft, Nontender, nondistended Extremities: No edema Neuro: When awoken, she answers direct questions, oriented to person and place but thinks that it's 2006 Labs and Imaging: As below. 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 difficile, GERD who presented with shortness of breath. She is admitted with multifocal pneumonia. 1. Multifocal pneumonia: Given the patient's history of pulmonary fibrosis, as well as a recent admission for a left pneumonia which is resolving, now with multifocal right pneumonia seen on imaging, the patient is at risk for a drug- resistant organism, so we will continue with broad-spectrum antibiotics of vancomycin and Zosyn. She was febrile upon admission with a white count of 15.8. Wbc is improving. Blood and sputum cultures pending. While patient was in rehab earlier this year after a radius fracture had problems with swallowing so was evaluated by speech therapy and was recommended level 3 dysphagia diet. In view of recurrent pneumonia and multifocal pneumonia there is a possibility of aspiration pneumonia . will reevaluate swallow. 2. Hyponatremia: Sodium was 128 upon admission, but with some hydration, she is now improved to 134. 3. Hyperkalemia: Potassium was 5.5 upon admission, and after a dose of Kayexalate, this has improved to 4.7. 4. Chronic kidney disease stage III to 4: The patient's baseline creatinine appears to be in the mid to upper ones current a little worse than baseline may be due to infection , anemia, will continue to monitor. 5. Diarrhea: GI panel is negative. 6. History of CVA 2, hyperlipidemia: Continue aspirin, statin, blood pressure control. 7. Hypertension: Continue home nifedipine, ARLYN inhibitor, clonidine, beta yao. 8. Pulmonary fibrosis: Continue with home plaquenil and nebulizers. 9. Dementia: poor historian . probably vascular and age related dementia. 10. History of dysphagia: will get swallow evaluation. 11. Acute on chronic anemia: possibly due to anemia of chronic disease. no signs of overt bleeding , will give 2 units of PRBC. 12. Acute urinary retention: Bladder scan bid and straight cath if greater than 300 ml . May have underlying neurogenic bladder. with some degree of chronic urinary retention. DVT prophylaxis: Heparin VS,Fishbone, I+O VS, Fishbone, I+O Laboratory Tests 04/18/17 04:42 Red Blood Count 2.41 L, Mean Corpuscular Volume 88.0, Mean Corpuscular Hemoglobin 28.6, Mean Corpuscular Hemoglobin Concent 32.5, Red Cell Distribution Width 15.4 H, Neutrophils (%) (Auto) 85.6 H, Lymphocytes (%) (Auto ) 7.9 L, Monocytes (%) (Auto) 5.2 H, Eosinophils (%) (Auto) 0.3, Basophils (%) ( Auto) 0.1, Neutrophils # (Auto) 10.5 H, Lymphocytes # (Auto) 1.0 L, Monocytes # (Auto) 0.6, Eosinophils # (Auto) 0.0, Basophils # (Auto) 0.0, Calcium Level 7.3 L, Aspartate Amino Transf (AST/SGOT) 24, Alanine Aminotransferase (ALT/SGPT) 14 , Alkaline Phosphatase 74, Total Bilirubin 0.3, Total Protein 5.3 L, Albumin 1.9 L Vital Signs Date Time Temp Pulse Resp B/P (MAP) Pulse Ox O2 Delivery O2 Flow Rate FiO2 04/18/17 16:00 97.6 70 18 119/57 (77) 96 Room Air 04/18/17 04:00 2.0 I&O- Last 24 Hours up to 6 AM 04/19/17 06:00 Intake Total 840 ml Output Total 550 ml Balance 290 ml LANA MOLINA MD Apr 18, 2017 17:42
[2017-04-18 18:21] LABS: MEAN CORPUSCULAR HEMOGLOBIN 29.2 pg (27.0-33.0); MEAN CORPUSCULAR HGB CONC 33.4 g/dl (32.0-36.5); MEAN CORPUSCULAR VOLUME 87.3 fl (80.0-96.0); RED CELL DISTRIBUTION WIDTH 15.8 % (11.5-14.5); WHITE BLOOD COUNT 12.4 10^3/uL (4.0-10.0)
[2017-04-18] MEDS: VANCOMYCIN HCL 1,000 MG, VIAL MATE ADAPTER 1 EACH in D5W 250 ML IV SCH (18:50)
[2017-04-18 20:00] VITALS: BP 134/60
[2017-04-18] MEDS: ROSUVASTATIN 10 MG TAB (CRESTOR) PO SCH (21:44)
[2017-04-18] MEDS: AMITRIPTYLINE 25 MG TAB PO SCH (21:44)
[2017-04-18] MEDS: PANTOPRAZOLE 40MG INJ (PROTONIX) (C9113) IV SCH (21:44)
[2017-04-19] VITALS (7 sets, daily range): BP systolic 118–162; BP diastolic 60–79
[2017-04-19] MEDS: PIPERACILLIN/TAZOBACTAM SOD 2.25 GM in D5W 50 ML IV SCH ×3 (01:49→18:23)
[2017-04-19] MEDS: IPRATROPIUM 0.5MG/ALBUTEROL 2.5MG INH SOL UD 3ML (DUONEB)(J7620) NEB SCH ×4 (02:00→20:11)
[2017-04-19 05:59] LABS: BASO % 0.2 % (0.0-1.0); EOS # 0.4 10^3/uL (0.0-0.50); EOS % 3.5 % (0.0-3.0); IMMATURE GRANULOCYTE % 1.1 % (0-0); LYMPH # 0.9 10^3/uL (1.5-4.5); LYMPH % 7.4 % (24.0-44.0); MEAN CORPUSCULAR HEMOGLOBIN 28.5 pg (27.0-33.0); MEAN CORPUSCULAR HGB CONC 33.8 g/dl (32.0-36.5); MEAN CORPUSCULAR VOLUME 84.5 fl (80.0-96.0); MONO # 0.9 10^3/uL (0.0-0.8); MONO % 6.8 % (0.0-5.0); NEUTROPHILS # 10.1 10^3/uL (1.8-7.7); PLATELET COUNT, AUTOMATED 255 10^3/uL (150-450); RED CELL DISTRIBUTION WIDTH 15.9 % (11.5-14.5); WHITE BLOOD COUNT 12.5 10^3/uL (4.0-10.0)
[2017-04-19 06:14] LABS: ALBUMIN 2.1 GM/DL (3.2-5.2); ALBUMIN/GLOBULIN RATIO 0.51 (1.00-1.93); BILIRUBIN,TOTAL 0.7 MG/DL (0.2-1.0); CREATININE FOR GFR 2.2 MG/DL (0.55-1.02); MAGNESIUM LEVEL 1.9 MG/DL (1.8-2.4); POTASSIUM SERUM 4.8 MEQ/L (3.5-5.1); TOTAL PROTEIN 6.2 GM/DL (6.4-8.2)
--- NOTE | 2017-04-19 06:18 | IPNPDOC ---
Text Note Date of Service The patient was seen on 04/19/17. NOTE Evening resident and attending were called that patient has retained urine again this time about 800ml. Patient has been having frequent urinary retention and required straight cath every few hours. Chart reviewed, no medication could explain her urinary retention, she does have history of neurogenic bladder per chart likely exacerbated by her acute illness. Will ask nurse to put in a cote for now due to very frequently we had to straight cath her. Patient has been discussed with Dr. Carmona. GME ATTESTATION My preceptor for this patient encounter was physically present in the building during the encounter and was fully available. As needed, all aspects of the patient interview, examination, medical decision making process, and medical care plan development were reviewed and approved by the preceptor. Preceptor is aware and concurs with the plan as stated in the body of this note and will attest to such by his/her cosignature. VS,Fishbone, I+O VS, Fishbone, I+O Laboratory Tests 04/18/17 18:14 Red Blood Count 3.53 L, Mean Corpuscular Volume 87.3, Mean Corpuscular Hemoglobin 29.2, Mean Corpuscular Hemoglobin Concent 33.4, Red Cell Distribution Width 15.8 H 04/19/17 05:13 Red Blood Count 3.75 L, Mean Corpuscular Volume 84.5, Mean Corpuscular Hemoglobin 28.5, Mean Corpuscular Hemoglobin Concent 33.8, Red Cell Distribution Width 15.9 H, Neutrophils (%) (Auto) 81.0 H, Lymphocytes (%) (Auto ) 7.4 L, Monocytes (%) (Auto) 6.8 H, Eosinophils (%) (Auto) 3.5 H, Basophils (% ) (Auto) 0.2, Neutrophils # (Auto) 10.1 H, Lymphocytes # (Auto) 0.9 L, Monocytes # (Auto) 0.9 H, Eosinophils # (Auto) 0.4, Basophils # (Auto) 0.0 Vital Signs Date Time Temp Pulse Resp B/P (MAP) Pulse Ox O2 Delivery O2 Flow Rate FiO2 04/19/17 04:00 97.8 73 18 120/68 (85) 95 Room Air 04/18/17 04:00 2.0 BHAVANA CHAUDHARY DO Apr 19, 2017 06:18
--- NOTE | 2017-04-19 08:47 | IPNPDOC ---
Text Note Date of Service The patient was seen on 04/19/17. NOTE Subjective: Patient is a poor historian, does not offer any complaints this am. Denies any shortness of breath. denies any cough or phlegm. Had acute urinary retention repeatedly last night twice retaining 600 and 800 ml so cote was placed. Physical Exam: Vitals : As below General: Sleeping but easily awoken, answers direct questions, no acute distress HEENT: Normal Cephalic, atraumatic, extraocular movements intact CV: Regular rate and rhythm Lungs: Clear to auscultation bilaterally Abd: Soft, Nontender, nondistended Extremities: No edema Neuro: When awoken, she answers direct questions, oriented to person and place but thinks that it's 2007 Labs and Imaging: As below. 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 difficile, GERD who presented with shortness of breath. She is admitted with multifocal pneumonia. 1. Multifocal pneumonia: Given the patient's history of pulmonary fibrosis, as well as a recent admission for a left pneumonia which is resolving, now with multifocal right pneumonia seen on imaging, the patient is at risk for a drug- resistant organism, so we will continue with broad-spectrum antibiotics of vancomycin and Zosyn. She was febrile upon admission with a white count of 15.8. Wbc is improving. Blood and sputum cultures pending. While patient was in rehab earlier this year after a radius fracture had problems with swallowing so was evaluated by speech therapy and was recommended level 3 dysphagia diet. In view of recurrent pneumonia and multifocal pneumonia there is a possibility of aspiration pneumonia . will reevaluate swallow. 2. Hyponatremia: Sodium was 128 upon admission, but with some hydration it has normalized. 3. Hyperkalemia: Potassium was 5.5 upon admission, and after a dose of Kayexalate, this has improved to 4.7. 4. Chronic kidney disease stage III to 4: The patient's baseline creatinine appears to be in the mid to upper ones current a little worse than baseline may be due to infection , anemia,and acute retention. Now has cote with relief of retention and i expect creatinine to go down to baseline soon . will continue to monitor. 5. Diarrhea: GI panel is negative. 6. History of CVA 2, hyperlipidemia: Continue aspirin, statin, blood pressure control. 7. Hypertension: Bp low normal holding clonidine, acei .Continue home nifedipine , beta yao. 8. Pulmonary fibrosis: Continue with home plaquenil and nebulizers. 9. Dementia: poor historian . probably vascular and age related dementia. 10. History of dysphagia: will get swallow evaluation. 11. Acute on chronic anemia: possibly due to anemia of chronic disease. no signs of overt bleeding , will give 2 units of PRBC. 12. Acute urinary retention: each time retaining 600 to 800 ml. May have underlying neurogenic bladder with some degree of chronic urinary retention now worsened by acute illness now has a cote. Having post obstructive diuresis with massive amounts of urine output . Will start on IVF. Check basic in the pm. DVT prophylaxis: Heparin VS,Fishbone, I+O VS, Fishbone, I+O Laboratory Tests 04/18/17 18:14 Red Blood Count 3.53 L, Mean Corpuscular Volume 87.3, Mean Corpuscular Hemoglobin 29.2, Mean Corpuscular Hemoglobin Concent 33.4, Red Cell Distribution Width 15.8 H 04/19/17 05:13 Red Blood Count 3.75 L, Mean Corpuscular Volume 84.5, Mean Corpuscular Hemoglobin 28.5, Mean Corpuscular Hemoglobin Concent 33.8, Red Cell Distribution Width 15.9 H, Neutrophils (%) (Auto) 81.0 H, Lymphocytes (%) (Auto ) 7.4 L, Monocytes (%) (Auto) 6.8 H, Eosinophils (%) (Auto) 3.5 H, Basophils (% ) (Auto) 0.2, Neutrophils # (Auto) 10.1 H, Lymphocytes # (Auto) 0.9 L, Monocytes # (Auto) 0.9 H, Eosinophils # (Auto) 0.4, Basophils # (Auto) 0.0, Calcium Level 8.0 L, Aspartate Amino Transf (AST/SGOT) 38 H, Alanine Aminotransferase (ALT/SGPT) 28, Alkaline Phosphatase 102, Total Bilirubin 0.7 # , Total Protein 6.2 L, Albumin 2.1 L Vital Signs Date Time Temp Pulse Resp B/P (MAP) Pulse Ox O2 Delivery O2 Flow Rate FiO2 04/19/17 04:00 97.8 73 18 120/68 (85) 95 Room Air 04/18/17 04:00 2.0 I&O- Last 24 Hours up to 6 AM 04/20/17 05:59 Intake Total 240 ml Output Total 1900 ml Balance -1660 ml LANA MOLINA MD Apr 19, 2017 08:47
[2017-04-19] MEDS: GABAPENTIN 100 MG CAP PO SCH (09:29)
[2017-04-19] MEDS: FOLIC ACID 1 MG TAB PO SCH (09:29)
[2017-04-19] MEDS: levETIRAcetam 250MG TABLET (KEPPRA) PO SCH ×2 (09:29→21:14)
[2017-04-19] MEDS: NIFEdipine 60 MG XL TAB PO SCH (09:29)
[2017-04-19] MEDS: ASPIRIN 81 MG ENTERIC TAB PO SCH (09:30)
[2017-04-19] MEDS: CARVedilol 3.125 MG TAB PO SCH ×2 (09:30→21:14)
[2017-04-19] MEDS: HYDROXYCHLOROQUINE 200 MG TAB PO SCH ×2 (09:30→21:14)
[2017-04-19] MEDS: ALLOPURINOL 100 MG TAB PO SCH (09:30)
[2017-04-19] MEDS ORDERED: SODIUM CHLORIDE 0.9% 1000 ML IV ONE ×2 (13:45)
[2017-04-19] MEDS ORDERED: SODIUM CHLORIDE 0.9% INJ 10 ML SYR IV PRN (16:30)
--- NOTE | 2017-04-19 17:11 | REP ---
Procedure: PICC line insertion with Rober-Shasha The procedure was performed under the direct supervision of Dr. Bateman. The risks and benefits of the procedure were explained to the patient and informed consent was obtained. The right basilic vein was localized using ultrasound guidance. The skin was prepped and draped in a sterile fashion. 2% lidocaine was used as a local anesthetic. Using ultrasound guidance the basilic vein was cannulated and a 0.018 guidewire was inserted and advanced to the SVC using fluoroscopic guidance. The needle was removed and a 4.5 Nauruan dilator and peel-away sheath was inserted over the guide wire. A 4.5 Nauruan single lumen catheter was cut to length of 36 cm. The dilator was removed and the catheter was inserted over the guide wire with the tip ending in the SVC. The peel-away sheath was removed and the catheter was flushed with heparinized saline as per Hospital protocol. The catheter was affixed to the skin and a sterile dressing was applied. The the patient tolerated the procedure well and there were no immediate complications. 0.4 minutes of fluoro time was utilized for this procedure. Reviewed by PAULA Marquez 04/19/2017 04:31 PSigned by Lalo Bateman MD 04/19/2017 05:04 P
[2017-04-19] MEDS: SODIUM CHLORIDE 0.9% INJ 10 ML SYR IV SCH (17:24)
[2017-04-19] MEDS: D5W/0.9% SODIUM CHLORIDE 1,000 ML IV SCH (17:30)
[2017-04-19 17:37] LABS: CALCIUM LEVEL 7.6 MG/DL (8.8-10.2); CREATININE FOR GFR 1.91 MG/DL (0.55-1.02); GLOMERULAR FILTRATION RATE 27.1 (>39); MAGNESIUM LEVEL 2.2 MG/DL (1.8-2.4); PHOSPHORUS LEVEL 4.1 MG/DL (2.5-4.9); POTASSIUM SERUM 4.4 MEQ/L (3.5-5.1)
[2017-04-19] MEDS: ROSUVASTATIN 10 MG TAB (CRESTOR) PO SCH (21:14)
[2017-04-19] MEDS: PANTOPRAZOLE 40MG INJ (PROTONIX) (C9113) IV SCH (21:14)
[2017-04-20] VITALS (7 sets, daily range): BP systolic 100–156; BP diastolic 64–82
[2017-04-20] MEDS: PIPERACILLIN/TAZOBACTAM SOD 2.25 GM in D5W 50 ML IV SCH ×3 (01:41→17:52)
[2017-04-20] MEDS: IPRATROPIUM 0.5MG/ALBUTEROL 2.5MG INH SOL UD 3ML (DUONEB)(J7620) NEB SCH ×4 (02:00→20:05)
[2017-04-20] MEDS: SODIUM CHLORIDE 0.9% INJ 10 ML SYR IV SCH ×2 (05:48→17:52)
[2017-04-20] MEDS: D5W/0.9% SODIUM CHLORIDE 1,000 ML IV SCH (05:48)
[2017-04-20] MEDS: ACETAMINOPHEN TAB 650MG DOSE (2X325MG) PO PRN (05:49)
[2017-04-20 06:10] LABS: BASO # 0.1 10^3/uL (0.0-0.2); BASO % 0.6 % (0.0-1.0); EOS # 0.6 10^3/uL (0.0-0.50); EOS % 7.3 % (0.0-3.0); IMMATURE GRANULOCYTE % 1.1 % (0-0); LYMPH # 1.1 10^3/uL (1.5-4.5); MEAN CORPUSCULAR HEMOGLOBIN 28.3 pg (27.0-33.0); MEAN CORPUSCULAR HGB CONC 32.4 g/dl (32.0-36.5); MEAN CORPUSCULAR VOLUME 87.3 fl (80.0-96.0); MONO # 0.8 10^3/uL (0.0-0.8); MONO % 9.1 % (0.0-5.0); NEUTROPHILS # 5.8 10^3/uL (1.8-7.7); NEUTROPHILS % 68.9 % (36.0-66.0); PLATELET COUNT, AUTOMATED 243 10^3/uL (150-450); RED CELL DISTRIBUTION WIDTH 15.9 % (11.5-14.5); WHITE BLOOD COUNT 8.5 10^3/uL (4.0-10.0)
[2017-04-20 06:42] LABS: ALBUMIN 1.9 GM/DL (3.2-5.2); ALBUMIN/GLOBULIN RATIO 0.63 (1.00-1.93); BILIRUBIN,TOTAL 0.4 MG/DL (0.2-1.0); CALCIUM LEVEL 7.5 MG/DL (8.8-10.2); CREATININE FOR GFR 1.87 MG/DL (0.55-1.02); GLOMERULAR FILTRATION RATE 27.7 (>39); POTASSIUM SERUM 4.7 MEQ/L (3.5-5.1); TOTAL PROTEIN 4.9 GM/DL (6.4-8.2)
[2017-04-20] MEDS: NIFEdipine 60 MG XL TAB PO SCH (09:52)
[2017-04-20] MEDS: ASPIRIN 81 MG ENTERIC TAB PO SCH (09:54)
[2017-04-20] MEDS: HYDROXYCHLOROQUINE 200 MG TAB PO SCH ×2 (09:54→21:12)
[2017-04-20] MEDS: levETIRAcetam 250MG TABLET (KEPPRA) PO SCH ×2 (09:54→21:12)
[2017-04-20] MEDS: GABAPENTIN 100 MG CAP PO SCH ×3 (09:55→21:12)
[2017-04-20] MEDS: CARVedilol 3.125 MG TAB PO SCH ×2 (09:56→21:12)
[2017-04-20] MEDS: FOLIC ACID 1 MG TAB PO SCH (09:56)
[2017-04-20] MEDS: ALLOPURINOL 100 MG TAB PO SCH (09:56)
--- NOTE | 2017-04-20 14:20 | IPNPDOC ---
Text Note Date of Service The patient was seen on 04/20/17. NOTE Subjective: More awake this am and has been out of bed to chair x 3 , had 1 episode of fever last night , cote remains in place, continues to have diarrhea. no cough or phlegm ,no chest pain or sob. Physical Exam: Vitals : As below General: Sleeping but easily awoken, answers direct questions, no acute distress HEENT: Normal Cephalic, atraumatic, extraocular movements intact CV: Regular rate and rhythm Lungs: Clear to auscultation bilaterally Abd: Soft, Nontender, nondistended Extremities: No edema Neuro: When awoken, she answers direct questions, oriented to person and place but thinks that it's 2007 Labs and Imaging: As below. 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 difficile, GERD who presented with shortness of breath. She is admitted with multifocal pneumonia. 1. Multifocal pneumonia: Given the patient's history of pulmonary fibrosis, as well as a recent admission for a left pneumonia which is resolving, now with multifocal right pneumonia seen on imaging, the patient is at risk for a drug- resistant organism, so we will continue with broad-spectrum antibiotics of vancomycin and Zosyn. She was febrile upon admission with a white count of 15.8. Wbc is improving. Blood and sputum cultures pending. While patient was in rehab earlier this year after a radius fracture had problems with swallowing so was evaluated by speech therapy and was recommended level 3 dysphagia diet. In view of recurrent pneumonia and multifocal pneumonia there is a possibility of aspiration pneumonia . Seen by and new diet has been recommended. 2. Hyponatremia: Sodium was 128 upon admission, but with some hydration it has normalized. 3. Hyperkalemia: Potassium was 5.5 upon admission, and after a dose of Kayexalate, this has improved to 4.7. 4. Chronic kidney disease stage III to 4: The patient's baseline creatinine appears to be in the mid to upper ones current a little worse than baseline may be due to infection , anemia,and acute retention. Now has cote with relief of retention and i expect creatinine to go down to baseline soon . will continue to monitor. 5. Diarrhea: GI panel is negative. 6. History of CVA 2, hyperlipidemia: Continue aspirin, statin, blood pressure control. 7. Hypertension: Bp low normal holding clonidine, acei .Continue home nifedipine , beta yao. 8. Pulmonary fibrosis: Continue with home plaquenil and nebulizers. 9. Dementia: poor historian . probably vascular and age related dementia. 10. History of dysphagia: will get swallow evaluation. 11. Acute on chronic anemia: possibly due to anemia of chronic disease. no signs of overt bleeding , will give 2 units of PRBC. 12. Acute urinary retention: each time retaining 600 to 800 ml. May have underlying neurogenic bladder with some degree of chronic urinary retention now worsened by acute illness now has a cote. post obstructive diuresis resolved. electrolytes ok . will dc ivf. 13. Diarrhea: will send c diff, may be antibitotic related. DVT prophylaxis: Heparin VS,Fishbone, I+O VS, Fishbone, I+O Laboratory Tests 04/19/17 16:45 Calcium Level 7.6 L 04/20/17 05:56 Calcium Level 7.5 L, Red Blood Count 3.39 L, Mean Corpuscular Volume 87.3, Mean Corpuscular Hemoglobin 28.3, Mean Corpuscular Hemoglobin Concent 32.4, Red Cell Distribution Width 15.9 H, Neutrophils (%) (Auto) 68.9 H, Lymphocytes (%) (Auto ) 13.0 L, Monocytes (%) (Auto) 9.1 H, Eosinophils (%) (Auto) 7.3 H, Basophils (% ) (Auto) 0.6, Neutrophils # (Auto) 5.8, Lymphocytes # (Auto) 1.1 L, Monocytes # (Auto) 0.8, Eosinophils # (Auto) 0.6 H, Basophils # (Auto) 0.1, Aspartate Amino Transf (AST/SGOT) 39 H, Alanine Aminotransferase (ALT/SGPT) 33, Alkaline Phosphatase 105, Total Bilirubin 0.4, Total Protein 4.9 #L, Albumin 1.9 L Vital Signs Date Time Temp Pulse Resp B/P (MAP) Pulse Ox O2 Delivery O2 Flow Rate FiO2 04/20/17 09:56 79 140/65 04/20/17 09:19 97.1 24 95 Room Air 04/18/17 04:00 2.0 I&O- Last 24 Hours up to 6 AM 04/21/17 06:00 Intake Total 665 ml Balance 665 ml LANA MOLINA MD Apr 20, 2017 14:20
[2017-04-20] MEDS: PANTOPRAZOLE 40MG INJ (PROTONIX) (C9113) IV SCH (21:11)
[2017-04-20] MEDS: ROSUVASTATIN 10 MG TAB (CRESTOR) PO SCH (21:12)
[2017-04-21] MEDS: PIPERACILLIN/TAZOBACTAM SOD 2.25 GM in D5W 50 ML IV SCH ×3 (01:50→17:43)
[2017-04-21] MEDS: IPRATROPIUM 0.5MG/ALBUTEROL 2.5MG INH SOL UD 3ML (DUONEB)(J7620) NEB SCH ×4 (01:52→20:39)
[2017-04-21 04:00] VITALS: BP 161/74
[2017-04-21] MEDS: SODIUM CHLORIDE 0.9% INJ 10 ML SYR IV SCH ×2 (05:43→17:58)
[2017-04-21 06:00] LABS: BASO # 0.1 10^3/uL (0.0-0.2); BASO % 0.8 % (0.0-1.0); EOS # 0.8 10^3/uL (0.0-0.50); EOS % 10.9 % (0.0-3.0); IMMATURE GRANULOCYTE % 1.3 % (0-0); LYMPH # 1.6 10^3/uL (1.5-4.5); LYMPH % 20.5 % (24.0-44.0); MEAN CORPUSCULAR HEMOGLOBIN 29.2 pg (27.0-33.0); MEAN CORPUSCULAR HGB CONC 33.1 g/dl (32.0-36.5); MONO # 0.6 10^3/uL (0.0-0.8); MONO % 8.1 % (0.0-5.0); NEUTROPHILS # 4.4 10^3/uL (1.8-7.7); NEUTROPHILS % 58.4 % (36.0-66.0); PLATELET COUNT, AUTOMATED 231 10^3/uL (150-450); RED CELL DISTRIBUTION WIDTH 15.7 % (11.5-14.5); WHITE BLOOD COUNT 7.6 10^3/uL (4.0-10.0)
[2017-04-21 06:51] LABS: ALBUMIN 1.9 GM/DL (3.2-5.2); ALBUMIN/GLOBULIN RATIO 0.63 (1.00-1.93); BILIRUBIN,TOTAL 0.3 MG/DL (0.2-1.0); CREATININE FOR GFR 1.63 MG/DL (0.55-1.02); GLOMERULAR FILTRATION RATE 32.5 (>39); MAGNESIUM LEVEL 1.8 MG/DL (1.8-2.4); TOTAL PROTEIN 4.9 GM/DL (6.4-8.2)
[2017-04-21 08:00] VITALS: BP 153/66
[2017-04-21] MEDS: levETIRAcetam 250MG TABLET (KEPPRA) PO SCH ×2 (08:54→21:18)
[2017-04-21] MEDS: ASPIRIN 81 MG ENTERIC TAB PO SCH (08:54)
[2017-04-21] MEDS: NIFEdipine 60 MG XL TAB PO SCH (08:54)
[2017-04-21] MEDS: HYDROXYCHLOROQUINE 200 MG TAB PO SCH ×2 (08:54→21:18)
[2017-04-21] MEDS: GABAPENTIN 100 MG CAP PO SCH ×3 (08:54→21:18)
[2017-04-21] MEDS: ACETAMINOPHEN TAB 650MG DOSE (2X325MG) PO PRN (08:55)
[2017-04-21] MEDS: CARVedilol 3.125 MG TAB PO SCH ×2 (08:55→21:20)
[2017-04-21] MEDS: ALLOPURINOL 100 MG TAB PO SCH (08:55)
[2017-04-21] MEDS: FOLIC ACID 1 MG TAB PO SCH (08:55)
[2017-04-21 12:00] VITALS: BP 140/63
--- NOTE | 2017-04-21 14:33 | IPNPDOC ---
Text Note Date of Service The patient was seen on 04/21/17. NOTE Subjective: More awake this am and has been out of bed to chair x 3 , had 1 episode of fever last night , cote remains in place, continues to have diarrhea. no cough or phlegm ,no chest pain or sob. Physical Exam: Vitals : As below General: Sleeping but easily awoken, answers direct questions, no acute distress HEENT: Normal Cephalic, atraumatic, extraocular movements intact CV: Regular rate and rhythm Lungs: Clear to auscultation bilaterally Abd: Soft, Nontender, nondistended Extremities: No edema Neuro: When awoken, she answers direct questions, oriented to person and place but thinks that it's 2007 Labs and Imaging: As below. 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 difficile, GERD who presented with shortness of breath. She is admitted with multifocal pneumonia. 1. Multifocal pneumonia: Given the patient's history of pulmonary fibrosis, as well as a recent admission for a left pneumonia which is resolving, now with multifocal right pneumonia seen on imaging, the patient is at risk for a drug- resistant organism, so we will continue with broad-spectrum antibiotics of vancomycin and Zosyn. She was febrile upon admission with a white count of 15.8. Wbc is improving. Blood and sputum cultures pending. While patient was in rehab earlier this year after a radius fracture had problems with swallowing so was evaluated by speech therapy and was recommended level 3 dysphagia diet. In view of recurrent pneumonia and multifocal pneumonia there is a possibility of aspiration pneumonia . Seen by and new diet has been recommended. 2. Hyponatremia: Sodium was 128 upon admission, but with some hydration it has normalized. 3. Hyperkalemia: Potassium was 5.5 upon admission, and after a dose of Kayexalate, this has improved to 4.7. 4. Chronic kidney disease stage III to 4: The patient's baseline creatinine appears to be in the mid to upper ones current a little worse than baseline may be due to infection , anemia,and acute retention. Now has cote with relief of retention and i expect creatinine to go down to baseline soon . will continue to monitor. 5. Diarrhea: GI panel is negative. 6. History of CVA 2, hyperlipidemia: Continue aspirin, statin, blood pressure control. 7. Hypertension: Bp low normal holding clonidine, acei .Continue home nifedipine , beta yao. 8. Pulmonary fibrosis: Continue with home plaquenil and nebulizers. 9. Dementia: poor historian . probably vascular and age related dementia. 10. History of dysphagia: will get swallow evaluation. 11. Acute on chronic anemia: possibly due to anemia of chronic disease. no signs of overt bleeding , will give 2 units of PRBC. 12. Acute urinary retention: each time retaining 600 to 800 ml. May have underlying neurogenic bladder with some degree of chronic urinary retention now worsened by acute illness now has a cote. post obstructive diuresis resolved. electrolytes ok . will dc ivf. 13. Diarrhea: will send c diff, may be antibitotic related. DVT prophylaxis: Heparin VS,Fishbone, I+O VS, Fishbone, I+O Laboratory Tests 04/21/17 05:48 Red Blood Count 3.43 L, Mean Corpuscular Volume 88.0, Mean Corpuscular Hemoglobin 29.2, Mean Corpuscular Hemoglobin Concent 33.1, Red Cell Distribution Width 15.7 H, Neutrophils (%) (Auto) 58.4, Lymphocytes (%) (Auto) 20.5 L, Monocytes (%) (Auto) 8.1 H, Eosinophils (%) (Auto) 10.9 H, Basophils (% ) (Auto) 0.8, Neutrophils # (Auto) 4.4, Lymphocytes # (Auto) 1.6, Monocytes # ( Auto) 0.6, Eosinophils # (Auto) 0.8 H, Basophils # (Auto) 0.1, Calcium Level 8.0 L, Aspartate Amino Transf (AST/SGOT) 36, Alanine Aminotransferase (ALT/SGPT ) 34, Alkaline Phosphatase 107, Total Bilirubin 0.3, Total Protein 4.9 L, Albumin 1.9 L Vital Signs Date Time Temp Pulse Resp B/P (MAP) Pulse Ox O2 Delivery O2 Flow Rate FiO2 04/21/17 08:55 71 161/74 04/21/17 08:00 97.5 19 94 Room Air 04/18/17 04:00 2.0 I&O- Last 24 Hours up to 6 AM 04/22/17 06:00 Output Total 750 ml Balance -750 ml LANA MOLINA MD Apr 21, 2017 14:33
[2017-04-21] MEDS: PANTOPRAZOLE 40MG INJ (PROTONIX) (C9113) IV SCH (21:17)
[2017-04-21] MEDS: ROSUVASTATIN 10 MG TAB (CRESTOR) PO SCH (21:18)
[2017-04-21 22:00] VITALS: BP 164/74
[2017-04-22] MEDS: IPRATROPIUM 0.5MG/ALBUTEROL 2.5MG INH SOL UD 3ML (DUONEB)(J7620) NEB SCH ×4 (00:32→19:54)
[2017-04-22 02:00] VITALS: BP 142/70
[2017-04-22] MEDS: PIPERACILLIN/TAZOBACTAM SOD 2.25 GM in D5W 50 ML IV SCH (02:00)
[2017-04-22 06:00] VITALS: BP 154/74
[2017-04-22] MEDS: SODIUM CHLORIDE 0.9% INJ 10 ML SYR IV SCH ×2 (06:32→17:58)
[2017-04-22 06:41] LABS: BASO # 0.1 10^3/uL (0.0-0.2); BASO % 0.7 % (0.0-1.0); EOS % 12.5 % (0.0-3.0); IMMATURE GRANULOCYTE % 1.3 % (0-0); LYMPH # 1.6 10^3/uL (1.5-4.5); LYMPH % 19.9 % (24.0-44.0); MEAN CORPUSCULAR HEMOGLOBIN 28.6 pg (27.0-33.0); MEAN CORPUSCULAR HGB CONC 32.3 g/dl (32.0-36.5); MEAN CORPUSCULAR VOLUME 88.7 fl (80.0-96.0); MONO # 0.6 10^3/uL (0.0-0.8); NEUTROPHILS # 4.8 10^3/uL (1.8-7.7); NEUTROPHILS % 58.6 % (36.0-66.0); PLATELET COUNT, AUTOMATED 244 10^3/uL (150-450); RED CELL DISTRIBUTION WIDTH 15.6 % (11.5-14.5); WHITE BLOOD COUNT 8.2 10^3/uL (4.0-10.0)
[2017-04-22 07:06] LABS: ALBUMIN 1.9 GM/DL (3.2-5.2); ALBUMIN/GLOBULIN RATIO 0.5 (1.00-1.93); BILIRUBIN,TOTAL 0.3 MG/DL (0.2-1.0); CALCIUM LEVEL 8.3 MG/DL (8.8-10.2); CREATININE FOR GFR 1.64 MG/DL (0.55-1.02); GLOMERULAR FILTRATION RATE 32.3 (>39); MAGNESIUM LEVEL 1.7 MG/DL (1.8-2.4); POTASSIUM SERUM 4.5 MEQ/L (3.5-5.1); TOTAL PROTEIN 5.7 GM/DL (6.4-8.2)
[2017-04-22] MEDS ORDERED: MAG SULF 1GM/100ML (MAG RUN) 1 GM in APPROPRIATE DILUENT 1 EA IV ONE (08:30)
[2017-04-22] MEDS ORDERED: AUGMENTIN 875 MG TAB PO SCH (09:00)
[2017-04-22] MEDS: levETIRAcetam 250MG TABLET (KEPPRA) PO SCH ×2 (09:29→21:45)
[2017-04-22] MEDS: GABAPENTIN 100 MG CAP PO SCH ×3 (09:29→21:45)
[2017-04-22] MEDS: CARVedilol 3.125 MG TAB PO SCH ×2 (09:29→21:44)
[2017-04-22] MEDS: ASPIRIN 81 MG ENTERIC TAB PO SCH (09:29)
[2017-04-22] MEDS: FOLIC ACID 1 MG TAB PO SCH (09:29)
[2017-04-22] MEDS: NIFEdipine 60 MG XL TAB PO SCH (09:30)
[2017-04-22] MEDS: ALLOPURINOL 100 MG TAB PO SCH (09:30)
[2017-04-22] MEDS: AUGMENTIN 500 MG TAB PO SCH ×2 (09:30→21:44)
[2017-04-22] MEDS: HYDROXYCHLOROQUINE 200 MG TAB PO SCH ×2 (09:30→21:45)
--- NOTE | 2017-04-22 13:28 | IPNPDOC ---
Text Note Date of Service The patient was seen on 04/22/17. NOTE Subjective: More awake this am and has been out of bed to chair x 3 , had 1 episode of fever last night , cote remains in place, no cough or phlegm ,no chest pain or sob. Physical Exam: Vitals : As below General: Sleeping but easily awoken, answers direct questions, no acute distress HEENT: Normal Cephalic, atraumatic, extraocular movements intact CV: Regular rate and rhythm Lungs: bilateral crackles right > left. Abd: Soft, Nontender, nondistended Extremities: No edema Neuro: When awoken, she answers direct questions, oriented to person and place but thinks that it's 2006 Labs and Imaging: As below. 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 difficile, GERD who presented with shortness of breath. She is admitted with multifocal pneumonia. 1. Multifocal pneumonia: Given the patient's history of pulmonary fibrosis, as well as a recent admission for a left pneumonia which is resolving, now with multifocal right pneumonia seen on imaging, the patient is at risk for a drug- resistant organism, so was treated with 5 days of vanco and zosyn. She was febrile upon admission with a white count of 15.8. Wbc is improving. Blood and sputum cultures pending. While patient was in rehab earlier this year after a radius fracture had problems with swallowing so was evaluated by speech therapy and was recommended level 3 dysphagia diet. In view of recurrent pneumonia and multifocal pneumonia there is a possibility of aspiration pneumonia . Seen by and new diet has been recommended. Antibiotics changed to augmentin. 2. Hyponatremia: Sodium was 128 upon admission, but with some hydration it has normalized. 3. Hyperkalemia: Potassium was 5.5 upon admission, and after a dose of Kayexalate, this has improved to 4.7. 4. Chronic kidney disease stage III to 4: The patient's baseline creatinine appears to be in the mid to upper ones current a little worse than baseline may be due to infection , anemia,and acute retention. Now has cote with relief of retention and i expect creatinine to go down to baseline soon . will continue to monitor. 5. Diarrhea: GI panel is negative. 6. History of CVA 2, hyperlipidemia: Continue aspirin, statin, blood pressure control. 7. Hypertension: Bp low normal holding clonidine, acei .Continue home nifedipine , beta yao. 8. Pulmonary fibrosis: Continue with home plaquenil and nebulizers. 9. Dementia: poor historian . probably vascular and age related dementia. 10. History of dysphagia: will get swallow evaluation. 11. Acute on chronic anemia: possibly due to anemia of chronic disease. no signs of overt bleeding , will give 2 units of PRBC. 12. Acute urinary retention: each time retaining 600 to 800 ml. May have underlying neurogenic bladder with some degree of chronic urinary retention now worsened by acute illness now has a cote. post obstructive diuresis resolved. electrolytes ok . will dc ivf. 13. Diarrhea: will send c diff, may be antibitotic related. DVT prophylaxis: Heparin VS,Fishbone, I+O VS, Fishbone, I+O Laboratory Tests 04/22/17 05:43 Red Blood Count 3.53 L, Mean Corpuscular Volume 88.7, Mean Corpuscular Hemoglobin 28.6, Mean Corpuscular Hemoglobin Concent 32.3, Red Cell Distribution Width 15.6 H, Neutrophils (%) (Auto) 58.6, Lymphocytes (%) (Auto) 19.9 L, Monocytes (%) (Auto) 7.0 H, Eosinophils (%) (Auto) 12.5 H, Basophils (% ) (Auto) 0.7, Neutrophils # (Auto) 4.8, Lymphocytes # (Auto) 1.6, Monocytes # ( Auto) 0.6, Eosinophils # (Auto) 1.0 H, Basophils # (Auto) 0.1, Calcium Level 8.3 L, Aspartate Amino Transf (AST/SGOT) 25, Alanine Aminotransferase (ALT/SGPT ) 31, Alkaline Phosphatase 114, Total Bilirubin 0.3, Total Protein 5.7 L, Albumin 1.9 L Vital Signs Date Time Temp Pulse Resp B/P (MAP) Pulse Ox O2 Delivery O2 Flow Rate FiO2 04/22/17 09:30 154/74 04/22/17 09:29 75 04/22/17 06:00 99.1 18 95 Room Air 04/18/17 04:00 2.0 I&O- Last 24 Hours up to 6 AM 04/23/17 06:00 Intake Total 100 ml Balance 100 ml LANA MOLINA MD Apr 22, 2017 13:27
[2017-04-22 14:00] VITALS: BP 145/73
[2017-04-22] MEDS ORDERED: LOPERAMIDE 2 MG CAP PO PRN (14:45)
[2017-04-22] MEDS: ROSUVASTATIN 10 MG TAB (CRESTOR) PO SCH (21:44)
[2017-04-22] MEDS: PANTOPRAZOLE 40MG INJ (PROTONIX) (C9113) IV SCH (21:45)
[2017-04-22 22:00] VITALS: BP 158/76
[2017-04-23] MEDS: IPRATROPIUM 0.5MG/ALBUTEROL 2.5MG INH SOL UD 3ML (DUONEB)(J7620) NEB SCH ×4 (01:49→19:38)
[2017-04-23 02:00] VITALS: BP 148/71
[2017-04-23 06:00] VITALS: BP 137/79
[2017-04-23] MEDS: SODIUM CHLORIDE 0.9% INJ 10 ML SYR IV SCH ×3 (06:22→21:41)
[2017-04-23 06:30] LABS: BASO # 0.1 10^3/uL (0.0-0.2); BASO % 0.8 % (0.0-1.0); EOS # 0.9 10^3/uL (0.0-0.50); EOS % 11.4 % (0.0-3.0); IMMATURE GRANULOCYTE % 0.9 % (0-0); LYMPH # 1.5 10^3/uL (1.5-4.5); LYMPH % 19.4 % (24.0-44.0); MEAN CORPUSCULAR HGB CONC 31.7 g/dl (32.0-36.5); MEAN CORPUSCULAR VOLUME 88.4 fl (80.0-96.0); MONO # 0.6 10^3/uL (0.0-0.8); MONO % 7.5 % (0.0-5.0); NEUTROPHILS # 4.5 10^3/uL (1.8-7.7); PLATELET COUNT, AUTOMATED 232 10^3/uL (150-450); RED CELL DISTRIBUTION WIDTH 15.4 % (11.5-14.5); WHITE BLOOD COUNT 7.6 10^3/uL (4.0-10.0)
[2017-04-23 06:57] LABS: ALBUMIN 2.1 GM/DL (3.2-5.2); ALBUMIN/GLOBULIN RATIO 0.66 (1.00-1.93); BILIRUBIN,TOTAL 0.3 MG/DL (0.2-1.0); CALCIUM LEVEL 8.3 MG/DL (8.8-10.2); CREATININE FOR GFR 1.45 MG/DL (0.55-1.02); GLOMERULAR FILTRATION RATE 37.2 (>39); MAGNESIUM LEVEL 1.8 MG/DL (1.8-2.4); POTASSIUM SERUM 4.7 MEQ/L (3.5-5.1); TOTAL PROTEIN 5.3 GM/DL (6.4-8.2)
[2017-04-23] MEDS: levETIRAcetam 250MG TABLET (KEPPRA) PO SCH ×2 (08:18→21:41)
[2017-04-23] MEDS: ALLOPURINOL 100 MG TAB PO SCH (08:18)
[2017-04-23] MEDS: AUGMENTIN 500 MG TAB PO SCH ×2 (08:18→21:41)
[2017-04-23] MEDS: FOLIC ACID 1 MG TAB PO SCH (08:19)
[2017-04-23] MEDS: GABAPENTIN 100 MG CAP PO SCH ×3 (08:19→21:41)
[2017-04-23] MEDS: HYDROXYCHLOROQUINE 200 MG TAB PO SCH ×2 (08:19→21:41)
[2017-04-23] MEDS: CARVedilol 3.125 MG TAB PO SCH ×2 (08:19→21:42)
[2017-04-23] MEDS: ASPIRIN 81 MG ENTERIC TAB PO SCH (08:19)
[2017-04-23] MEDS: NIFEdipine 60 MG XL TAB PO SCH (08:19)
--- NOTE | 2017-04-23 11:48 | IPNPDOC ---
Text Note Date of Service The patient was seen on 04/23/17. NOTE Subjective: no complaints today , seen sitting up in chair, cote pulled yesterday voided without problem after that, diarrhea resolved. Physical Exam: Vitals : As below General: Sleeping but easily awoken, answers direct questions, no acute distress HEENT: Normal Cephalic, atraumatic, extraocular movements intact CV: Regular rate and rhythm Lungs: clear to auscultation Abd: Soft, Nontender, nondistended Extremities: No edema Neuro: AAO x3 Labs and Imaging: As below. 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 difficile, GERD who presented with shortness of breath. She is admitted with multifocal pneumonia. 1. Multifocal pneumonia: Given the patient's history of pulmonary fibrosis, as well as a recent admission for a left pneumonia which is resolving, now with multifocal right pneumonia seen on imaging, the patient is at risk for a drug- resistant organism, so was treated with 5 days of vanco and zosyn. Now on augmentin. Possible Aspiration: While patient was in rehab earlier this year after a radius fracture had problems with swallowing so was evaluated by speech therapy and was recommended level 3 dysphagia diet. In view of recurrent pneumonia and multifocal pneumonia there is a possibility of aspiration pneumonia . Seen by and yg diet has been recommended. 2. Hyponatremia: Sodium was 128 upon admission, but with some hydration it has normalized. 3. Hyperkalemia: Potassium was 5.5 upon admission, and after a dose of Kayexalate, this has improved to 4.7. 4. Chronic kidney disease stage III to 4: The patient's baseline creatinine appears to be in the mid to upper ones current a little worse than baseline may be due to infection , anemia,and acute retention. Now has cote with relief of retention and i expect creatinine to go down to baseline soon . will continue to monitor. 5. Diarrhea: GI panel is negative. 6. History of CVA 2, hyperlipidemia: Continue aspirin, statin, blood pressure control. 7. Hypertension: Bp low normal holding clonidine, acei .Continue home nifedipine , beta yao. 8. Pulmonary fibrosis: Continue with home plaquenil and nebulizers. 9. Dementia: poor historian . probably vascular and age related dementia. 10. History of dysphagia: will get swallow evaluation. 11. Acute on chronic anemia: possibly due to anemia of chronic disease. no signs of overt bleeding , will give 2 units of PRBC. 12. Acute urinary retention: each time retaining 600 to 800 ml. May have underlying neurogenic bladder with some degree of chronic urinary retention now worsened by acute illness which has now resolved. Cote dced on 04/22/17 13. Diarrhea: c diff, negative may be antibitotic related. improved. DVT prophylaxis: Heparin VS,Fishbone, I+O VS, Fishbone, I+O Laboratory Tests 04/23/17 05:29 Red Blood Count 3.71 L, Mean Corpuscular Volume 88.4, Mean Corpuscular Hemoglobin 28.0, Mean Corpuscular Hemoglobin Concent 31.7 L, Red Cell Distribution Width 15.4 H, Neutrophils (%) (Auto) 60.0, Lymphocytes (%) (Auto) 19.4 L, Monocytes (%) (Auto) 7.5 H, Eosinophils (%) (Auto) 11.4 H, Basophils (% ) (Auto) 0.8, Neutrophils # (Auto) 4.5, Lymphocytes # (Auto) 1.5, Monocytes # ( Auto) 0.6, Eosinophils # (Auto) 0.9 H, Basophils # (Auto) 0.1, Calcium Level 8.3 L, Aspartate Amino Transf (AST/SGOT) 17, Alanine Aminotransferase (ALT/SGPT ) 24, Alkaline Phosphatase 115, Total Bilirubin 0.3, Total Protein 5.3 L, Albumin 2.1 L Vital Signs Date Time Temp Pulse Resp B/P (MAP) Pulse Ox O2 Delivery O2 Flow Rate FiO2 04/23/17 08:19 137/79 04/23/17 08:19 70 04/23/17 06:00 97.6 18 93 Room Air 04/18/17 04:00 2.0 I&O- Last 24 Hours up to 6 AM 04/24/17 06:00 Intake Total 360 ml Output Total 700 ml Balance -340 ml LANA MOLINA MD Apr 23, 2017 11:48
[2017-04-23 14:00] VITALS: BP 154/70
[2017-04-23 20:11] VITALS: BP 142/67
[2017-04-23] MEDS: PANTOPRAZOLE 40MG INJ (PROTONIX) (C9113) IV SCH (21:41)
[2017-04-23] MEDS: ROSUVASTATIN 10 MG TAB (CRESTOR) PO SCH (21:41)
[2017-04-23 22:00] VITALS: BP 142/67
[2017-04-24 02:00] VITALS: BP 154/71
[2017-04-24] MEDS: IPRATROPIUM 0.5MG/ALBUTEROL 2.5MG INH SOL UD 3ML (DUONEB)(J7620) NEB SCH ×3 (02:00→13:39)
[2017-04-24 06:00] VITALS: BP 158/81
[2017-04-24 08:00] VITALS: BP 189/79
[2017-04-24] MEDS: GABAPENTIN 100 MG CAP PO SCH (08:08)
[2017-04-24] MEDS: ASPIRIN 81 MG ENTERIC TAB PO SCH (08:08)
[2017-04-24] MEDS: HYDROXYCHLOROQUINE 200 MG TAB PO SCH (08:08)
[2017-04-24] MEDS: FOLIC ACID 1 MG TAB PO SCH (08:09)
[2017-04-24] MEDS: AUGMENTIN 500 MG TAB PO SCH (08:09)
[2017-04-24 08:10] VITALS: BP 189/79
[2017-04-24] MEDS: levETIRAcetam 250MG TABLET (KEPPRA) PO SCH (08:10)
[2017-04-24] MEDS: ALLOPURINOL 100 MG TAB PO SCH (08:10)
[2017-04-24] MEDS: CARVedilol 3.125 MG TAB PO SCH (08:10)
[2017-04-24] MEDS: NIFEdipine 60 MG XL TAB PO SCH (08:10)
[2017-04-24 09:30] VITALS: BP 157/63
[2017-04-24] MEDS ORDERED: AMOX500T2 PO (11:37)
[2017-04-24 14:04] VITALS: BP 163/83
--- NOTE | 2017-04-24 14:10 | DSES ---
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 Tamez at [facility] DIS[facility] DIAGNOSES: 1. Multifocal pneumonia. 2. Possible aspiration pneumonia. 3. Pulmonary fibrosis. 4. Chronic kidney disease Stage III to IV. 5. History of CVA times two. 6. Hypertension. 7. Dementia. 8. Acute on chronic anemia, possibly anemia of chronic disease. 9. Acute urinary retention in the hospital requiring Mckeon and then passed trial of void. 10. Neurogenic bladder. 11. Diarrhea, antibiotic related. 12. Hyponatremia, resolved. 13. Seizure disorder. 14. Gout. 15. History of chronic pancreatitis secondary to alcohol abuse. DISCHARGE MEDICATIONS: - Augmentin 500 mg one tablet twice a day - albuterol sulfate 2 puffs inhalation every 4 hours as needed shortness of breath - allopurinol 100 mg by mouth daily - amitriptyline 25 mg by mouth at bedtime - aspirin 81 mg by mouth daily - Coreg 3.125 mg by mouth twice a day - clonidine 0.2 mg by mouth three times a day - esomeprazole 40 mg by mouth daily - folic acid 1 mg by mouth daily - gabapentin 300 mg by mouth three times a day - hydroxychloroquine 200 mg by mouth twice a day - levetiracetam 250 mg by mouth twice a day - lisinopril 20 mg by mouth daily - nifedipine 60 mg by mouth daily - Restasis one drop both eyes twice a day - Crestor 10 mg by mouth at bedtime HOSPITAL COURSE: This is a 76-year-old female who presented to the hospital with increased difficulty of breathing. The patient is a poor historian so most of the history was provided by family. The patient had a recent treatment in a different hospital for community acquired pneumonia and was discharged home to finish a course of treatment with oral antibiotics; however, she was found to have increasing shortness of breath at home, so was brought to the emergency room. In the emergency room, she was found to have bilateral multifocal pneumonia and was started on broad spectrum antibiotics, vancomycin and Zosyn. The patient responded well to antibiotics. In view of her recurrent pneumonia and a prior speech and swallow evaluation in rehabilitation earlier in the year, it was felt that she may have underlying silent aspiration and may have aspiration pneumonia so speech therapy was consulted and as per evaluation the patient was put on mechanical grade 2 soft diet. They felt that she is a high risk patient for aspiration. The patient responded well to antibiotics. The patient was seen by physical therapy in the hospital and passed PT. At present, the patient's vitals are stable. She does not have any complaints and functionally she is at baseline. She did have some diarrhea related to antibiotic use which improved after discontinuation of IV antibiotics. PHYSICAL EXAMINATION: VITAL SIGNS: Temperature 99.7, pulse 77, respiratory rate 20, blood pressure 157/63, pulse oximetry 96% in room air. GENERAL: The patient is awake, alert and oriented times three, sitting up in bed in no acute distress. HEENT: Normocephalic, atraumatic. Moist mucous membranes. Anicteric eyes. CHEST: Clear to auscultation. CARDIOVASCULAR: S1, S2, regular. No rub, murmur or gallop. ABDOMEN: Soft. Nontender. Bowel sounds present. EXTREMITIES: No edema. LABORATORY DATA: WBC 7.6, hemoglobin 10.4, platelets 232. Sodium 147, potassium 4.7, chloride 119, bicarbonate 19, BUN 18, creatinine 1.45, glucose 79, calcium 8.3, magnesium 1.8. Liver function tests normal. Urinalysis (UA) clean. Blood cultures are negative. Gastrointestinal panel negative. Clostridium difficile negative. Stool for occult blood was positive times one. DISPOSITION: The patient is discharged home in stable condition. DISCHARGE INSTRUCTIONS: Patient to follow up with primary care provider in one week. The patient to followup with own floor clerk, Dr. Tamez, as per outpatient schedule. Grade II mechanical soft diet. Activity as tolerated.
== END 2017-04-24 14:50 | disposition home or self-care (01) | DRG 178 ==
LOC: M ED 15:23 → M ED INP 17:55 → M PCU 04-17 16:09 → M MS5PR 04-21 16:24
PROVIDERS: ADMIT Internal Medicine; ATTEND Internal Medicine Nephrology
PROC: 02HV33Z Insertion of Infusion Device into Superior Vena Cava, Percutaneous Approach (ICD-10-PCS; principal; 2017-04-19)
DX: J69.0 Pneumonitis due to inhalation of food and vomit (principal); E87.2 Acidosis; K86.0 Alcohol-induced chronic pancreatitis; N18.4 Chronic kidney disease, stage 4 (severe); E87.1 Hypo-osmolality and hyponatremia; K86.1 Other chronic pancreatitis; I12.9 Hypertensive chronic kidney disease with stage 1 through stage 4 chronic kidney disease, or unspecified chronic kidney disease; M10.9 Gout, unspecified; G40.909 Epilepsy, unspecified, not intractable, without status epilepticus; J84.10 Pulmonary fibrosis, unspecified; Z86.73 Personal history of transient ischemic attack (TIA), and cerebral infarction without residual deficits; F03.90 Unspecified dementia, unspecified severity, without behavioral disturbance, psychotic disturbance, mood disturbance, and anxiety; R33.9 Retention of urine, unspecified; F10.10 Alcohol abuse, uncomplicated; N31.9 Neuromuscular dysfunction of bladder, unspecified; R19.7 Diarrhea, unspecified; Z79.899 Other long term (current) drug therapy; Z79.82 Long term (current) use of aspirin; K21.9 Gastro-esophageal reflux disease without esophagitis; Z88.8 Allergy status to other drugs, medicaments and biological substances; E87.5 Hyperkalemia; G60.9 Hereditary and idiopathic neuropathy, unspecified

== ENCOUNTER → 2017-05-17 | Outpatient (REF) | payer MEDICARE ==
[~2017-05-17] MED LIST changes: +ALLO10TA PO; +AMIT25TA PO; +AMOX500T2 PO; +HYDR200T3 PO; +ROSU10TA2 PO; +VENTAER IN
[2017-05-17 19:27] LABS: COMPLEMENT C4 28.7 MG/DL (10-40); PERCENT SATURATION 16.8 % (13.2-45.0)
[2017-05-17 19:50] LABS: FOLATE 18.5 NG/ML
== END ==
LOC: M LAB REF 17:29
PROVIDERS: ATTEND Internal Medicine Nephrology
DX: D50.9 Iron deficiency anemia, unspecified (principal); M32.9 Systemic lupus erythematosus, unspecified

== ENCOUNTER 2017-06-05 08:02 | Outpatient (CLI) | payer MEDICARE ==
[~2017-06-05] VITALS: Ht 157.5 cm; Wt 55.7 kg
[2017-06-05] MEDS ORDERED: IRON SUCROSE 25 MG in NS 50 ML IV ONE (09:00)
[2017-06-05] MEDS ORDERED: IRON SUCROSE 475 MG in NS 250 ML IV ONE (10:00)
== END 2017-06-05 13:30 | disposition home or self-care (01) ==
LOC: M INFU 08:02
PROVIDERS: ATTEND Internal Medicine Nephrology
DX: D50.9 Iron deficiency anemia, unspecified (principal); N18.6 End stage renal disease; I12.0 Hypertensive chronic kidney disease with stage 5 chronic kidney disease or end stage renal disease; K21.9 Gastro-esophageal reflux disease without esophagitis; F32.9 Major depressive disorder, single episode, unspecified; M54.2 Cervicalgia; Z79.82 Long term (current) use of aspirin; Z79.899 Other long term (current) drug therapy; Z88.1 Allergy status to other antibiotic agents; Z88.8 Allergy status to other drugs, medicaments and biological substances
CPT/HCPCS: 96365; 96366; J1756

== ENCOUNTER → 2017-06-13 | Outpatient (CLI) | payer MEDICARE ==
[2017-06-13 17:20] LABS: ALBUMIN 3.6 GM/DL (3.2-5.2); BILIRUBIN,TOTAL 0.7 MG/DL (0.2-1.0); CALCIUM LEVEL 9.1 MG/DL (8.8-10.2); CREATININE FOR GFR 2.12 MG/DL (0.55-1.02); PERCENT SATURATION 29.8 % (13.2-45.0); POTASSIUM SERUM 4.7 MEQ/L (3.5-5.1); TOTAL PROTEIN 7.2 GM/DL (6.4-8.2)
[2017-06-13 17:56] LABS: BASO % 0.6 % (0.0-1.0); EOS # 0.2 10^3/uL (0.0-0.50); EOS % 2.4 % (0.0-3.0); IMMATURE GRANULOCYTE % 0.3 % (0-0); LYMPH % 15.8 % (24.0-44.0); MEAN CORPUSCULAR HEMOGLOBIN 29.2 pg (27.0-33.0); MEAN CORPUSCULAR HGB CONC 31.2 g/dl (32.0-36.5); MEAN CORPUSCULAR VOLUME 93.5 fl (80.0-96.0); MONO # 0.3 10^3/uL (0.0-0.8); MONO % 4.8 % (0.0-5.0); NEUTROPHILS # 4.8 10^3/uL (1.8-7.7); NEUTROPHILS % 76.1 % (36.0-66.0); PLATELET COUNT, AUTOMATED 264 10^3/uL (150-450); RED CELL DISTRIBUTION WIDTH 16.5 % (11.5-14.5); WHITE BLOOD COUNT 6.3 10^3/uL (4.0-10.0)
== END ==
LOC: M SMT 14:07
PROVIDERS: ATTEND Family Medicine
DX: N17.9 Acute kidney failure, unspecified (principal); K86.0 Alcohol-induced chronic pancreatitis; D50.9 Iron deficiency anemia, unspecified; E55.9 Vitamin D deficiency, unspecified; F10.10 Alcohol abuse, uncomplicated

== ENCOUNTER 2017-06-28 14:24 | Outpatient (RCR) | payer MEDICARE | END 2017-07-02 | LOC: M ST 14:24 | DX: Z51.89 Encounter for other specified aftercare (principal); J38.3 Other diseases of vocal cords | CPT/HCPCS: 92610 ==

== ENCOUNTER 2017-07-04 14:25 | Outpatient (RCR) | payer MEDICARE | END 2017-08-02 | LOC: M ST 14:25 | DX: Z51.89 Encounter for other specified aftercare (principal); J38.3 Other diseases of vocal cords | CPT/HCPCS: 92526 ==

== ENCOUNTER → 2017-07-13 | Outpatient (CLI) | payer MEDICARE | LOC: M SMT 13:15 | DX: J84.9 Interstitial pulmonary disease, unspecified (principal); J20.9 Acute bronchitis, unspecified | CPT/HCPCS: 71046 ==

== ENCOUNTER 2017-11-30 18:20 | Emergency (ER) | payer MEDICARE ==
[2017-11-30 18:42] LABS: BEDSIDE GLUCOSE 141 MG/DL (83-110)
[2017-11-30 18:58] LABS: BASO # 0.1 10^3/uL (0.0-0.2); BASO % 0.7 % (0.0-1.0); EOS # 0.2 10^3/uL (0.0-0.50); EOS % 2.7 % (0.0-3.0); HEMATOCRIT 33.6 % (36.0-47.0); HEMOGLOBIN 10.8 g/dl (12.0-15.5); IMMATURE GRANULOCYTE % 0.2 % (0-3.0); LYMPH # 2.9 10^3/uL (1.5-4.5); LYMPH % 33.9 % (24.0-44.0); MEAN CORPUSCULAR HEMOGLOBIN 29.8 pg (27.0-33.0); MEAN CORPUSCULAR HGB CONC 32.1 g/dl (32.0-36.5); MEAN CORPUSCULAR VOLUME 92.8 fl (80.0-96.0); MONO # 0.3 10^3/uL (0.0-0.8); MONO % 3.6 % (0.0-5.0); NEUTROPHILS % 58.9 % (36.0-66.0); PLATELET COUNT, AUTOMATED 242 10^3/uL (150-450); RED BLOOD COUNT 3.62 10^6/uL (4.00-5.40); RED CELL DISTRIBUTION WIDTH 13.7 % (11.5-14.5); WHITE BLOOD COUNT 8.4 10^3/uL (4.0-10.0)
[2017-11-30 19:06] LABS: ABG BASE EXCESS -7.5 (-2.0-2.0); ABG HCO3 17.1 MEQ/L (22.0-26.0); ABG PARTIAL PRESSURE O2 61.3 mmHg (75.0-100.0); ABG STANDARD HCO3 18.2 MEQ/L (22.0-26.0); ABG TOTAL CO2 18.1 MEQ/L (23.0-31.0); ABG pH (ARTERIAL) 7.345 UNITS (7.350-7.450)
[2017-11-30 19:24] LABS: AMMONIA 62 uMOL/L (<32)
[2017-11-30 19:39] LABS: OSMOLALITY SERUM 394 MOSM/KG (280-301)
[2017-11-30 19:45] LABS: AMORPHOUS SEDIMENT SMALL (NEGATIVE); APPEARANCE, URINE CLOUDY (CLEAR); BACTERIA, URINE AUTO 2+ (NEGATIVE); BILIRUBIN, URINE AUTO NEGATIVE (NEGATIVE); BLOOD, URINE BLOOD NEGATIVE (NEGATIVE); COLOR, URINE YELLOW (YELLOW); GLUCOSE, URINE (UA) AUTO NEGATIVE (NEGATIVE); KETONE, URINE AUTO NEGATIVE (NEGATIVE); LEUKOCYTE ESTERASE, URINE AUTO 1+ (NEGATIVE); MUCUS, URINE SMALL (NEGATIVE); NITRITE, URINE AUTO NEGATIVE (NEGATIVE); PROTEIN, URINE AUTO 3+ mg/dL (NEGATIVE); RBC, URINE AUTO 3 /HPF (0-3); SPECIFIC GRAVITY URINE AUTO 1.009 (1.002-1.035); SQUAMOUS EPITHELIAL CELL UR AU 0 /HPF (0-6); UROBILINOGEN, URINE AUTO 0.2 mg/dL (0.0-2.0); WBC, URINE AUTO 31 /HPF (0-3)
[2017-11-30 19:52] LABS: LACTIC ACID SEPSIS PROTOCOL 2.9 MMOL/L (0.4-2.0)
[2017-11-30 19:57] LABS: ACETAMINOPHEN LEVEL < 2.0 UG/ML (10.0-30.0); ALBUMIN/GLOBULIN RATIO 0.83 (1.00-1.93); ALKALINE PHOSPHATASE 146 U/L (45-117); ALT/SGPT 19 U/L (12-78); ANION GAP 13 MEQ/L (8-16); AST/SGOT 29 U/L (7-37); BILIRUBIN,DIRECT 0.1 MG/DL (0.0-0.2); BILIRUBIN,TOTAL 0.4 MG/DL (0.2-1.0); BLOOD UREA NITROGEN 32 MG/DL (7-18); CALCIUM LEVEL 7.7 MG/DL (8.8-10.2); CARBON DIOXIDE LEVEL 18 MEQ/L (21-32); CHLORIDE LEVEL 111 MEQ/L (98-107); CPK CREATINE PHOSPHOKINASE 116 U/L (26-192); CREATININE FOR GFR 2.67 MG/DL (0.55-1.30); ETHYL ALCOHOL (ETHANOL) 0.382 % (0.000-0.010); GLOMERULAR FILTRATION RATE 18.3 (>39); GLUCOSE, FASTING 112 MG/DL (70-100); MAGNESIUM LEVEL 2.9 MG/DL (1.8-2.4); PHOSPHORUS LEVEL 3.7 MG/DL (2.5-4.9); POTASSIUM SERUM 4.1 MEQ/L (3.5-5.1); SALICYLATE LEVEL < 1.7 MG/DL (5.0-30.0); SODIUM LEVEL 142 MEQ/L (136-145); TOTAL PROTEIN 6.6 GM/DL (6.4-8.2)
[2017-11-30 19:59] LABS: AMPHETAMINES LEVEL URINE NEGATIVE (NEGATIVE); BARBITURATES URINE NEGATIVE (NEGATIVE); BENZODIAZEPINES URINE NEGATIVE (NEGATIVE); CANNABINOIDS URINE NEGATIVE (NEGATIVE); COCAINE METABOLITE URINE NEGATIVE (NEGATIVE); METHADONE URINE NEGATIVE (NEGATIVE); OPIATES URINE NEGATIVE (NEGATIVE); PHENCYCLIDINE URINE NEGATIVE (NEGATIVE)
[2017-11-30] MEDS: LACTULOSE 20 GM/30 ML SYRUP UD PO ×2 (20:21)
[2017-11-30 23:13] LABS: BEDSIDE GLUCOSE 105 MG/DL (83-110)
[2017-12-01] MEDS: MULTIVITAMIN -ADULT INJECTION 10 ML, THIAMINE INJection 100 MG, FOLIC ACID 1 MG in NS 1... IV ×2
== END 2017-12-01 00:06 | disposition home or self-care (01) ==
LOC: M ED 12-01 00:06
DX: F10.129 Alcohol abuse with intoxication, unspecified (principal); Y90.1 Blood alcohol level of 20-39 mg/100 ml; K74.60 Unspecified cirrhosis of liver; I12.9 Hypertensive chronic kidney disease with stage 1 through stage 4 chronic kidney disease, or unspecified chronic kidney disease; F03.90 Unspecified dementia, unspecified severity, without behavioral disturbance, psychotic disturbance, mood disturbance, and anxiety; K21.9 Gastro-esophageal reflux disease without esophagitis; N18.9 Chronic kidney disease, unspecified; J84.10 Pulmonary fibrosis, unspecified; Z79.899 Other long term (current) drug therapy; Z79.82 Long term (current) use of aspirin; Z88.1 Allergy status to other antibiotic agents; Z88.8 Allergy status to other drugs, medicaments and biological substances
CPT/HCPCS: 71045

== ENCOUNTER → 2018-01-19 | Outpatient (CLI) | payer MEDICARE | LOC: M RAD 11:40 | DX: Z01.818 Encounter for other preprocedural examination (principal); N18.6 End stage renal disease | CPT/HCPCS: G0365 ==

== ENCOUNTER → 2018-01-24 | Outpatient (CLI) | payer MEDICARE | LOC: M RAD 13:41 | DX: R29.6 Repeated falls (principal); R26.81 Unsteadiness on feet; S09.0XXA Injury of blood vessels of head, not elsewhere classified, initial encounter | CPT/HCPCS: 70450 ==

== ENCOUNTER → 2018-01-25 | Outpatient (REF) | payer MEDICARE ==
[2018-02-04 00:06] LABS: FATS NEUTRAL Normal (.); FATS TOTAL Normal (.); PANCREATIC ELASTASE STOOL >500 (>200)
== END ==
LOC: M LAB REF 12:40
DX: K59.1 Functional diarrhea (principal); K21.9 Gastro-esophageal reflux disease without esophagitis
CPT/HCPCS: 82705

== ENCOUNTER 2018-02-06 07:11 | Day surgery (SDC) | payer MEDICARE ==
[~2018-02-06 07:11] MED LIST changes: -/ESOM40CA; -/ESOM40CA OR; -/FEXO18TA OR; -/ONDA4TA OR; -ACTI300C; -ACTI300C OR; -ALBU17IN INH; -ALLO10TA PO; -AMIT25TA PO; -AMIT50TA PO; -AMIT50TA2 OR; -AMOX500T2 PO; -ASPI325T; -ASPI325T24 PO; -ASPI81TA18 PO; -AUGM12TA11 PO; -AZIT-12 PO; -BACITAB PO; -CARV3.12 PO; -CARV6.25 PO; -CEFD1CAP8 PO; -CEPH500T PO; -CLON0.2T PO; -COLA100C5 PO; -COLE625TAB PO; -DARV100T OR; -DEXI30CA2 PO; -DIPH25CA PO; -DOC-Q-LACE PO; -DULC10SU2 PR; -ECOT325T5 OR; -ECOT325T5 PO; -ENEMENE6 PR; -ENSULIQ64 PO; -ESOM1CAP5 PO; -FENO134C PO; -FERR325T3 PO; -FEVE650S3 PR; -FIRS1SOL3 PO; -FLON0.05; -FOLI1TAB4 PO; -GABA-279 PO; -HYDR-3363 PO; -HYDR-3910 PO; -HYDR10TAB PO; -HYDR200T3 PO; -HYDROXYCHLOROQUINE PO; -KEPP1TAB PO; -LEVA250T; -LEVA500T OR; -LEVE250T5 PO; -LEVE750T5 PO; -LIDO5DIS EX; -LISI-538 PO; -LISI-542 PO; +LR 1,000 ML IV; -MELA3TAB49 PO; -MILKSUS PO; -MIRA3350 PO; -MOM30SS PO; -MULT1TAB20 PO; -NATU400T PO; -NIFE60TA6 PO; -NIFE60TA8; -NIFE60TA8 OR; -NYST50SS SS; -ONDA4TAB5 PO; -OXYCO5TA PO; -PAME50CA PO; -PRED10TA2 PO; -PREG50CA PO; -Patient Own Medication OU; -QUES4POW PO; -REST0.05 OU; -ROSU10TA2 PO; -SUCR1SS PO; -SYST1SOL OU; -THIA100TA PO; -TRIC145T19; -TRIC145T19 OR; -TRIC145T22 PO; -TYLE325T5 PO; -VENTAER IN; -VICO5TAB; -VICO5TAB OR; -VITA100066 PO; -VITA100T OR; -VITA100T60 PO; -VITA20002; -VITA500046 PO; -VITAMIN D PO; -VITAMIN D50000 UNT OR; -VITMTA PO; -WELCHOL; -WELCHOL PO; -ZOFR4TAB3 PO; -ZOLO50TA PO; -[UNRECOGNIZED DRUG - OTHER]
[2018-02-06 07:59] LABS: POTASSIUM SERUM 4.2 MEQ/L (3.5-5.1)
[2018-02-06] MEDS ORDERED: LR 1,000 ML IV (08:15)
[2018-02-06] MEDS ORDERED: fentaNYL 100 MCG/2 ML INJECTION (J3010) As Ordered (08:56)
[2018-02-06] MEDS ORDERED: LIDOCAINE 2% INJ 100 MG/5 ML SDV (FOR ANES.) As Ordered (08:56)
[2018-02-06] MEDS ORDERED: dexameTHASONE 4 MG/ML 1ML VIAL (J1100) As Ordered (08:56)
[2018-02-06] MEDS ORDERED: ONDANSETRON 4MG/2ML VIAL (J2405) As Ordered (08:56)
[2018-02-06] MEDS ORDERED: PROPOFOL 200 MG/20 ML VIAL As Ordered (08:56)
[2018-02-06] MEDS: HEPARIN SOD (PORCINE) 5000 UNITS/ML VIAL As Ordered (09:04)
[2018-02-06] MEDS: LIDOCAINE 1% SDV INJ 30 ML VIAL As Ordered (09:05)
[2018-02-06] MEDS: BUPIVACAINE HCL 0.5% 30 ML VIAL As Ordered (09:05)
[2018-02-06] MEDS ORDERED: ONDANSETRON 4MG/2ML VIAL (J2405) IV (10:15)
[2018-02-06] MEDS ORDERED: HYDROMORPHONE HCL 0.5 MG/ 0.5 ML SYRINGE (J1170 PER 1) IV (10:15)
[2018-02-06] MEDS ORDERED: fentaNYL 100 MCG/2 ML INJECTION (J3010) IV (10:15)
[2018-02-06] MEDS ORDERED: NS 500 ML IV (10:15)
[2018-02-06] MEDS ORDERED: PERCOCET 5MG/325MG TAB PO (10:15)
== END 2018-02-06 11:23 | disposition home or self-care (01) ==
LOC: M SDC 07:11
DX: N18.9 Chronic kidney disease, unspecified (principal); I87.8 Other specified disorders of veins; I12.9 Hypertensive chronic kidney disease with stage 1 through stage 4 chronic kidney disease, or unspecified chronic kidney disease; E78.5 Hyperlipidemia, unspecified; M10.9 Gout, unspecified; D64.9 Anemia, unspecified; Z87.891 Personal history of nicotine dependence; Z79.899 Other long term (current) drug therapy; J44.9 Chronic obstructive pulmonary disease, unspecified; M32.10 Systemic lupus erythematosus, organ or system involvement unspecified; F03.90 Unspecified dementia, unspecified severity, without behavioral disturbance, psychotic disturbance, mood disturbance, and anxiety; F32.9 Major depressive disorder, single episode, unspecified; Z86.73 Personal history of transient ischemic attack (TIA), and cerebral infarction without residual deficits; Z88.1 Allergy status to other antibiotic agents; Z88.8 Allergy status to other drugs, medicaments and biological substances
CPT/HCPCS: 36821

== ENCOUNTER → 2018-02-14 | Outpatient (CLI) | payer MEDICARE ==
[~2018-02-14] MED LIST changes: +ISOVUE-300 61% 50ML VIAL (Q9967) As Ordered; -LR 1,000 ML IV; +MIDAZOLAM INJ 2 MG/2 ML VIAL (J2250) As Ordered; +NORCO, ANEXSIA 5/325MG TABLET (HYDROcodone/ACETAMINOPHEN) As Ordered; +fentaNYL 100 MCG/2 ML INJECTION (J3010) As Ordered
== END | disposition home or self-care (01) ==
LOC: M IRPRO 06:25
DX: T82.858A Stenosis of other vascular prosthetic devices, implants and grafts, initial encounter (principal); N18.9 Chronic kidney disease, unspecified
CPT/HCPCS: 36902

== ENCOUNTER 2018-03-17 21:55 | Emergency (ER) | payer MEDICARE ==
[2018-03-17] MEDS: ACETAMINOPHEN 325 MG TAB PO (23:30)
[2018-03-17 23:43] LABS: KETONE, URINE AUTO RFX NEGATIVE (NEGATIVE); NITRITE, URINE AUTO RFX NEGATIVE (NEGATIVE); RBC, URINE AUTO RFX 12 /HPF (0-3); SPECIFIC GRAVITY UR AUTO RFX 1.005 (1.002-1.035); SQUAM EPITHELIAL CELL UR AURFX 0 /HPF (0-6)
[2018-03-18] MEDS: LABETALOL HCL 100 MG/20 ML VIAL IV
[2018-03-18 00:08] LABS: LEUKOCYTE ESTERASE UR AUTO RFX 3+ (NEGATIVE); WBC, URINE AUTO RFX TNTC /HPF (0-3)
[2018-03-18] MEDS: NS 1,000 ML IV (00:19)
[2018-03-18 00:21] LABS: BASO % 0.4 % (0.0-1.0); EOS # 0.2 10^3/uL (0.0-0.50); EOS % 2.1 % (0.0-3.0); HEMATOCRIT 26.7 % (36.0-47.0); HEMOGLOBIN 8.9 g/dl (12.0-15.5); IMMATURE GRANULOCYTE % 0.8 % (0-3.0); LYMPH # 0.8 10^3/uL (1.5-4.5); LYMPH % 8.1 % (24.0-44.0); MEAN CORPUSCULAR HEMOGLOBIN 30.4 pg (27.0-33.0); MEAN CORPUSCULAR HGB CONC 33.3 g/dl (32.0-36.5); MEAN CORPUSCULAR VOLUME 91.1 fl (80.0-96.0); MONO # 0.5 10^3/uL (0.0-0.8); MONO % 5.2 % (0.0-5.0); NEUTROPHILS # 7.7 10^3/uL (1.8-7.7); NEUTROPHILS % 83.4 % (36.0-66.0); PLATELET COUNT, AUTOMATED 139 10^3/uL (150-450); RED BLOOD COUNT 2.93 10^6/uL (4.00-5.40); RED CELL DISTRIBUTION WIDTH 14.1 % (11.5-14.5); WHITE BLOOD COUNT 9.2 10^3/uL (4.0-10.0)
[2018-03-18 00:32] LABS: LACTIC ACID SEPSIS PROTOCOL 0.9 MMOL/L (0.4-2.0)
[2018-03-18 00:33] LABS: ALBUMIN/GLOBULIN RATIO 1.03 (1.00-1.93); ALKALINE PHOSPHATASE 128 U/L (45-117); ALT/SGPT 48 U/L (12-78); ANION GAP 10 MEQ/L (8-16); AST/SGOT 51 U/L (7-37); BILIRUBIN,DIRECT 0.2 MG/DL (0.0-0.2); BILIRUBIN,TOTAL 0.8 MG/DL (0.2-1.0); BLOOD UREA NITROGEN 39 MG/DL (7-18); CALCIUM LEVEL 8.3 MG/DL (8.8-10.2); CARBON DIOXIDE LEVEL 19 MEQ/L (21-32); CHLORIDE LEVEL 111 MEQ/L (98-107); CREATININE FOR GFR 2.38 MG/DL (0.55-1.30); GLOMERULAR FILTRATION RATE 20.9 (>39); GLUCOSE, FASTING 90 MG/DL (70-100); LIPASE 75 U/L (73-393); POTASSIUM SERUM 4.5 MEQ/L (3.5-5.1); SODIUM LEVEL 140 MEQ/L (136-145); TOTAL PROTEIN 5.9 GM/DL (6.4-8.2)
[2018-03-18] MEDS: cefTRIAXone SOD 1 GM in D5W MINI-BAG PLUS 50 ML IV (01:35)
[2018-03-18] MEDS: MORPHINE 2 MG/ML 1ML SYRINGE (J2270) IV (01:45)
== END 2018-03-18 04:32 | disposition left against medical advice (07) ==
LOC: M ED 03-18 04:32
DX: N39.0 Urinary tract infection, site not specified (principal); E11.9 Type 2 diabetes mellitus without complications; I10 Essential (primary) hypertension; I25.10 Atherosclerotic heart disease of native coronary artery without angina pectoris; N19 Unspecified kidney failure; F03.90 Unspecified dementia, unspecified severity, without behavioral disturbance, psychotic disturbance, mood disturbance, and anxiety; Z79.899 Other long term (current) drug therapy; Z88.1 Allergy status to other antibiotic agents; Z88.8 Allergy status to other drugs, medicaments and biological substances; Z87.891 Personal history of nicotine dependence
CPT/HCPCS: J0696

== ENCOUNTER 2018-03-18 22:19 | Emergency (ER) | payer MEDICARE | END 2018-03-19 00:23 | disposition home or self-care (01) | LOC: M ED 03-19 00:23 | DX: R33.9 Retention of urine, unspecified (principal); I10 Essential (primary) hypertension; J44.9 Chronic obstructive pulmonary disease, unspecified; K21.9 Gastro-esophageal reflux disease without esophagitis; G89.29 Other chronic pain; M54.9 Dorsalgia, unspecified; Z86.73 Personal history of transient ischemic attack (TIA), and cerebral infarction without residual deficits; Z79.82 Long term (current) use of aspirin; Z79.899 Other long term (current) drug therapy; Z88.1 Allergy status to other antibiotic agents; Z88.8 Allergy status to other drugs, medicaments and biological substances | CPT/HCPCS: 51702 ==

== ENCOUNTER 2018-03-23 23:01 | Emergency (ER) | payer MEDICARE ==
[2018-03-24] MEDS: predniSONE 20 MG TAB PO (01:32)
[2018-03-24] MEDS: ACETAMINOPH W/CODEINE #3 TAB UD PO (01:32)
== END 2018-03-24 02:30 | disposition home or self-care (01) ==
LOC: M ED 23:01
DX: M54.5 Low back pain (principal); T83.018A Breakdown (mechanical) of other urinary catheter, initial encounter; Y92.9 Unspecified place or not applicable; Y93.9 Activity, unspecified; I10 Essential (primary) hypertension; N39.0 Urinary tract infection, site not specified; Z86.73 Personal history of transient ischemic attack (TIA), and cerebral infarction without residual deficits; N18.9 Chronic kidney disease, unspecified; Z87.891 Personal history of nicotine dependence; Z79.82 Long term (current) use of aspirin; Z79.84 Long term (current) use of oral hypoglycemic drugs; Z88.1 Allergy status to other antibiotic agents; Z88.8 Allergy status to other drugs, medicaments and biological substances
CPT/HCPCS: 74018

== ENCOUNTER 2018-04-08 11:55 | Emergency (ER) | payer MEDICARE ==
[2018-04-08 12:48] LABS: AMORPHOUS SEDIMENT RFX SMALL (NEGATIVE); KETONE, URINE AUTO RFX NEGATIVE (NEGATIVE); RBC, URINE AUTO RFX 3 /HPF (0-3); SPECIFIC GRAVITY UR AUTO RFX 1.013 (1.002-1.035); SQUAM EPITHELIAL CELL UR AURFX 0 /HPF (0-6)
[2018-04-08 12:49] LABS: LEUKOCYTE ESTERASE UR AUTO RFX 3+ (NEGATIVE); NITRITE, URINE AUTO RFX POSITIVE (NEGATIVE); WBC, URINE AUTO RFX TNTC /HPF (0-3)
== END 2018-04-08 13:10 | disposition home or self-care (01) ==
LOC: M ED 11:55
DX: N30.00 Acute cystitis without hematuria (principal); T83.028A Displacement of other urinary catheter, initial encounter; Y73.2 Prosthetic and other implants, materials and accessory gastroenterology and urology devices associated with adverse incidents; E11.9 Type 2 diabetes mellitus without complications; I12.9 Hypertensive chronic kidney disease with stage 1 through stage 4 chronic kidney disease, or unspecified chronic kidney disease; F32.9 Major depressive disorder, single episode, unspecified; M54.9 Dorsalgia, unspecified; R51 Headache; N17.9 Acute kidney failure, unspecified; N18.9 Chronic kidney disease, unspecified; Z87.19 Personal history of other diseases of the digestive system; F03.90 Unspecified dementia, unspecified severity, without behavioral disturbance, psychotic disturbance, mood disturbance, and anxiety; Z88.1 Allergy status to other antibiotic agents; Z88.8 Allergy status to other drugs, medicaments and biological substances; Z79.899 Other long term (current) drug therapy; Z79.2 Long term (current) use of antibiotics; Z79.82 Long term (current) use of aspirin
CPT/HCPCS: 81001

== ENCOUNTER → 2018-04-10 | Outpatient (REF) | payer MEDICARE ==
[2018-04-11 14:12] LABS: CHOLESTEROL LEVEL 116 MG/DL (<200); CHOLESTEROL RISK RATIO 1.812 (<5); HDL CHOLESTEROL 64 MG/DL (>40); LDL CHOLESTEROL 37 MG/DL (<100); NON-HDL-C 52 MG/DL; TRIGLYCERIDES LEVEL 74 MG/DL (<150)
[2018-04-13 14:44] LABS: HEPATITIS B SURFACE ANTIBODY NEGATIVE (POSITIVE)
[2018-04-13 14:54] LABS: HEPATITIS B SURFACE ANTIGEN NEGATIVE (NEGATIVE)
[2018-04-13 15:23] LABS: HEPATITIS B CORE ANTIBODY IGM NEGATIVE (NEGATIVE); HEPATITIS C VIRUS ABY INDEX < 0.0 INDEX (<0.8)
== END ==
LOC: M LAB REF 04-11 13:03
DX: N18.5 Chronic kidney disease, stage 5 (principal)
CPT/HCPCS: 86706

== ENCOUNTER 2018-05-01 08:53 | Inpatient (IN) | payer MEDICARE ==
[2018-05-01] MEDS: SERTRALINE HCL 50 MG TAB PO (09:00)
[2018-05-01] MEDS: THIAMINE 100 MG TAB PO (09:00)
[2018-05-01] MEDS: OMEPRAZOLE 20 MG CAP PO (09:00)
[2018-05-01] MEDS: amLODIPine 5 MG TAB PO (09:00)
[2018-05-01] MEDS: ALLOPURINOL 100 MG TAB PO (09:00)
[2018-05-01] MEDS: ROSUVASTATIN 10 MG TAB (CRESTOR) PO (09:00)
[2018-05-01] MEDS: NS 1,000 ML IV ×3 (09:40→22:07)
[2018-05-01] MEDS: NORCO, ANEXSIA 5/325MG TABLET (HYDROcodone/ACETAMINOPHEN) PO (09:40)
[2018-05-01 10:12] LABS: BASO # 0.1 10^3/uL (0.0-0.2); BASO % 0.7 % (0.0-1.0); EOS # 0.3 10^3/uL (0.0-0.50); EOS % 4.3 % (0.0-3.0); IMMATURE GRANULOCYTE % 0.3 % (0-3.0); LYMPH # 1.6 10^3/uL (1.5-4.5); LYMPH % 22.4 % (24.0-44.0); MEAN CORPUSCULAR HEMOGLOBIN 30.1 pg (27.0-33.0); MEAN CORPUSCULAR HGB CONC 32.1 g/dl (32.0-36.5); MEAN CORPUSCULAR VOLUME 93.6 fl (80.0-96.0); MONO # 0.4 10^3/uL (0.0-0.8); MONO % 5.9 % (0.0-5.0); NEUTROPHILS # 4.6 10^3/uL (1.8-7.7); NEUTROPHILS % 66.4 % (36.0-66.0); PLATELET COUNT, AUTOMATED 245 10^3/uL (150-450); RED BLOOD COUNT 2.99 10^6/uL (4.00-5.40); RED CELL DISTRIBUTION WIDTH 16.2 % (11.5-14.5)
[2018-05-01 10:13] LABS: KETONE, URINE AUTO RFX NEGATIVE (NEGATIVE); NITRITE, URINE AUTO RFX NEGATIVE (NEGATIVE); RBC, URINE AUTO RFX 0 /HPF (0-3); SPECIFIC GRAVITY UR AUTO RFX 1.011 (1.002-1.035); SQUAM EPITHELIAL CELL UR AURFX 0 /HPF (0-6); TRIPLE PHOSPHATE CRYSTALS RFX LARGE
[2018-05-01 10:23] LABS: ALBUMIN 2.8 GM/DL (3.2-5.2); ALBUMIN/GLOBULIN RATIO 0.97 (1.00-1.93); ALKALINE PHOSPHATASE 145 U/L (45-117); ALT/SGPT 32 U/L (12-78); ANION GAP 6 MEQ/L (8-16); AST/SGOT 36 U/L (7-37); BILIRUBIN,DIRECT 0.1 MG/DL (0.0-0.2); BILIRUBIN,TOTAL 0.5 MG/DL (0.2-1.0); BLOOD UREA NITROGEN 19 MG/DL (7-18); CALCIUM LEVEL 8.6 MG/DL (8.8-10.2); CARBON DIOXIDE LEVEL 25 MEQ/L (21-32); CHLORIDE LEVEL 114 MEQ/L (98-107); CREATININE FOR GFR 1.73 MG/DL (0.55-1.30); GLOMERULAR FILTRATION RATE 30.2 (>39); GLUCOSE, FASTING 105 MG/DL (70-100); LIPASE 465 U/L (73-393); POTASSIUM SERUM 3.9 MEQ/L (3.5-5.1); SODIUM LEVEL 145 MEQ/L (136-145); TOTAL PROTEIN 5.7 GM/DL (6.4-8.2)
[2018-05-01 10:39] LABS: LEUKOCYTE ESTERASE UR AUTO RFX 3+ (NEGATIVE); WBC, URINE AUTO RFX 18 /HPF (0-3)
[2018-05-01] MEDS: ONDANSETRON 4MG/2ML VIAL (J2405) IV (13:43)
[2018-05-01] MEDS: MORPHINE 2 MG/ML 1ML SYRINGE (J2270) IV (13:47)
[2018-05-01] MEDS ORDERED: ACETAMINOPHEN TAB 650MG DOSE (2X325MG) PO (14:45)
[2018-05-01] MEDS ORDERED: BISACODYL 5 MG TAB PO (14:45)
[2018-05-01] MEDS ORDERED: ALBUTEROL 90 MCG/ACT 8GM HFA INHALER INH (14:45)
[2018-05-01] MEDS ORDERED: DEXTRAN/HYPROMELLOSE OPHTH SOLN 15 ML(GENTEAL TEARS) OU (14:45)
[2018-05-01] MEDS ORDERED: IPRATROPIUM 0.5MG/ALBUTEROL 2.5MG INH SOL UD 3ML (DUONEB)(J7620) NEB (15:15)
[2018-05-01] MEDS: MORPHINE 4 MG/ML 1ML VIAL/SYRINGE (J2270) IV ×2 (18:09→22:08)
[2018-05-01] MEDS: AMITRIPTYLINE 25 MG TAB PO (22:04)
[2018-05-01] MEDS: HYDROXYCHLOROQUINE 200 MG TAB PO (22:04)
[2018-05-01] MEDS: CARVedilol 3.125 MG TAB PO (22:07)
[2018-05-02 06:51] LABS: BASO % 0.8 % (0.0-1.0); EOS # 0.4 10^3/uL (0.0-0.50); EOS % 7.3 % (0.0-3.0); HEMATOCRIT 23.1 % (36.0-47.0); HEMOGLOBIN 7.2 g/dl (12.0-15.5); IMMATURE GRANULOCYTE % 0.4 % (0-3.0); LYMPH # 1.5 10^3/uL (1.5-4.5); LYMPH % 28.7 % (24.0-44.0); MEAN CORPUSCULAR HEMOGLOBIN 30.3 pg (27.0-33.0); MEAN CORPUSCULAR HGB CONC 31.2 g/dl (32.0-36.5); MEAN CORPUSCULAR VOLUME 97.1 fl (80.0-96.0); MONO # 0.4 10^3/uL (0.0-0.8); MONO % 7.3 % (0.0-5.0); NEUTROPHILS # 2.9 10^3/uL (1.8-7.7); NEUTROPHILS % 55.5 % (36.0-66.0); PLATELET COUNT, AUTOMATED 181 10^3/uL (150-450); RED BLOOD COUNT 2.38 10^6/uL (4.00-5.40); RED CELL DISTRIBUTION WIDTH 16.3 % (11.5-14.5); WHITE BLOOD COUNT 5.2 10^3/uL (4.0-10.0)
[2018-05-02 07:06] LABS: ANION GAP 9 MEQ/L (8-16); BLOOD UREA NITROGEN 16 MG/DL (7-18); CALCIUM LEVEL 7.6 MG/DL (8.8-10.2); CARBON DIOXIDE LEVEL 22 MEQ/L (21-32); CHLORIDE LEVEL 117 MEQ/L (98-107); CREATININE FOR GFR 1.61 MG/DL (0.55-1.30); GLOMERULAR FILTRATION RATE 32.9 (>39); GLUCOSE, FASTING 74 MG/DL (70-100); POTASSIUM SERUM 3.8 MEQ/L (3.5-5.1); SODIUM LEVEL 148 MEQ/L (136-145)
[2018-05-02] MEDS: OMEPRAZOLE 20 MG CAP PO (09:33)
[2018-05-02] MEDS: ROSUVASTATIN 10 MG TAB (CRESTOR) PO (09:33)
[2018-05-02] MEDS: NS 1,000 ML IV (09:34)
[2018-05-02] MEDS: THIAMINE 100 MG TAB PO (09:34)
[2018-05-02] MEDS: amLODIPine 5 MG TAB PO (09:34)
[2018-05-02] MEDS: CARVedilol 3.125 MG TAB PO ×2 (09:34→20:33)
[2018-05-02] MEDS: SERTRALINE HCL 50 MG TAB PO (09:34)
[2018-05-02] MEDS: ALLOPURINOL 100 MG TAB PO (09:34)
[2018-05-02] MEDS: HYDROXYCHLOROQUINE 200 MG TAB PO ×2 (09:39→20:39)
[2018-05-02] MEDS: MORPHINE 4 MG/ML 1ML VIAL/SYRINGE (J2270) IV (09:40)
[2018-05-02] MEDS: PERCOCET 5MG/325MG TAB PO ×2 (13:56→20:33)
[2018-05-02 17:14] LABS: IMMEDIATE SPIN CROSSMATCH 1 1
[2018-05-02] MEDS: FUROSEMIDE 40 MG/4 ML VIAL (J1940) IV (20:31)
[2018-05-02] MEDS: AMITRIPTYLINE 25 MG TAB PO (20:33)
[2018-05-03 09:37] LABS: BASO % 0.4 % (0.0-1.0); EOS # 0.4 10^3/uL (0.0-0.50); EOS % 5.3 % (0.0-3.0); HEMATOCRIT 30.2 % (36.0-47.0); IMMATURE GRANULOCYTE % 0.4 % (0-3.0); LYMPH # 1.4 10^3/uL (1.5-4.5); LYMPH % 19.3 % (24.0-44.0); MEAN CORPUSCULAR HEMOGLOBIN 30.9 pg (27.0-33.0); MEAN CORPUSCULAR HGB CONC 31.8 g/dl (32.0-36.5); MEAN CORPUSCULAR VOLUME 97.1 fl (80.0-96.0); MONO # 0.4 10^3/uL (0.0-0.8); MONO % 5.9 % (0.0-5.0); NEUTROPHILS # 5.1 10^3/uL (1.8-7.7); NEUTROPHILS % 68.7 % (36.0-66.0); PLATELET COUNT, AUTOMATED 103 10^3/uL (150-450); RED BLOOD COUNT 3.11 10^6/uL (4.00-5.40); RED CELL DISTRIBUTION WIDTH 15.9 % (11.5-14.5); WHITE BLOOD COUNT 7.4 10^3/uL (4.0-10.0)
[2018-05-03 09:48] LABS: ALBUMIN 2.3 GM/DL (3.2-5.2); ALBUMIN/GLOBULIN RATIO 0.88 (1.00-1.93); ALKALINE PHOSPHATASE 112 U/L (45-117); ALT/SGPT 25 U/L (12-78); ANION GAP 8 MEQ/L (8-16); AST/SGOT 28 U/L (7-37); BILIRUBIN,TOTAL 0.7 MG/DL (0.2-1.0); BLOOD UREA NITROGEN 20 MG/DL (7-18); CARBON DIOXIDE LEVEL 21 MEQ/L (21-32); CHLORIDE LEVEL 115 MEQ/L (98-107); CREATININE FOR GFR 1.79 MG/DL (0.55-1.30); GLOMERULAR FILTRATION RATE 29.1 (>39); GLUCOSE, FASTING 77 MG/DL (70-100); POTASSIUM SERUM 3.7 MEQ/L (3.5-5.1); SODIUM LEVEL 144 MEQ/L (136-145); TOTAL PROTEIN 4.9 GM/DL (6.4-8.2)
[2018-05-03] MEDS: OMEPRAZOLE 20 MG CAP PO (10:05)
[2018-05-03] MEDS: ALLOPURINOL 100 MG TAB PO (10:06)
[2018-05-03] MEDS: ROSUVASTATIN 10 MG TAB (CRESTOR) PO (10:06)
[2018-05-03] MEDS: SERTRALINE HCL 50 MG TAB PO (10:06)
[2018-05-03] MEDS: THIAMINE 100 MG TAB PO (10:08)
[2018-05-03] MEDS: amLODIPine 5 MG TAB PO (10:08)
[2018-05-03] MEDS: CARVedilol 3.125 MG TAB PO ×2 (10:09→21:51)
[2018-05-03] MEDS: FLUBLOK(EGG FREE)(QUAD)INFLUENZA VACC 0.5ML SYRINGE (90682)18YRS&OLDER IM (10:10)
[2018-05-03] MEDS: HYDROXYCHLOROQUINE 200 MG TAB PO ×2 (10:13→21:52)
[2018-05-03] MEDS: PERCOCET 5MG/325MG TAB PO ×2 (10:19→23:32)
[2018-05-03 10:23] LABS: HEMOGLOBIN 9.6 g/dl (12.0-15.5); POS COUNT POS FLAG
[2018-05-03] MEDS: MORPHINE 4 MG/ML 1ML VIAL/SYRINGE (J2270) IV (17:47)
[2018-05-03] MEDS: CEFDINIR 300 MG CAP (OMNICEF) PO (17:49)
[2018-05-03] MEDS: AMITRIPTYLINE 25 MG TAB PO (21:49)
[2018-05-04 08:39] LABS: HEMATOCRIT 27.3 % (36.0-47.0); HEMOGLOBIN 8.9 g/dl (12.0-15.5); MEAN CORPUSCULAR HEMOGLOBIN 30.7 pg (27.0-33.0); MEAN CORPUSCULAR HGB CONC 32.6 g/dl (32.0-36.5); MEAN CORPUSCULAR VOLUME 94.1 fl (80.0-96.0); PLATELET COUNT, AUTOMATED 185 10^3/uL (150-450); RED CELL DISTRIBUTION WIDTH 15.6 % (11.5-14.5); WHITE BLOOD COUNT 5.8 10^3/uL (4.0-10.0)
[2018-05-04 08:49] LABS: ANION GAP 6 MEQ/L (8-16); BLOOD UREA NITROGEN 25 MG/DL (7-18); CALCIUM LEVEL 7.6 MG/DL (8.8-10.2); CARBON DIOXIDE LEVEL 24 MEQ/L (21-32); CHLORIDE LEVEL 114 MEQ/L (98-107); CREATININE FOR GFR 1.76 MG/DL (0.55-1.30); GLOMERULAR FILTRATION RATE 29.7 (>39); GLUCOSE, FASTING 79 MG/DL (70-100); POTASSIUM SERUM 4.1 MEQ/L (3.5-5.1); SODIUM LEVEL 144 MEQ/L (136-145)
[2018-05-04] MEDS: CEFDINIR 300 MG CAP (OMNICEF) PO (09:14)
[2018-05-04] MEDS: OMEPRAZOLE 20 MG CAP PO (09:14)
[2018-05-04] MEDS: SERTRALINE HCL 50 MG TAB PO (09:16)
[2018-05-04] MEDS: amLODIPine 5 MG TAB PO (09:16)
[2018-05-04] MEDS: ALLOPURINOL 100 MG TAB PO (09:16)
[2018-05-04] MEDS: THIAMINE 100 MG TAB PO (09:16)
[2018-05-04] MEDS: ROSUVASTATIN 10 MG TAB (CRESTOR) PO (09:16)
[2018-05-04] MEDS: CARVedilol 3.125 MG TAB PO ×2 (09:17→22:38)
[2018-05-04] MEDS: HYDROXYCHLOROQUINE 200 MG TAB PO ×2 (09:38→22:39)
[2018-05-04] MEDS: PERCOCET 5MG/325MG TAB PO (09:39)
[2018-05-04] MEDS: AMITRIPTYLINE 25 MG TAB PO (22:39)
[2018-05-05] MEDS: PERCOCET 5MG/325MG TAB PO ×2 (00:24→09:02)
[2018-05-05] MEDS: HYDROXYCHLOROQUINE 200 MG TAB PO (08:50)
[2018-05-05] MEDS: CEFDINIR 300 MG CAP (OMNICEF) PO (08:50)
[2018-05-05] MEDS: amLODIPine 5 MG TAB PO ×2 (08:52→11:19)
[2018-05-05] MEDS: ROSUVASTATIN 10 MG TAB (CRESTOR) PO (08:53)
[2018-05-05] MEDS: OMEPRAZOLE 20 MG CAP PO (08:53)
[2018-05-05] MEDS: CARVedilol 3.125 MG TAB PO (08:53)
[2018-05-05] MEDS: ALLOPURINOL 100 MG TAB PO (08:53)
[2018-05-05] MEDS: THIAMINE 100 MG TAB PO (08:53)
[2018-05-05] MEDS: SERTRALINE HCL 50 MG TAB PO (08:53)
[2018-05-06] MEDS ORDERED: amLODIPine 10 MG TAB PO (09:00)
== END 2018-05-05 16:43 | disposition home health service (06) | DRG 439 ==
LOC: M ED 08:53 → M ED INP 13:36 → M MSPAV 16:23
PROC: 30233N1 Transfusion of Nonautologous Red Blood Cells into Peripheral Vein, Percutaneous Approach (ICD-10-PCS; principal; 2018-05-02)
DX: K85.20 Alcohol induced acute pancreatitis without necrosis or infection (principal); N18.4 Chronic kidney disease, stage 4 (severe); I12.9 Hypertensive chronic kidney disease with stage 1 through stage 4 chronic kidney disease, or unspecified chronic kidney disease; K21.9 Gastro-esophageal reflux disease without esophagitis; J84.10 Pulmonary fibrosis, unspecified; F32.9 Major depressive disorder, single episode, unspecified; S32.10XD Unspecified fracture of sacrum, subsequent encounter for fracture with routine healing; W18.30XD Fall on same level, unspecified, subsequent encounter; Y92.009 Unspecified place in unspecified non-institutional (private) residence as the place of occurrence of the external cause; M94.251 Chondromalacia, right hip; M94.252 Chondromalacia, left hip; Z79.899 Other long term (current) drug therapy; Z88.8 Allergy status to other drugs, medicaments and biological substances; Z86.73 Personal history of transient ischemic attack (TIA), and cerebral infarction without residual deficits; G47.00 Insomnia, unspecified; F10.10 Alcohol abuse, uncomplicated; D64.9 Anemia, unspecified; Z87.891 Personal history of nicotine dependence; J44.9 Chronic obstructive pulmonary disease, unspecified; R32 Unspecified urinary incontinence

== ENCOUNTER 2018-05-09 12:09 | Emergency (ER) | payer MEDICARE ==
[2018-05-09] MEDS ORDERED: NS 1,000 ML IV ×2 (12:28→13:00)
[2018-05-09 13:52] LABS: BASO # 0.1 10^3/uL (0.0-0.2); BASO % 0.5 % (0.0-1.0); EOS # 0.4 10^3/uL (0.0-0.50); EOS % 3.7 % (0.0-3.0); HEMATOCRIT 32.4 % (36.0-47.0); HEMOGLOBIN 10.5 g/dl (12.0-15.5); IMMATURE GRANULOCYTE % 0.3 % (0-3.0); LYMPH # 1.5 10^3/uL (1.5-4.5); LYMPH % 15.4 % (24.0-44.0); MEAN CORPUSCULAR HEMOGLOBIN 30.6 pg (27.0-33.0); MEAN CORPUSCULAR HGB CONC 32.4 g/dl (32.0-36.5); MEAN CORPUSCULAR VOLUME 94.5 fl (80.0-96.0); MONO # 0.7 10^3/uL (0.0-0.8); MONO % 7.4 % (0.0-5.0); NEUTROPHILS # 7.1 10^3/uL (1.8-7.7); NEUTROPHILS % 72.7 % (36.0-66.0); PLATELET COUNT, AUTOMATED 160 10^3/uL (150-450); RED BLOOD COUNT 3.43 10^6/uL (4.00-5.40); RED CELL DISTRIBUTION WIDTH 14.6 % (11.5-14.5); WHITE BLOOD COUNT 9.8 10^3/uL (4.0-10.0)
[2018-05-09 14:11] LABS: ALBUMIN 2.7 GM/DL (3.2-5.2); ALBUMIN/GLOBULIN RATIO 0.93 (1.00-1.93); ALKALINE PHOSPHATASE 135 U/L (45-117); ALT/SGPT 31 U/L (12-78); ANION GAP 7 MEQ/L (8-16); AST/SGOT 38 U/L (7-37); BILIRUBIN,DIRECT 0.2 MG/DL (0.0-0.2); BILIRUBIN,TOTAL 0.6 MG/DL (0.2-1.0); BLOOD UREA NITROGEN 14 MG/DL (7-18); CALCIUM LEVEL 8.1 MG/DL (8.8-10.2); CARBON DIOXIDE LEVEL 25 MEQ/L (21-32); CHLORIDE LEVEL 108 MEQ/L (98-107); CREATININE FOR GFR 1.51 MG/DL (0.55-1.30); GLOMERULAR FILTRATION RATE 35.4 (>39); GLUCOSE, FASTING 100 MG/DL (70-100); LIPASE 223 U/L (73-393); SODIUM LEVEL 140 MEQ/L (136-145); TOTAL PROTEIN 5.6 GM/DL (6.4-8.2)
[2018-05-09 14:12] LABS: INR 0.98; PROTHROMBIN TIME 13.1 SECONDS (12.1-14.4)
[2018-05-09] MEDS: NS 1,000 ML IV (14:22)
[2018-05-09] MEDS: KETOROLAC 30 MG/ML VIAL (J1885) IV (14:24)
[2018-05-09] MEDS: METOCLOPRAMIDE INJ 10MG/2ML VIAL (J2765) IV (14:26)
== END 2018-05-09 15:32 | disposition home or self-care (01) ==
LOC: M ED 12:09
DX: R10.12 Left upper quadrant pain (principal); I10 Essential (primary) hypertension; Z86.19 Personal history of other infectious and parasitic diseases; N18.4 Chronic kidney disease, stage 4 (severe); Z79.899 Other long term (current) drug therapy; Z88.1 Allergy status to other antibiotic agents; Z88.8 Allergy status to other drugs, medicaments and biological substances
CPT/HCPCS: J1885

== ENCOUNTER 2018-05-14 08:13 | Emergency (ER) | payer MEDICARE ==
[2018-05-14] MEDS: CARVedilol 3.125 MG TAB PO (09:20)
[2018-05-14] MEDS: ADACEL/BOOSTRIX VACCINE (DIPHTH/PERTUSS/ACELL/TETANUS)0.5ML SYR (90715) IM (09:21)
[2018-05-14] MEDS: LIDOCAINE 1% MDV 20ML VIAL SC (10:12)
[2018-05-14] MEDS: PERCOCET 5MG/325MG TAB PO (10:41)
== END 2018-05-14 11:00 | disposition home or self-care (01) ==
LOC: M ED 08:13
DX: S09.90XA Unspecified injury of head, initial encounter (principal); S01.81XA Laceration without foreign body of other part of head, initial encounter; W19.XXXA Unspecified fall, initial encounter; Y92.099 Unspecified place in other non-institutional residence as the place of occurrence of the external cause; Y93.89 Activity, other specified; Y99.9 Unspecified external cause status; M47.812 Spondylosis without myelopathy or radiculopathy, cervical region; E11.9 Type 2 diabetes mellitus without complications; R51 Headache; J44.9 Chronic obstructive pulmonary disease, unspecified; N18.9 Chronic kidney disease, unspecified; F03.90 Unspecified dementia, unspecified severity, without behavioral disturbance, psychotic disturbance, mood disturbance, and anxiety; Z86.73 Personal history of transient ischemic attack (TIA), and cerebral infarction without residual deficits; Z87.891 Personal history of nicotine dependence; Z79.899 Other long term (current) drug therapy; Z88.1 Allergy status to other antibiotic agents; Z88.8 Allergy status to other drugs, medicaments and biological substances
CPT/HCPCS: 90715

== ENCOUNTER → 2018-06-14 | Outpatient (REF) | payer MEDICARE ==
[~2018-06-14] MED LIST changes: +/ESOM40CA; +/ESOM40CA OR; +/FEXO18TA OR; +/ONDA4TA OR; +ACET30TAB PO; +ACTI300C; +ACTI300C OR; +ALBU17IN INH; +ALLO10TA PO; +AMIT25TA PO; +AMIT50TA PO; +AMIT50TA2 OR; +AMLO10TA5 PO; +AMLO5TAB6 PO; +AMOX500T2 PO; +ARTI99.0 OU; +ASPI-222 PO; +ASPI325T; +ASPI325T25 PO; +ASPI81TA52 PO; +ATOR1TAB19 PO; +AUGM12TA11 PO; +AUGM500T34 PO; +AZIT-12 PO; +BACITAB PO; +BACT800T5 PO; +CALC1TAB63 PO; +CALCTAB68 PO; +CARV3.12 PO; +CARV6.25 PO; +CEFD1CAP8 PO; +CEFD300CAP PO; +CEPH500T PO; +CLON0.2T PO; +COLA100C5 PO; +COLE625TAB PO; +CREO12CA PO; +DARV100T OR; +DEXI30CA2 PO; +DIPH25CA PO; +DIPH50CA PO; +DOC-Q-LACE PO; +DRIS50003 PO; +DULC10SU2 PR; +ECOT325T5 OR; +ECOT325T5 PO; +ENEMENE6 PR; +ENSULIQ64 PO; +ESOM1CAP5 PO; +FENO134C PO; +FERR325T3 PO; +FERR32TA; +FERR32TA PO; +FEVE650S3 PR; +FIRS50SO PO; +FLON0.05; +FOLI1TAB11; +FOLI1TAB11 PO; +GABA-1171 PO; +GABA-843 PO; +HYDR-3363 PO; +HYDR-3910 PO; +HYDR10TAB PO; +HYDR200T3 PO; +HYDROXYCHLOROQUINE PO; -ISOVUE-300 61% 50ML VIAL (Q9967) As Ordered; +KEPP1TAB PO; +LEVA250T; +LEVA500T OR; +LEVE250T5 PO; +LEVE750T5 PO; +LIDO5DIS EX; +LISI-538 PO; +LISI-542 PO; +MELA3TAB49 PO; -MIDAZOLAM INJ 2 MG/2 ML VIAL (J2250) As Ordered; +MILK120011 PO; +MIRA3350 PO; +MOM30SS PO; +MULT1TAB20 PO; +NAPR-885 PO; +NATU400T PO; +NEXI40GR PO; +NIFE60TA6 PO; +NIFE60TA8; +NIFE60TA8 OR; +NORC1TAB4 PO; -NORCO, ANEXSIA 5/325MG TABLET (HYDROcodone/ACETAMINOPHEN) As Ordered; +NORCOTAB PO; +NYST50SS SS; +ONDA4TAB5 PO; +OXYC1TAB23 PO; +OXYCO5TA PO; +PAME50CA PO; +PRED10TA2 PO; +PRED20TA PO; +PREG50CA PO; +Patient Own Medication OU; +QUES4POW PO; +REST0.05 OU; +ROSU10TA5 PO; +SODI325T9 PO; +SUCR1SS PO; +SYST1SOL OU; +THIA100TA PO; +TRIC145T19; +TRIC145T19 OR; +TRIC145T22 PO; +TYLE325T5 PO; +VENTAER INH; +VICO5TAB; +VICO5TAB OR; +VITA100066 PO; +VITA100T OR; +VITA100T60 PO; +VITA100T8 PO; +VITA20002; +VITA500046 PO; +VITA50005; +VITAMIN D PO; +VITAMIN D50000 UNT OR; +VITMTA PO; +WELCHOL; +WELCHOL PO; +ZOFR4TAB14 PO; +ZOLO50TA PO; +[UNRECOGNIZED DRUG - MIXTURE]; +[UNRECOGNIZED DRUG - OTHER]; -fentaNYL 100 MCG/2 ML INJECTION (J3010) As Ordered
[2018-06-14 19:13] LABS: APPEARANCE, URINE TURBID (CLEAR); BACTERIA, URINE AUTO 3+ (NEGATIVE); BILIRUBIN, URINE AUTO NEGATIVE (NEGATIVE); BLOOD, URINE BLOOD NEGATIVE (NEGATIVE); COLOR, URINE YELLOW (YELLOW); GLUCOSE, URINE (UA) AUTO NEGATIVE (NEGATIVE); KETONE, URINE AUTO NEGATIVE (NEGATIVE); LEUKOCYTE ESTERASE, URINE AUTO 3+ (NEGATIVE); NITRITE, URINE AUTO NEGATIVE (NEGATIVE); PROTEIN, URINE AUTO 2+ mg/dL (NEGATIVE); RBC, URINE AUTO 11 /HPF (0-3); SPECIFIC GRAVITY URINE AUTO 1.013 (1.002-1.035); SQUAMOUS EPITHELIAL CELL UR AU 0 /HPF (0-6); UROBILINOGEN, URINE AUTO 0.2 mg/dL (0.0-2.0); WBC, URINE AUTO TNTC /HPF (0-3)
== END ==
LOC: M SMT 17:00
PROVIDERS: ATTEND Nurse Practitioner Women's Health
DX: R39.15 Urgency of urination (principal)
CPT/HCPCS: 51798; 81001; 87186; G0463

== ENCOUNTER → 2018-07-11 | Outpatient (CLI) | payer MEDICARE ==
[~2018-07-11] MED LIST changes: +LIDO1SOL7 PO
[2018-07-11 13:39] LABS: BILIRUBIN,TOTAL 0.3 MG/DL (0.2-1.0); CALCIUM LEVEL 8.6 MG/DL (8.8-10.2); CHOLESTEROL RISK RATIO 1.607 (<5); CREATININE FOR GFR 2.67 MG/DL (0.55-1.30); GLOMERULAR FILTRATION RATE 18.3 (>32); PERCENT SATURATION 19.6 % (13.2-45.0); POTASSIUM SERUM 5.5 MEQ/L (3.5-5.1); TOTAL PROTEIN 5.5 GM/DL (6.4-8.2)
[2018-07-11 13:45] LABS: BASO % 0.4 % (0.0-1.0); HEMATOCRIT 29.2 % (36.0-47.0); HEMOGLOBIN 9.5 g/dl (12.0-15.5); LYMPH # 1.4 10^3/uL (1.5-4.5); MEAN CORPUSCULAR HEMOGLOBIN 30.9 pg (27.0-33.0); MEAN CORPUSCULAR HGB CONC 32.5 g/dl (32.0-36.5); MEAN CORPUSCULAR VOLUME 95.1 fl (80.0-96.0); MONO # 0.5 10^3/uL (0.0-0.8); MONO % 8.8 % (0.0-5.0); NEUTROPHILS # 3.5 10^3/uL (1.8-7.7); NEUTROPHILS % 64.6 % (36.0-66.0); PLATELET COUNT, AUTOMATED 150 10^3/uL (150-450); RED BLOOD COUNT 3.07 10^6/uL (4.00-5.40); WHITE BLOOD COUNT 5.5 10^3/uL (4.0-10.0)
== END ==
LOC: M SMT 10:05
PROVIDERS: ATTEND Family Medicine
DX: N18.4 Chronic kidney disease, stage 4 (severe) (principal); K86.81 Exocrine pancreatic insufficiency; D50.9 Iron deficiency anemia, unspecified; E78.2 Mixed hyperlipidemia

== ENCOUNTER 2018-07-14 13:15 | Emergency (ER) | payer MEDICARE ==
[~2018-07-14] VITALS: Ht 152.4 cm; Wt 51.8 kg
[~2018-07-14 13:15] MED LIST changes: -LIDO1SOL7 PO
[2018-07-14] MEDS ORDERED: NS 500 ML IV ONE (14:00)
[2018-07-14 14:57] LABS: BASO % 0.5 % (0.0-1.0); HEMATOCRIT 30.8 % (36.0-47.0); HEMOGLOBIN 9.8 g/dl (12.0-15.5); LYMPH # 1.5 10^3/uL (1.5-4.5); LYMPH % 19.7 % (24.0-44.0); MEAN CORPUSCULAR HEMOGLOBIN 30.2 pg (27.0-33.0); MEAN CORPUSCULAR HGB CONC 31.8 g/dl (32.0-36.5); MEAN CORPUSCULAR VOLUME 94.8 fl (80.0-96.0); MONO # 0.5 10^3/uL (0.0-0.8); MONO % 6.1 % (0.0-5.0); NEUTROPHILS # 5.5 10^3/uL (1.8-7.7); NEUTROPHILS % 73.3 % (36.0-66.0); RED BLOOD COUNT 3.25 10^6/uL (4.00-5.40); WHITE BLOOD COUNT 7.6 10^3/uL (4.0-10.0)
[2018-07-14 15:47] LABS: ALBUMIN 2.7 GM/DL (3.2-5.2); BILIRUBIN,DIRECT 0.1 MG/DL (0.0-0.2); BILIRUBIN,TOTAL 0.3 MG/DL (0.2-1.0); CALCIUM LEVEL 7.8 MG/DL (8.8-10.2); CREATININE FOR GFR 2.1 MG/DL (0.55-1.30); GLOMERULAR FILTRATION RATE 24.1 (>32); MB/CK RELATIVE INDEX 2.73 (< OR =4); POTASSIUM SERUM 4.4 MEQ/L (3.5-5.1); TOTAL PROTEIN 5.5 GM/DL (6.4-8.2); TROPONIN I 0.02 NG/ML (< 0.10)
[2018-07-14] MEDS ORDERED: LIDO1SOL7 PO (16:09)
[2018-07-14 16:10] VITALS: BP 178/101
--- NOTE | 2018-07-14 16:58 | ECGEPIP ---
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
== END 2018-07-14 16:27 | disposition home or self-care (01) ==
LOC: M ED 13:15
DX: J02.8 Acute pharyngitis due to other specified organisms (principal); R10.9 Unspecified abdominal pain; E11.9 Type 2 diabetes mellitus without complications; I12.9 Hypertensive chronic kidney disease with stage 1 through stage 4 chronic kidney disease, or unspecified chronic kidney disease; E78.5 Hyperlipidemia, unspecified; N18.4 Chronic kidney disease, stage 4 (severe); Z86.73 Personal history of transient ischemic attack (TIA), and cerebral infarction without residual deficits; Z87.891 Personal history of nicotine dependence; Z88.1 Allergy status to other antibiotic agents; Z88.8 Allergy status to other drugs, medicaments and biological substances; Z79.899 Other long term (current) drug therapy

== ENCOUNTER → 2018-07-26 | Outpatient (REF) | payer MEDICARE ==
[~2018-07-26] MED LIST changes: +LIDO1SOL7 PO
[2018-07-26 18:31] LABS: APPEARANCE, URINE CLOUDY (CLEAR); BACTERIA, URINE AUTO 3+ (NEGATIVE); BILIRUBIN, URINE AUTO NEGATIVE (NEGATIVE); BLOOD, URINE BLOOD NEGATIVE (NEGATIVE); COLOR, URINE YELLOW (YELLOW); GLUCOSE, URINE (UA) AUTO NEGATIVE (NEGATIVE); KETONE, URINE AUTO NEGATIVE (NEGATIVE); LEUKOCYTE ESTERASE, URINE AUTO 3+ (NEGATIVE); NITRITE, URINE AUTO NEGATIVE (NEGATIVE); PROTEIN, URINE AUTO 2+ mg/dL (NEGATIVE); RBC, URINE AUTO 10 /HPF (0-3); SPECIFIC GRAVITY URINE AUTO 1.011 (1.002-1.035); SQUAMOUS EPITHELIAL CELL UR AU 1 /HPF (0-6); UROBILINOGEN, URINE AUTO 0.2 mg/dL (0.0-2.0); WBC, URINE AUTO TNTC /HPF (0-3)
== END ==
LOC: M SMT 16:58
PROVIDERS: ATTEND Nurse Practitioner Women's Health
DX: N39.0 Urinary tract infection, site not specified (principal)
CPT/HCPCS: 51798; 81001; 87086; G0463

== ENCOUNTER → 2018-10-03 | Outpatient (CLI) | payer MEDICARE, MEDICAID ==
[~2018-10-03] MED LIST changes: -/ESOM40CA; -/ESOM40CA OR; -/ONDA4TA OR; +ACET-716 PO; -ACET30TAB PO; +ASPI-255 PO; -ASPI325T25 PO; +HYDR-2773 PO; +HYDR-3715 PO; -LIDO1SOL7 PO; +LIDO1SOL8 PO; +NEXI1CAP3; +NEXI1CAP3 OR; -NORC1TAB4 PO; +NORC1TAB7 PO; -NORCOTAB PO; +ONDA-1 OR
[2018-10-03 18:04] LABS: HEMATOCRIT 32.8 % (36.0-47.0); HEMOGLOBIN 10.2 g/dl (12.0-15.5); MEAN CORPUSCULAR HEMOGLOBIN 29.5 pg (27.0-33.0); MEAN CORPUSCULAR HGB CONC 31.1 g/dl (32.0-36.5); MEAN CORPUSCULAR VOLUME 94.8 fl (80.0-96.0); PLATELET COUNT, AUTOMATED 203 10^3/uL (150-450); RED BLOOD COUNT 3.46 10^6/uL (4.00-5.40); WHITE BLOOD COUNT 8.4 10^3/uL (4.0-10.0)
[2018-10-03 18:12] LABS: BILIRUBIN,TOTAL 0.3 MG/DL (0.2-1.0); CALCIUM LEVEL 8.4 MG/DL (8.8-10.2); CREATININE FOR GFR 2.3 MG/DL (0.55-1.30); FREE T4 0.99 NG/DL (0.76-1.46); GLOMERULAR FILTRATION RATE 21.7 (>32); POTASSIUM SERUM 5.2 MEQ/L (3.5-5.1); THYROID STIMULATING HORMONE 3.4 uIU/ML (0.358-3.740); TOTAL PROTEIN 5.8 GM/DL (6.4-8.2)
[2018-10-03 20:35] LABS: ATYPICAL LYMPH 12 % (0-5); LYMPHOCYTES 24 % (16-52); MONOCYTES 5 % (0-8); NEUTROPHILS 59 % (35-75)
[2018-10-03 20:42] LABS: ANISOCYTOSIS 1+; OVALOCYTES 2+; PLATELET ESTIMATE NORMAL (NORMAL); POIKILOCYTOSIS 1+
== END ==
LOC: M SMT 13:47
PROVIDERS: ATTEND Physician Assistant
DX: I12.9 Hypertensive chronic kidney disease with stage 1 through stage 4 chronic kidney disease, or unspecified chronic kidney disease (principal); F33.2 Major depressive disorder, recurrent severe without psychotic features

== ENCOUNTER 2018-11-05 13:29 | Inpatient (IN) | payer MEDICARE, MEDICAID ==
[~2018-11-05] VITALS: Ht 152.4 cm; Wt 50.5 kg
[~2018-11-05 13:29] MED LIST changes: -FERR32TA; -FOLI1TAB11; -VITA50005; +VITA50005 PO
[2018-11-05 14:19] LABS: ABG BASE EXCESS -4.9 (-2.0-2.0); ABG HCO3 18.3 MEQ/L (22.0-26.0); ABG O2 SATURATION 89.4 % (95.0-99.0); ABG PARTIAL PRESSURE CO2 28.2 mmHg (35.0-45.0); ABG PARTIAL PRESSURE O2 56.3 mmHg (75.0-100.0); ABG STANDARD HCO3 20.3 MEQ/L (22.0-26.0); ABG TOTAL CO2 19.2 MEQ/L (23.0-31.0); ABG pH (ARTERIAL) 7.431 UNITS (7.350-7.450)
[2018-11-05 14:30] LABS: HEMATOCRIT 28.4 % (36.0-47.0); HEMOGLOBIN 8.9 g/dl (12.0-15.5); MEAN CORPUSCULAR HEMOGLOBIN 28.8 pg (27.0-33.0); MEAN CORPUSCULAR HGB CONC 31.3 g/dl (32.0-36.5); MEAN CORPUSCULAR VOLUME 91.9 fl (80.0-96.0); PLATELET COUNT, AUTOMATED 174 10^3/uL (150-450); RED BLOOD COUNT 3.09 10^6/uL (4.00-5.40); WHITE BLOOD COUNT 13.1 10^3/uL (4.0-10.0)
[2018-11-05] MEDS ORDERED: cefTRIAXone SOD 1 GM in D5W MINI-BAG PLUS 50 ML IV ONE (14:30)
[2018-11-05] MEDS ORDERED: FUROSEMIDE 40 MG/4 ML VIAL (J1940) IV ONE (14:30)
[2018-11-05] MEDS ORDERED: AZITHROMYCIN INJ 500 MG, VIAL MATE ADAPTER 1 EACH in D5W 250 ML IV ONE (14:30)
--- NOTE | 2018-11-05 14:46 | REP ---
CHEST, PORTABLE: AP portable view of the chest is performed. Comparison is made with multiple prior exams most recently 05/09/2018. There is cardiomegaly. There is an areas of relatively dense infiltrate in the right upper lobe and also in the left lower lobe. There is mild pulmonary vascular prominence. There is calcification of the thoracic aorta. IMPRESSION: Cardiomegaly. Infiltrates noted in the right upper and lower lobes. Electronically Signed by Lalo Bateman MD 11/06/2018 03:07 P
[2018-11-05 14:52] LABS: CREATININE FOR GFR 2.56 MG/DL (0.55-1.30); GLOMERULAR FILTRATION RATE 19.2 (>32); MB/CK RELATIVE INDEX 2.13 (< OR =4); POTASSIUM SERUM 4.5 MEQ/L (3.5-5.1); TROPONIN I 0.05 NG/ML (< 0.10)
[2018-11-05 15:00] LABS: BASOPHILS 1 % (0-4); LYMPHOCYTES 5 % (16-52); MONOCYTES 4 % (0-8); NEUTROPHILS 90 % (35-75); OVALOCYTES 1+; PLATELET ESTIMATE NORMAL (NORMAL); POIKILOCYTOSIS 1+
[2018-11-05] MEDS ORDERED: CVS1CAP2 PO (15:32)
[2018-11-05] MEDS ORDERED: ROPI0.253 PO (15:32)
[2018-11-05] MEDS ORDERED: THIA100T7 PO (15:32)
[2018-11-05] MEDS ORDERED: OXYB5TAB10 PO (15:32)
[2018-11-05] MEDS ORDERED: AMLO10TA5 PO (15:32)
[2018-11-05 15:54] LABS: BILIRUBIN,DIRECT 0.2 MG/DL (0.0-0.2); BILIRUBIN,TOTAL 0.6 MG/DL (0.2-1.0); FREE T4 1.17 NG/DL (0.76-1.46); THYROID STIMULATING HORMONE 3.77 uIU/ML (0.358-3.740)
[2018-11-05] MEDS ORDERED: POLYVINYL ALCOHOL OPHTH SOLN 15 ML(LIQUITEARS) OU PRN (16:00)
--- NOTE | 2018-11-05 16:13 | HPEPDOC ---
[facility] Medical History & Physical Date of Admission November 05, 2018 History and Physical CHIEF COMPLAINT: Short of breath HISTORY OF PRESENT ILLNESS: 78 yo female for 2 day history of worsening shortness of breath. Also complains of abdominal pain. Denies chest pain, headaches, falls, changes in vision, N/V/D. PAST MEDICAL HISTORY: 1. CKD IV 2. HTN 3. Pulmonary fibrosis 4. HLD 5. GERD 6. Depression 7. sacral insufficiency fracture 8. recent pancreatitis SOCIAL HISTORY: Lives at home with son. Has another son/daughter who are HCP. ALLERGIES: Please see below. REVIEW OF SYSTEMS: Negative except as per HPI. HOME MEDICATIONS: Please see below. PHYSICAL EXAMINATION: General: mild distress, lying in bed HEENT: NC/AT, edentulous Lungs: diminished breath sounds Heart: +S1S2 Abd: soft, obese, NT, +BS LABORATORY DATA: See below. MICROBIOLOGY: Please see below. ASSESSMENT: 78 yo female for two day history of shortness of breath: #SOB - CXR suspicious for PNA - IV abx - SCx, respiratory panel pending # CKD IV - pt and family state she is not interested HD #HTN - norvasc, coreg #Pulmonary fibrosis #HLD - statin therapy #GERD - protonix #Depression - zoloft #sacral insufficiency fracture #DVT prophylaxis - mechanical Dispo: Admitting to inpatient for iv antibiotics, supplemental oxygen, further evaluation and treatment. Vital Signs Vital Signs Date Time Temp Pulse Resp B/P (MAP) Pulse Ox O2 Delivery O2 Flow Rate FiO2 11/05/18 15:44 75 91 11/05/18 14:45 137/67 (90) 11/05/18 14:14 Nasal Cannula 4.0 11/05/18 13:43 30 11/05/18 13:30 99.3 Laboratory Data Labs 24H Laboratory Tests 2 11/05/18 13:59: Blood Gas Bicarbonate Standard 20.3L, Arterial Blood pH 7.431, Arterial Blood Partial Pressure CO2 28.2L, Arterial Blood Partial Pressure O2 56.3L, Arterial Blood Total CO2 19.2L, Arterial Blood HCO3 18.3L, Arterial Blood Base Excess - 4.9L, Arterial Blood Oxygen Saturation 89.4L 11/05/18 14:02: Nucleated Red Blood Cells % (auto) 0.0, Neutrophils 90H, Lymphocytes (Manual) 5L, Monocytes (Manual) 4, Basophils (Manual) 1, Platelet Estimate NORMAL, Poikilocytosis 1+, Ovalocytes 1+, Anion Gap 5L, Glomerular Filtration Rate 19.2L, Calcium Level 8.0L, Aspartate Amino Transf (AST/SGOT) 44H, Alanine Aminotransferase (ALT/SGPT) 37, Alkaline Phosphatase 107, Total Bilirubin 0.6, Direct Bilirubin 0.2, Total Creatine Kinase 277H, Creatine Kinase MB 6.0H, Creatine Kinase MB Relative Index 2.13, Troponin I 0.05, BE-Ibr-O-Type Natriuretic Peptide [id number], Total Protein 6.0L, Albumin 3.0L, Albumin/Globulin Ratio 1.00, Thyroid Stimulating Hormone (TSH) 3.770H, Free Thyroxine 1.17 CBC/BMP Laboratory Tests 11/05/18 14:02 Red Blood Count 3.09 L, Mean Corpuscular Volume 91.9, Mean Corpuscular Hemoglobin 28.8, Mean Corpuscular Hemoglobin Concent 31.3 L, Red Cell Distribution Width 13.9, Calcium Level 8.0 L, Total Creatine Kinase 277 H Microbiology Microbiology 11/05/18 Blood Culture, Received Pending 11/05/18 Blood Culture, Received Pending Home Medications Scheduled Amitriptyline HCl (Amitriptyline HCl) 25 Mg Tab, 25 MG PO QHS Amlodipine Besylate (Amlodipine Besylate) 10 Mg Tablet, 10 MG PO DAILY Calcium Carbonate/Vitamin D3 (Calcium 600-Vit D3 400 Tablet) 1 Tab Tab, 1 TAB PO DAILY Carvedilol (Carvedilol) 3.125 Mg Tab, 3.125 MG PO BID Cyclosporine (Restasis) 0.05 % Emu, 1 DROP OU BID Ergocalciferol (Vitamin D2) (Vitamin D2) 50,000 Unit Cap, 50,000 UNIT PO 1XWK TUES Esomeprazole Magnesium (Nexium) 40 Mg Gra, 40 MG PO DAILY Ferrous Gluconate (Ferrous Gluconate) 324 Mg Tab, 324 MG PO DAILY Folic Acid (Folic Acid) 1 Mg Tab, 1 MG PO DAILY Hydroxychloroquine Sulfate (Hydroxychloroquine Sulfate) 200 Mg Tab, 200 MG PO BID Lactobacillus Combo No.10 (Probiotic) 1 Each Capsule, 1 CAP PO DAILY Oxybutynin Chloride (Oxybutynin Chloride) 5 Mg Tablet, 5 MG PO BID Ropinirole HCl (Ropinirole HCl) 0.25 Mg Tablet, 0.25 MG PO QHS Rosuvastatin Calcium (Rosuvastatin Calcium) 10 Mg Tab, 10 MG PO QHS Sertraline Hcl (Zoloft) 50 Mg Tab, 50 MG PO DAILY Thiamine HCl (Thiamine HCl) 100 Mg Tablet, 100 MG PO DAILY Scheduled PRN Albuterol Sulfate (Ventolin Hfa) 108 Mcg/Act Aer, 2 PUFFS INH Q4H PRN for SHORTNESS OF BREATH Polyvinyl Alcohol (Artificial Tears) 1.4 % Christel, 1 DROP OU QID PRN for DRY EYES Allergies Coded Allergies: ciprofloxacin (Verified Allergy, Severe, HIVES, 11/05/18) polyethylene glycol (Verified Allergy, Severe, HIVES, 11/05/18) Quinolones (Verified Allergy, Unknown, Nausea, 11/05/18) JUAN CARLOS GRAYSON MD November 05, 2018 16:13
--- NOTE | 2018-11-05 17:43 | REP ---
REASON FOR EXAM: Abdominal pain. COMPARISON: 05/01/2018 The lack of intravenous contrast decreases the sensitivity of the exam. The technologist has placed a note in the Synapse power jacket that the patient was unable to remain quiescent for the exam. This caused significant motion artifact. Patchy opacities and air bronchograms are seen in the lung bases representing a change from the prior exam and seen along with small bilateral pleural effusions. Note is again made of extensive pneumobilia status quo. There is four chamber cardiac enlargement status quo. The spleen, pancreas, adrenal glands and kidneys are grossly unchanged and within normal limits. There is no evidence of free intraperitoneal air. There is no evidence of free fluid. Limited evaluation of the abdominal aorta and paraaortic regions showed no gross abnormalities or significant changes from the prior exam. Multiple gas filled small bowel loops are seen which represent a change from the prior exam. CT PELVIS: Multiple gas filled small bowel loops are seen in the pelvis. There is an air density in the urinary bladder which represents a change from the prior exam. There is no evidence of free fluid or free air in the pelvis. There was no evidence of a pelvic mass or adenopathy. Bone window technique throughout the exam shows the previously present sacral insufficiency fractures have healed. Chronic changes are seen involving the spine. IMPRESSION:1. Evidence of bilateral lower lobe pneumonia with minimal lingular and inferior right upper lobe pneumonia. 2. Small bilateral pleural effusions. 3. Extreme exam limitations as described above but with unchanged pneumobilia and evidence of small bowel ileus versus early obstruction. This needs to be correlated clinically with appropriate followup. 4. Other findings as described above. Electronically Signed by Uzair Riddle DO 11/05/2018 06:48 P
[2018-11-05 18:00] VITALS: BP 155/87
[2018-11-05 18:00] LABS: MAGNESIUM LEVEL 1.9 MG/DL (1.8-2.4); PHOSPHORUS LEVEL 3.4 MG/DL (2.5-4.9)
[2018-11-05] MEDS: PANTOPRAZOLE 40MG TAB (PROTONIX) PO SCH (18:31)
[2018-11-05] MEDS ORDERED: SLF 3 ML SYR IV PRN (18:45)
[2018-11-05 19:56] LABS: APPEARANCE, URINE CLEAR (CLEAR); BACTERIA, URINE AUTO 2+ (NEGATIVE); BILIRUBIN, URINE AUTO NEGATIVE (NEGATIVE); BLOOD, URINE BLOOD NEGATIVE (NEGATIVE); COLOR, URINE YELLOW (YELLOW); GLUCOSE, URINE (UA) AUTO NEGATIVE (NEGATIVE); KETONE, URINE AUTO NEGATIVE (NEGATIVE); LEUKOCYTE ESTERASE, URINE AUTO TRACE (NEGATIVE); NITRITE, URINE AUTO NEGATIVE (NEGATIVE); PROTEIN, URINE AUTO 2+ mg/dL (NEGATIVE); RBC, URINE AUTO 0 /HPF (0-3); SPECIFIC GRAVITY URINE AUTO 1.008 (1.002-1.035); SQUAMOUS EPITHELIAL CELL UR AU 0 /HPF (0-6); UROBILINOGEN, URINE AUTO 0.2 mg/dL (0.0-2.0); WBC, URINE AUTO 37 /HPF (0-3)
[2018-11-05 20:00] VITALS: BP 150/67
[2018-11-05] MEDS: AMITRIPTYLINE 25 MG TAB PO SCH (21:34)
[2018-11-05] MEDS: oxyBUTYnin 5 MG TAB PO SCH (21:34)
[2018-11-05] MEDS: HYDROXYCHLOROQUINE 200 MG TAB PO SCH (21:34)
[2018-11-05] MEDS: rOPINIRole 0.25 MG TAB(REQUIP) PO SCH (21:34)
[2018-11-05] MEDS: CARVedilol 3.125 MG TAB PO SCH (21:34)
[2018-11-05] MEDS: SLF 3 ML SYR IV SCH (21:34)
[2018-11-05] MEDS: ROSUVASTATIN 10 MG TAB (CRESTOR) PO SCH (21:34)
--- NOTE | 2018-11-05 22:10 | ECGEPIP ---
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
[2018-11-06] VITALS: BP 148/67
[2018-11-06 04:00] VITALS: BP 165/83
[2018-11-06 05:03] LABS: HEMOGLOBIN 7.9 g/dl (12.0-15.5); MEAN CORPUSCULAR HEMOGLOBIN 29.3 pg (27.0-33.0); MEAN CORPUSCULAR HGB CONC 31.6 g/dl (32.0-36.5); MEAN CORPUSCULAR VOLUME 92.6 fl (80.0-96.0); PLATELET COUNT, AUTOMATED 131 10^3/uL (150-450); WHITE BLOOD COUNT 12.6 10^3/uL (4.0-10.0)
[2018-11-06 05:17] LABS: ALBUMIN 2.6 GM/DL (3.2-5.2); BILIRUBIN,TOTAL 0.6 MG/DL (0.2-1.0); CALCIUM LEVEL 8.2 MG/DL (8.8-10.2); CREATININE FOR GFR 2.85 MG/DL (0.55-1.30); MAGNESIUM LEVEL 1.8 MG/DL (1.8-2.4); PHOSPHORUS LEVEL 4.6 MG/DL (2.5-4.9); POTASSIUM SERUM 4.3 MEQ/L (3.5-5.1); TOTAL PROTEIN 5.5 GM/DL (6.4-8.2)
[2018-11-06 05:43] LABS: BASOPHILS 1 % (0-4); LYMPHOCYTES 6 % (16-52); MONOCYTES 8 % (0-8); NEUTROPHILS 80 % (35-75)
[2018-11-06 05:44] LABS: TOXIC GRANULATION 1+
[2018-11-06 05:45] LABS: OVALOCYTES 1+; PLATELET ESTIMATE DECREASED (NORMAL)
[2018-11-06] MEDS: SLF 3 ML SYR IV SCH ×3 (06:35→20:03)
[2018-11-06 08:00] VITALS: BP 127/65
[2018-11-06 08:16] LABS: HEMATOCRIT 24.8 % (36.0-47.0); HEMOGLOBIN 7.8 g/dl (12.0-15.5)
[2018-11-06] MEDS: PANTOPRAZOLE 40MG TAB (PROTONIX) PO SCH (08:21)
[2018-11-06] MEDS: THIAMINE 100 MG TAB PO SCH (08:21)
[2018-11-06] MEDS: SERTRALINE HCL 50 MG TAB PO SCH (08:21)
[2018-11-06] MEDS: oxyBUTYnin 5 MG TAB PO SCH ×2 (08:22→20:03)
[2018-11-06] MEDS: FOLIC ACID 1 MG TAB PO SCH (08:22)
[2018-11-06] MEDS: FERROUS GLUCONATE 324 MG TAB PO SCH (08:22)
[2018-11-06] MEDS: amLODIPine 10 MG TAB PO SCH (08:22)
[2018-11-06] MEDS: HYDROXYCHLOROQUINE 200 MG TAB PO SCH ×2 (08:22→08:30)
[2018-11-06] MEDS: CARVedilol 3.125 MG TAB PO SCH ×2 (08:23→20:03)
[2018-11-06 12:00] VITALS: BP 150/62
--- NOTE | 2018-11-06 12:47 | IPN ---
DATE: 11/06/2018 SUBJECTIVE: Patient is seen and examined in the room with her daughter. The patient stated her shortness of breath may be improving. Today patient was able to provide some sputum samples. There was some blood noted in the sputum samples. Denied any fever or chills. According to the patient, the patient used to follow with hematology/oncology in the past. The patient has a history of anemia requiring blood transfusions. The patient does not remember the reason. OBJECTIVE: VITAL SIGNS: Temperature 97.7, pulse 64, respirations 20, blood pressure 127/65, pulse oximetry 100% with 4 liters nasal cannula. GENERAL: Patient is alert and awake, comfortable. HEENT: Normocephalic, atraumatic. Extraocular motors grossly intact. CARDIOVASCULAR: Positive S1 and S2. Regular rate. LUNGS: Decreased breath sounds. Fine crackles. No significant wheeze appreciated. ABDOMEN: Soft, nontender. Bowel sounds present. EXTREMITIES: No edema. No cyanosis. LABORATORY DATA: WBC is 12.6, hemoglobin 7.9, hematocrit is 25, platelet count is 131. Sodium is 137, potassium 4.3, chloride 108, carbon dioxide 22, BUN 29, creatinine 2.85, GFR is 17, fasting glucose 72, calcium 8.2, phosphorous 4.6, magnesium 1.8, total bilirubin 1.6, AST 27, ALT 28, alkaline phosphatase 79, total protein 5.5, albumin 2.6. ASSESSMENT/PLAN: 1. Acute respiratory distress. The patient had imaging studies that suggest the patient has multifocal pneumonia. We just received sputum samples for cultures. Respiratory panel negative. The patient is on IV antibiotics. 2. Acute on chronic anemia. According to the patient, she had an anemia workup before in the past. At the time the patient was not told any specific reason for her chronic anemia. Since admission, the patient has had decreased hemoglobin and hematocrit. In the sputum culture the patient was noted to have blood noted in the sputum. The patient is being treated for pneumonia. Blood consent obtained. Will transfuse if the patient is symptomatic other than significant decreased hemoglobin and hematocrit. 3. Chronic kidney disease (CKD) stage IV. Continue to monitor renal functions. 4. Pulmonary fibrosis. Patient follows with pulmonology in [place]. 5. Depression, on Zoloft. 6. Sacral insufficiency fracture. 7. Gastroesophageal reflux disease (GERD), on Protonix. 8. History of cerebrovascular accident (CVA). Continue statin. 9. Hypertension, on Norvasc and Coreg. 10. Deep vein thrombosis (DVT) prophylaxis. On thromboembolic deterrent stockings (TEDS) and compression stockings.
[2018-11-06] MEDS: ACETAMINOPHEN TAB 650MG DOSE (2X325MG) PO PRN ×2 (13:05→20:02)
[2018-11-06 15:01] LABS: HEMATOCRIT 26.6 % (36.0-47.0); HEMOGLOBIN 8.3 g/dl (12.0-15.5)
[2018-11-06] MEDS: ALBUTEROL SULFATE 2.5 MG/0.5 ML INH NEB SOLN NEB PRN (15:02)
[2018-11-06 15:13] LABS: INR 1.37; PROTHROMBIN TIME 17.1 SECONDS (12.1-14.4)
[2018-11-06 15:40] LABS: FERRITIN 125 NG/ML (8-252); IRON (FE) 13 UG/DL (50-170); LDH LACTATE DEHYDROGENASE 307 U/L (84-246); PERCENT SATURATION 7.7 % (13.2-45.0); TOTAL IRON BINDING CAPACITY 169 UG/DL (250-450)
[2018-11-06] MEDS: cefTRIAXone SOD 1 GM in D5W MINI-BAG PLUS 50 ML IV SCH (15:40)
[2018-11-06 15:48] LABS: FOLATE > 24.0 NG/ML (>5.4); VITAMIN B12 LEVEL 445 PG/ML (247-911)
[2018-11-06 16:00] VITALS: BP 140/65
[2018-11-06] MEDS: AZITHROMYCIN INJ 500 MG, VIAL MATE ADAPTER 1 EACH in D5W 250 ML IV SCH (16:52)
[2018-11-06 20:00] VITALS: BP 148/67
[2018-11-06] MEDS: ROSUVASTATIN 10 MG TAB (CRESTOR) PO SCH (20:02)
[2018-11-06] MEDS: rOPINIRole 0.25 MG TAB(REQUIP) PO SCH (20:02)
[2018-11-06] MEDS: AMITRIPTYLINE 25 MG TAB PO SCH (20:02)
[2018-11-06 21:49] LABS: HEMATOCRIT 24.6 % (36.0-47.0); HEMOGLOBIN 7.8 g/dl (12.0-15.5)
[2018-11-07] VITALS (8 sets, daily range): BP systolic 118–175; BP diastolic 60–83
[2018-11-07] MEDS: SLF 3 ML SYR IV SCH ×3 (05:22→21:15)
[2018-11-07 06:12] LABS: HEMOGLOBIN 7.9 g/dl (12.0-15.5); MEAN CORPUSCULAR HEMOGLOBIN 29.2 pg (27.0-33.0); MEAN CORPUSCULAR HGB CONC 31.6 g/dl (32.0-36.5); MEAN CORPUSCULAR VOLUME 92.3 fl (80.0-96.0); PLATELET COUNT, AUTOMATED 118 10^3/uL (150-450); RED BLOOD COUNT 2.71 10^6/uL (4.00-5.40); WHITE BLOOD COUNT 6.7 10^3/uL (4.0-10.0)
[2018-11-07 06:32] LABS: CALCIUM LEVEL 7.9 MG/DL (8.8-10.2); CREATININE FOR GFR 3.28 MG/DL (0.55-1.30); GLOMERULAR FILTRATION RATE 14.4 (>32); MAGNESIUM LEVEL 1.8 MG/DL (1.8-2.4); POTASSIUM SERUM 4.5 MEQ/L (3.5-5.1)
[2018-11-07 06:37] LABS: ERYTHROCYTE SEDIMENTATION RATE 85 mm/hr (0-30)
[2018-11-07] MEDS: FOLIC ACID 1 MG TAB PO SCH (08:22)
[2018-11-07] MEDS: amLODIPine 10 MG TAB PO SCH (08:22)
[2018-11-07] MEDS: FERROUS GLUCONATE 324 MG TAB PO SCH (08:22)
[2018-11-07] MEDS: oxyBUTYnin 5 MG TAB PO SCH ×2 (08:22→21:14)
[2018-11-07] MEDS: THIAMINE 100 MG TAB PO SCH (08:23)
[2018-11-07] MEDS: SERTRALINE HCL 50 MG TAB PO SCH (08:23)
[2018-11-07] MEDS: CARVedilol 3.125 MG TAB PO SCH ×2 (08:23→21:13)
[2018-11-07] MEDS: PANTOPRAZOLE 40MG TAB (PROTONIX) PO SCH (08:23)
[2018-11-07] MEDS: ALBUTEROL SULFATE 2.5 MG/0.5 ML INH NEB SOLN NEB PRN ×3 (09:29→21:52)
[2018-11-07 13:37] LABS: OSMOLALITY URINE 183 MOSM/KG (500-800)
[2018-11-07 14:05] LABS: CREATININE,RANDOM URINE 47.4 MG/DL; SODIUM,RANDOM URINE < 10 MEQ/L
--- NOTE | 2018-11-07 15:26 | IPNPDOC ---
Text Note Date of Service The patient was seen on 11/07/18. NOTE SUBJECTIVE: Patient is seen and examined in the room. The patient stated there is no worsening of her breathing. Patient agrees for blood transfusion today. OBJECTIVE: VITAL SIGNS: Listed below. GENERAL: Patient is alert and awake, comfortable. HEENT: Normocephalic, atraumatic. Extraocular motors grossly intact. CARDIOVASCULAR: Positive S1 and S2. Regular rate. LUNGS: Decreased breath sounds. Fine crackles. No significant wheeze appreciated. ABDOMEN: Soft, nontender. Bowel sounds present. EXTREMITIES: No edema. No cyanosis. LABORATORY DATA: Listed below. ASSESSMENT/PLAN: #. Acute respiratory distress. - Imaging studies that suggest the patient has multifocal pneumonia. Sputum culture is pending. Respiratory panel negative. The patient is on IV antibio tics. #. Acute renal failure on Chronic kidney disease (CKD) stage IV. - Urine chemistry ordered. Renal ultrasound ordered. Follow up with Urine culture. - Nephrology consulted. #. Acute on chronic anemia. - Anemia workup ordered. Stool occult ordered. - Patient is symptomatic from anemia. PRBC ordered. #. Pulmonary fibrosis. Patient follows with pulmonology in [place]. #. Depression, on Zoloft. #. Sacral insufficiency fracture. #. Gastroesophageal reflux disease (GERD) - On Protonix. #. History of cerebrovascular accident (CVA). - Continue statin. #. Hypertension - on Norvasc and Coreg. #. Deep vein thrombosis (DVT) prophylaxis. - On thromboembolic deterrent stockings (TEDS) and compression stockings. A-FIB/CHADSVASC A-FIB History Current/History of A-Fib/PAF?: No VS,Fishbone, I+O VS, Fishbone, I+O Laboratory Tests 11/06/18 20:56 11/07/18 05:48 Red Blood Count 2.71 L, Mean Corpuscular Volume 92.3, Mean Corpuscular Hemoglobin 29.2, Mean Corpuscular Hemoglobin Concent 31.6 L, Red Cell Distribution Width 13.9, Calcium Level 7.9 L Vital Signs Date Time Temp Pulse Resp B/P (MAP) Pulse Ox O2 Delivery O2 Flow Rate FiO2 11/07/18 14:00 97.4 78 22 142/60 (87) 92 3.0 11/05/18 18:00 Nasal Cannula I&O- Last 24 Hours up to 6 AM 11/07/18 06:00 Intake Total 1110 ml Output Total 1315 ml Balance -205 ml ERWIN TAPIA DO November 07, 2018 15:26
[2018-11-07] MEDS ORDERED: FUROSEMIDE 40 MG/4 ML VIAL (J1940) IV ONE (15:45)
[2018-11-07] MEDS: cefTRIAXone SOD 1 GM in D5W MINI-BAG PLUS 50 ML IV SCH (15:52)
--- NOTE | 2018-11-07 15:57 | REP ---
RENAL AND BLADDER ULTRASOUND: Real-time sonographic evaluation of the kidneys performed. There is mild to moderate cortical thinning and atrophy bilaterally. The right kidney measures 8.0 x 4.9 x 4.7 cm and left kidney 7.7 x 3.0 x 4.2 cm, with increased echotexture suggesting medical renal disease. There is no hydronephrosis bilaterally. Visualization of the kidneys is limited due to inability to suspend respirations. There do appear to be two cysts in the upper pole of the left kidney measuring 9 mm and 1.8 cm in diameter, and another cyst in the lower pole of the left kidney 9 mm. The urinary bladder is distended with no evidence of mass or calculus. IMPRESSION: Mild to moderate bilateral renal atrophy with no hydronephrosis. Somewhat limited exam. A few left renal cysts are noted. Electronically Signed by Lalo Bateman MD 11/07/2018 04:12 P
[2018-11-07] MEDS: AZITHROMYCIN INJ 500 MG, VIAL MATE ADAPTER 1 EACH in D5W 250 ML IV SCH (16:45)
--- NOTE | 2018-11-07 17:05 | REP ---
CT chest without contrast: History: Pneumonia with increasing shortness of breath. Evaluate for pulmonary edema. Comparison is made with portable chest x-ray from November 05, 2018. It shows a large infiltrate in the right upper lobe distribution. CT findings: Digital preliminary production maintenance technician radiograph demonstrates bilateral infiltrates most prominently in the right upper lobe. Pneumobilia is again seen in the right upper quadrant with surgical clips. Cardiomegaly. On axial CT images, there are small bilateral pleural effusions which are essentially unchanged from November 05, 2018. There are patchy areas of predominately interstitial, but mixed interstitial and alveolar consolidation in the lower lobes, right middle lobe, and both upper lobes bilaterally. There are areas of sparing suggesting that this represents inflammatory change, i.e. pneumonia. However, asymmetric interstitial pulmonary edema may still be a possibility. The heart is enlarged. Mitral annular calcification is seen. Vascular calcification is noted. No adrenal lesion is seen. Pneumobilia is again noted extensively in the liver. Impression: Progressive areas of predominately interstitial infiltrate, patchy and asymmetric, in the lung castañeda bilaterally, most extensively in the right upper lobe. Findings consistent with progressive pneumonia. There are small bilateral pleural effusions and moderate cardiac enlargement is again observed. Electronically Signed by Benson Henley MD 11/08/2018 01:02 P
[2018-11-07] MEDS: ROSUVASTATIN 10 MG TAB (CRESTOR) PO SCH (21:13)
[2018-11-07] MEDS: rOPINIRole 0.25 MG TAB(REQUIP) PO SCH (21:13)
[2018-11-07] MEDS: AMITRIPTYLINE 25 MG TAB PO SCH (21:14)
[2018-11-08] VITALS (11 sets, daily range): BP systolic 138–173; BP diastolic 72–97; O2SAT 88–92
[2018-11-08] MEDS ORDERED: FUROSEMIDE 40 MG/4 ML VIAL (J1940) IV ONE ×2 (00:30→05:15)
[2018-11-08] MEDS: SLF 3 ML SYR IV SCH ×3 (00:41→20:40)
[2018-11-08] MEDS: ALBUTEROL SULFATE 2.5 MG/0.5 ML INH NEB SOLN NEB PRN ×5 (02:48→19:44)
[2018-11-08 05:06] LABS: HEMATOCRIT 31.9 % (36.0-47.0); MEAN CORPUSCULAR HEMOGLOBIN 29.4 pg (27.0-33.0); MEAN CORPUSCULAR HGB CONC 33.5 g/dl (32.0-36.5); MEAN CORPUSCULAR VOLUME 87.6 fl (80.0-96.0); PLATELET COUNT, AUTOMATED 121 10^3/uL (150-450); RED BLOOD COUNT 3.64 10^6/uL (4.00-5.40)
[2018-11-08 05:11] LABS: HEMOGLOBIN 10.7 g/dl (12.0-15.5)
[2018-11-08 05:29] LABS: ERYTHROCYTE SEDIMENTATION RATE 58 mm/hr (0-30)
[2018-11-08 05:46] LABS: C REACTIVE PROTEIN QUANTITATIV 20.2 MG/DL (0.00-0.30); CALCIUM LEVEL 8.1 MG/DL (8.8-10.2); CREATININE FOR GFR 3.35 MG/DL (0.55-1.30); GLOMERULAR FILTRATION RATE 14.1 (>32); POTASSIUM SERUM 3.9 MEQ/L (3.5-5.1)
--- NOTE | 2018-11-08 07:32 | CR ---
DATE OF CONSULTATION: 11/07/2018 REQUESTING PHYSICIAN: Dr. Sarina Fountain REASON FOR CONSULTATION: Chronic kidney disease (CKD) Stage 4 to 5. HISTORY OF PRESENT ILLNESS: Irasema is an 78-year-old female who is an established office patient of Dr. Celeste. She last saw him in April 2018. At that time, her creatinine was noted to be 3.5. The patient and her family members have previously discussed with Dr. Celeste regarding hemodialysis initiation. She had a failed fistula placed in the past and is felt to be a poor candidate for an AV graft. Her children were undecided in regards to hemodialysis initiation for herself. She has not seen Dr. Celeste since April of last year. She presented to the emergency room with complaint of worsening shortness of breath. She was admitted on 11/05/2018 and found to have extensive bilateral pneumonia. She has been receiving IV antibiotics for multifocal pneumonia. She has been requiring significant supplemental oxygen. Lab studies also revealed anemia which is acute on chronic and the patient has received blood transfusions over this admission. Nephrology evaluation was requested in view of her advanced chronic renal failure. I saw the patient this morning at the bedside. She complains of shortness of breath and denies any improvement over the course of this admission. PAST MEDICAL HISTORY: 1. CKD Stage 4 to Stage 5. 2. Hypertension. 3. Pulmonary fibrosis. 4. Dyslipidemia. 5. Gastroesophageal reflux disease (GERD). 6. Depression. 7. Anemia. 8. Urinary incontinence. 9. ? history of lupus. ALLERGIES: - QUINOLONE - CIPROFLOXACIN - POLYETHYLENE GLYCOL SOCIAL HISTORY: Lives at home with her son. History of alcohol use, though no ongoing drinking since the Fall of 2017. She is an ex-smoker. There is no history of drug use. PAST SURGICAL HISTORY: 1. Cholecystectomy. 2. Right ankle fracture repair. 3. Abdominal surgery for gallstones. 4. Right wrist fracture surgery. 5. Failed fistula placement. HOME MEDICATIONS: (Reviewed and include) - albuterol - amitriptyline - amlodipine - carvedilol - vitamin D - esomeprazole - ferrous gluconate - folic acid - Plaquenil - oxybutynin - ropinirole - rosuvastatin - Sertraline - thiamine REVIEW OF SYSTEMS: Limited secondary to patient's clinical condition. She denies fevers or chills. She is hard of hearing. She has reduced vision. She denies chest pain or palpitations. She complains of shortness of breath and cough. She denies nausea, vomiting or diarrhea. She reports some decreased urine output. Endocrine: She denies history of thyroid issues or diabetes. Hematologic: She reports anemia. PHYSICAL EXAMINATION: Vital Signs: Temperature 97.4, pulse 78, respiratory rate 22, blood pressure 142/60, saturating 92% on 3 liters nasal cannula. Intake yesterday was 1130. Urine output yesterday was 680. Net positive 450. Urine output thus far today is 1.6 liters. Weight on the bed scale today is 52 kg. General: Patient is seen lying in bed. Elderly female, frail, alert, awake, in no acute respiratory distress. There is mild tachypnea, but there is no accessory muscle use. She makes eye contact. Her tongue is moist. Her neck is supple. Her jugular veins do not appear elevated. Heart sounds S1 and S2, regular rate. There is no edema in the peripheries. The radial pulses are palpable. Lungs show diminished breath sounds in all lung castañeda. There is tight air movement. There are no rales appreciable. The abdomen is soft and nontender. The suprapubic bladder is not distended. The lower extremities are negative for edema. Neurologic: She follows some simple commands and answers simple questions appropriately. LABS: Sodium 131, potassium 4.5, bicarbonate 18, BUN 39, creatinine 3.2. BNP on admission was 30,000, presently is 68,000. CRP is up trending to 18. Hemoglobin 7.9. Platelets 118. Urinalysis notable for 2+ protein and urine random sodium was less than 10. Blood cultures with no growth for 48 hours times two sets. CT of chest on 11/07/2018 shows extensive and progressive bilateral pneumonia which is most severe in the right upper lobe. There are small bilateral pleural effusions as well. INPATIENT MEDICATIONS: - azithromycin 500 mg IV daily - Ceftriaxone 1 gram IV daily - Tylenol as needed - albuterol every 6 hours as needed - amitriptyline 25 mg by mouth at bedtime - amlodipine 10 mg by mouth daily - carvedilol 3.125 mg by mouth twice a day - ferrous gluconate 324 mg by mouth daily - folic acid 1 mg by mouth daily - she received a one time dose of furosemide 40 mg IV times one - Protonix 40 mg by mouth daily - oxybutynin 5 mg by mouth twice a day - ropinirole 0.25 mg by mouth at bedtime - rosuvastatin 10 mg by mouth at bedtime - Sertraline 50 mg by mouth daily - thiamine 100 mg by mouth daily PROBLEMS: 1. End stage renal disease. The patient has baseline CKD Stage 4 to CKD Stage 5. She last saw her primary heat treater Dr. Celeste in April 2018. She did have a fistula placement in the past, but it thrombosed and failed. She was felt to be a poor candidate for an AV graft. Her family did decline to pursue dialysis options in the past and indeed the last time the patient saw her primary heat treater in April 2018 there were conversations regarding hospice care. I have tried to call both her son and daughter (Thiago Kiran and Renita Ann) to update them regarding the patient's current clinical condition, however, I was unable to reach them at either number today. I will try again tomorrow. In terms of her renal function, there is no urgent indication for dialysis at present. There is mild hypervolemia on exam. She has small effusions on CT of chest. Her BNP has doubled on the course of this admission. I gave a dose of Lasix today. Her urine output did improve following Lasix administration. Overall, her prognosis is quite poor and we will discuss hopefully with her children tomorrow to see how aggressive they would like to be regarding her chronic renal failure. 2. Hypoxemia, shortness of breath, related to multifocal pneumonia. Her CRP is rising. Her ESR is rising. Primary team has her on IV antibiotics. She is requiring increased supplemental oxygen, presently on 4 liters. Most of her shortness of breath is related to the extensive bilateral pneumonia. However, she did have some small bilateral pleural effusions and she does have doubling of her BNP. I did give her a dose of Lasix today and we will reassess her for further diuretic administration tomorrow. 3. Acute on chronic anemia. Iron stores were very low with a transferrin saturation of only 7%. I will hold off on Venofer infusion at present as it is formulated in normal saline and the patient is already receiving 2 units of packed red blood cells today and I am concerned about her volume status. She has a baseline hemoglobin of around 10 or less on review of labs. At present, there is no sign of active bleed. Stool occult blood is pending. She is on Protonix. 4. Pulmonary fibrosis. Complicates her care, especially in view of the extensive pneumonia and increasing supplemental oxygen requirements. 5. Non anion gap metabolic acidosis. It is secondary to chronic renal failure. There is no need for bicarbonate administration at present. Thank you for involving me in the care of Ms. Irasema Kiran. I will be happy to follow her along with you.
[2018-11-08] MEDS: PANTOPRAZOLE 40MG TAB (PROTONIX) PO SCH (09:22)
[2018-11-08] MEDS: CARVedilol 3.125 MG TAB PO SCH ×2 (09:22→20:40)
[2018-11-08] MEDS: amLODIPine 10 MG TAB PO SCH (09:22)
[2018-11-08] MEDS: FOLIC ACID 1 MG TAB PO SCH (09:22)
[2018-11-08] MEDS: oxyBUTYnin 5 MG TAB PO SCH ×2 (09:22→20:39)
[2018-11-08] MEDS: SERTRALINE HCL 50 MG TAB PO SCH (09:22)
[2018-11-08] MEDS: THIAMINE 100 MG TAB PO SCH (09:22)
[2018-11-08] MEDS: FERROUS GLUCONATE 324 MG TAB PO SCH (09:22)
[2018-11-08] MEDS: cefTRIAXone SOD 1 GM in D5W MINI-BAG PLUS 50 ML IV SCH (14:33)
--- NOTE | 2018-11-08 14:48 | IPNPDOC ---
Text Note Date of Service The patient was seen on 11/08/18. NOTE SUBJECTIVE: Patient is seen and examined in the room. The patient feels her abdominal discomfort is improving. Her nausea is improving too. Patient wants to proceed with colonoscopy. OBJECTIVE: VITAL SIGNS: Listed below. GENERAL: Patient is alert and awake, comfortable. HEENT: Normocephalic, atraumatic. Extraocular motors grossly intact. CARDIOVASCULAR: Positive S1 and S2. Regular rate. LUNGS: Decreased breath sounds. Fine crackles. No significant wheeze appreciated. ABDOMEN: Soft, nontender. Bowel sounds present. EXTREMITIES: No edema. No cyanosis. LABORATORY DATA: Listed below. ASSESSMENT/PLAN: #. Acute respiratory distress. - Patient is being treated for fluid overload and PNA - Sputum culture is pending. Respiratory panel negative. The patient is on IV antibiotics. - Imaging studies that suggest the patient has progressing pneumonia. Infectious disease consulted. #. Acute renal failure on Chronic kidney disease (CKD) stage IV. - Urine chemistry reviewed. Renal ultrasound resulted reviewed. Urine culture is negative. - Nephrology consulted. #. Acute on chronic anemia. - Anemia workup ordered. Stool occult negative - Patient was symptomatic from anemia. PRBC transfusion on 11/07/18. #. Pulmonary fibrosis. Patient follows with pulmonology in [place]. #. Depression, on Zoloft. #. Sacral insufficiency fracture. #. Gastroesophageal reflux disease (GERD) - On Protonix. #. History of cerebrovascular accident (CVA). - Continue statin. #. Hypertension - on Norvasc and Coreg. #. Deep vein thrombosis (DVT) prophylaxis. - On thromboembolic deterrent stockings (TEDS) and compression stockings. A-FIB/CHADSVASC A-FIB History Current/History of A-Fib/PAF?: No VS,Fishbone, I+O VS, Fishbone, I+O Laboratory Tests 11/08/18 04:45 Red Blood Count 3.64 L, Mean Corpuscular Volume 87.6, Mean Corpuscular Hemoglobin 29.4, Mean Corpuscular Hemoglobin Concent 33.5, Red Cell Distribution Width 13.8, Calcium Level 8.1 L Vital Signs Date Time Temp Pulse Resp B/P (MAP) Pulse Ox O2 Delivery O2 Flow Rate FiO2 11/08/18 12:00 96.4 79 22 162/80 (107) 93 4.0 5/6/19 18:00 Nasal Cannula I&O- Last 24 Hours up to 6 AM 11/08/18 06:00 Intake Total 2020 ml Output Total 1175 ml Balance 845 ml ERWIN TAPIA DO November 08, 2018 14:48
[2018-11-08] MEDS: FUROSEMIDE 40 MG/4 ML VIAL (J1940) IV SCH (17:46)
[2018-11-08] MEDS: AZITHROMYCIN INJ 500 MG, VIAL MATE ADAPTER 1 EACH in D5W 250 ML IV SCH (18:50)
[2018-11-08] MEDS ORDERED: AZITHROMYCIN SUSP 200MG/5ML 30ML BOTTLE (FOR INPATIENT ORDERS) PO ONE (20:00)
[2018-11-08 20:37] LABS: ABG BASE EXCESS -3.9 (-2.0-2.0); ABG HCO3 18.5 MEQ/L (22.0-26.0); ABG PARTIAL PRESSURE CO2 26.6 mmHg (35.0-45.0); ABG PARTIAL PRESSURE O2 59.2 mmHg (75.0-100.0); ABG STANDARD HCO3 21.1 MEQ/L (22.0-26.0); ABG TOTAL CO2 19.4 MEQ/L (23.0-31.0); ABG pH (ARTERIAL) 7.461 UNITS (7.350-7.450)
[2018-11-08] MEDS: ROSUVASTATIN 10 MG TAB (CRESTOR) PO SCH (20:39)
[2018-11-08] MEDS: rOPINIRole 0.25 MG TAB(REQUIP) PO SCH (20:39)
[2018-11-08] MEDS: AMITRIPTYLINE 25 MG TAB PO SCH (20:39)
--- NOTE | 2018-11-08 21:53 | CR.PDOC ---
General Date of Consultation: November 08, 2018 Referring Provider: ERWIN TAPIA DO Attending Physician: Tiarra Baird MD Consultation REASON FOR CONSULTATION/CHIEF COMPLAINT: Management of antibiotics and pneumonia HISTORY OF PRESENT ILLNESS: Patient is an 78-year-old female who presented with 2 days of worsening shortness of breath to [facility] on 11/05/2018. On presentation. She was admitted for extensive bilateral pneumonia and started on IV Plavix. At home. Patient did not require oxygen. However, due to decreased saturations. She was started on oxygen supplementation. Initial lab work also showed an elevated white count of 13.1, she was also discovered to be anemic, which is expected due to her advanced chronic kidney disease. Infectious disease was consulted for management of antibiotics and patient's pneumonia. ALLERGIES: Please see below HOME MEDICATIONS: Please see below PAST MEDICAL HISTORY: PKD stage IV, hypertension, pulmonary fibrosis, hyperlipidemia, GERD, depression, sacral insufficiency fracture, recent percutaneous, anemia, urinary incontinence, questionable history of lupus PAST SURGICAL HISTORY: 1. Cholecystectomy. 2. Right ankle fracture repair. 3. Abdominal surgery for gallstones. 4. Right wrist fracture surgery. 5. Failed fistula placement. FAMILY HISTORY: Noncontributory SOCIAL HISTORY: Reported to live at home with her son. Record review showed the patient has history of alcohol use. Ex-smoker. No history of IV drug use ROS CONSTITUTIONAL: No fevers, denies chills, denies weight loss, denies lethargy HEENT: No rhinorrhea, no itchy eyes, no congestion, CARDIOVASCULAR: No murmurs no palpitations and arrhythmias RESPIRATORY: Admits to difficulty breathing, denies cough, admits to shortness of breath GASTROINTESTINAL: No nausea, no vomiting, no difficulty swallowing, no pain with eating, no diarrhea HEMATOLOGICAL: No bleeding GENITOURINARY:No Issues HEMATOLOGIC/LYMPHATIC: Mild lower shortness PHYSICAL EXAMINATION: VITALS: See Below GENERAL APPEARANCE: Elderly female, appears to be having difficulty breathing, appears older than stated age SKIN: Warm, well perfused. ENT: Neck supple, LUNGS: Clear to auscultation bilaterally. HEART: Normal S1, S2. No murmurs, no rubs, no gallops ABDOMEN: Soft. No masses. Bowel sounds are present. TRUNK/SPINE:Straight. EXTREMITIES: Moves all extremities equally. No gross deformities. PULSES: 2+ upper and lower extremity . LABORATORY DATA: Please see below. IMAGES: Chest CT: Progressive areas of predominately interstitial infiltrate, patchy and asymmetric, in the lung castañeda bilaterally, most extensively in the right upper lobe. Findings consistent with progressive pneumonia. There are small bilateral pleural effusions and moderate cardiac enlargement is again observed. Renal US Mild to moderate bilateral renal atrophy with no hydronephrosis. Somewhat limited exam. A few left renal cysts are noted CT ABD & Pelvis w/o contrast IMPRESSION:1. Evidence of bilateral lower lobe pneumonia with minimal lingular and inferior right upper lobe pneumonia. 2. Small bilateral pleural effusions. 3. Extreme exam limitations as described above but with unchanged pneumobilia and evidence of small bowel ileus versus early obstruction. This needs to be correlated clinically with appropriate followup. 4. Other findings as described above. Chest Portable Cardiomegaly. Infiltrates noted in the right upper and lower lobes. ASSESSMENT/PLAN: A 78 year female admitted for pneumonia, with infectious disease consultation for antibiotic management. She has been afebrile since admission, with trending down WBCs. She is currently on azithromycin and ceftriaxone. Blood cultures have been negative so far, sputum cultures have been negative so far. I would recommend staying with the current antibiotic regiment. Continue to monitor for clinical improvement. He rworsening symptomas are more likely related to congestive heart failure with BNP increase from 30 to 60,000. She is being d iuresed with IV lasix. Nephrology has been consulted in case dialysis may be needed Vital Signs/I&O Vital Signs Date Time Temp Pulse Resp B/P (MAP) Pulse Ox O2 Delivery O2 Flow Rate FiO2 11/08/18 19:44 Nasal Cannula 5.0 11/08/18 17:09 96.8 88 26 146/80 (102) 93 I&O- Last 24 Hours up to 6 AM 11/08/18 06:00 Intake Total 2020 ml Output Total 1175 ml Balance 845 ml Laboratory Data Labs 24H Laboratory Tests 2 11/08/18 04:45: Nucleated Red Blood Cells % (auto) 0.0, Erythrocyte Sedimentation Rate 58H, Anion Gap 11, Glomerular Filtration Rate 14.1L, Blood Urea Nitrogen 45H, Creatinine 3.35H, Sodium Level 134L, Potassium Level 3.9, Chloride Level 104, Carbon Dioxide Level 19L, Calcium Level 8.1L, Magnesium Level 2.0, C-Reactive Protein, Quantitative 20.20H 11/08/18 16:09: CBC/BMP Laboratory Tests 11/08/18 04:45 Red Blood Count 3.64 L, Mean Corpuscular Volume 87.6, Mean Corpuscular Hemoglobin 29.4, Mean Corpuscular Hemoglobin Concent 33.5, Red Cell Distribution Width 13.8, Calcium Level 8.1 L Microbiology Microbiology 11/05/18 Blood Culture - Preliminary, Resulted No Growth after 72 hours. All specime... 11/05/18 Blood Culture - Preliminary, Resulted No Growth after 72 hours. All specime... 11/08/18 Stool Occult Blood (LETICIA) - Final, Complete 11/06/18 Gram Stain - Final, Resulted 11/06/18 Sputum Culture, Resulted Pending 11/05/18 Respiratory Virus Panel (PCR) (LETICIA) - Final, Complete 11/07/18 Urine Culture - Final, Complete Allergies Coded Allergies: ciprofloxacin (Verified Allergy, Severe, HIVES, 11/05/18) polyethylene glycol (Verified Allergy, Severe, HIVES, 11/05/18) Quinolones (Verified Allergy, Unknown, Nausea, 11/05/18) Home Medications Scheduled Amitriptyline HCl (Amitriptyline HCl) 25 Mg Tab, 25 MG PO QHS, (Reported) Amlodipine Besylate (Amlodipine Besylate) 10 Mg Tablet, 10 MG PO DAILY, (Reported) Calcium Carbonate/Vitamin D3 (Calcium 600-Vit D3 400 Tablet) 1 Tab Tab, 1 TAB PO DAILY, (Reported) Carvedilol (Carvedilol) 3.125 Mg Tab, 3.125 MG PO BID, (Reported) Cyclosporine (Restasis) 0.05 % Emu, 1 DROP OU BID, (Reported) Ergocalciferol (Vitamin D2) (Vitamin D2) 50,000 Unit Cap, 50,000 UNIT PO 1XWK, (Reported) TUES Esomeprazole Magnesium (Nexium) 40 Mg Gra, 40 MG PO DAILY, (Reported) Ferrous Gluconate (Ferrous Gluconate) 324 Mg Tab, 324 MG PO DAILY, (Reported) Folic Acid (Folic Acid) 1 Mg Tab, 1 MG PO DAILY, (Reported) Hydroxychloroquine Sulfate (Hydroxychloroquine Sulfate) 200 Mg Tab, 200 MG PO BID, (Reported) Lactobacillus Combo No.10 (Probiotic) 1 Each Capsule, 1 CAP PO DAILY, (Reported) Oxybutynin Chloride (Oxybutynin Chloride) 5 Mg Tablet, 5 MG PO BID, (Reported) Ropinirole HCl (Ropinirole HCl) 0.25 Mg Tablet, 0.25 MG PO QHS, (Reported) Rosuvastatin Calcium (Rosuvastatin Calcium) 10 Mg Tab, 10 MG PO QHS, (Reported) Sertraline Hcl (Zoloft) 50 Mg Tab, 50 MG PO DAILY, (Reported) Thiamine HCl (Thiamine HCl) 100 Mg Tablet, 100 MG PO DAILY, (Reported) Scheduled PRN Albuterol Sulfate (Ventolin Hfa) 108 Mcg/Act Aer, 2 PUFFS INH Q4H PRN for SHORTNESS OF BREATH, (Reported) Polyvinyl Alcohol (Artificial Tears) 1.4 % Christel, 1 DROP OU QID PRN for DRY EYES, (Reported) GME ATTESTATION GME ATTESTATION My faculty preceptor for this patient encounter was physically present during the encounter and was fully available. All aspects of the patient interview, examination, medical decision making process, and medical care plan development were reviewed and approved by the faculty preceptor. The faculty preceptor is aware and concurs with the plan as stated in the body of this note and will attest to such by his/her cosignature. MANDO CUELLO DO November 08, 2018 21:53 Tiarra Baird MD November 09, 2018 08:21
[2018-11-09] VITALS: O2SAT 87
[2018-11-09] MEDS ORDERED: LORazepam 2 MG/ML VIAL (J2060) IM STA (02:18)
--- NOTE | 2018-11-09 03:31 | TRANSCARE ---
Transition of Care: Transition of Care Was called by nursing as the patient's sons wants to transfer pt to [facility] for second opinion. Discussed with them that CXR and CT Without contrast showed pneumonia and Azithromycin was started 11/08/18. Pt's sons verbalizes understanding and agrees to wait until morning to transfer the pt. Will let morning team know. It was noted that pt's IV access was lost and it's difficult to leave the IV MATI PRIETO DO November 09, 2018 03:31
[2018-11-09 04:00] VITALS: BP 128/86
[2018-11-09 04:24] LABS: HEMATOCRIT 33.9 % (36.0-47.0); HEMOGLOBIN 11.1 g/dl (12.0-15.5); MEAN CORPUSCULAR HEMOGLOBIN 29.7 pg (27.0-33.0); MEAN CORPUSCULAR HGB CONC 32.7 g/dl (32.0-36.5); MEAN CORPUSCULAR VOLUME 90.6 fl (80.0-96.0); PLATELET COUNT, AUTOMATED 122 10^3/uL (150-450); RED BLOOD COUNT 3.74 10^6/uL (4.00-5.40); WHITE BLOOD COUNT 7.5 10^3/uL (4.0-10.0)
[2018-11-09 04:44] LABS: ERYTHROCYTE SEDIMENTATION RATE 53 mm/hr (0-30)
[2018-11-09 04:56] LABS: C REACTIVE PROTEIN QUANTITATIV 20.5 MG/DL (0.00-0.30); CALCIUM LEVEL 8.1 MG/DL (8.8-10.2); CREATININE FOR GFR 3.24 MG/DL (0.55-1.30); GLOMERULAR FILTRATION RATE 14.6 (>32); MAGNESIUM LEVEL 1.9 MG/DL (1.8-2.4); POTASSIUM SERUM 3.2 MEQ/L (3.5-5.1)
[2018-11-09] MEDS: SLF 3 ML SYR IV SCH (05:08)
[2018-11-09 07:30] VITALS: BP 132/80
[2018-11-09] MEDS: ALBUTEROL SULFATE 2.5 MG/0.5 ML INH NEB SOLN NEB PRN ×2 (07:55→12:03)
[2018-11-09] MEDS ORDERED: POTASSIUM CHLORIDE 10 MEQ SR TABLET PO ONE (08:00)
[2018-11-09 08:38] VITALS: BP 128/86
[2018-11-09] MEDS: SERTRALINE HCL 50 MG TAB PO SCH (08:38)
[2018-11-09] MEDS: PANTOPRAZOLE 40MG TAB (PROTONIX) PO SCH (08:38)
[2018-11-09] MEDS: CARVedilol 3.125 MG TAB PO SCH (08:38)
[2018-11-09] MEDS: THIAMINE 100 MG TAB PO SCH (08:38)
[2018-11-09] MEDS: FOLIC ACID 1 MG TAB PO SCH (08:38)
[2018-11-09] MEDS: FERROUS GLUCONATE 324 MG TAB PO SCH (08:38)
[2018-11-09] MEDS: oxyBUTYnin 5 MG TAB PO SCH (08:39)
[2018-11-09] MEDS: FUROSEMIDE 40 MG/4 ML VIAL (J1940) IV SCH (08:40)
[2018-11-09] MEDS ORDERED: LINEZOLID 600MG TABLET (ZYVOX) PO SCH (09:00)
[2018-11-09] MEDS ORDERED: DOXYCYCLINE HYCLATE 100 MG TAB PO SCH (09:00)
[2018-11-09] MEDS ORDERED: amLODIPine 5 MG TAB PO SCH (09:00)
[2018-11-09] MEDS ORDERED: DOXY100T PO (11:18)
--- NOTE | 2018-11-09 13:03 | DSES ---
DATE OF ADMISSION: 11/05/2018 DATE OF TRANSFER: 11/09/18 ACCEPTING PHYSICIAN: Dr. Tamez ACCEPTING FACILITY: [facility] CONSULTANTS: Nephrology, infectious disease. DISCHARGE DIAGNOSES: 1. Acute respiratory distress secondary to pneumonia and bilateral pleural effusions. 2. Chronic kidney disease stage III/IV. 3. Pulmonary fibrosis. 4. Depression. 5. Metabolic encephalopathy. 6. Dyslipidemia. 7. Hypertension. 8. Gastroesophageal reflux disease (GERD). 9. Anemia. 10. Urinary incontinence. 11. Questionable history of lupus. HOSPITALIZATION COURSE: The patient is an 78-year-old female who presented to [facility] on 11/05/2018 with a complaint of worsening breathing and abdominal pain. Diagnostic workup was performed. The patient was admitted under the hospitalist service for pneumonia. The patient was started on IV antibiotics after the sputum cultures. Due to sign of fluid overload, the patient was also started on IV Lasix. Due to worsening of the respiratory status, CT imaging of the chest was performed. The patient was found to have progressive pneumonia. Infectious disease was consulted. Later, the patient started having more frequent intermittent confusion secondary to metabolic encephalopathy. Due to poor IV access, peripherally inserted central catheter (PICC) order was placed. The patient was originally brought to interventional radiology; however, the PICC line placement has been very difficult, so the patient's antibiotic regimen was adjusted to oral formulation by infectious disease recommendations while we are trying to establish venous access. Later, the patient requested a transfer to [facility], where the patient received her previous care. Transfer request was made to [facility]. The patient had accepting physician and a bed offered. OBJECTIVE: VITAL SIGNS: On the day of transfer: Temperature is 97.4, pulse 78, respirations 22, blood pressure 132/80, pulse oximetry 91% with 8 liters of oxygen. LABORATORY DATA: WBC 7.5, hemoglobin 11.1, hematocrit 33.9, platelet count is 122. ESR is 53. Sodium 134, potassium 3.2, chloride 103, carbon dioxide 19, BUN 51, creatinine 3.24, GFR is 14.6, fasting glucose 101, calcium 8.1, magnesium 1.2, C-reactive protein is 20.5. D-dimer is 2084. Microbiology: Blood cultures from 11/05/2018 showed no growth after 72 hours times two sets. Respiratory panel is negative. Sputum cultures from 11/06/2018 showed methicillin resistant Staphylococcus aureus (MRSA). Urine culture from 11/07/2018 is negative. Stool occult test is negative. Blood transfusion history: 2 units of packed red blood cells on 11/07/2018. Imaging studies: Chest x-ray on 11/05/2018 showed infiltrate noted in the right upper and lower lobes. CT of the abdomen and pelvis without contrast on 11/05/2018 showed evidence of bilateral lower lobe pneumonia with minimal lingular inferior right upper lobe pneumonia. Small bilateral pleural effusions. Examination limitation but with unchanged pneumobilia and evidence of small bowel ileus versus early obstruction. Renal ultrasound on 11/07/2018 showed mild to moderate bilateral renal atrophy with no hydronephrosis. A few left renal cysts. CT of the chest without contrast on 11/07/2018 showed progressive area of predominantly interstitial infiltrate, patchy and symmetric in the lung castañeda bilaterally, more extensively in the right upper lobe. Findings are consistent with progressive pneumonia. Small bilateral pleural effusion and moderate cardiac enlargement. DISCHARGE INSTRUCTIONS: The patient is transferred to [facility] via ambulance. The patient has very poor IV access. PICC line placement was not successful with interventional radiology previously. Originally, the patient was going to have access line placement by vascular surgery on 11/09/2018. Transfer was set up prior to the procedure. The patient had decompensation in her respiratory status. D-dimer was found to be elevated. V/Q scan was ordered, however, it was not performed prior to the transfer. HOME MEDICATIONS: - Ventolin two puff inhalation every 4 hours as needed for shortness of breath - amitriptyline 25 mg by mouth at night - amlodipine 10 mg by mouth daily - calcium/vitamin D one tablet by mouth daily - carvedilol 3.125 mg by mouth twice a day - vitamin D2 50,000 units by mouth once a week - Nexium 40 mg by mouth daily - ferrous gluconate 324 mg by mouth daily - folic acid 1 mg by mouth daily - hydroxychloroquine 300 mg by mouth twice a day - probiotic one tablet by mouth daily - oxybutynin 5 mg by mouth twice a day - ropinirole 0.25 mg by mouth at night - rosuvastatin 10 mg by mouth at night - Zoloft 50 mg by mouth daily - thiamine 100 mg by mouth daily Discharge condition is guarded. Discharge time was greater than 30 minutes, including arranging the transfer. [facility]
[2018-11-09] MEDS ORDERED: rOPINIRole 0.25 MG TAB(REQUIP) PO SCH (21:00)
--- NOTE | 2018-11-10 08:18 | IPN ---
DATE OF SERVICE: 11/08/2018 SUBJECTIVE: Patient seen and examined this morning at the bedside. Her daughter, Layne Ann, is present at the bedside as well. Patient complains of ongoing shortness of breath. She is requiring an increased amount of supplemental oxygen up to 6 liters via nasal cannula. She has responded well to intravenous (IV) diuretics with increasing urine output, and renal function is unchanged as compared to yesterday. Infectious disease's recommendations are noted. Nursing staff reports patient had a fall out of bed last night trying to get to the bathroom. She has a Mckeon catheter in place. Vital Signs: Temperature 97.3, pulse 87, respiratory rate 18, blood pressure 138/72, saturating 90-92% on 3 6 liters to 15 liters of oxygen. General: Patient is seen sitting in bed. The head of the bed is elevated. Elderly female, frail, mild respiratory distress. Awake and alert. Makes eye contact and answers simple questions appropriately. Daughter is present at the bedside. Tongue is a little dry. Neck veins do not appear overtly elevated. Cardiac: S1, S2. There is no edema in the peripheries. The lungs show diminished breath sounds bilaterally with scattered crackles. The abdomen is soft and nontender. There are bowel sounds. The extremities are negative for edema or cyanosis. LABS: Sodium 134, potassium 3.9, bicarbonate 19, BUN 45, creatinine 3.3, CRP 20. Hemoglobin 10.7. PH 7.46 on blood gas. PCO2 26, pO2 59. INPATIENT MEDICATIONS: Reviewed by myself, and I started the patient on Lasix 40 mg IV twice a day, and I reduced the dose of amlodipine to 5 mg daily. Remainder of medications are unchanged from prior. PROBLEMS: 1. Chronic kidney disease (CKD) stage IV with mild acute kidney injury in the setting of severe pneumonia. Patient is requiring escalating amount of supplemental oxygen. Her CT of the chest did show small bilateral pleural effusions. I would prefer to keep her on the dry side given the pneumonia with underlying pulmonary fibrosis further complicating the picture. She is receiving Lasix 40 mg intravenous (IV) twice a day now. Her renal function has plateaued with the ongoing diuretic use, and she has had improving urine output. There are no uremic signs or symptoms. There is no indication for dialysis initiation at present. I would continue with current diuretics and keep a close eye on her respiratory status. 2. Hypoxemia and acute respiratory distress. Patient is requiring increasing amounts of supplemental oxygen. CAT scan is showing extensive pneumonia. Infectious disease's recommendations are noted. Her C-reactive protein (CRP) is not downtrending at all, despite several days of antibiotics. Her oxygen requirements also are increasing rather than decreasing. We are trying to keep her on the dry side given the severe pulmonary issues on top of her already chronic pulmonary fibrosis. Continue present diuretics. Remainder management of the pneumonia and supplemental oxygen is as per the primary team. 3. Hypertension. Blood pressures are acceptable, but as I am putting her on standing Lasix 40 mg twice daily, I have reduced the dose of amlodipine so as to avoid borderline blood pressures. 4. Acute on chronic anemia. She is improved after 2 unit packed red blood cells. Her stool occult blood was negative. Would start on once weekly Aranesp. 5. Hypokalemia. It is secondary to diuretic use, and supplementation is given.
[2018-11-13 06:46] LABS: SPECIMEN SOURCE Urine; URINE STREP PNEUMONIAE ANTIGEN Negative
[2018-11-13 06:48] LABS: BODY FLUID CULTURE Not Indicated; LEGIONELLA ANTIGEN URINE Negative; ORGANISM ID Not Indicated
== END 2018-11-09 13:17 | disposition short-term general hospital (02) | DRG 193 ==
LOC: M ED 13:29 → M ED INP 16:00 → M PCU 18:00
PROVIDERS: ADMIT Internal Medicine; ATTEND Internal Medicine
PROC: 02HV33Z Insertion of Infusion Device into Superior Vena Cava, Percutaneous Approach (ICD-10-PCS; 2018-11-05)
PROC: 30233N1 Transfusion of Nonautologous Red Blood Cells into Peripheral Vein, Percutaneous Approach (ICD-10-PCS; principal; 2018-11-07)
DX: J18.9 Pneumonia, unspecified organism (principal); G93.41 Metabolic encephalopathy; N18.5 Chronic kidney disease, stage 5; E87.2 Acidosis; F32.9 Major depressive disorder, single episode, unspecified; E78.5 Hyperlipidemia, unspecified; I12.9 Hypertensive chronic kidney disease with stage 1 through stage 4 chronic kidney disease, or unspecified chronic kidney disease; K21.9 Gastro-esophageal reflux disease without esophagitis; D64.9 Anemia, unspecified; J84.10 Pulmonary fibrosis, unspecified; Z79.899 Other long term (current) drug therapy; Z88.8 Allergy status to other drugs, medicaments and biological substances; Z86.73 Personal history of transient ischemic attack (TIA), and cerebral infarction without residual deficits